=== PATIENT | female | born 1950 | race Caucasian/White ===

== ENCOUNTER 2018-12-10 22:18 | Inpatient (IN) | payer MEDICARE, BC ==
[~2018-12-10] VITALS: Ht 162.6 cm; Wt 113.4 kg
--- NOTE | 2018-12-10 22:20 | NUR ---
TO BED 1 BIB EMS C/O TRIPPED AND FALL, HAD DIFFICULTY GETTING UP BUT PT INSISTED FOR HER TO BE TRANSPORTED TO THE HOSPITAL DUE TO [id number]. PT AAOX3 NO ACUTE DISTRESS NOTED, RESP EVEN AND UNLABORED. PLACE PT ON CARDIAC MONITORING, CONTINUOUS POX. ER MD AT BEDSIDE TO EVAL PT WITH ORDERS RECEIVED. WILL CARRY OUT ORDERS.
[2018-12-10] MEDS ORDERED: IV NS 0.9% 500 ML BAG IV ONE ×2 (22:30→23:00)
[2018-12-10 22:54] LABS: BASOPHILS # (AUTO) 0.1 /CMM (0.0-0.2); BASOPHILS % (AUTO) 0.7 % (0.0-2.0); HEMATOCRIT 45 % (33-45); HEMOGLOBIN 14.9 g/dL (11.5-14.8); LYMPHOCYTES # (AUTO) 0.3 /CMM (0.8-4.8); LYMPHOCYTES % (AUTO) 1.9 % (20.0-44.0); MEAN CORPUSCULAR HGB CONC 33 g/dl (31.0-36.0); MEAN CORPUSCULAR VOLUME 98 fL (82-100); MONOCYTES # (AUTO) 0.5 /CMM (0.1-1.30); MONOCYTES % (AUTO) 3.2 % (2.0-12.0); NEUTROPHILS # (AUTO) 15.2 /CMM (1.8-8.9); NEUTROPHILS % (AUTO) 94.2 % (43.0-81.0); PLATELET COUNT (AUTO) 255 /CMM (150-450); RED BLOOD CELL COUNT(AUTO) 4.54 MIL/uL (4.0-5.2); WHITE BLOOD COUNT (AUTO) 16.2 K/uL (4.3-11.0)
[2018-12-10 23:06] LABS: CALCIUM, SERUM 9.1 mg/dL (8.5-10.1); CARBON DIOXIDE 23 mmol/L (21-32); CHLORIDE 95 mmol/L (98-107); CREATININE 1.1 mg/dL (0.6-1.3); SODIUM SERUM 131 mmol/L (136-145); UREA NITROGEN, BLOOD 16 mg/dL (7-18)
[2018-12-10 23:07] LABS: GLUCOSE 392 mg/dL (74-106)
--- NOTE | 2018-12-10 23:27 | NUR ---
PT BACK FROM RADIOLOGY. PENDING CT HEAD RESULT.
[2018-12-10] MEDS ORDERED: CEFEPIME 1 GM VIAL IV ONE (23:30)
[2018-12-10] MEDS ORDERED: CEFEPIME 1 GM VIAL ONE (23:39)
[2018-12-10 23:46] LABS: ALBUMIN 2.4 g/dL (3.4-5.0); BILIRUBIN,DIRECT 0.2 mg/dL (0.0-0.2); BILIRUBIN,TOTAL 0.9 mg/dL (0.2-1.0); TOTAL PROTEIN, SERUM 7.4 g/dL (6.4-8.2)
--- NOTE | 2018-12-11 00:14 | NUR ---
ER MD AT BEDSIDE TALKING TO PT AND PT FAMILY MEMBER REGARDING LAB RESULTS AND HOSPITAL ADMISSION.
--- NOTE | 2018-12-11 00:57 | NUR ---
I&O CATH DONE BY FEMALE SAMRA CARY. URINE SAMPLE COLLECTED AND SENT TO LAB.
[2018-12-11 01:18] LABS: APPEARANCE,URINE CLOUDY (CLEAR); BILIRUBIN,URINE NEGATIVE (NEGATIVE); BLOOD, URINE 2+ Ery/uL (NEGATIVE); COLOR,URINE YELLOW (YELLOW); KETONES,URINE 2+ (NEGATIVE); LEUKOCYTE ESTERASE ,URINE 1+ (NEGATIVE); NITRITE, URINE POSITIVE (NEGATIVE); PROTEIN,URINE 1+ mg/dl (NEGATIVE); UGLUCOSE 3+ mg/dL (NEGATIVE); UROBILINOGEN,URINE 0.2 EU/dL (0.2)
[2018-12-11 01:22] LABS: BACTERIA,URINE Moderate /HPF (None Seen); SQUAMOUS EPITHELIAL CELL,UR Moderate /HPF (None Seen); WBC,URINE TOO NUMEROUS TO COUN /HPF (0-3)
--- NOTE | 2018-12-11 01:31 | NUR ---
[facility]. WILL CALL FOR REPORT WHEN BED IS AVAILABLE.
[2018-12-11] MEDS ORDERED: DIPH-530 PO (01:50)
[2018-12-11] MEDS ORDERED: OXYC-454 PO (01:50)
[2018-12-11] MEDS ORDERED: RIVA10TA PO ×2 (01:50)
[2018-12-11] MEDS ORDERED: PREG300C PO (01:50)
[2018-12-11] MEDS ORDERED: LORA1TAB PO (01:50)
--- NOTE | 2018-12-11 02:00 | NUR ---
REPORT CALLED TO M/S SAMRA BARRON.
[2018-12-11 02:30] VITALS: BP 117/59
[2018-12-11] MEDS ORDERED: MAG HYDROX/AL HYDROX/SIMETH 30 ML UDC PO PRN (02:30)
[2018-12-11] MEDS ORDERED: MAGNESIUM HYDROXIDE 30 ML UDC PO PRN (02:30)
[2018-12-11] MEDS ORDERED: HYDROCODONE/APAP 10/325MG 1 EA TABLET PO PRN (02:30)
[2018-12-11] MEDS ORDERED: HYDROCODONE/APAP 5/325MG 1 EACH TABLET PO PRN (02:30)
[2018-12-11] MEDS ORDERED: ONDANSETRON HCL/PF 4 MG/2 ML VIAL IVP PRN (02:30)
[2018-12-11] MEDS ORDERED: ACETAMINOPHEN 325 MG TABLET PO PRN (02:30)
[2018-12-11] MEDS ORDERED: LORAZEPAM 1 MG TABLET PO PRN (02:30)
[2018-12-11] MEDS ORDERED: Z GUARD REMEDY 2 OZ OINT TP PRN (02:30)
[2018-12-11] MEDS ORDERED: ENOXAPARIN SODIUM 40 MG/0.4 ML DISP.SYRIN SQ SCH (02:30)
--- NOTE | 2018-12-11 02:30 | NUR ---
RN NOTES RECEIVED PT. FROM ER WITH DX, OF SEPSIS, A.OX2, AT BEDSIDE, OBESE, ADMISSION INSTRUCTION WAS GVIEN, CALL LIGHT WITHIN REACH, SIDERAILSUPX2, CONTINUE O MONITOR
--- NOTE | 2018-12-11 02:45 | NUR ---
RN NOTES PT. REFUSED TO HAVE A BED BATH, EVEN WE EXPLAINED THE IMPORTANCE OF BED BATH
[2018-12-11] MEDS: IV NS 0.9% 1,000 ML IV PRN ×2 (03:27→20:08)
--- NOTE | 2018-12-11 04:00 | NUR ---
RN NOTES EXPLAINED TO THE PATIENT THAT ALL HER MEDICATION WILL GIVEN THIS MORNING.. PER PT. IS TAKING LANTUS BUT THEY DON'T KNOW THE UNITS.. EXPLAINED TO THE THAT WHEN HE GETS HOME TO CHECK THE MEDICATION AND CALL US HOW MANY UNITS DOES MANFRED PT. TAKING
[2018-12-11] MEDS ORDERED: CEFTRIAXONE 1 G VIAL ONE (05:08)
[2018-12-11] MEDS: CEFTRIAXONE 1 G in IV D5W 50 ML IV SCH (05:35)
--- NOTE | 2018-12-11 06:00 | NUR ---
RN NOTES FINALLY PT. AGREED TO HAVE BED BATH
--- NOTE | 2018-12-11 06:00 | NUR ---
RN NOTES PAGED CARMEN CURTIS - DELINQUENCY PREVENTION OFFICER TO FOLLOW UP SOME HOME MEDICATION- WAITING FOR HIM TO CALL BACK
[2018-12-11 06:33] LABS: BASOPHILS % (AUTO) 0.3 % (0.0-2.0); HEMATOCRIT 41 % (33-45); HEMOGLOBIN 13.6 g/dL (11.5-14.8); LYMPHOCYTES # (AUTO) 0.6 /CMM (0.8-4.8); LYMPHOCYTES % (AUTO) 3.7 % (20.0-44.0); MEAN CORPUSCULAR HGB CONC 34 g/dl (31.0-36.0); MEAN CORPUSCULAR VOLUME 98 fL (82-100); MONOCYTES # (AUTO) 0.5 /CMM (0.1-1.30); MONOCYTES % (AUTO) 3.4 % (2.0-12.0); NEUTROPHILS # (AUTO) 14.1 /CMM (1.8-8.9); NEUTROPHILS % (AUTO) 92.6 % (43.0-81.0); PLATELET COUNT (AUTO) 236 /CMM (150-450); RED BLOOD CELL COUNT(AUTO) 4.14 MIL/uL (4.0-5.2); WHITE BLOOD COUNT (AUTO) 15.2 K/uL (4.3-11.0)
--- NOTE | 2018-12-11 07:00 | NUR ---
RN NOTES SPOKE TO PHARMACIST FOSTER REGARDING PT. XARELTO AND INFORMED AIDEN THAT PT. DID NOT TAKE IT YESTERDAY. PHARMACIST WILL GIVE XARELTO IN THE MORNING AND WILL FOLLOW THE REGULAR TIME THAT PT IS TAKING IT THE FOLLOWING DAY
--- NOTE | 2018-12-11 07:10 | NUR ---
RN NOTES GAVE REPORT TO THE DAYSHIFT NURS AND ASKED THEM TO FOLLOW UP SOME OF PT. HOME MEDICATION, MORNING CARE RENDERED, DENIES PAIN, NO SOB,. PT. NEEDS ATTENDED
[2018-12-11 07:14] LABS: CALCIUM, SERUM 8.5 mg/dL (8.5-10.1); MAGNESIUM 1.6 mg/dL (1.8-2.4); PHOSPHORUS 3.7 mg/dL (2.5-4.9); POTASSIUM 4.6 mmol/L (3.5-5.1)
[2018-12-11 07:17] LABS: THYROID STIMULATING HORMONE 1.648 uIU/mL (0.358-3.74)
--- NOTE | 2018-12-11 08:00 | NUR ---
MS SAMRA AM NOTES RECEIVED PT. A.OX3-4.WITH FORGETFULNESS. AT BEDSIDE, OBESE, USES BEDSIDE COMMODE.DENIES PAIN OR DISTRESS.WITH ONGOING IVF OF NS AT 75 ML/HR TO LT ARM INFUSING WELL.FOR PT EVAL.CALL LIGHT WITHIN REACH, SIDERAILS UPX2, CONTINUE TO MONITOR
[2018-12-11 08:45] VITALS: BP 110/57
[2018-12-11] MEDS ORDERED: INSU100V7 SQ (08:52)
[2018-12-11] MEDS: PREGABALIN 100 MG CAPSULE PO SCH ×3 (08:55→16:55)
[2018-12-11] MEDS: RIVAROXABAN 10 MG TABLET PO SCH (08:58)
[2018-12-11] MEDS: BLOOD SUGAR DIAGNOSTIC 1 EACH STRIP IN SCH ×4 (08:59→21:02)
[2018-12-11] MEDS ORDERED: DEXTROSE 50%-WATER 50 ML DISP.SYRIN IV PRN (09:00)
[2018-12-11] MEDS: INSULIN ASPART/LISPRO 100 UNIT/ML CARTRIDGE SQ PRN ×4 (09:40→21:07)
[2018-12-11] MEDS ORDERED: Magnesium 1GM/D5W 100ML PREMIX 100 ML IV SCH (11:41)
--- NOTE | 2018-12-11 12:06 | NUR ---
PT IS EATING HER LUNCH AND WANTS HER IV MAGNESIUM FIRST BAG TO BE INFUSED AFTER SHE EATS HER LUNCH CAUSING DELAY IN INFUSION.
[2018-12-11] MEDS: Magnesium 1GM/D5W 100ML PREMIX 100 ML IV SCH ×2 (12:42→13:57)
[2018-12-11 16:03] VITALS: BP 100/63
--- NOTE | 2018-12-11 18:08 | NUR ---
PT IS EATING DINNER AND IS SO HAPPY THAT HER BLOOD SUGAR IS TRENDING DOWN WITH THE SLIDING SCALE SHE IS RECEIVING.DENIES ANY DISTRESS.ASSISTED TO THE COMMODE SEVERAL TIMES.MADE SMALL BROWN BM DURING THE SHIFT.GOOD PERICARE RENDERED.CALL LIGHT PLACED WITHIN REACH.
--- NOTE | 2018-12-11 19:00 | NUR ---
RN NOTES RECEIVE PT IN THE BED A/O X 3 WITH PERIOD OF FORGETFULNESS AT BEDISDE, IN STABLE CONDITION, NOT IN DISTRESS, SAFETY MEASURES IN PLACE. WILL CONTINUE TO MONITOR.
[2018-12-11 20:00] VITALS: BP 133/104
--- NOTE | 2018-12-11 21:51 | NUR ---
SPOKE AND PAGED TO CARMEN CURTIS, MARIEL RELAYED LAB OF BLOOD CULTURE + COCCI IN CHAINS SEEN ON GRAM STAIN WITH NO NEW ORDERS NOTED AND CARRIED OUT.
[2018-12-12] MEDS: CEFTRIAXONE 1 G in IV D5W 50 ML IV SCH (05:01)
[2018-12-12] MEDS: BLOOD SUGAR DIAGNOSTIC 1 EACH STRIP IN SCH ×4 (05:52→21:48)
[2018-12-12] MEDS: INSULIN ASPART/LISPRO 100 UNIT/ML CARTRIDGE SQ PRN ×4 (05:53→21:59)
--- NOTE | 2018-12-12 06:03 | NUR ---
RN CLOSING NOTE PT IN BED ASLEEP AND EASILY AWAKEN 02 SAT 98% TOLERATING ROOM AIR. AT BEDSIDE. STABLE CONDITION, NOT IN DISTRESS. RESPIRATIONS EVEN AND UNLABORED. NURSING CARE RENDERED, GOOD SKIN CARE PROVIDED. NO COMPLAIN OF PAIN KEPT CLEAN AND DRY AND COMFORT, SAFETY MEASURES IN PLACE, CALL LIGHT WITHIN REACH. WILL ENDORSE TO HOOK LOADER FOR TIEN.
[2018-12-12 07:06] LABS: CALCIUM, SERUM 8.5 mg/dL (8.5-10.1); CREATININE 0.8 mg/dL (0.6-1.3); POTASSIUM 4.2 mmol/L (3.5-5.1)
[2018-12-12 08:00] VITALS: BP 121/69
--- NOTE | 2018-12-12 08:00 | NUR ---
MS SAMRA AM NOTES RECEIVED PT. A.OX3.ATTENTION SEEKER .WITH FORGETFULNESS. AT BEDSIDE, OBESE, USES BEDSIDE COMMODE.DENIES PAIN OR DISTRESS.WITH ONGOING IVF OF NS AT 75 ML/HR TO LT ARM INFUSING WELL.CALL LIGHT WITHIN REACH, SIDERAILS UPX2, WILL CONTINUE TO MONITOR
[2018-12-12] MEDS: PREGABALIN 100 MG CAPSULE PO SCH ×4 (09:09→21:56)
[2018-12-12] MEDS ORDERED: FEE PK DOSING 1 MIN EA MC ONE (09:21)
[2018-12-12] MEDS: VANCOMYCIN 1.25 GM in IV D5W 500 ML IV SCH (11:14)
[2018-12-12 16:00] VITALS: BP 114/64
[2018-12-12] MEDS ORDERED: PREG150C PO (16:13)
[2018-12-12] MEDS ORDERED: DIPH50CA4 PO (16:13)
[2018-12-12] MEDS ORDERED: INSU100V27 SQ (16:14)
[2018-12-12] MEDS: RIVAROXABAN 10 MG TABLET PO SCH (16:56)
--- NOTE | 2018-12-12 19:25 | NUR ---
RN NOTES RECEIVED PT IN BED, ALERT AN ORIENTED X 3, VERBALLY RESPONSIVE, AT BEDSIDE. PT WITH NO C/O PAIN, DENIES NAUSEA/DIZZINESS, NO SOB, BREATHING EVEN AND UNLABORED. PT I NO DISTRESS AT THIS TIME. IV FLUIDS RUNNING ORDERED. ALL PATIENT'S NEEDS ATTENDED TO. PLACED CALL LIGHT WITHIN EASY REACH. WILL CONTINUE TO MONITOR PT.
[2018-12-12 20:00] VITALS: BP 147/81
[2018-12-12] MEDS: IV NS 0.9% 1,000 ML IV PRN (23:10)
[2018-12-13] MEDS: VANCOMYCIN 1.25 GM in IV D5W 500 ML IV SCH ×2 (04:10→21:41)
[2018-12-13] MEDS: INSULIN ASPART/LISPRO 100 UNIT/ML CARTRIDGE SQ PRN ×4 (06:17→21:35)
[2018-12-13] MEDS: BLOOD SUGAR DIAGNOSTIC 1 EACH STRIP IN SCH ×4 (06:46→21:32)
[2018-12-13] MEDS: CEFTRIAXONE 1 G in IV D5W 50 ML IV SCH (06:46)
--- NOTE | 2018-12-13 06:54 | NUR ---
RN CLOSING NOTES PATIENT SLEPT WELL THROUGHOUT THE SHIFT, REMAINED AFEBRILE, NO S/S OF DISTRESS. NO SOB, BREATHING EVEN AND UNLABORED AND IN STABLE CONDITION. IV PERIPHERAL LINE ON LEFT FOREARM G#20, INTACT AND PATENT. IVF INFUSING WELL ORDERED. ALL PATIENT'S NEEDS ATTENDED TO. PLACED CALL LIGHT WITHIN EASY REACH. PT'S SPOUSE REMAINS TO BE AT BEDSIDE. WILL ENDORSE TO AM SHIFT NURSE FOR CONTINUITY OF CARE.
[2018-12-13 07:32] LABS: CALCIUM, SERUM 8.6 mg/dL (8.5-10.1); CREATININE 0.7 mg/dL (0.6-1.3); POTASSIUM 4.1 mmol/L (3.5-5.1)
[2018-12-13 08:00] VITALS: BP 141/77
[2018-12-13 08:25] LABS: BASOPHILS # (AUTO) 0.1 /CMM (0.0-0.2); BASOPHILS % (AUTO) 0.8 % (0.0-2.0); EOSINOPHILS % (AUTO) 1.2 % (0.0-6.0); HEMATOCRIT 40 % (33-45); HEMOGLOBIN 13.4 g/dL (11.5-14.8); LYMPHOCYTES # (AUTO) 1.2 /CMM (0.8-4.8); MEAN CORPUSCULAR HGB CONC 34 g/dl (31.0-36.0); MEAN CORPUSCULAR VOLUME 98 fL (82-100); MONOCYTES # (AUTO) 0.3 /CMM (0.1-1.30); MONOCYTES % (AUTO) 4.6 % (2.0-12.0); NEUTROPHILS # (AUTO) 5.8 /CMM (1.8-8.9); NEUTROPHILS % (AUTO) 77.4 % (43.0-81.0); PLATELET COUNT (AUTO) 247 /CMM (150-450); RED BLOOD CELL COUNT(AUTO) 4.05 MIL/uL (4.0-5.2); WHITE BLOOD COUNT (AUTO) 7.5 K/uL (4.3-11.0)
[2018-12-13] MEDS: PREGABALIN 100 MG CAPSULE PO SCH ×2 (10:22→21:28)
[2018-12-13 16:00] VITALS: BP 138/67
[2018-12-13] MEDS: RIVAROXABAN 10 MG TABLET PO SCH (17:10)
[2018-12-13] MEDS: IV NS 0.9% 1,000 ML IV PRN (19:08)
--- NOTE | 2018-12-13 19:15 | NUR ---
MS RN OPENING NOTES RECEIVED PATIENT SITTING UP IN BED, ALERT, ORIENTED X 4, AT BEDSIDE. BREATHING EVEN AND UNLABORED. NOT IN ANY DISTRESS. NO COMPLAINTS OF PAIN OR DISCOMFORT OF THIS TIME. PERIPHERAL IV OF NS AT 75ML/HR. CALL [place] WITHIN REACH. BED IN LOW, LOCKED POSITION. PATIENT STABLE ENDORSED BY THE MORNING RN. WILL CONTINUE TO MONITOR ACCORDINGLY.
[2018-12-13 20:00] VITALS: BP 136/76
--- NOTE | 2018-12-14 00:50 | NUR ---
RN NOTE BSL LEVEL CHECKED PER MD ORDER, 3HRS AFTER HS COVERAGE TO PREVENT AM HYPOGLYCEMIA. BSL- 270MG/DL
[2018-12-14] MEDS: CEFTRIAXONE 1 G in IV D5W 50 ML IV SCH (05:47)
[2018-12-14] MEDS: BLOOD SUGAR DIAGNOSTIC 1 EACH STRIP IN SCH ×4 (06:33→21:41)
[2018-12-14] MEDS: INSULIN ASPART/LISPRO 100 UNIT/ML CARTRIDGE SQ PRN ×4 (06:37→21:49)
[2018-12-14 07:07] LABS: CALCIUM, SERUM 8.6 mg/dL (8.5-10.1); CREATININE 0.8 mg/dL (0.6-1.3); POTASSIUM 4.3 mmol/L (3.5-5.1)
--- NOTE | 2018-12-14 07:18 | NUR ---
RN CLOSING NOTES PATIENT SLEPT WELL THROUGHOUT THE SHIFT, REMAINED AFEBRILE, NO S/S OF DISTRESS. NO SOB, BREATHING EVEN AND UNLABORED AND IN STABLE CONDITION. PERIPHERAL IV ON LEFT FOREARM G#20, INTACT AND PATENT, INFUSING AT 75ML/HR. ALL PATIENT'S NEEDS ATTENDED TO. PLACED CALL LIGHT WITHIN EASY REACH. PT'S SPOUSE REMAINS TO BE AT BEDSIDE. ENDORSED CONTINUITY OF CARE TO AM RN.
--- NOTE | 2018-12-14 07:33 | NUR ---
RN OPENING NOTES PT WAS RECEIVED IN BED AT LOWEST AND LOCKED POSITION WITH SIDE RAILS UP X2, A/O X4, BREATHING EVEN AND UNLABORED, NO S/S OF PAIN OR DISTRESS NOTED AT THIS TIME, IV IS PATENT AND INTACT, PRESENT AT BEDSIDE, SAFETY PRECAUTIONS IN PLACE, CALL LIGHT WITHIN REACH, WILL MONITOR ACCORDINGLY
[2018-12-14 08:00] VITALS: BP 128/69
[2018-12-14] MEDS: PREGABALIN 100 MG CAPSULE PO SCH ×2 (08:07→21:15)
[2018-12-14] MEDS: VANCOMYCIN 1.25 GM in IV D5W 500 ML IV SCH (15:10)
[2018-12-14 16:00] VITALS: BP 137/69
[2018-12-14] MEDS: RIVAROXABAN 10 MG TABLET PO SCH (16:21)
[2018-12-14] MEDS: LACTOBACILLUS RHAMNOSUS GG 1 EACH CAP.SPRINK PO SCH (16:21)
--- NOTE | 2018-12-14 18:44 | NUR ---
RN CLOSING NOTES PT IN BED AT LOWEST AND LOCKED POSITION WITH SIDE RAILS UP X2, A/O X4, BREATHING EVEN AND UNLABORED, NO S/S OF PAIN OR DISTRESS, IV IS PATENT AND INTACT, SAFETY PRECAUTIONS IN PLACE, CALL LIGHT WITHIN REACH, ALL NEEDS ATTENDED TO, WILL ENDORSE TO MATERIAL MAN RN FOR TIEN.
--- NOTE | 2018-12-14 19:15 | NUR ---
MS RN OPENING NOTES: RECEIVED PT ON ROOM AIR AND IS TOLERATING WELL. AT BEDSIDE. PT WATCHING TELEVISION AT THIS TIME. PT ON ROOM AIR AND TOLERATING WELL. NO SOB OR S/S OF DISTRESS NOTED AT THIS TIME. PT HAS IV ON L FOREARM #20G AND IS PATENT AND INTACT. CURRENTLY H/L. BED KEPT IN LOW, LOCKED POSITION, AND SIDE RAILS X 2UP. WILL CONTINUE TO MONITOR PT.
[2018-12-14 20:00] VITALS: BP 153/82
--- NOTE | 2018-12-14 21:50 | NUR ---
MS RN NOTES: BLOOD SUGAR THIS AM WAS 286. 6 UNITS OF INSULIN WAS ADMINISTERED. PT HAS MULTIPLE FOODS AT BEDSIDE.
[2018-12-15] MEDS: CEFTRIAXONE 1 G in IV D5W 50 ML IV SCH (05:19)
[2018-12-15] MEDS: BLOOD SUGAR DIAGNOSTIC 1 EACH STRIP IN SCH ×2 (06:15→11:55)
[2018-12-15] MEDS: INSULIN ASPART/LISPRO 100 UNIT/ML CARTRIDGE SQ PRN ×2 (06:27→11:54)
--- NOTE | 2018-12-15 06:30 | NUR ---
MS RN NOTES: BLOOD SUGAR THIS AM WAS 270. 6 UNITS OF INSULIN WAS ADMINISTERED. APPLE SAUCE WAS GIVEN TO PT.
[2018-12-15 06:42] LABS: CALCIUM, SERUM 8.6 mg/dL (8.5-10.1); CREATININE 0.7 mg/dL (0.6-1.3); POTASSIUM 3.7 mmol/L (3.5-5.1)
--- NOTE | 2018-12-15 06:44 | NUR ---
MS RN CLOSING NOTES: ALL NEEDS WERE ATTENDED AND ANTICIPATED FOR. PT REFUSING TO HAVE HER BED CHANGED. PT ON 2LPM VIA NC AND IS TOLERATING WELL. AT BEDSIDE. NO SOB NOTED. NO S/S OF DISTRESS. PT AWAITING FOR BREAKFAST TO ARRIVE. BED KEPT IN LOW, LOCKED POSITION, AND SIDE RAILS X 2UP. WILL ENDORSE TO AM NURSE FOR TIEN.
--- NOTE | 2018-12-15 07:30 | NUR ---
MS/RN Patient received Patient received from lieutenant shift supervisor. A/O X4, vital signs stable, denies any pain or discomfort. Heplock to left hand flushing well with normal saline, no signs of infiltration seen. Safety measures in place, will continue to monitor and ensure safety.
[2018-12-15 08:11] VITALS: BP 121/75
[2018-12-15] MEDS: LACTOBACILLUS RHAMNOSUS GG 1 EACH CAP.SPRINK PO SCH (08:21)
[2018-12-15] MEDS: PREGABALIN 100 MG CAPSULE PO SCH (08:21)
[2018-12-15 09:08] VITALS: BP 121/75
--- NOTE | 2018-12-15 09:41 | NUR ---
MS/RN Vancomycin Vancomycin trough 9, dose administered as ordered.
[2018-12-15] MEDS: VANCOMYCIN 1.25 GM in IV D5W 500 ML IV SCH (09:45)
--- NOTE | 2018-12-15 10:15 | NUR ---
MS/RN Heplock New heplock inserted in right forearm, 22g.
--- NOTE | 2018-12-15 11:06 | NUR ---
MS/RN S/B Dr Turcios Seen by Dr Turcios - patient to be discharged to home today to complete antibiotics in pill form.
--- NOTE | 2018-12-15 12:27 | NUR ---
MS/RN Exit care Exit care completed, waiting for Dr Turcios to enter discharge order and home medications.
[2018-12-15] MEDS ORDERED: CIPR500T5 PO (14:34)
--- NOTE | 2018-12-15 15:09 | NUR ---
MS/fishing captain Patient discharged to home in stable condition. Escorted to main lobby by BRIDGE PAINTER and . Refused to have pictures taken of bruise to right arm stating that as her could not drive they had to call a neighbor to take them home and he could not wait any longer for them. Prescription given to patient for cipro 500mg BID X5 days, educated as to possible side effects including upset stomach and diarrhea. Educated patient to ensure that she was aware of the importance of filling prescription as soon as possible and to complete entire coure of oral anti-biotics. Stated understanding.
[2018-12-15] MEDS ORDERED: VANCOMYCIN 1.25 GM in IV D5W 500 ML IV SCH (22:00)
== END 2018-12-15 15:00 | disposition home health service (06) | DRG 871 ==
LOC: ER 22:21 → MED 12-11 02:08
PROVIDERS: ADMIT Internal Medicine
DX: A41.9 Sepsis, unspecified organism (principal); G93.41 Metabolic encephalopathy; N39.0 Urinary tract infection, site not specified; E87.2 Acidosis; E11.51 Type 2 diabetes mellitus with diabetic peripheral angiopathy without gangrene; E83.42 Hypomagnesemia; Y92.009 Unspecified place in unspecified non-institutional (private) residence as the place of occurrence of the external cause; W01.0XXA Fall on same level from slipping, tripping and stumbling without subsequent striking against object, initial encounter; Z79.4 Long term (current) use of insulin; Z88.2 Allergy status to sulfonamides; Z79.01 Long term (current) use of anticoagulants; Z79.899 Other long term (current) drug therapy; E11.649 Type 2 diabetes mellitus with hypoglycemia without coma; B96.1 Klebsiella pneumoniae [K. pneumoniae] as the cause of diseases classified elsewhere
CPT/HCPCS: 36415; 70450-TC; 71045-TC; 80048-TC; 80061-TC; 80076-TC; 80202-TC; 81000-TC; 82962-TC; 83605-TC; 83735-TC; 84100-TC; 84443-TC; 84484-TC; 85025-TC; 85730-TC; 87040-TC; 87081-TC; 87086-TC; 87186-TC; 93307-TC; G0378; J0692; J0696; J1815; J3370; J3475; J7030; J7040; J7050; J7060

== ENCOUNTER 2019-04-22 07:44 | Inpatient (IN) | payer MEDICARE, OTHER ==
[~2019-04-22] VITALS: Ht 162.6 cm; Wt 111.6 kg
[~2019-04-22 07:44] MED LIST: CIPR500T5 PO; INSU100V27 SQ; INSU100V7 SQ; LORA1TAB PO; OXYC-454 PO; PREG150C PO; RIVA10TA PO
--- NOTE | 2019-04-22 07:46 | NUR ---
PT BIBRA FROM HOME TO ED BED 01. PER REPORT, PT WAS UNABLE TO GET UP AFTER SLIDING OFF THE BED. PT IS C/O GENERALIZED WEAKNESS. FEBRILE AND TACHY RAILROAD TRACK REPAIR SUPERVISOR. PT DENIES ANY PAIN RAILROAD TRACK REPAIR SUPERVISOR. PLACED ON MONITOR. AWAITING MD BLANCO.
--- NOTE | 2019-04-22 07:54 | NUR ---
DR CERVANTES AT BEDSIDE FOR EVAL.
[2019-04-22] MEDS ORDERED: IV NS 0.9% 1,000 ML BAG IV ONE (08:00)
--- NOTE | 2019-04-22 08:05 | NUR ---
URINE SPECIMEN COLLECTED VIA STRAIGHT CATH, URINE APPEARANCE CLOUDY.
--- NOTE | 2019-04-22 08:06 | NUR ---
RADIOLOGY AT BEDSIDE FOR EVAL.
--- NOTE | 2019-04-22 08:13 | NUR ---
CALLED FOR TELE BED
[2019-04-22 08:15] LABS: NEUTROPHILS # (AUTO) 11.3 /CMM (1.8-8.9); WHITE BLOOD COUNT (AUTO) 12.2 K/uL (4.3-11.0)
[2019-04-22 08:18] LABS: BASOPHILS % (AUTO) 0.4 % (0.0-2.0); EOSINOPHILS % (AUTO) 0.1 % (0.0-6.0); HEMATOCRIT 46 % (33-45); HEMOGLOBIN 15.7 g/dL (11.5-14.8); LYMPHOCYTES # (AUTO) 0.5 /CMM (0.8-4.8); LYMPHOCYTES % (AUTO) 3.8 % (20.0-44.0); MEAN CORPUSCULAR HGB CONC 34 g/dl (31.0-36.0); MEAN CORPUSCULAR VOLUME 95 fL (82-100); MONOCYTES # (AUTO) 0.4 /CMM (0.1-1.30); MONOCYTES % (AUTO) 3.5 % (2.0-12.0); NEUTROPHILS % (AUTO) 92.2 % (43.0-81.0); PLATELET COUNT (AUTO) 178 /CMM (150-450); RED BLOOD CELL COUNT(AUTO) 4.87 MIL/uL (4.0-5.2)
[2019-04-22 08:22] LABS: APPEARANCE,URINE Clear (CLEAR); BILIRUBIN,URINE Negative (NEGATIVE); BLOOD, URINE Moderate Ery/uL (NEGATIVE); COLOR,URINE Yellow (YELLOW); KETONES,URINE Trace (NEGATIVE); LEUKOCYTE ESTERASE ,URINE Trace (NEGATIVE); NITRITE, URINE Negative (NEGATIVE); PROTEIN,URINE 30 mg/dl (NEGATIVE); UGLUCOSE >=1000 mg/dL (NEGATIVE); UROBILINOGEN,URINE 0.2 EU/dL (0.2)
--- NOTE | 2019-04-22 08:23 | NUR ---
GOT BED 106
[2019-04-22 08:25] LABS: CHLORIDE 99 mmol/L (98-107); POTASSIUM 4.3 mmol/L (3.5-5.1); SODIUM SERUM 135 mmol/L (136-145)
[2019-04-22 08:26] LABS: CALCIUM, SERUM 8.9 mg/dL (8.5-10.1); CARBON DIOXIDE 25 mmol/L (21-32); CREATININE 1.3 mg/dL (0.6-1.3); UREA NITROGEN, BLOOD 29 mg/dL (7-18)
[2019-04-22 08:28] LABS: GLUCOSE 457 mg/dL (74-106)
[2019-04-22 08:32] LABS: BACTERIA,URINE Few /HPF (None Seen); SQUAMOUS EPITHELIAL CELL,UR Few /HPF (None Seen)
[2019-04-22 08:37] LABS: ALANINE AMINOTRANSFERASE 17 U/L (12-78); ALKALINE PHOSPHATASE 110 U/L (46-116); ASPARTATE AMINOTRANSFERASE 11 U/L (15-37); BILIRUBIN,DIRECT 0.3 mg/dL (0.0-0.2); BILIRUBIN,TOTAL 1.6 mg/dL (0.2-1.0)
--- NOTE | 2019-04-22 08:44 | NUR ---
CALLED [facility] ITS FRANCISCO JAVIER
[2019-04-22] MEDS ORDERED: CEFTRIAXONE 1GM BAG (ER ONLY) 50 ML IV ONE (08:50)
[2019-04-22] MEDS ORDERED: INSULIN REGULAR, HUMAN 100 UNIT/ML 10 ML VIAL ONE (08:50)
--- NOTE | 2019-04-22 08:55 | NUR ---
REPORT GIVEN TO NTIESH CABRALES. PT AWAITING TRANSFER TO FLOOR.
[2019-04-22] MEDS ORDERED: CEFTRIAXONE 1 G VIAL IM SCH (09:00)
[2019-04-22] MEDS ORDERED: INSULIN REGULAR, HUMAN 100 UNIT/ML 3 ML VIAL SQ ONE ×2 (09:00→12:00)
[2019-04-22] MEDS ORDERED: MORPHINE SULFATE INJ 2 MG/ML DISP.SYRIN IV PRN (10:00)
[2019-04-22] MEDS ORDERED: *INSULIN REGULAR(HUMULIN R)HUM 100 UNIT/ML VIAL SQ PRN (10:00)
[2019-04-22] MEDS ORDERED: Z GUARD REMEDY 2 OZ OINT TP PRN (10:00)
[2019-04-22] MEDS ORDERED: DEXTROSE 50%-WATER 50 ML DISP.SYRIN IV PRN ×2 (10:00→13:30)
[2019-04-22] MEDS ORDERED: ONDANSETRON HCL/PF 4 MG/2 ML VIAL IVP PRN (10:00)
[2019-04-22] MEDS ORDERED: MAG HYDROX/AL HYDROX/SIMETH 30 ML UDC PO PRN (10:00)
[2019-04-22] MEDS ORDERED: ZOLPIDEM TARTRATE 5 MG TABLET PO PRN (10:00)
[2019-04-22] MEDS ORDERED: MAGNESIUM HYDROXIDE 30 ML UDC PO PRN (10:00)
[2019-04-22] MEDS ORDERED: LORAZEPAM 1 MG TABLET PO PRN (10:00)
[2019-04-22] MEDS ORDERED: INSULIN REGULAR, HUMAN 100 UNIT/ML 3 ML VIAL SQ PRN (10:00)
[2019-04-22] MEDS: RIVAROXABAN 10 MG TABLET PO SCH (10:35)
--- NOTE | 2019-04-22 11:55 | NUR ---
Elevation in blood glucose. Call to provider. Given additional 10 units subcutaneously in the patient medication record as ordered. Artem Walters RN
[2019-04-22 12:00] VITALS: BP 108/58
[2019-04-22] MEDS ORDERED: BLOOD SUGAR DIAGNOSTIC 1 EACH STRIP VI SCH (12:00)
--- NOTE | 2019-04-22 12:00 | NUR ---
Regular insulin 10 units given in addition to 10 units with sliding scale. Total of 20 units regular at lunch. Artem Walters RN
[2019-04-22] MEDS: IV NS 0.9% 1,000 ML IV PRN ×2 (12:17→21:34)
[2019-04-22 16:00] VITALS: BP 104/56
[2019-04-22] MEDS: PREGABALIN 100 MG CAPSULE PO SCH (16:12)
--- NOTE | 2019-04-22 16:54 | NUR ---
Patient asking for oxycontin. Instrument Lens Generator noted medication not available in her medication. Patient verbalized understanding. Artem Walters RN
[2019-04-22] MEDS: BLOOD SUGAR DIAGNOSTIC 1 EACH STRIP IN SCH ×2 (16:59→21:44)
[2019-04-22] MEDS: INSULIN ASPART/LISPRO 100 UNIT/ML CARTRIDGE SQ PRN (17:04)
[2019-04-22] MEDS: INSULIN ASPART/LISPRO 100 UNIT/ML CARTRIDGE SQ SCH (17:05)
--- NOTE | 2019-04-22 18:47 | NUR ---
Patient needs met at this time. She says she used to take vicodin. Movie Machine Operator explained this medication does not exist. She verbalized understanding. Artem Walters RN
--- NOTE | 2019-04-22 19:28 | NUR ---
Endorsed care to SAMRA Dyer. Artem Walters RN
--- NOTE | 2019-04-22 19:50 | NUR ---
RN OPENING NOTES RECEIVED PATIENT ASLEEP RESTING COMFORTABLY IN BED. PATIENT HAS NO SIGNS OF RESPIRATORY DISTRESS. NO SIGNS OF SOB. PATIENT HAS NO FACIAL GRIMACING OR DISCOMFORT AT THIS TIME. IV SITE PATENT AND INTACT. SAFETY PRECAUTIONS IMPLEMENTED. CALL LIGHT WITHIN REACH. SAFETY PRECAUTIONS IMPLEMENTED. CALL LIGHT WITHIN REACH.
[2019-04-22 20:00] VITALS: BP 113/64
[2019-04-22] MEDS: CEFTRIAXONE 1 G in IV D5W 50 ML IV SCH (21:16)
[2019-04-22] MEDS: INSULIN GLARGINE, 100 UNIT/ML CARTRIDGE SQ SCH (21:49)
[2019-04-22] MEDS: *INSULIN ASPART NOVOLOG 100 UNIT/ML CARTRIDGE SQ PRN (22:04)
--- NOTE | 2019-04-22 22:05 | NUR ---
RN NOTES CURRENT BLOOD SUGAR 148. LANTUS AND NOVOLOG GIVEN. SNACKS GIVEN. WILL CONTINUE TO MONITOR PATIENT.
[2019-04-22] MEDS: ACETAMINOPHEN 325 MG TABLET PO PRN (22:56)
[2019-04-23] VITALS: BP 129/67
[2019-04-23 04:00] VITALS: BP 134/76
--- NOTE | 2019-04-23 04:54 | NUR ---
RN NOTES PATIENT RELOCATED TO ROOM 102 AT 0445. PATIENT COMPLAINED OF NOT GETTING ENOUGH REST SINCE GETTING ADMITTED DUE TO HER ROOMMATE MAKING TOO MUCH NOISE IN ROOM 115. WILL CONTINUE TO MONITOR PATIENT.
[2019-04-23] MEDS: INSULIN ASPART/LISPRO 100 UNIT/ML CARTRIDGE SQ PRN ×3 (05:35→16:51)
[2019-04-23] MEDS: ACETAMINOPHEN 325 MG TABLET PO PRN ×2 (05:37→18:06)
--- NOTE | 2019-04-23 05:38 | NUR ---
RN NOTES PATIENT REQUESTED TYLENOL AT THIS TIME FOR HEADACHE PAIN 01/03. WILL CONTINUE TO MONITOR PATIENT.
--- NOTE | 2019-04-23 05:40 | NUR ---
RN NOTES PATIENT'S BLOOD SUGAR 219. ADMINISTERED 6 UNITS OF NOVOLOG. PATIENT ATE SNACKS AFTER INSULIN ADMINISTRATION.
--- NOTE | 2019-04-23 06:18 | NUR ---
RN CLOSING NOTES PATIENT IS ASLEEP, RESTING COMFORTABLY. PATIENT IS EASILY AROUSABLE VERBALLY OR BY TOUCH. WHEN AWAKE, PATIENT IS ALERT AND ORIENTED X 4. NO SIGNS OF RESPIRATORY DISTRESS. RESPIRATIONS EVEN AND UNLABORED. NO FACIAL GRIMACING OR DISCOMFORT NOTED AT THIS TIME. LEFT HAND IV SITE INTACT AND PATENT, FLUSHING WELL. HOB ELEVATED AT ALL TIMES. ALL MEDICATIONS GIVEN AND TOLERATED WELL. ALL NEEDS ANTICIPATED. PATIENT REPOSITIONED Q2HR. SAFETY PRECAUTIONS IMPLEMENTED. CALL LIGHT WITHIN REACH. BED LOCKED AND IN LOWEST POSITION. WILL ENDORSE TO AM NURSE FOR CONTINUITY OF CARE.
[2019-04-23 06:58] LABS: BASOPHILS % (AUTO) 0.5 % (0.0-2.0); EOSINOPHILS % (AUTO) 1.6 % (0.0-6.0); HEMATOCRIT 42 % (33-45); HEMOGLOBIN 14.1 g/dL (11.5-14.8); LYMPHOCYTES # (AUTO) 1.2 /CMM (0.8-4.8); LYMPHOCYTES % (AUTO) 16.2 % (20.0-44.0); MEAN CORPUSCULAR HGB CONC 34 g/dl (31.0-36.0); MEAN CORPUSCULAR VOLUME 94 fL (82-100); MONOCYTES # (AUTO) 0.6 /CMM (0.1-1.30); MONOCYTES % (AUTO) 8.1 % (2.0-12.0); NEUTROPHILS # (AUTO) 5.6 /CMM (1.8-8.9); NEUTROPHILS % (AUTO) 73.6 % (43.0-81.0); PLATELET COUNT (AUTO) 157 /CMM (150-450); RED BLOOD CELL COUNT(AUTO) 4.43 MIL/uL (4.0-5.2); WHITE BLOOD COUNT (AUTO) 7.5 K/uL (4.3-11.0)
--- NOTE | 2019-04-23 07:10 | NUR ---
RN NOTES ENDORSED CARE TO SAMRA DOWLING.
[2019-04-23 07:11] LABS: THYROID STIMULATING HORMONE 1.556 uIU/mL (0.358-3.74)
[2019-04-23 07:15] LABS: ALBUMIN 2.5 g/dL (3.4-5.0); BILIRUBIN,TOTAL 1.2 mg/dL (0.2-1.0); CALCIUM, SERUM 8.4 mg/dL (8.5-10.1); CREATININE 0.8 mg/dL (0.6-1.3); MAGNESIUM 1.7 mg/dL (1.8-2.4); PHOSPHORUS 3.1 mg/dL (2.5-4.9); POTASSIUM 4.1 mmol/L (3.5-5.1); TOTAL PROTEIN, SERUM 6.2 g/dL (6.4-8.2)
[2019-04-23] MEDS: BLOOD SUGAR DIAGNOSTIC 1 EACH STRIP IN SCH ×4 (07:44→21:10)
[2019-04-23 08:00] VITALS: BP 139/65
[2019-04-23] MEDS: RIVAROXABAN 10 MG TABLET PO SCH (08:33)
[2019-04-23] MEDS: PREGABALIN 100 MG CAPSULE PO SCH ×2 (08:33→16:44)
[2019-04-23] MEDS: PANTOPRAZOLE 40 MG TABLET.DR PO SCH (08:34)
[2019-04-23] MEDS: Magnesium 1GM/D5W 100ML PREMIX 100 ML IV SCH ×2 (10:45→11:36)
[2019-04-23] MEDS: HYDROCODONE/APAP 5/325MG 1 EACH TABLET PO PRN (11:11)
[2019-04-23] MEDS: IV NS 0.9% 1,000 ML IV PRN (11:44)
[2019-04-23 16:00] VITALS: BP 152/74
[2019-04-23] MEDS: INSULIN ASPART/LISPRO 100 UNIT/ML CARTRIDGE SQ SCH (16:53)
--- NOTE | 2019-04-23 19:21 | NUR ---
Endorsed to SAMRA Calvo. Artem Walters RN
--- NOTE | 2019-04-23 19:23 | NUR ---
RN INITIAL NOTES: RECEIVED REPORT FROM NITESH CABRALES. PT IN BED, AWAKE. A/O X4, ON RA RESPIRATION EVEN AND UNLABORED. MET WITH PT'S AT BED SIDE. NEW IV ACCESS ON RFA G22 PATENT AND FLUSHING WELL, CONNECTED TO IVF NS AT 75ML/HR. PT DENIES ANY DISCOMFORT OR SOB AT THIS TIME. DISCUSSED WITH PT AND FAMILY REGARDING PLAN OF CARE TONIGHT. NO ABDOMINAL DISTENTION NOTED. BLADDER SCAN Q8HRS ORDERED, LAST IS 1800, NEXT WILL BE 0200AM. PT DENIES ANY PAIN OR DISCOMFORT UPON PALPATION OF THE ABDOMEN, BLADDER AREA. PT VOIDED FREELY USING BED DELEON. SAFETY PRECAUTIONS FOR FALL INITIATED, CALL LIGHT IN REACH, WILL CONTINUE MONITORING PT.
[2019-04-23 20:00] VITALS: BP 129/70
[2019-04-23] MEDS: CEFTRIAXONE 1 G in IV D5W 50 ML IV SCH (20:16)
[2019-04-23] MEDS: *INSULIN ASPART NOVOLOG 100 UNIT/ML CARTRIDGE SQ PRN (21:14)
[2019-04-23] MEDS: INSULIN GLARGINE, 100 UNIT/ML CARTRIDGE SQ SCH (21:15)
--- NOTE | 2019-04-23 21:15 | NUR ---
ACCU CHECK: BLOOD SUGAR CHECK AND OBTAIN RESULT OF 275, 6UNITS OF INSULIN GIVEN PER SLIDING SCALE, PT ON CCHO DIET, TOLERATING PO INTAKE WELL, WILL RECHECK BS AFTER 3HRS TO MONITOR FOR ANY HYPOGLYCEMIA IN AM.
--- NOTE | 2019-04-23 21:30 | NUR ---
Met with patient, she is alert and pleasant. States she lives locally with spouse in a single level home. She uses a cane with ambulation sometimes, she is independent with adl's. [phone]. Pcp is at [facility]. States her does not drive, she will contact her neighbor to provide her a ride when discharge. Addendum: 04/23/19 at 2132 by ALBERTA URIAS RN Amended: Links added.
--- NOTE | 2019-04-23 23:00 | NUR ---
rn notes: assisted by upsetter, pt voided using the bed bird, 300ml of yellow colored urine
--- NOTE | 2019-04-24 00:01 | NUR ---
RN NOTES: RECHECK PT'S BLOOD SUGAR 3HRS AFTER GIVING INSULIN LISPRO PER PROTOCOL, RESULT OBTAINED IS 235.
[2019-04-24] MEDS: IV NS 0.9% 1,000 ML IV PRN ×2 (01:49→23:20)
--- NOTE | 2019-04-24 02:00 | NUR ---
BLADDER SCAN: ORDERED FOR BLADDER SCAN Q8HRS, LAST PERFORMED AT 1800, DUE NOW. PT VOIDED FREELY USING BED DELEON ASSISTED BY PAYROLL AND BENEFITS MANAGER, POST VOID BLADDER SCAN RESULT OBTAINED IS 0ML. PT URINE OUTPUT 450ML.
[2019-04-24] MEDS: ACETAMINOPHEN 325 MG TABLET PO PRN (02:14)
--- NOTE | 2019-04-24 02:15 | NUR ---
PRN TYLENOL: PT C/O HEAD ACHE REQUESTING FOR TYLENOL, PRN TYLENOL 650 MG TAB PO ADMINISTERED TO THE PT AT THIS TIME.
[2019-04-24 04:00] VITALS: BP 132/70
[2019-04-24] MEDS: HYDROCODONE/APAP 5/325MG 1 EACH TABLET PO PRN (04:30)
--- NOTE | 2019-04-24 04:31 | NUR ---
PRN NORCO: PT C/O 05/03 HEAD ACHE REQUESTING FOR NORCO, PRN NORCO 5/325 MG TAB PO ADMINISTERED TO THE PT AT THIS TIME, WILL CONTINUE TO MONITOR AND REASSESS PT
--- NOTE | 2019-04-24 06:11 | NUR ---
rn notes: unable to weigh pt as pt's bed scale not working, rn stars made aware
--- NOTE | 2019-04-24 06:35 | NUR ---
rn closing notes: pt in bed, awake, respiration even and unlabored, iv access remains patent and flushing well, infusing with ns at 75ml/hr. last bladder scan performed at 0200am and obtained residual of 0ml. last bed bird used at 0530, and 100 ml of urine. vs remains stable, needs attended. safety precautions for fall remains engaged, call light in reach, will endorse to day rn for continuity of care.
[2019-04-24 07:13] LABS: BASOPHILS % (AUTO) 0.6 % (0.0-2.0); EOSINOPHILS % (AUTO) 0.8 % (0.0-6.0); HEMATOCRIT 42 % (33-45); HEMOGLOBIN 14.5 g/dL (11.5-14.8); LYMPHOCYTES # (AUTO) 1.1 /CMM (0.8-4.8); LYMPHOCYTES % (AUTO) 16.5 % (20.0-44.0); MEAN CORPUSCULAR HGB CONC 34 g/dl (31.0-36.0); MEAN CORPUSCULAR VOLUME 94 fL (82-100); MONOCYTES # (AUTO) 0.6 /CMM (0.1-1.30); MONOCYTES % (AUTO) 8.3 % (2.0-12.0); NEUTROPHILS % (AUTO) 73.8 % (43.0-81.0); PLATELET COUNT (AUTO) 148 /CMM (150-450); RED BLOOD CELL COUNT(AUTO) 4.52 MIL/uL (4.0-5.2); WHITE BLOOD COUNT (AUTO) 6.8 K/uL (4.3-11.0)
[2019-04-24 07:35] LABS: CALCIUM, SERUM 8.7 mg/dL (8.5-10.1); CREATININE 0.7 mg/dL (0.6-1.3); MAGNESIUM 1.7 mg/dL (1.8-2.4); POTASSIUM 4.3 mmol/L (3.5-5.1)
[2019-04-24 08:00] VITALS: BP 130/78
[2019-04-24] MEDS: BLOOD SUGAR DIAGNOSTIC 1 EACH STRIP IN SCH ×4 (08:11→21:44)
[2019-04-24] MEDS: INSULIN ASPART/LISPRO 100 UNIT/ML CARTRIDGE SQ PRN ×2 (08:20→12:14)
[2019-04-24] MEDS: PREGABALIN 100 MG CAPSULE PO SCH ×2 (08:22→17:51)
[2019-04-24] MEDS: PANTOPRAZOLE 40 MG TABLET.DR PO SCH (08:22)
[2019-04-24] MEDS: RIVAROXABAN 10 MG TABLET PO SCH (08:23)
[2019-04-24] MEDS: Magnesium 1GM/D5W 100ML PREMIX 100 ML IV SCH ×2 (10:54→11:58)
--- NOTE | 2019-04-24 12:35 | NUR ---
bladder scan at 1000 46 post void; urine voided 350
[2019-04-24 16:00] VITALS: BP 149/90
[2019-04-24] MEDS ORDERED: LEVOFLOXACIN (750 MG) 750 MG TABLET PO SCH (17:00)
[2019-04-24] MEDS: INSULIN ASPART/LISPRO 100 UNIT/ML CARTRIDGE SQ SCH (17:54)
--- NOTE | 2019-04-24 18:26 | NUR ---
bladder scanned for 50 post void. voided to bedpan 300
--- NOTE | 2019-04-24 19:22 | NUR ---
MS RN NOTE PATIENT APPEARS STABLE AT THIS TIME.PATIENT HAS NO S.S OF DISTRESS. PATIENT AO X 4. PATIENT PRESENT AT BEDSIDE. PATIENT DENIES ANY S/S OF DISCOMFORT AT THIS TIME. PATIENT BREATHING EVEN AND UNLABORED. PATIENT HAS RFA 22G RUNNING 75 ML//HR NO S.S OF INFILTRATION/ INFECTION. SAFETY PRECAUTIONS IN PLACE. BED IN LOWEST LOCKED POSITION. CALL LIGHT IN IN HAND. RN WILL CONTINUE TO MONITOR FOR FOR CHANGES.
[2019-04-24 20:00] VITALS: BP 146/78
[2019-04-24] MEDS: INSULIN GLARGINE, 100 UNIT/ML CARTRIDGE SQ SCH (21:47)
[2019-04-24] MEDS: *INSULIN ASPART NOVOLOG 100 UNIT/ML CARTRIDGE SQ PRN (21:48)
--- NOTE | 2019-04-25 02:07 | NUR ---
MS CABRALES NOTE BLADDER SCAN COMPLETED AT 0200. 39 ML OF URINE NOTED ON BLADDER SCAN POST VOID. Addendum: 04/25/19 at 0208 by HIWOT ROMERO RN PATIENT URINATED 300
[2019-04-25 04:00] VITALS: BP 130/75
--- NOTE | 2019-04-25 06:42 | NUR ---
MS RN NOTE PATIENT TOLERATED THE NIGHT WELL NO S.S OF DISTRESS. ALL CARE RENDERED PATIENT SLEPT THROUGH THE NIGHT WELL. NO ACUTE CHANGES THROUGHOUT THE SHIFT. ENDORSED POC TO AM FOR TIEN.
[2019-04-25 07:03] LABS: BASOPHILS % (AUTO) 0.7 % (0.0-2.0); EOSINOPHILS % (AUTO) 2.5 % (0.0-6.0); HEMATOCRIT 41 % (33-45); HEMOGLOBIN 14.1 g/dL (11.5-14.8); LYMPHOCYTES # (AUTO) 1.5 /CMM (0.8-4.8); LYMPHOCYTES % (AUTO) 27.2 % (20.0-44.0); MEAN CORPUSCULAR HGB CONC 34 g/dl (31.0-36.0); MEAN CORPUSCULAR VOLUME 93 fL (82-100); MONOCYTES # (AUTO) 0.7 /CMM (0.1-1.30); MONOCYTES % (AUTO) 12.5 % (2.0-12.0); NEUTROPHILS % (AUTO) 57.1 % (43.0-81.0); PLATELET COUNT (AUTO) 180 /CMM (150-450); RED BLOOD CELL COUNT(AUTO) 4.42 MIL/uL (4.0-5.2); WHITE BLOOD COUNT (AUTO) 5.3 K/uL (4.3-11.0)
--- NOTE | 2019-04-25 07:15 | NUR ---
MS RN OPENING RECEIVED PT. A/OX4, NO ACUTE DISTRESS OR SOB NOTED. ON ROOM AIR TOLERATING WELL. VITAL SIGNS STABLE. IV SITE C/D/I, R FA 22G RUNNING NS @75mL/HR. NO SIGNS OF INFILTRATION. AT BEDSIDE. BED LOCKED, LOW, SIDE RAILS UPX2, CALL LIGHT WITHIN REACH. PATIENT ABLE TO MAKE NEEDS KNOWN, WILL CONTINUE TO MONITOR
[2019-04-25 07:16] LABS: CALCIUM, SERUM 8.4 mg/dL (8.5-10.1); CREATININE 0.7 mg/dL (0.6-1.3); MAGNESIUM 1.7 mg/dL (1.8-2.4)
[2019-04-25] MEDS: PANTOPRAZOLE 40 MG TABLET.DR PO SCH (07:54)
[2019-04-25] MEDS: BLOOD SUGAR DIAGNOSTIC 1 EACH STRIP IN SCH (07:55)
[2019-04-25] MEDS: HYDROCODONE/APAP 5/325MG 1 EACH TABLET PO PRN (07:55)
[2019-04-25 07:58] VITALS: BP 138/72
[2019-04-25] MEDS: INSULIN ASPART/LISPRO 100 UNIT/ML CARTRIDGE SQ PRN (07:58)
[2019-04-25 08:00] VITALS: BP 138/72
[2019-04-25] MEDS: RIVAROXABAN 10 MG TABLET PO SCH (08:03)
[2019-04-25] MEDS: PREGABALIN 100 MG CAPSULE PO SCH (08:03)
[2019-04-25] MEDS ORDERED: MAGNESIUM OXIDE 400 MG TABLET PO ONE (10:30)
[2019-04-25] MEDS ORDERED: LEVO750T21 PO (11:34)
--- NOTE | 2019-04-25 12:10 | NUR ---
RN D/C NOTE RECEIVED D/C ORDERS. PATIENT GOING HOME WITH VIA CAB. PATIENT STABLE. DENIES SOB AND CHEST PAIN. EDUCATION R/T S/S INFECTION, EMERGENCY SYMPTOMS AND MEDICATION SIDE EFFECTS PROVIDED. BELONGINGS CHECKLIST SIGNED. NO WOUNDS. IV REMOVED, CATHETER INTACT, DRESSING PLACED.
== END 2019-04-25 13:25 | disposition home or self-care (01) | DRG 872 ==
LOC: ER 07:47 → TELE1 08:35 → MEDSG1 04-23 12:24
PROVIDERS: ADMIT Nurse Practitioner Acute Care; ATTEND Nurse Practitioner Acute Care
DX: A41.9 Sepsis, unspecified organism (principal); E87.1 Hypo-osmolality and hyponatremia; N39.0 Urinary tract infection, site not specified; E44.0 Moderate protein-calorie malnutrition; Z68.41 Body mass index [BMI] 40.0-44.9, adult; E86.0 Dehydration; E11.65 Type 2 diabetes mellitus with hyperglycemia; Z79.4 Long term (current) use of insulin; Z87.440 Personal history of urinary (tract) infections; Z86.711 Personal history of pulmonary embolism; Z88.2 Allergy status to sulfonamides; Z79.01 Long term (current) use of anticoagulants; Z79.899 Other long term (current) drug therapy; F41.9 Anxiety disorder, unspecified; E83.42 Hypomagnesemia; Z91.81 History of falling; M19.90 Unspecified osteoarthritis, unspecified site; E66.01 Morbid (severe) obesity due to excess calories; B96.20 Unspecified Escherichia coli [E. coli] as the cause of diseases classified elsewhere
CPT/HCPCS: 36415; 71045-TC; 73562; 80048-TC; 80053-TC; 80061-TC; 80076-TC; 81000-TC; 82962-TC; 83605-TC; 83735-TC; 84100-TC; 84443-TC; 84484-TC; 85025-TC; 85730-TC; 87040-TC; 87081-TC; 87086-TC; 87186-TC; 97116-TC; 97530-TC; A6253; G0378; J0696; J1815; J3475; J7030; J7060

== ENCOUNTER 2019-05-04 11:26 | Inpatient (IN) | payer MEDICARE, OTHER ==
[~2019-05-04] VITALS: Ht 162.6 cm; Wt 110.7 kg
[~2019-05-04 11:26] MED LIST changes: -CIPR500T5 PO; +LEVO750T21 PO
[2019-05-04] MEDS ORDERED: LEVO750T21 PO (11:42)
[2019-05-04] MEDS ORDERED: IV NS 0.9% 1,000 ML BAG IV ONE ×2 (12:00→13:00)
[2019-05-04 12:10] LABS: BASOPHILS # (AUTO) 0.1 /CMM (0.0-0.2); BASOPHILS % (AUTO) 0.9 % (0.0-2.0); EOSINOPHILS % (AUTO) 1.6 % (0.0-6.0); HEMATOCRIT 46 % (33-45); HEMOGLOBIN 15.5 g/dL (11.5-14.8); LYMPHOCYTES # (AUTO) 1.2 /CMM (0.8-4.8); LYMPHOCYTES % (AUTO) 12.2 % (20.0-44.0); MEAN CORPUSCULAR HGB CONC 34 g/dl (31.0-36.0); MEAN CORPUSCULAR VOLUME 95 fL (82-100); MONOCYTES # (AUTO) 0.4 /CMM (0.1-1.30); NEUTROPHILS # (AUTO) 8.3 /CMM (1.8-8.9); NEUTROPHILS % (AUTO) 81.3 % (43.0-81.0); PLATELET COUNT (AUTO) 312 /CMM (150-450); RED BLOOD CELL COUNT(AUTO) 4.81 MIL/uL (4.0-5.2); WHITE BLOOD COUNT (AUTO) 10.2 K/uL (4.3-11.0)
[2019-05-04 12:17] LABS: CALCIUM, SERUM 9.3 mg/dL (8.5-10.1); CARBON DIOXIDE 31 mmol/L (21-32); CHLORIDE 101 mmol/L (98-107); CREATININE 0.9 mg/dL (0.6-1.3); POTASSIUM 4.4 mmol/L (3.5-5.1); SODIUM SERUM 137 mmol/L (136-145); UREA NITROGEN, BLOOD 20 mg/dL (7-18)
[2019-05-04 12:22] LABS: BILIRUBIN,DIRECT 0.2 mg/dL (0.0-0.2)
[2019-05-04 12:23] LABS: ALANINE AMINOTRANSFERASE 15 U/L (12-78); ALBUMIN 2.9 g/dL (3.4-5.0); ALKALINE PHOSPHATASE 104 U/L (46-116); ASPARTATE AMINOTRANSFERASE 11 U/L (15-37); TOTAL PROTEIN, SERUM 6.7 g/dL (6.4-8.2)
[2019-05-04 12:26] LABS: GLUCOSE 398 mg/dL (74-106)
[2019-05-04 12:49] LABS: APPEARANCE,URINE Slightly Cloudy (CLEAR); BILIRUBIN,URINE Negative (NEGATIVE); BLOOD, URINE Moderate Ery/uL (NEGATIVE); COLOR,URINE Yellow (YELLOW); KETONES,URINE Negative (NEGATIVE); LEUKOCYTE ESTERASE ,URINE Trace (NEGATIVE); NITRITE, URINE Negative (NEGATIVE); PH,URINE 5.5 (5.0-8.0); PROTEIN,URINE 30 mg/dl (NEGATIVE); UGLUCOSE 500 MG/DL mg/dL (NEGATIVE); UROBILINOGEN,URINE 0.2 EU/dL (0.2)
[2019-05-04 13:00] LABS: BACTERIA,URINE Few /HPF (None Seen); SQUAMOUS EPITHELIAL CELL,UR Moderate /HPF (None Seen); WBC,URINE 21-50 /HPF (0-3); YEAST,URINE Few /HPF (None Seen)
[2019-05-04] MEDS ORDERED: INSULIN REGULAR, HUMAN 100 UNIT/ML 10 ML VIAL ONE (13:15)
[2019-05-04] MEDS ORDERED: INSULIN REGULAR, HUMAN 100 UNIT/ML 10 ML VIAL IV ONE (13:30)
[2019-05-04 17:00] VITALS: BP 112/66
[2019-05-04] MEDS ORDERED: Z GUARD REMEDY 2 OZ OINT TP PRN (19:30)
[2019-05-04] MEDS ORDERED: LORAZEPAM 1 MG TABLET PO PRN (19:30)
[2019-05-04] MEDS ORDERED: ZOLPIDEM TARTRATE 5 MG TABLET PO PRN (19:30)
[2019-05-04] MEDS ORDERED: ONDANSETRON HCL/PF 4 MG/2 ML VIAL IVP PRN (19:30)
[2019-05-04] MEDS ORDERED: ACETAMINOPHEN 325 MG TABLET PO PRN (19:30)
[2019-05-04] MEDS ORDERED: DEXTROSE 50%-WATER 50 ML DISP.SYRIN IV PRN (19:30)
[2019-05-04] MEDS: oxyCODONE IR immediate release 5 MG PO PRN (19:58)
[2019-05-04 20:00] VITALS: BP 146/83
[2019-05-04] MEDS: IV NS 0.9% 1,000 ML IV PRN (20:03)
[2019-05-04] MEDS: INSULIN REGULAR, HUMAN 100 UNIT/ML 3 ML VIAL SQ PRN (22:55)
[2019-05-04] MEDS: INSULIN GLARGINE, 100 UNIT/ML CARTRIDGE SQ SCH (22:57)
[2019-05-04] MEDS: BLOOD SUGAR DIAGNOSTIC 1 EACH STRIP IN SCH (23:00)
[2019-05-05] MEDS: oxyCODONE IR immediate release 5 MG PO PRN ×3 (00:04→12:41)
[2019-05-05] MEDS: BLOOD SUGAR DIAGNOSTIC 1 EACH STRIP IN SCH ×5 (01:34→21:27)
[2019-05-05] MEDS: INSULIN REGULAR, HUMAN 100 UNIT/ML 3 ML VIAL SQ PRN ×3 (01:38→17:01)
[2019-05-05 06:19] LABS: BASOPHILS % (AUTO) 0.5 % (0.0-2.0); EOSINOPHILS % (AUTO) 1.8 % (0.0-6.0); HEMATOCRIT 43 % (33-45); HEMOGLOBIN 14.7 g/dL (11.5-14.8); LYMPHOCYTES # (AUTO) 1.5 /CMM (0.8-4.8); MEAN CORPUSCULAR HGB CONC 35 g/dl (31.0-36.0); MEAN CORPUSCULAR VOLUME 93 fL (82-100); MONOCYTES # (AUTO) 0.4 /CMM (0.1-1.30); MONOCYTES % (AUTO) 4.5 % (2.0-12.0); NEUTROPHILS # (AUTO) 7.1 /CMM (1.8-8.9); NEUTROPHILS % (AUTO) 77.2 % (43.0-81.0); PLATELET COUNT (AUTO) 289 /CMM (150-450); RED BLOOD CELL COUNT(AUTO) 4.61 MIL/uL (4.0-5.2); WHITE BLOOD COUNT (AUTO) 9.2 K/uL (4.3-11.0)
[2019-05-05 06:29] LABS: THYROID STIMULATING HORMONE 3.083 uIU/mL (0.358-3.74)
[2019-05-05 06:34] LABS: ALBUMIN 2.7 g/dL (3.4-5.0); BILIRUBIN,TOTAL 0.9 mg/dL (0.2-1.0); CALCIUM, SERUM 8.8 mg/dL (8.5-10.1); CREATININE 0.7 mg/dL (0.6-1.3); MAGNESIUM 1.6 mg/dL (1.8-2.4); PHOSPHORUS 3.1 mg/dL (2.5-4.9); POTASSIUM 3.4 mmol/L (3.5-5.1); TOTAL PROTEIN, SERUM 6.3 g/dL (6.4-8.2)
[2019-05-05] MEDS: PANTOPRAZOLE 40 MG TABLET.DR PO SCH (07:26)
[2019-05-05] MEDS: MORPHINE SULFATE INJ 2 MG/ML DISP.SYRIN IV PRN ×2 (07:27→15:33)
[2019-05-05] MEDS: IV NS 0.9% 1,000 ML IV PRN (07:27)
[2019-05-05 08:00] VITALS: BP 126/97
[2019-05-05] MEDS: PREGABALIN 100 MG CAPSULE PO SCH ×2 (08:27→16:42)
[2019-05-05] MEDS ORDERED: DEXTROSE 50%-WATER 50 ML DISP.SYRIN IV PRN (08:30)
[2019-05-05] MEDS: ENOXAPARIN SODIUM 100 MG/ML DISP.SYRIN SQ SCH ×2 (10:07→21:25)
[2019-05-05] MEDS ORDERED: POTASSIUM CHLORIDE 20 MEQ TAB.PRT.SR PO SCH (10:30)
[2019-05-05] MEDS: Magnesium 1GM/D5W 100ML PREMIX 100 ML IV SCH ×2 (10:35→11:30)
[2019-05-05] MEDS ORDERED: BLOOD SUGAR DIAGNOSTIC 1 EACH STRIP IN SCH (12:00)
[2019-05-05 16:00] VITALS: BP 135/72
[2019-05-05] MEDS: CLOTRIMAZOLE 1% 15 GM TUBE TP SCH (16:58)
[2019-05-05 20:00] VITALS: BP 119/70
[2019-05-05] MEDS: INSULIN GLARGINE, 100 UNIT/ML CARTRIDGE SQ SCH (21:26)
[2019-05-05] MEDS: *INSULIN REGULAR(HUMULIN R)HUM 100 UNIT/ML VIAL SQ PRN (21:27)
[2019-05-05] MEDS ORDERED: MAGNESIUM HYDROXIDE 30 ML UDC PO PRN (22:00)
[2019-05-06] MEDS: IV NS 0.9% 1,000 ML IV PRN (01:25)
[2019-05-06] MEDS: MORPHINE SULFATE INJ 2 MG/ML DISP.SYRIN IV PRN ×2 (01:53→11:00)
[2019-05-06] MEDS: oxyCODONE IR immediate release 5 MG PO PRN ×2 (03:47→14:25)
[2019-05-06 06:43] LABS: BASOPHILS # (AUTO) 0.1 /CMM (0.0-0.2); BASOPHILS % (AUTO) 0.9 % (0.0-2.0); HEMATOCRIT 42 % (33-45); HEMOGLOBIN 14.4 g/dL (11.5-14.8); LYMPHOCYTES # (AUTO) 1.2 /CMM (0.8-4.8); LYMPHOCYTES % (AUTO) 17.2 % (20.0-44.0); MEAN CORPUSCULAR HGB CONC 34 g/dl (31.0-36.0); MEAN CORPUSCULAR VOLUME 94 fL (82-100); MONOCYTES # (AUTO) 0.3 /CMM (0.1-1.30); MONOCYTES % (AUTO) 5.1 % (2.0-12.0); NEUTROPHILS # (AUTO) 5.1 /CMM (1.8-8.9); NEUTROPHILS % (AUTO) 73.8 % (43.0-81.0); PLATELET COUNT (AUTO) 263 /CMM (150-450); RED BLOOD CELL COUNT(AUTO) 4.49 MIL/uL (4.0-5.2); WHITE BLOOD COUNT (AUTO) 6.8 K/uL (4.3-11.0)
[2019-05-06] MEDS: INSULIN REGULAR, HUMAN 100 UNIT/ML 3 ML VIAL SQ PRN ×3 (06:45→17:08)
[2019-05-06] MEDS: BLOOD SUGAR DIAGNOSTIC 1 EACH STRIP IN SCH ×4 (06:48→22:21)
[2019-05-06 07:10] LABS: CALCIUM, SERUM 8.3 mg/dL (8.5-10.1); CREATININE 0.6 mg/dL (0.6-1.3); MAGNESIUM 1.9 mg/dL (1.8-2.4); PHOSPHORUS 3.4 mg/dL (2.5-4.9); POTASSIUM 4.2 mmol/L (3.5-5.1)
[2019-05-06] MEDS: PANTOPRAZOLE 40 MG TABLET.DR PO SCH (07:31)
[2019-05-06 08:00] VITALS: BP 151/66
[2019-05-06] MEDS: PREGABALIN 100 MG CAPSULE PO SCH ×2 (08:22→16:56)
[2019-05-06] MEDS: ENOXAPARIN SODIUM 100 MG/ML DISP.SYRIN SQ SCH ×2 (08:23→21:44)
[2019-05-06] MEDS: CLOTRIMAZOLE 1% 15 GM TUBE TP SCH ×2 (08:24→16:57)
[2019-05-06] MEDS: CEFTRIAXONE 1 G in IV D5W 50 ML IV SCH (15:15)
[2019-05-06 16:00] VITALS: BP 129/72
[2019-05-06 20:00] VITALS: BP 103/43
[2019-05-06] MEDS ORDERED: INSULIN GLARGINE, 100 UNIT/ML CARTRIDGE SQ SCH (22:00)
[2019-05-06] MEDS: *INSULIN REGULAR(HUMULIN R)HUM 100 UNIT/ML VIAL SQ PRN (22:21)
[2019-05-07] MEDS: oxyCODONE IR immediate release 5 MG PO PRN ×3 (03:54→12:23)
[2019-05-07] MEDS: INSULIN REGULAR, HUMAN 100 UNIT/ML 3 ML VIAL SQ PRN ×3 (07:00→16:56)
[2019-05-07 07:01] LABS: BASOPHILS % (AUTO) 0.7 % (0.0-2.0); EOSINOPHILS % (AUTO) 2.6 % (0.0-6.0); HEMATOCRIT 47 % (33-45); HEMOGLOBIN 15.4 g/dL (11.5-14.8); LYMPHOCYTES # (AUTO) 1.2 /CMM (0.8-4.8); LYMPHOCYTES % (AUTO) 21.6 % (20.0-44.0); MEAN CORPUSCULAR HGB CONC 33 g/dl (31.0-36.0); MEAN CORPUSCULAR VOLUME 98 fL (82-100); MONOCYTES # (AUTO) 0.3 /CMM (0.1-1.30); MONOCYTES % (AUTO) 5.9 % (2.0-12.0); NEUTROPHILS # (AUTO) 3.9 /CMM (1.8-8.9); NEUTROPHILS % (AUTO) 69.2 % (43.0-81.0); PLATELET COUNT (AUTO) 204 /CMM (150-450); RED BLOOD CELL COUNT(AUTO) 4.76 MIL/uL (4.0-5.2); WHITE BLOOD COUNT (AUTO) 5.6 K/uL (4.3-11.0)
[2019-05-07 07:06] LABS: CALCIUM, SERUM 9.4 mg/dL (8.5-10.1); CREATININE 0.6 mg/dL (0.6-1.3); MAGNESIUM 1.7 mg/dL (1.8-2.4); PHOSPHORUS 3.6 mg/dL (2.5-4.9); POTASSIUM 4.9 mmol/L (3.5-5.1)
[2019-05-07] MEDS: BLOOD SUGAR DIAGNOSTIC 1 EACH STRIP IN SCH ×3 (07:48→16:51)
[2019-05-07] MEDS: PANTOPRAZOLE 40 MG TABLET.DR PO SCH (07:57)
[2019-05-07 08:00] VITALS: BP 153/73
[2019-05-07] MEDS: PREGABALIN 100 MG CAPSULE PO SCH ×2 (08:56→16:47)
[2019-05-07] MEDS: CLOTRIMAZOLE 1% 15 GM TUBE TP SCH ×2 (09:01→16:50)
[2019-05-07] MEDS: RIVAROXABAN 15 MG TABLET PO SCH ×2 (09:08→16:46)
[2019-05-07] MEDS: Magnesium 1GM/D5W 100ML PREMIX 100 ML IV SCH ×2 (11:00→12:25)
[2019-05-07] MEDS ORDERED: RIVA10TA PO (12:55)
[2019-05-07] MEDS: CEFTRIAXONE 1 G in IV D5W 50 ML IV SCH (14:44)
[2019-05-07 16:00] VITALS: BP 136/79
[2019-05-28] MEDS ORDERED: RIVAROXABAN 10 MG TABLET PO SCH (17:00)
== END 2019-05-07 17:52 | DRG 563 ==
LOC: ER 11:26 → MED 16:00
PROVIDERS: ADMIT Nurse Practitioner Acute Care; ATTEND Nurse Practitioner Acute Care
DX: S82.832A Other fracture of upper and lower end of left fibula, initial encounter for closed fracture (principal); N39.0 Urinary tract infection, site not specified; Z68.41 Body mass index [BMI] 40.0-44.9, adult; E44.1 Mild protein-calorie malnutrition; I82.412 Acute embolism and thrombosis of left femoral vein; W01.0XXA Fall on same level from slipping, tripping and stumbling without subsequent striking against object, initial encounter; Y92.002 Bathroom of unspecified non-institutional (private) residence as the place of occurrence of the external cause; E11.65 Type 2 diabetes mellitus with hyperglycemia; E86.0 Dehydration; E66.01 Morbid (severe) obesity due to excess calories; E11.51 Type 2 diabetes mellitus with diabetic peripheral angiopathy without gangrene; E11.40 Type 2 diabetes mellitus with diabetic neuropathy, unspecified; I10 Essential (primary) hypertension; I27.20 Pulmonary hypertension, unspecified; Z79.01 Long term (current) use of anticoagulants; Z91.81 History of falling; Z86.711 Personal history of pulmonary embolism; Z79.4 Long term (current) use of insulin; Z88.2 Allergy status to sulfonamides; Z79.899 Other long term (current) drug therapy
CPT/HCPCS: 36415; 73564-TC; 73610-TC; 80048-TC; 80053-TC; 80061-TC; 80076-TC; 81000-TC; 82962-TC; 83540-TC; 83735-TC; 84100-TC; 84443-TC; 84484-TC; 85025-TC; 87081-TC; 87086-TC; 93307-TC; 93926-TC; 93970-TC; 97110-TC; 97112-TC; 97530-TC; G0378; J0696; J1650; J1815; J2270; J3475; J7030; J7060

== ENCOUNTER 2020-07-14 19:49 | Inpatient (IN) | payer MEDICARE, OTHER ==
[~2020-07-14] VITALS: Ht 165.1 cm; Wt 100.2 kg
[~2020-07-14 19:49] MED LIST changes: -LEVO750T21 PO; -OXYC-454 PO; +OXYC1TAB12 PO
--- NOTE | 2020-07-14 20:00 | NUR ---
PT [id number] ALTERED LOC AND UNKEPT. PER EMS REPORT, UNABLE TO TAKE CARE OF THE PT. NOTED HIP PRESSURE SORE. +REDNESS ON UPPER EXTREMITIES. PT AAOX1, RESPIRATIONS EVEN AND UNLABORED ON RA W/ NAD NOTED.PT CONNECTED TO THE JOINT SUPERVISOR AND POX.
[2020-07-14] MEDS ORDERED: HALOPERIDOL LACTATE INJ 5 MG/ML VIAL ONE (20:12)
--- NOTE | 2020-07-14 20:15 | NUR ---
BED BATH GIVEN
[2020-07-14] MEDS ORDERED: HALOPERIDOL LACTATE INJ 5 MG/ML VIAL IV ONE (20:30)
[2020-07-14 20:37] LABS: APPEARANCE,URINE Clear (CLEAR); BILIRUBIN,URINE MODERATE (NEGATIVE); BLOOD, URINE Moderate Ery/uL (NEGATIVE); COLOR,URINE Yellow (YELLOW); KETONES,URINE 40 (NEGATIVE); LEUKOCYTE ESTERASE ,URINE Trace (NEGATIVE); NITRITE, URINE Negative (NEGATIVE); PROTEIN,URINE Trace mg/dl (NEGATIVE); UGLUCOSE 500 MG/DL mg/dL (NEGATIVE)
[2020-07-14 20:39] LABS: BACTERIA,URINE 1+ /HPF (None Seen); SQUAMOUS EPITHELIAL CELL,UR Few /HPF (None Seen)
[2020-07-14] MEDS ORDERED: MIDAZOLAM HCL 2 MG/2ML VIAL ONE (20:46)
--- NOTE | 2020-07-14 20:53 | NUR ---
OINTMENT MILL TENDER AT BEDSIDE FOR BLOOD DRAW
[2020-07-14] MEDS ORDERED: CEFTRIAXONE 1GM BAG (ER ONLY) 50 ML IV ONE (20:58)
[2020-07-14] MEDS ORDERED: CEFTRIAXONE 1GM BAG (ER ONLY) 1 GM/50 ML PIGGYBACK IV ONE (21:00)
[2020-07-14] MEDS ORDERED: MIDAZOLAM HCL 2 MG/2ML VIAL IV ONE (21:00)
--- NOTE | 2020-07-14 21:00 | NUR ---
COVID SWAB COLLECTED AND SENT TO LAB
[2020-07-14 21:04] LABS: BASOPHILS % (AUTO) 0.4 % (0.0-2.0); HEMATOCRIT 44 % (33-45); LYMPHOCYTES # (AUTO) 0.3 /CMM (0.8-4.8); LYMPHOCYTES % (AUTO) 4.1 % (20.0-44.0); MEAN CORPUSCULAR HGB CONC 32 g/dl (31.0-36.0); MEAN CORPUSCULAR VOLUME 97 fL (82-100); MONOCYTES # (AUTO) 0.2 /CMM (0.1-1.30); MONOCYTES % (AUTO) 2.7 % (2.0-12.0); NEUTROPHILS # (AUTO) 7.7 /CMM (1.8-8.9); NEUTROPHILS % (AUTO) 92.8 % (43.0-81.0); PLATELET COUNT (AUTO) 115 /CMM (150-450); RED BLOOD CELL COUNT(AUTO) 4.56 MIL/uL (4.0-5.2); WHITE BLOOD COUNT (AUTO) 8.3 K/uL (4.3-11.0)
--- NOTE | 2020-07-14 21:41 | NUR ---
LAB CALLED REGARDING NEGATIVE COVID RESULT.
[2020-07-14] MEDS ORDERED: MAG HYDROX/AL HYDROX/SIMETH 30 ML UDC PO PRN (22:00)
[2020-07-14] MEDS ORDERED: IV NS 0.9% 500 ML BAG IV ONE (22:00)
[2020-07-14] MEDS ORDERED: HYDROCODONE/APAP 5/325MG TABLET PO PRN (22:00)
[2020-07-14] MEDS ORDERED: LORAZEPAM 1 MG TABLET PO PRN (22:00)
[2020-07-14] MEDS ORDERED: ZOLPIDEM TARTRATE 5 MG TABLET PO PRN (22:00)
[2020-07-14] MEDS ORDERED: MAGNESIUM HYDROXIDE 30 ML UDC PO PRN (22:00)
[2020-07-14] MEDS ORDERED: ACETAMINOPHEN 325 MG TABLET PO PRN (22:00)
[2020-07-14] MEDS ORDERED: ONDANSETRON HCL/PF 4 MG/2 ML VIAL IVP PRN (22:00)
[2020-07-14] MEDS ORDERED: Z GUARD REMEDY 2 OZ OINT TP PRN (22:00)
[2020-07-14 22:19] LABS: ALANINE AMINOTRANSFERASE 9 U/L (12-78); ALBUMIN 1.9 g/dL (3.4-5.0); ALKALINE PHOSPHATASE 101 U/L (46-116); ASPARTATE AMINOTRANSFERASE 10 U/L (15-37); BILIRUBIN,DIRECT 0.6 mg/dL (0.0-0.2); BILIRUBIN,TOTAL 1.2 mg/dL (0.2-1.0); CALCIUM, SERUM 9.7 mg/dL (8.5-10.1); CARBON DIOXIDE 18 mmol/L (21-32); CHLORIDE 101 mmol/L (98-107); CREATININE 1.4 mg/dL (0.6-1.3); POTASSIUM 4.1 mmol/L (3.5-5.1); SODIUM SERUM 138 mmol/L (136-145); TOTAL PROTEIN, SERUM 6.9 g/dL (6.4-8.2); UREA NITROGEN, BLOOD 49 mg/dL (7-18)
[2020-07-14 22:22] LABS: GLUCOSE 443 mg/dL (74-106)
--- NOTE | 2020-07-14 22:28 | NUR ---
REPORT GIVEN TO SAMRA HERNANDEZ FOR TIEN
--- NOTE | 2020-07-14 22:52 | NUR ---
PT TRANSFERRED TO ROOM IN STABLE CONDITION
[2020-07-14] MEDS ORDERED: PREGABALIN 100 MG CAPSULE PO SCH (23:00)
[2020-07-15] VITALS: BP 94/62
[2020-07-15 00:26] VITALS: BP 94/62
[2020-07-15] MEDS ORDERED: INSULIN REGULAR, HUMAN 100 UNIT/ML 3 ML VIAL SQ PRN (02:00)
[2020-07-15] MEDS ORDERED: DEXTROSE 50%-WATER 50 ML DISP.SYRIN IV PRN ×2 (02:00→13:30)
[2020-07-15] MEDS ORDERED: IV NS 0.9% 1,000 ML IV ONE (02:30)
--- NOTE | 2020-07-15 04:33 | NUR ---
RN notes Admitted a 69 year old female from ER via stretcher with apparent distress, breathing even and unlabored. On room air well tolerated. Patient is lethargic at this time. Skin assessment done. Noted with necrotic wound at the right lateral hips, wound care consult ordered. Lab called for critical care value lactic acid. Though trending down, value is still very high 4.2. MD made aware with new orders for IV hydration fluid and lactic acid. Noted and carried out.
--- NOTE | 2020-07-15 04:38 | NUR ---
RN notes Admitted a 69 year old female from ER via stretcher with no apparent distress, breathing even and unlabored. On room air well tolerated. Patient is lethargic at this time. Skin assessment done. Noted with necrotic wound at the right lateral hips, wound care consult ordered. Lab called for critical lab result for lactic acid. Though trending down, value is still very high 4.2. MD made aware with new orders for IV hydration fluid and lactic acid. Noted and carried out. Everytime patient is awake, patient cries and moans loudly. Ativan given, not effective. Called MD and asked if patient can be given pain medication through IV, MD does not want any sedating meds, ordered NPO.
[2020-07-15] MEDS: BLOOD SUGAR DIAGNOSTIC 1 EACH STRIP IN SCH ×3 (06:11→17:59)
[2020-07-15 06:21] LABS: BASOPHILS % (AUTO) 0.1 % (0.0-2.0); HEMATOCRIT 41 % (33-45); HEMOGLOBIN 13.1 g/dL (11.5-14.8); LYMPHOCYTES # (AUTO) 0.5 /CMM (0.8-4.8); LYMPHOCYTES % (AUTO) 6.3 % (20.0-44.0); MEAN CORPUSCULAR HGB CONC 32 g/dl (31.0-36.0); MEAN CORPUSCULAR VOLUME 94 fL (82-100); MONOCYTES # (AUTO) 0.3 /CMM (0.1-1.30); MONOCYTES % (AUTO) 3.6 % (2.0-12.0); NEUTROPHILS # (AUTO) 7.2 /CMM (1.8-8.9); PLATELET COUNT (AUTO) 101 /CMM (150-450); RED BLOOD CELL COUNT(AUTO) 4.32 MIL/uL (4.0-5.2)
[2020-07-15 06:49] LABS: CREATININE 0.9 mg/dL (0.6-1.3); PHOSPHORUS 2.8 mg/dL (2.5-4.9); POTASSIUM 4.1 mmol/L (3.5-5.1)
--- NOTE | 2020-07-15 07:25 | NUR ---
MS RN NOTES PATIENT RECEIVED IN BED SLEEPING, PATIENT LETHARGIC AT THIS TIME, ABLE TO OPEN EYES AND REACTIVE TO LIGHT TOUCH. PATIENT ON ROOM AIR, WITH NO SIGNS OF RESPIRATORY DISTRESS AT THIS TIME WITH EVEN NON-LABORED BREATHING. IV ACCESS INTACT AND PATENT INFUSING NORMAL SALINE AT 100ml/hr. PATIENT BILATERAL SOFT WRIST RESTRAINTS IN PLACE, WITH ADEQUATE SKIN CIRCULATION, SKIN WITHIN NORMAL LIMITS, AND WITH 2 FINGER BREATH SPACE. DUFF CATHETER IN PLACE WITH URINE OUTPUT FLOWING BY GRAVITY. SAFETY PRECAUTIONS IMPLEMENTED WITH BED LOCKED, BED IN THE LOWEST POSITION, BILATERAL SIDE RAILS UP, BED ALARM ON, AND CALL LIGHT WITHIN EASY REACH OF THE PATIENT. WILL CONTINUE TO MONITOR PATIENT.
[2020-07-15 08:00] VITALS: BP 102/63
[2020-07-15] MEDS ORDERED: RIVAROXABAN 10 MG TABLET PO SCH (09:00)
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
[2020-07-15] MEDS: INSULIN REGULAR, HUMAN 100 UNIT/ML 3 ML VIAL SQ PRN ×2 (13:40→19:10)
--- NOTE | 2020-07-15 13:40 | NUR ---
SUPERVISOR CORDUROY CUTTING NOTES PATIENT'S BLOOD SUGAR 312, PER SLIDING SCALE, 8 UNITS OF INSULIN ADMINISTERED. NPO STATUS REMAINS, BELTRAN POWER, HOSPITALIST AWARE AND STATES TO ADMINISTERED AND FOLLOW SLIDING SCALE ORDERED. WILL CONTINUE TO MONITOR PATIENT.
[2020-07-15] MEDS ORDERED: ZOSYN IVPB 3.375 G in IV D5W 50ml IV ONE (14:00)
[2020-07-15] MEDS: IV NS 0.9% 1,000 ML IV PRN (14:06)
[2020-07-15 16:00] VITALS: BP_SYST 109; BP_SYST 97; BP_DIAS 55; BP_DIAS 66
[2020-07-15] MEDS ORDERED: INSULIN LISPRO/ASPART 100 UNIT/ML CARTRIDGE SQ SCH (17:00)
[2020-07-15] MEDS ORDERED: PIPERACILLIN /TAZOBACTAM 3.375 G in IV D5W 100 ML IV SCH (18:00)
[2020-07-15] MEDS: NYSTATIN CREAM 15 GM TUBE TP SCH (18:00)
[2020-07-15] MEDS: MEROPENEM 1 G in IV NS 0.9% 100 ML IV SCH (18:20)
--- NOTE | 2020-07-15 19:00 | NUR ---
APPLIED ANTHROPOLOGIST NOTES PATIENT IN BED RESTING COMFORTABLY. ALERT AND ORIENTED X 1. RESPONSIVE WITH LIGHT TOUCH AND NAME. ON ROOM AIR WITH NO SIGNS OF RESPIRATORY DISTRESS AT THIS TIME. INSERT NEW IV LINE ON LEFT WRIST, 22 GAUGE. APPLIED PRESSURE TO OLD SITE AND CATHETER TIP INTACT. MET ALL OF PATIENT'S NEEDS. DUFF CATHETER IN PLACE WITH URINE OUTPUT. PATIENT'S BLOOD SUGAR 268, 6 UNITS OF INSULIN ADMINISTERED PER SLIDING SCALE. BILATERAL RESTRAINTS IN PLACE, LEFT SOFT WRIST, AND RIGHT SOFT-MITTEN IN PLACE, WITH ADEQUATE SKIN CIRCULATION AND 2 FINGER BREATHS. PATIENT PRESENTS WITH NO PAIN OR DISCOMFORT. SAFETY PRECAUTIONS IN PLACE WITH BED LOCKED, BED IN THE LOWEST POSITION, BILATERAL SIDE RAILS UP, AND CALL LIGHT WITHIN EASY REACH. WILL ENDORSE PLAN OF CARE TO UPCOMING NURSE.
--- NOTE | 2020-07-15 19:05 | NUR ---
ESTATE PLANNING DIRECTOR OPENING NOTES RECEIVED PATIENT IN BED LETHARGIC, NOTED MUMBLES WORK SPEECH UNCLEAR, AROUSAL TO VERBAL AND TACTILE STIMULI, NOTED WITH SOFT BILATERAL WRIST RESTRAINTS, PULSES PALPABLE, SKIN WNL, CIRCULATION CHECKS DONE WITH. ON TRANSPORT ANALYST SR 96. DUFF CATHETER INTACT AND DRAINING, NOTED URINE [place] COLOR, REMAINS NPO ORDERED, IV SITE TO LEFT WRIST #20G INTACT AND PATENT, IVF AND ABX RUNNING ORDERED. RIGHT HIP WOUND DRESSING INTACT, HEELS OFFLOADED WITH PILLOWS PATIENT REPOSITIONED, WILL CONTINUE TO MONITOR AND ATTEND TO NEEDS.ORIENTED TO STAFF, ROOM AND CALL LIGHT KEPT WITHIN REACH.
[2020-07-15] MEDS: VANCOMYCIN 1.25 GM in IV D5W 250 ML IV SCH (19:20)
[2020-07-15 20:00] VITALS: BP 151/81
[2020-07-15] MEDS ORDERED: CEFTRIAXONE 1 G in IV D5W 50 ML IV SCH (21:00)
[2020-07-15] MEDS ORDERED: INSULIN GLARGINE, 100 UNIT/ML CARTRIDGE SQ SCH (22:00)
[2020-07-15] MEDS ORDERED: oxyCODONE/APAP (5/325 MG) 1 UDTAB TABLET PO SCH (22:00)
[2020-07-16] VITALS (7 sets, daily range): BP systolic 100–125; BP diastolic 61–84
[2020-07-16] MEDS: BLOOD SUGAR DIAGNOSTIC 1 EACH STRIP IN SCH ×4 (00:51→17:20)
[2020-07-16] MEDS: INSULIN REGULAR, HUMAN 100 UNIT/ML 3 ML VIAL SQ PRN ×4 (00:52→17:25)
[2020-07-16] MEDS: MEROPENEM 1 G in IV NS 0.9% 100 ML IV SCH ×2 (05:07→17:12)
--- NOTE | 2020-07-16 06:22 | NUR ---
CREDENTIALING SPECIALIST CLOSING NOTES PATIENT NOTED MORE AWAKE AT THIS TIME WITH EPISODES OF LETHARGIC , NOTED MUMBLES WITH SPEECH, UNCLEAR, AROUSAL TO VERBAL AND TACTILE STIMULI, SOFT BILATERAL WRIST RESTRAINTS IN PLACE PT PULLS OUT MEDICAL TUBING, PULSES PALPABLE, SKIN WNL, CIRCULATION CHECKS DONE WITH. ON CONSTRUCTION EQUIPMENT OVERHAULER SR 95 DUFF CATHETER INTACT AND DRAINING, NOTED URINE SHUBHAM/ CLOUDY COLOR,250 CC OUTPUT REMAINS NPO ORDERED, IV SITE TO LEFT WRIST #20G INTACT AND PATENT, IVF AND ABX GIVEN ORDERED. RIGHT HIP WOUND DRESSING CHANGED AND INTACT AND OFFLOADED, HEELS OFFLOADED WITH PILLOWS PATIENT REPOSITIONED, WILL CONTINUE TO MONITOR AND ATTEND TO NEEDS. CALL LIGHT KEPT WITHIN REACH. WILL ENDORSE TO NEXT SHIFT. ON 2 L VIA NC FOR COMFORT.
[2020-07-16 06:29] LABS: BASOPHILS % (AUTO) 0.2 % (0.0-2.0); HEMATOCRIT 42 % (33-45); HEMOGLOBIN 13.4 g/dL (11.5-14.8); LYMPHOCYTES # (AUTO) 0.8 /CMM (0.8-4.8); LYMPHOCYTES % (AUTO) 10.4 % (20.0-44.0); MEAN CORPUSCULAR HGB CONC 32 g/dl (31.0-36.0); MEAN CORPUSCULAR VOLUME 94 fL (82-100); MONOCYTES # (AUTO) 0.3 /CMM (0.1-1.30); NEUTROPHILS # (AUTO) 6.8 /CMM (1.8-8.9); NEUTROPHILS % (AUTO) 85.4 % (43.0-81.0); PLATELET COUNT (AUTO) 77 /CMM (150-450)
[2020-07-16 07:03] LABS: CREATININE 1.1 mg/dL (0.6-1.3); PHOSPHORUS 2.7 mg/dL (2.5-4.9); POTASSIUM 3.7 mmol/L (3.5-5.1)
--- NOTE | 2020-07-16 08:01 | NUR ---
MS/RN OPENING NOTES RECEIVED PATENT ON BED ALERT ORIENTED X1. PATENT NO SIGN AND SYMPTOM OF PAIN NOTED AT THIS TIME. NO APPARENT RESPIRATORY DISTRESS NOTED. BED IN LOWEST POSITION AND LOCKED. WILL CONTINUE TO MONITOR.
[2020-07-16] MEDS: NYSTATIN CREAM 15 GM TUBE TP SCH ×2 (08:08→17:12)
[2020-07-16 09:04] LABS: BAND % (MANUAL) 15 % (0.0-5.0); LYMPHOCYTES % (MANUAL) 14 % (16-48); MONOCYTES % (MANUAL) 6 % (0-11.0); NEUTROPHILS % (MANUAL) 65 (42-76)
[2020-07-16] MEDS: VANCOMYCIN 1.25 GM in IV D5W 250 ML IV SCH (11:18)
--- NOTE | 2020-07-16 11:31 | NUR ---
PRELIMINARY RESULTS OF DUPLEX LOWER EXT VENOUS SHOWED POSITIVE FOR DVT ON BILATERAL CFV, SFV, LEFT POPV. INFORMED RN OF INITIAL FINDINGS.
[2020-07-16] MEDS: IV NS 0.9% 1,000 ML IV PRN (17:45)
[2020-07-16 18:50] LABS: APPEARANCE,URINE CLOUDY (CLEAR); BILIRUBIN,URINE SMALL (NEGATIVE); BLOOD, URINE LARGE Ery/uL (NEGATIVE); COLOR,URINE YELLOW (YELLOW); KETONES,URINE TRACE (NEGATIVE); LEUKOCYTE ESTERASE ,URINE SMALL (NEGATIVE); NITRITE, URINE NEGATIVE (NEGATIVE); PROTEIN,URINE TRACE mg/dl (NEGATIVE); UGLUCOSE NEGATIVE (NEGATIVE)
--- NOTE | 2020-07-16 19:02 | NUR ---
MS/RN CLOSING NOTES PATIENT IS ON BED. ALERT AND ORIENTED X1. NO SIGN AND SYMPTOM OF PAIN NOTED. PATIENT IN NO APPARENT RESPIRATORY DISTRESS NOTED. IV ACCESS AT RIGHT FORE ARM #22 G AND LEFT WRIST # 22G WITH IV FLUID OF NS 1L AT 50ML/HR ON AND INFUSING WELL. SEEN AND EXAMINED BY MD WITH ORDERS MADE AND CARRIED OUT ALL DUE MEDICATION WAS GIVEN. SAFETY PRECAUTION IN PLACED. BED IN LOWEST POSITION AND LOCKED SIDE RAILS UP X2. CALL LIGHT WITHIN REACH. WILL ENDORSED TO INSTALLMENT DEALER FOR TIEN.
[2020-07-16 19:18] LABS: BACTERIA,URINE 1+ /HPF (None Seen); CREATININE, URINE 153.3 MG/DL (30.0-125.0); RBC,URINE 21-50 /HPF (0-2); SQUAMOUS EPITHELIAL CELL,UR 0-2 /HPF (None Seen); URINE TOTAL PROTEIN 70.1 mg/dL (0-11.9); YEAST,URINE Few /HPF (None Seen)
[2020-07-16 19:19] LABS: URINE AMORPHOUS URATE Moderate /HPF (None Seen)
[2020-07-16 19:57] LABS: EOSINOPHIL,URINE None Seen
[2020-07-16 20:16] LABS: D-DIMER 19.59 mg/L(FEU (0.17-0.50)
[2020-07-16] MEDS ORDERED: HEPARIN SODIUM, PORCINE 5000 UNITS/1 ML VIAL SQ SCH (21:00)
[2020-07-17] VITALS (7 sets, daily range): BP systolic 91–128; BP diastolic 59–83
[2020-07-17] MEDS: INSULIN REGULAR, HUMAN 100 UNIT/ML 3 ML VIAL SQ PRN ×4 (00:02→16:55)
[2020-07-17] MEDS: BLOOD SUGAR DIAGNOSTIC 1 EACH STRIP IN SCH ×3 (00:03→11:54)
[2020-07-17 04:17] LABS: BASOPHILS % (AUTO) 0.3 % (0.0-2.0); HEMATOCRIT 42 % (33-45); HEMOGLOBIN 13.5 g/dL (11.5-14.8); LYMPHOCYTES # (AUTO) 0.8 /CMM (0.8-4.8); LYMPHOCYTES % (AUTO) 10.8 % (20.0-44.0); MEAN CORPUSCULAR HGB CONC 32 g/dl (31.0-36.0); MEAN CORPUSCULAR VOLUME 95 fL (82-100); MONOCYTES # (AUTO) 0.3 /CMM (0.1-1.30); MONOCYTES % (AUTO) 4.7 % (2.0-12.0); NEUTROPHILS # (AUTO) 5.9 /CMM (1.8-8.9); NEUTROPHILS % (AUTO) 84.2 % (43.0-81.0); PLATELET COUNT (AUTO) 64 /CMM (150-450); RED BLOOD CELL COUNT(AUTO) 4.45 MIL/uL (4.0-5.2); WHITE BLOOD COUNT (AUTO) 7.1 K/uL (4.3-11.0)
[2020-07-17 04:33] LABS: MAGNESIUM 2.2 mg/dL (1.8-2.4); PHOSPHORUS 3.1 mg/dL (2.5-4.9)
--- NOTE | 2020-07-17 04:55 | NUR ---
IV ON THE RIGH ARM INFILTRATED, REMOVED, TIP IS INTACT. IV REINSERTED BY THE ICU CHARGE NURSE RONALD ON THE LEFT UPPER ARM G22.
[2020-07-17 05:02] LABS: D-DIMER 17.46 mg/L(FEU (0.17-0.50)
[2020-07-17] MEDS: MEROPENEM 1 G in IV NS 0.9% 100 ML IV SCH ×2 (05:03→17:07)
[2020-07-17] MEDS: VANCOMYCIN 1.25 GM in IV D5W 250 ML IV SCH ×2 (05:51→23:01)
--- NOTE | 2020-07-17 06:38 | NUR ---
SAND SLINGER OPERATOR CLOSING NOTES: PATIENT IN BED, AWAKE, LETHARGIC, NO SOB NOTED. NOT IN PAIN. HOB ELEVATED AT ALL TIMES. CALL LIGHT WITHIN REACH. BED ALARM ON. BED IN LOWEST AND LOCKED POSITION. BLOOD SUGAR THIS MORNING WAS 260, 6 UNITS INSULIN GIVEN. WITH BILATERAL SOFT WRISTS RESTRAINTS ON, SKIN AND CIRCULATIONS WNL. RECEIVED A CALL FROM WOUND NURSE ROBBIE AND INFORMED HER OF APS IS ON THE CASE, DEJA WILL BE THE ASSIGNED APS. KENNY CALLED LAST NIGHT AND TRIED TO TALK TO THE PATIENT. AND HE STATED THAT HE WANTS MD TO UPDATE HIM WITH MRI OF THE BRAIN RESULT, WILL ENDORSE TO THE NEXT SHIFT RN. PER ROBBIE ANALYTICAL ENGINEER WILL BE CONSULTED.
--- NOTE | 2020-07-17 07:30 | NUR ---
RN OPENING NOTES RECEIVED PATIENT IN BED. ASLEEP. RESPONSIVE TO VERBAL, TACTILE AND PAINFUL STIMULI. NO CARDIAC OR RESPIRATORY DISTRESS NOTED. NO SOB NOTED. SATURATING WELL ON 3L OF O2 VIA NASAL CANULA. BREATHING IS EVEN AND UNLABORED. IV ACCESS NOTED AT L UPPER ARM G22. INTACT AND PATENT AND FLUSHING WELL. NO S/S OF INFECTION OR INFILTRATION NOTED. BILATERAL SOFT WRIST RESTRAINTS NOTED. NO SWELLING, PAIN OR SKIN BREAKDOWN UNDERNEATH RESTRAINTS. SAFETY PRECAUTIONS IN PLACE. BED LOCKED AND IN LOW POSITION. SIDE RAILS UP X2. BED ALARM ON. CALL LIGHT WITHIN REACH. WILL CONT TO MONITOR.
[2020-07-17] MEDS: NYSTATIN CREAM 15 GM TUBE TP SCH (08:38)
[2020-07-17] MEDS ORDERED: HYDROGEL DRESSING 90 GM TUBE TP PRN (10:30)
--- NOTE | 2020-07-17 10:34 | NUR ---
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 RECOMMEND SURGICAL AND DPM CONSULTS. DR ORTIZ SOSA AND DR OCONNOR NOTIFIED OF CONSULT REQUESTS. RECOMMENDATIONS MADE FOR SKIN PROTECTION AND WOUND CARE. DEFER TO DPM FOR LOWER EXTREMITY WOUND TREATMENT PLAN. PT IS ON APRIL ISOFLEX LOW AIRLOSS BED. DIETARY CONSULT IN PLACE. MD IN AGREEMENT WITH PLAN OF CARE. Addendum: 07/17/20 at 1037 by SHANICE MELCHOR WNDNU Amended: Links added.
--- NOTE | 2020-07-17 11:30 | NUR ---
[facility] PT WAS SEEN BY [facility] PT ABLE TO TOLERATE PUREED DIET WITH REGULAR LIQUIDS. DIET ORDERED.
--- NOTE | 2020-07-17 12:00 | NUR ---
WOUND CARE WOUND TX DONE. PT TOLERATED WELL.
[2020-07-17] MEDS: DAKINS QUARTER STRENGTH (0.125%) 480 ML BOTTLE TOP SCH (12:31)
[2020-07-17] MEDS: HYDROGEL DRESSING 90 GM TUBE TP SCH (12:32)
[2020-07-17] MEDS ORDERED: RIVAROXABAN 15 MG TABLET PO SCH (15:00)
[2020-07-17] MEDS ORDERED: DEXTROSE 50%-WATER 50 ML DISP.SYRIN IV PRN (15:00)
[2020-07-17] MEDS: predniSONE 20 MG TABLET PO SCH (15:29)
[2020-07-17] MEDS: ENOXAPARIN SODIUM 100 MG/ML DISP.SYRIN SQ SCH ×2 (15:30→23:00)
[2020-07-17] MEDS: CLOTRIMAZOLE 1% 15 GM TUBE TP SCH (16:23)
[2020-07-17] MEDS: BLOOD SUGAR DIAGNOSTIC 1 EACH STRIP VI SCH ×2 (16:34→22:57)
[2020-07-17] MEDS: IV NS 0.9% 1,000 ML IV PRN (17:49)
--- NOTE | 2020-07-17 18:15 | NUR ---
SURGERY CONSULT PT WAS SEEN BY DR. JAC SOSA. PER MD PT WILL NEED EXCISIONAL DEBRIDEMENT OF RHIP AND R BUTTOCK WOUND
--- NOTE | 2020-07-17 18:17 | NUR ---
RN CLOSING NOTES PATIENT IN BED. ASLEEP. RESPONSIVE TO VERBAL, TACTILE AND PAINFUL STIMULI. NO CARDIAC OR RESPIRATORY DISTRESS NOTED. NO SOB NOTED. SATURATING WELL ON 3L OF O2 VIA NASAL CANULA. BREATHING IS EVEN AND UNLABORED. IV ACCESS NOTED AT L UPPER ARM G22. INTACT AND PATENT AND FLUSHING WELL. NO S/S OF INFECTION OR INFILTRATION NOTED. BILATERAL SOFT WRIST RESTRAINTS NOTED. NO SWELLING, PAIN OR SKIN BREAKDOWN UNDERNEATH RESTRAINTS. WOUND CARE DONE TODAY. ST EVAL DONE. PT ABLE TO TOLERATE PUREED DIET WITH REGULAR FLUIDS. ALL NEEDS MET AND ATTENDED. REPOSITIONED Q2 HRS. FLUIDS ENCOURAGED. PT WAS SEEN BY BELTRAN POWER DNP TODAY. SHE ORDERED PREDNISONE FOR VASCULITIS AND ANTICOAGULANTS FOR THE DVT. ALL DUE MEDS ADMINISTERED. SAFETY PRECAUTIONS IN PLACE. BED LOCKED AND IN LOW POSITION. SIDE RAILS UP X2. BED ALARM ON. CALL LIGHT WITHIN REACH. WILL CONT TO MONITOR.
--- NOTE | 2020-07-17 18:30 | NUR ---
PROCEDURE CONSENT CONSENT OBTAINED FROM KENNY RIVER (PTS ) VIA PHONE. WITNESSED AND VERIFIED BY PRIMARY RN RITSEH AND LAMBERT BUTTS.
--- NOTE | 2020-07-17 19:30 | NUR ---
ms rn opening note received patient in bed. a/ox1. per day RN patient only responds yes or no to simple questions. on oxygen 3l/min via nasal cannula. respirations are even and unlabored. no s/s sob noted. no s/s pain at this time. in no apparent distress. iv access in amarilys #22 running ns@50ml/hr. marks catheter is present, draining to gravity, urine is ramos. bilateral soft wrist restraint present, 2 finger breaths room between skin and restraint, no redness noted. bed is low an dlocked, hob elevated in semi fowlers, side rails up x3. call light within reach. will continue to monitor.
[2020-07-17] MEDS: *INSULIN REGULAR(HUMULIN R)HUM 100 UNIT/ML VIAL SQ PRN (23:06)
--- NOTE | 2020-07-17 23:22 | NUR ---
ms rn note called instrumentation and controls technician MD Dr. Paul to ask if he would like me to hold Lovenox 100mg d/t patient had a excisional debridement of sacrum and right hip tomorrow. MD telephone orders hold Lovenox 100mg tonight only. order read back, noted and carried out.
[2020-07-18] MEDS: MEROPENEM 1 G in IV NS 0.9% 100 ML IV SCH ×2 (05:49→17:26)
[2020-07-18] MEDS: BLOOD SUGAR DIAGNOSTIC 1 EACH STRIP VI SCH ×4 (06:11→21:13)
[2020-07-18] MEDS: INSULIN REGULAR, HUMAN 100 UNIT/ML 3 ML VIAL SQ PRN ×3 (06:16→17:28)
[2020-07-18 06:49] LABS: BASOPHILS % (AUTO) 0.2 % (0.0-2.0); HEMATOCRIT 42 % (33-45); HEMOGLOBIN 13.3 g/dL (11.5-14.8); LYMPHOCYTES # (AUTO) 0.6 /CMM (0.8-4.8); LYMPHOCYTES % (AUTO) 8.8 % (20.0-44.0); MEAN CORPUSCULAR HGB CONC 32 g/dl (31.0-36.0); MEAN CORPUSCULAR VOLUME 94 fL (82-100); MONOCYTES # (AUTO) 0.2 /CMM (0.1-1.30); MONOCYTES % (AUTO) 3.3 % (2.0-12.0); NEUTROPHILS # (AUTO) 6.1 /CMM (1.8-8.9); NEUTROPHILS % (AUTO) 87.7 % (43.0-81.0); PLATELET COUNT (AUTO) 76 /CMM (150-450); RED BLOOD CELL COUNT(AUTO) 4.42 MIL/uL (4.0-5.2); WHITE BLOOD COUNT (AUTO) 6.9 K/uL (4.3-11.0)
[2020-07-18 07:27] LABS: CALCIUM, SERUM 8.6 mg/dL (8.5-10.1); MAGNESIUM 2.1 mg/dL (1.8-2.4); PHOSPHORUS 2.9 mg/dL (2.5-4.9); POTASSIUM 4.1 mmol/L (3.5-5.1)
--- NOTE | 2020-07-18 07:30 | NUR ---
ms rn closing note patient in bed. a/ox1. was not verbal with me. remains on oxygen 3l/min via nasal cannula. no resp distress noted. no s/s pain. no distress. iv access maintained in amarilys #22 running ns@50ml/hr. marks catheter is maintained, draining to gravity, urine is ramos output 350ml. bilateral soft wrist restraint are maintained, 2 finger breaths room between skin and restraint, no redness noted, released and patient turned per protocol. bed remains low and locked, hob elevated in semi fowlers, side rails up x3. call light within reach. will endorse to next shift.
--- NOTE | 2020-07-18 07:30 | NUR ---
RN Opening Received patient AO x 1, able to responds all stimuli. Does no appears pain or distress, skin is warm to touch, keep clean/dry, intact IV site running IVF/NS at 50 ml/hr. Respiratory even and unlabored with oxygen at 3LPM. Keep bed in locked with elevated HOB for ensure airway and aspiration precaution. Call light within reach, will continue to monitor.
[2020-07-18 08:00] VITALS: BP 115/77
[2020-07-18] MEDS: predniSONE 20 MG TABLET PO SCH (08:24)
[2020-07-18] MEDS: ENOXAPARIN SODIUM 100 MG/ML DISP.SYRIN SQ SCH ×2 (08:25→20:52)
[2020-07-18] MEDS: HYDROGEL DRESSING 90 GM TUBE TP SCH (08:26)
[2020-07-18] MEDS: CLOTRIMAZOLE 1% 15 GM TUBE TP SCH ×2 (08:26→17:26)
[2020-07-18] MEDS: DAKINS QUARTER STRENGTH (0.125%) 480 ML BOTTLE TOP SCH (08:26)
[2020-07-18 08:48] LABS: D-DIMER 6.5 mg/L(FEU (0.17-0.50)
[2020-07-18 16:00] VITALS: BP 119/79
[2020-07-18] MEDS ORDERED: MORPHINE SULFATE INJ 2 MG/ML DISP.SYRIN IV ONE (18:30)
--- NOTE | 2020-07-18 18:50 | NUR ---
RN Closing Note Patient is in bed, resting comfortably, no appears pain or distress, skin is warm to touch, keep clean/dry, given marks care, intact IV site. Respiratory even and unlabored with oxygen at 3LPM, no distress observed. Keep bed in lock with elevated HOB for ensure airway and aspiration precaution. Pt done for debridement by Dr. Browne. Call light within reach, will endorse overnight babysitter
--- NOTE | 2020-07-18 19:47 | NUR ---
MS/RN OPENING NOTE Received patient asleep in bed. A/O x1. Breathing even, clear, unlabored. No signs of acute distress or SOB, on nasal cannula 3L/min. Patient denies pain, nausea, vomiting. Bowel sounds normoactive in all quadrants. Bowles catheter in place, draining clear, ramos urine, no sediment. IV site left upper arm 22g running NS @ 50 ml/hr. Soft wrist restraints in place, no signs of redness or skin breakdown. Bed in low position, wheels locked, side rails up x2, call light within reach.
[2020-07-18 20:00] VITALS: BP 109/56
[2020-07-18] MEDS ORDERED: FLUCONAZOLE IN NS 100 MG in PREMIX 1 EA IV SCH ×2 (20:00)
[2020-07-18] MEDS: IV NS 0.9% 1,000 ML IV PRN (20:40)
[2020-07-18] MEDS: *INSULIN REGULAR(HUMULIN R)HUM 100 UNIT/ML VIAL SQ PRN (21:10)
[2020-07-18 22:51] VITALS: BP 109/56
[2020-07-18] MEDS: VANCOMYCIN 1.25 GM in IV D5W 250 ML IV SCH (23:06)
[2020-07-19] MEDS: MEROPENEM 1 G in IV NS 0.9% 100 ML IV SCH ×2 (05:35→17:37)
--- NOTE | 2020-07-19 06:09 | NUR ---
MS/RN CLOSING NOTE Received patient asleep in bed. A/O x1. Breathing even, clear, unlabored. No signs of acute distress or SOB, on nasal cannula 3L/min. Bowel sounds normoactive in all quadrants. 1 bowel movement this shift, moderate, soft, brown. Bowles catheter in place, draining clear, ramos urine, no sediment, 1200ml. IV site left upper arm 22g running NS @ 50 ml/hr. Wound dressing to right hip changed. Serosanguineous drainage noted on dressing. Soft wrist restraints in place, no signs of redness or skin breakdown. Bed in low position, wheels locked, side rails up x2, call light within reach.
--- NOTE | 2020-07-19 07:03 | NUR ---
GRAINING OPERATOR OPENING NOTES RECEIVED PT AWAKE IN BED, AOX1.LETHARGIC, NO SOB NOTED, NO S/S OF ANY ACUTE DISTRESS NOTED. NO C/O PAIN AT THIS TIME. RESPIRATIONS ARE EVEN AND UNLABORED WITH EQUAL RISE AND FALL IN CHEST. IV ACCESS NOTED IN ALEX G# 22, PATENT, INTACT AND FLUSHING WELL. FC IN PLACE DRAINING TO GRAVITY SHUBHAM YELLOW URINE OUTPUT. FALL AND SAFETY PRECAUTION IN PLACE AND MAINTAINED AT ALL TIMES. BED IN LOWEST LOCKED POSITION, HOB ELEVATED, RAILS UP X 2, CALL LIGHT WITHIN REACH. WILL CONTINUE TO MONITOR
--- NOTE | 2020-07-19 07:10 | NUR ---
PT NOTED WITH LEFT ARM REDNESS/DISCOLORATION. PICTURE TAKEN AND FILED IN CHART, WILL CONTINUE TO MONITOR
[2020-07-19] MEDS: BLOOD SUGAR DIAGNOSTIC 1 EACH STRIP VI SCH ×4 (07:40→21:19)
[2020-07-19] MEDS: INSULIN REGULAR, HUMAN 100 UNIT/ML 3 ML VIAL SQ PRN ×3 (07:46→16:54)
[2020-07-19 08:00] VITALS: BP 101/61
[2020-07-19 08:01] LABS: BASOPHILS % (AUTO) 0.1 % (0.0-2.0); EOSINOPHILS % (AUTO) 0.1 % (0.0-6.0); HEMATOCRIT 42 % (33-45); HEMOGLOBIN 13.6 g/dL (11.5-14.8); LYMPHOCYTES # (AUTO) 0.8 /CMM (0.8-4.8); LYMPHOCYTES % (AUTO) 7.7 % (20.0-44.0); MEAN CORPUSCULAR HGB CONC 32 g/dl (31.0-36.0); MEAN CORPUSCULAR VOLUME 95 fL (82-100); MONOCYTES # (AUTO) 0.4 /CMM (0.1-1.30); MONOCYTES % (AUTO) 3.9 % (2.0-12.0); NEUTROPHILS # (AUTO) 9.5 /CMM (1.8-8.9); NEUTROPHILS % (AUTO) 88.2 % (43.0-81.0); PLATELET COUNT (AUTO) 91 /CMM (150-450); RED BLOOD CELL COUNT(AUTO) 4.45 MIL/uL (4.0-5.2); WHITE BLOOD COUNT (AUTO) 10.7 K/uL (4.3-11.0)
[2020-07-19 08:04] LABS: CALCIUM, SERUM 8.4 mg/dL (8.5-10.1); CREATININE 0.9 mg/dL (0.6-1.3); MAGNESIUM 2.1 mg/dL (1.8-2.4); PHOSPHORUS 2.8 mg/dL (2.5-4.9); POTASSIUM 4.1 mmol/L (3.5-5.1)
[2020-07-19] MEDS: ENOXAPARIN SODIUM 100 MG/ML DISP.SYRIN SQ SCH ×2 (08:50→21:18)
[2020-07-19] MEDS: predniSONE 20 MG TABLET PO SCH (08:51)
[2020-07-19] MEDS: HYDROGEL DRESSING 90 GM TUBE TP SCH (09:00)
[2020-07-19] MEDS: CLOTRIMAZOLE 1% 15 GM TUBE TP SCH ×2 (09:00→16:54)
[2020-07-19] MEDS: DAKINS QUARTER STRENGTH (0.125%) 480 ML BOTTLE TOP SCH (09:01)
[2020-07-19 09:14] LABS: LYMPHOCYTES % (MANUAL) 11 % (16-48); MONOCYTES % (MANUAL) 4 % (0-11.0); NEUTROPHILS % (MANUAL) 85 (42-76)
[2020-07-19 16:00] VITALS: BP 100/68
[2020-07-19] MEDS: MICAFUNGIN SODIUM 100 MG in IV NS 0.9% 100 ML IV SCH (18:57)
--- NOTE | 2020-07-19 19:00 | NUR ---
MS RN CLOSING NOTES PT AWAKE IN BED AT THIS TIME. PT REMAINED STABLE THROUGHOUT SHIFT. PT KEPT CLEAN AND DRY. ALL CARE, NEEDS, MEDICATION AND TREATMENT ADMINISTERED ANTICIPATED PER ORDER. PT REPOSITIONED Q2HR, PRN AND PER PROTOCOL. FC CARE PROVIDED. SAFETY PRECAUTION IN PLACE AND MAINTAINED AT ALL TIMES. BED IN LOWEST LOCKED POSITION, HOB ELEVATED, RAILS UP, CALL LIGHT WITHIN REACH. WILL ENDORSE TO EMPLOYMENT EVALUATOR/CASE MANAGER NURSE FOR TIEN
--- NOTE | 2020-07-19 19:47 | NUR ---
MS/RN OPENING NOTE Patient awake in bed. A/O x1, able to verbalize simple phrases. HOB elevated. Breathing even, clear, unlabored. No signs of acute distress or SOB, on nasal cannula 3L/min. Skin warm, pink, dry. Right lower extremity is erythematous, with non-pitting edema. Non-pitting edema noted on left arm. Bowel sounds normoactive in all quadrants. Bowles catheter in place, draining clear, ramos urine, no sediment. IV site left upper arm 22g running NS @ 50 ml/hr. Bruising noted around IV site. Wound dressing to right hip, clean, dry intact, minimal serosanguineous drainage noted. Soft wrist restraints in place, no signs of redness or skin breakdown. CRP <3seconds. Radial pulses 2+ bilateral, symmetrical. Bed in low position, wheels locked, side rails up x2, call light within reach.
[2020-07-19 20:00] VITALS: BP 124/76
[2020-07-19] MEDS: *INSULIN REGULAR(HUMULIN R)HUM 100 UNIT/ML VIAL SQ PRN (21:27)
[2020-07-19] MEDS: IV 1/2NS 1000 ML 1,000 ML IV PRN (21:36)
[2020-07-19 22:03] VITALS: BP 124/76
[2020-07-19] MEDS: VANCOMYCIN 1.25 GM in IV D5W 250 ML IV SCH (23:07)
[2020-07-20] MEDS: MEROPENEM 1 G in IV NS 0.9% 100 ML IV SCH ×2 (05:51→17:55)
[2020-07-20] MEDS: BLOOD SUGAR DIAGNOSTIC 1 EACH STRIP VI SCH ×4 (06:42→21:27)
[2020-07-20] MEDS: INSULIN REGULAR, HUMAN 100 UNIT/ML 3 ML VIAL SQ PRN ×3 (06:44→18:00)
--- NOTE | 2020-07-20 07:00 | NUR ---
MS/RN CLOSING NOTE Patient awake in bed. A/O x1, able to verbalize simple phrases. HOB elevated. Breathing even, clear, unlabored. No signs of acute distress or SOB, on nasal cannula 3L/min. Skin warm, pink, dry. Right lower extremity is erythematous, with non-pitting edema. Non-pitting edema noted on left arm. Right arm is visibly swollen compared to left arm. Bowel sounds normoactive in all quadrants. Bowles catheter in place, draining clear, ramos urine 300 ml, no sediment. IV site left upper arm 22g leaking, DC IV. Bruising noted around former IV site. Wound dressing to right changed, large serosanguineous drainage noted. Soft wrist restraints on, no signs of skin breakdown. CRP <3seconds. Pulses 2+ bilateral, symmetrical. Bed in low position, wheels locked, side rails up x2, call light within reach. Will endorse to oncoming nurse.
--- NOTE | 2020-07-20 07:25 | NUR ---
MS RN NOTES PATIENT IN BED ALERT ORIENTED X 1, NO ACUTE DISTRESS NOTED. BREATHING UNLABORED. NO SOB NOTED. IV ACCESS PATENT AND INTACT, NO REDNESS OR SWELLING NOTED. DUFF CATHETER INTACT DRAINING WELL. SAFETY MEASURES IN PLACE. CALL LIGHT WITHIN REACH. WILL CONTINUE TO MONITOR ACCORDINGLY.
[2020-07-20 07:32] LABS: BASOPHILS % (AUTO) 0.3 % (0.0-2.0); EOSINOPHILS % (AUTO) 0.1 % (0.0-6.0); HEMATOCRIT 48 % (33-45); HEMOGLOBIN 14.4 g/dL (11.5-14.8); LYMPHOCYTES % (AUTO) 10.8 % (20.0-44.0); MEAN CORPUSCULAR HGB CONC 30 g/dl (31.0-36.0); MEAN CORPUSCULAR VOLUME 99 fL (82-100); MONOCYTES # (AUTO) 0.5 /CMM (0.1-1.30); MONOCYTES % (AUTO) 5.3 % (2.0-12.0); NEUTROPHILS # (AUTO) 7.8 /CMM (1.8-8.9); NEUTROPHILS % (AUTO) 83.5 % (43.0-81.0); PLATELET COUNT (AUTO) 94 /CMM (150-450); RED BLOOD CELL COUNT(AUTO) 4.83 MIL/uL (4.0-5.2); WHITE BLOOD COUNT (AUTO) 9.4 K/uL (4.3-11.0)
[2020-07-20 07:42] LABS: CALCIUM, SERUM 8.5 mg/dL (8.5-10.1); CREATININE 0.9 mg/dL (0.6-1.3); MAGNESIUM 2.5 mg/dL (1.8-2.4); PHOSPHORUS 2.8 mg/dL (2.5-4.9); POTASSIUM 4.4 mmol/L (3.5-5.1)
--- NOTE | 2020-07-20 07:45 | NUR ---
MS RN NOTES NEW IV ACCESS STARTED ON LEFT HAND GAUGE 22 X 1 ATTEMPT WITH GOOD BLOOD RETURN, PATENT TOLERATED WELL. SECURED WITH TRANSPARENT DRESSING SIGNED AND DATED.
[2020-07-20 08:12] VITALS: BP 101/69
[2020-07-20] MEDS: HYDROGEL DRESSING 90 GM TUBE TP SCH (08:48)
[2020-07-20] MEDS: DAKINS QUARTER STRENGTH (0.125%) 480 ML BOTTLE TOP SCH (08:48)
[2020-07-20] MEDS: predniSONE 20 MG TABLET PO SCH (08:49)
[2020-07-20] MEDS: CLOTRIMAZOLE 1% 15 GM TUBE TP SCH ×2 (08:49→17:55)
[2020-07-20] MEDS: ENOXAPARIN SODIUM 100 MG/ML DISP.SYRIN SQ SCH (08:51)
[2020-07-20 09:57] LABS: LYMPHOCYTES % (MANUAL) 15 % (16-48); MONOCYTES % (MANUAL) 4 % (0-11.0); NEUTROPHILS % (MANUAL) 81 (42-76)
--- NOTE | 2020-07-20 11:38 | NUR ---
MS RN NOTES RECEIVED NEW ORDER FROM [facility] TO DISCONTINUE Lovenox 100 MG SQ Q12HR CHANGE TO Eliquis 5 MG PO Q12H GISELLE STARTING TONIGHT AT 2100, ORDERS CLARIFIED AND READ BACK WITH DR HICKS, NOTED AND CARRIED OUT. NOTIFIED DR ORTIZ ANDREWS SAID "OK".
[2020-07-20 16:00] VITALS: BP 121/74
[2020-07-20] MEDS: MICAFUNGIN SODIUM 100 MG in IV NS 0.9% 100 ML IV SCH (18:59)
--- NOTE | 2020-07-20 19:42 | NUR ---
MS RN NOTES PATIENT IN BED ALERT ORIENTED X 1, NO ACUTE DISTRESS NOTED. BREATHING UNLABORED. NO SOB NOTED. IV ACCESS PATENT AND INTACT, NO REDNESS OR SWELLING NOTED. DUFF CATHETER INTACT DRAINING WELL.NEEDS ATTENDED AND ANTICIPATED . KEPT CLEAN DRY AND COMFORTABLE. TURNED AND REPOSITION EVERY 2 HOURS AND NEEDED. BILATERAL HAND RESTRAIN IN PLACE CHECKED WITH GOOD CIRCULATION. SAFETY MEASURES IN PLACE. CALL LIGHT WITHIN REACH. WILL ENDORSE TO NIGHT NURSE FOR CONTINUITY OF CARE.
[2020-07-20 20:00] VITALS: BP 111/69
--- NOTE | 2020-07-20 20:00 | NUR ---
MS RN NOTES NOTED EDEMA ON RIGHT FOOT AND RIGHT ARM,APPEARS CALM,RESTRAINTS LOOSEN UP.
[2020-07-20 20:06] LABS: *ANA ANTI-CENTROMERE B AB <0.2 AI (0.0-0.9); *ANA ANTI-DNA(DS) AB, QN <1 IU/mL (0-9); *ANA ANTI-JO-1 <0.2 AI (0.0-0.9); *ANA ANTICHROMATIN ANTIBODY <0.2 AI (0.0-0.9); *ANA RNP ANTIBODIES <0.2 AI (0.0-0.9); *ANA SJOGREN'S ANTI-SS-A <0.2 AI (0.0-0.9); *ANA SJOGREN'S ANTI-SS-B <0.2 AI (0.0-0.9); *ANAANTI-SCLERODERMA-70 AB <0.2 AI (0.0-0.9); *ANASMITH AB <0.2 AI (0.0-0.9)
[2020-07-20 20:13] VITALS: BP 111/69
[2020-07-20] MEDS: APIXABAN 5 MG TABLET PO SCH (20:56)
--- NOTE | 2020-07-20 21:00 | NUR ---
MS RN NOTES STARTED ON ELIQUIS 5MG PO,GIVEN WITH APPLE SAUCE,TAKEN WELL.NEGATIVE FOR ASPIRATION
[2020-07-20] MEDS: *INSULIN REGULAR(HUMULIN R)HUM 100 UNIT/ML VIAL SQ PRN (21:48)
--- NOTE | 2020-07-20 22:00 | NUR ---
MS RN NOTES ACCU-CHECK BLOOD SUGAR CHECK 290 COVERED WITH HUMULIN R 6 UNITS PER SLIDING SCALE.
--- NOTE | 2020-07-20 22:30 | NUR ---
MS RN NOTES VANCOMYCIN TROUGH 22,DOSE HELD PER LEVEL PROTOCOL
[2020-07-20] MEDS: VANCOMYCIN 1.25 GM in IV D5W 250 ML IV SCH (23:00)
[2020-07-21] MEDS: IV 1/2NS 1000 ML 1,000 ML IV PRN (02:11)
[2020-07-21] MEDS: MEROPENEM 1 G in IV NS 0.9% 100 ML IV SCH ×2 (05:24→17:17)
[2020-07-21] MEDS: BLOOD SUGAR DIAGNOSTIC 1 EACH STRIP VI SCH ×4 (05:25→22:57)
--- NOTE | 2020-07-21 05:30 | NUR ---
MS RN NOTES ACCU-CHECK BLOOD SUGAR CHECK 275,COVERED WITH HUMULIN R 6 UNITS PER SLIDING SCALE.WITH IVF INFUSING.
[2020-07-21] MEDS: INSULIN REGULAR, HUMAN 100 UNIT/ML 3 ML VIAL SQ PRN ×3 (05:33→18:22)
--- NOTE | 2020-07-21 06:25 | NUR ---
MS RN NOTES MORNING CARE RENDERED TOLERATED WELL.DRESSING CHANGE DONE ON RIGHT HIP AREA, WITH DAKINS SOLUTION,REPOSITION PER PROTOCOL.ALL DUE MEDS ADMINISTERED.DVT PUMP IN USED ON LEFT LEG.CALL LIGHT IN REACH,NEEDS ATTENDED.IN NO ACUTE DISTRESS.
[2020-07-21 08:00] VITALS: BP 129/83
[2020-07-21 08:11] LABS: CALCIUM, SERUM 8.1 mg/dL (8.5-10.1); CREATININE 0.9 mg/dL (0.6-1.3); MAGNESIUM 2.2 mg/dL (1.8-2.4); PHOSPHORUS 2.9 mg/dL (2.5-4.9); POTASSIUM 4.2 mmol/L (3.5-5.1)
[2020-07-21 08:13] LABS: BASOPHILS % (AUTO) 0.3 % (0.0-2.0); EOSINOPHILS % (AUTO) 0.1 % (0.0-6.0); HEMATOCRIT 41 % (33-45); HEMOGLOBIN 13.2 g/dL (11.5-14.8); LYMPHOCYTES # (AUTO) 0.7 /CMM (0.8-4.8); LYMPHOCYTES % (AUTO) 6.5 % (20.0-44.0); MEAN CORPUSCULAR HGB CONC 32 g/dl (31.0-36.0); MEAN CORPUSCULAR VOLUME 94 fL (82-100); MONOCYTES # (AUTO) 0.3 /CMM (0.1-1.30); MONOCYTES % (AUTO) 2.3 % (2.0-12.0); NEUTROPHILS # (AUTO) 9.8 /CMM (1.8-8.9); NEUTROPHILS % (AUTO) 90.8 % (43.0-81.0); PLATELET COUNT (AUTO) 132 /CMM (150-450); RED BLOOD CELL COUNT(AUTO) 4.41 MIL/uL (4.0-5.2); WHITE BLOOD COUNT (AUTO) 10.8 K/uL (4.3-11.0)
[2020-07-21] MEDS: predniSONE 20 MG TABLET PO SCH (08:45)
[2020-07-21] MEDS: DAKINS QUARTER STRENGTH (0.125%) 480 ML BOTTLE TOP SCH (08:46)
[2020-07-21] MEDS: APIXABAN 5 MG TABLET PO SCH ×2 (08:46→20:47)
[2020-07-21] MEDS: HYDROGEL DRESSING 90 GM TUBE TP SCH (08:47)
[2020-07-21] MEDS: CLOTRIMAZOLE 1% 15 GM TUBE TP SCH ×2 (08:48→17:18)
[2020-07-21 09:11] LABS: LYMPHOCYTES % (MANUAL) 6 % (16-48); NEUTROPHILS % (MANUAL) 94 (42-76)
[2020-07-21] MEDS: VANCOMYCIN 0.75 GM in IV D5W 250 ML IV SCH (14:46)
[2020-07-21 16:00] VITALS: BP 104/61
[2020-07-21] MEDS: PROSOURCE / PROSTAT (PYXIS) 30 ML UDC PO SCH (17:16)
--- NOTE | 2020-07-21 18:00 | NUR ---
RN NOTES UNABLE TO START PICC LINE BY PICC LINE NURSE AT THIS TIME, ANOTHER PICC LINE NURSE WILL COME TONIGHT OR TOMORROW, BIT GRINDER CYNTHIA MOSES, MARIEL SALAS MADE AWARE. Addendum: 07/21/20 at 2022 by MEREDITH CADENA RN DISREGARD ABOVE NOTE, WRONG ENTRY
[2020-07-21] MEDS: MICAFUNGIN SODIUM 100 MG in IV NS 0.9% 100 ML IV SCH (18:19)
[2020-07-21] MEDS ORDERED: CEFTRIAXONE 1 G in IV D5W 50 ML IV SCH ×2 (18:30→20:00)
--- NOTE | 2020-07-21 19:10 | NUR ---
MS RN OPENING NOTES: RECEIVED PATIENT IN BED, AWAKE, A/O X 1-2. PATIENT CAN TALK. HOB ELEVATED AT 30 DEGREES. BED ALARM ON. BED IN LOWEST AND LOCKED POSITION. CALL LIGHT WITHIN REACH. WITH DUFF CATHETER INTACT, DRAINING TO A CLEAR YELLOW URINE OUTPUT. WITH BILATERAL SOFT WRIST RESTRAINTS ON, SKIN AND CIRCULATION WNL. BILATERAL HEELS OFFLOADED. WITH RIGHT ARM/ HAND NON PITTING EDEMA. NO SOB NOTED. NO COMPLAIN OF PAIN.
[2020-07-21 20:00] VITALS: BP 111/71
[2020-07-21 20:56] VITALS: BP 111/71
--- NOTE | 2020-07-21 21:02 | NUR ---
REPORTS GIVEN TO SAMRA GILLIAM FOR TIEN.
[2020-07-21 22:10] VITALS: BP 111/70
--- NOTE | 2020-07-21 22:10 | NUR ---
TRANSFERRED OF CARE Patient transferred from [facility] by bed. Patient is A/O to self only with confusion. Right hip wound with dry gauze in place. Bowles cath to drainage bag. Left thumb finger peripheral IV line, IVF infusing. BUE, BLE edema. Fall; skin precaution maintained.
[2020-07-21] MEDS: *INSULIN REGULAR(HUMULIN R)HUM 100 UNIT/ML VIAL SQ PRN (23:01)
--- NOTE | 2020-07-21 23:25 | NUR ---
ACUTE MEDICAL RESTRAINTS Patient attempted to pull out IV peripheral line, confused, impaired cognition. Soft wrist restraints renewed, applied to bilateral wrist, will release and reapply to check skin and circulation every 2 hours.
--- NOTE | 2020-07-22 06:20 | NUR ---
MS RN: END OF SHIFT REPORT Patient in bed, awake. A/O x1 to self only, with confusion. O2 sat 98% on room air. Right hip wound dressing done, offload wound. IVF maintained, IV antibiotic as scheduled, afebrile overnight. Fall; Skin precaution maintained. Will endorse to oncoming RN.
[2020-07-22] MEDS: IV 1/2NS 1000 ML 1,000 ML IV PRN (06:32)
[2020-07-22] MEDS: BLOOD SUGAR DIAGNOSTIC 1 EACH STRIP VI SCH ×2 (06:55→13:16)
[2020-07-22] MEDS: INSULIN REGULAR, HUMAN 100 UNIT/ML 3 ML VIAL SQ PRN ×2 (07:01→13:18)
[2020-07-22 07:35] LABS: CALCIUM, SERUM 8.3 mg/dL (8.5-10.1); CREATININE 0.9 mg/dL (0.6-1.3); POTASSIUM 4.5 mmol/L (3.5-5.1)
[2020-07-22 08:00] VITALS: BP 108/73
--- NOTE | 2020-07-22 08:00 | NUR ---
MS RN OPENING NOTES: RECEIVED PATIENT IN BED, AWAKE, A/O X 1-2. PATIENT CAN TALK.ALWAYS SCREAMING FOR HELP FREQUENTLY EVEN IF SHE DOESN'T KNOW WHAT SHE NEEDS.HOB ELEVATED AT 30 DEGREES. BED ALARM ON. BED IN LOWEST AND LOCKED POSITION. CALL LIGHT WITHIN REACH. WITH DUFF CATHETER INTACT, DRAINING TO A CLEAR YELLOW URINE OUTPUT. WITH BILATERAL SOFT WRIST RESTRAINTS ON, SKIN AND CIRCULATION WNL. BILATERAL HEELS OFFLOADED. WITH RIGHT ARM/ HAND NON PITTING EDEMA. ELEVATED WITH PILLOWS.NO SOB NOTED. NO COMPLAINTS OF PAIN OR DISTRESS.WILL MONITOR.
[2020-07-22] MEDS: predniSONE 20 MG TABLET PO SCH (09:27)
[2020-07-22] MEDS: APIXABAN 5 MG TABLET PO SCH (09:27)
[2020-07-22] MEDS: PROSOURCE / PROSTAT (PYXIS) 30 ML UDC PO SCH (09:28)
[2020-07-22] MEDS: DAKINS QUARTER STRENGTH (0.125%) 480 ML BOTTLE TOP SCH (09:29)
[2020-07-22] MEDS: HYDROGEL DRESSING 90 GM TUBE TP SCH (09:29)
[2020-07-22] MEDS: CLOTRIMAZOLE 1% 15 GM TUBE TP SCH (09:30)
--- NOTE | 2020-07-22 13:43 | NUR ---
PT IS FOR DISCHARGE TO [facility] AND DC'D VANCO IV AND WILL CONTINUE WITH ROCEPHIN IV.NOTIFIED PHARMACIST,FOSTER.
[2020-07-22] MEDS: VANCOMYCIN 0.75 GM in IV D5W 250 ML IV SCH (14:00)
--- NOTE | 2020-07-22 16:30 | NUR ---
DISCHARGED PT TO [facility] VIA AMBULANCE WITH STABLE V/S AND CALLED IN REPORT TO SAMRA ROMERO OF [facility]. IV H/L REMAINS INTACT TO LT THUMB WITH NO S/S OF INFILTRATION OR REDNESS OR SWELLING ON THE SITE FOR CONTINUATION OF IV ATB THERAPY.DUFF CATHETER REMAINS INTACT AND DRAINING YELLOW URINE OUTPUT MODERATE IN AMOUNT. LATEST BLOOD SUGAR 289.WITH NO S.S OF HYPO/HYPERGLYCEMIA.
== END 2020-07-22 16:30 | DRG 853 ==
LOC: ER 19:49 → MED 22:15 → TELE 22:20 → MED 07-15 02:13 → TELE 07-15 10:32 → MED 07-17 08:41 → MEDSG2 07-21 22:18
PROVIDERS: ADMIT Family Medicine
PROC: 0KBQ0ZZ Excision of Right Upper Leg Muscle, Open Approach (ICD-10-PCS; principal; 2020-07-18)
PROC: 0KBN0ZZ Excision of Right Hip Muscle, Open Approach (ICD-10-PCS; 2020-07-18)
DX: A41.9 Sepsis, unspecified organism (principal); N17.0 Acute kidney failure with tubular necrosis; E43 Unspecified severe protein-calorie malnutrition; R53.2 Functional quadriplegia; G93.41 Metabolic encephalopathy; I21.A1 Myocardial infarction type 2; I62.03 Nontraumatic chronic subdural hemorrhage; E87.2 Acidosis; L03.115 Cellulitis of right lower limb; B37.49 Other urogenital candidiasis; I42.9 Cardiomyopathy, unspecified; L97.819 Non-pressure chronic ulcer of other part of right lower leg with unspecified severity; G96.0 Cerebrospinal fluid leak; E87.0 Hyperosmolality and hypernatremia; R13.10 Dysphagia, unspecified; E11.621 Type 2 diabetes mellitus with foot ulcer; E11.42 Type 2 diabetes mellitus with diabetic polyneuropathy; E11.51 Type 2 diabetes mellitus with diabetic peripheral angiopathy without gangrene; N26.1 Atrophy of kidney (terminal); E80.6 Other disorders of bilirubin metabolism; Z93.1 Gastrostomy status; Z86.711 Personal history of pulmonary embolism; Z79.4 Long term (current) use of insulin; Z79.01 Long term (current) use of anticoagulants; R62.7 Adult failure to thrive; R65.20 Severe sepsis without septic shock; D69.59 Other secondary thrombocytopenia; E88.09 Other disorders of plasma-protein metabolism, not elsewhere classified; E11.65 Type 2 diabetes mellitus with hyperglycemia; L89.890 Pressure ulcer of other site, unstageable; Z88.2 Allergy status to sulfonamides; E66.9 Obesity, unspecified; Z68.36 Body mass index [BMI] 36.0-36.9, adult; B36.8 Other specified superficial mycoses; Z86.718 Personal history of other venous thrombosis and embolism; L89.312 Pressure ulcer of right buttock, stage 2; L89.210 Pressure ulcer of right hip, unstageable; I77.6 Arteritis, unspecified; I87.2 Venous insufficiency (chronic) (peripheral); R40.2142 Coma scale, eyes open, spontaneous, at arrival to emergency department; R40.2362 Coma scale, best motor response, obeys commands, at arrival to emergency department; R40.2242 Coma scale, best verbal response, confused conversation, at arrival to emergency department
CPT/HCPCS: 36415; 70450-TC; 70551-TC; 71045-TC; 76700-TC; 80048-TC; 80061-TC; 80076-TC; 80202-TC; 81000-TC; 82140-TC; 82570-TC; 82962-TC; 83605-TC; 83735-TC; 84100-TC; 84155-TC; 84300-TC; 84484-TC; 85025-TC; 85396; 85652-TC; 85730-TC; 86140-TC; 86225; 86235; 87070-TC; 87081-TC; 87086-TC; 87186-TC; 88304-TC; 88312-TC; 92526; 92611-TC; 93307-TC; 93926-TC; 93970-TC; 94799-TC; A4216; A6248; A6253; A6403; C9803-CS; G0378; J0696; J1450; J1630; J1644; J1650; J1815; J2185; J2248; J2250; J2270; J2543; J3370; J3490; J7030; J7060

== ENCOUNTER 2020-07-27 11:44 | Inpatient (IN) | payer MEDICARE, OTHER ==
[~2020-07-27] VITALS: Ht 170.2 cm; Wt 99.8 kg
--- NOTE | 2020-07-27 11:51 | NUR ---
EKG AT BEDSIDE
--- NOTE | 2020-07-27 11:52 | NUR ---
PT BIBEMS C/O NEW ONSET OF RUE AND LLLE EDEMA AND PAIN TODAY. PT GIVEN NORCO UNKNOWN DOSE AT THE FACILITY AT 0900. PT AAOX1, VSS, RESPIRATIONS EVEN AND UNLABORED ON RA W/ NAD NOTED. PT CONNECTED TO THE CASH MANAGEMENT SPECIALIST AND POX
--- NOTE | 2020-07-27 12:12 | NUR ---
LAY OUT AND DETAIL DRAFTER AT BEDSIDE FOR BLOOD DRAW
--- NOTE | 2020-07-27 12:13 | NUR ---
XRAY AT BEDSIDE
[2020-07-27 12:16] LABS: BASOPHILS % (AUTO) 0.2 % (0.0-2.0); EOSINOPHILS % (AUTO) 0.3 % (0.0-6.0); HEMATOCRIT 43 % (33-45); HEMOGLOBIN 13.5 g/dL (11.5-14.8); LYMPHOCYTES # (AUTO) 0.4 /CMM (0.8-4.8); LYMPHOCYTES % (AUTO) 3.7 % (20.0-44.0); MEAN CORPUSCULAR HGB CONC 32 g/dl (31.0-36.0); MEAN CORPUSCULAR VOLUME 94 fL (82-100); MONOCYTES # (AUTO) 0.5 /CMM (0.1-1.30); MONOCYTES % (AUTO) 4.3 % (2.0-12.0); NEUTROPHILS # (AUTO) 11.1 /CMM (1.8-8.9); NEUTROPHILS % (AUTO) 91.5 % (43.0-81.0); PLATELET COUNT (AUTO) 315 /CMM (150-450); RED BLOOD CELL COUNT(AUTO) 4.51 MIL/uL (4.0-5.2); WHITE BLOOD COUNT (AUTO) 12.2 K/uL (4.3-11.0)
[2020-07-27] MEDS ORDERED: HALOPERIDOL LACTATE INJ 5 MG/ML VIAL ONE (12:19)
[2020-07-27] MEDS ORDERED: NA P133E RC (12:22)
[2020-07-27] MEDS ORDERED: DOXY100T2 PO (12:22)
[2020-07-27] MEDS ORDERED: MAGN400O6 PO (12:22)
[2020-07-27] MEDS ORDERED: ASCO-352 PO (12:22)
[2020-07-27] MEDS ORDERED: APIX5TAB PO (12:22)
[2020-07-27] MEDS ORDERED: HYDR-4384 PO ×2 (12:22)
[2020-07-27] MEDS ORDERED: FLUC200T PO (12:22)
[2020-07-27] MEDS ORDERED: BISA10SU11 RC (12:22)
[2020-07-27] MEDS ORDERED: ACET-868 PO (12:22)
[2020-07-27] MEDS ORDERED: CRAN425C6 PO (12:22)
[2020-07-27] MEDS ORDERED: AMIN30LI27 PO (12:22)
[2020-07-27] MEDS ORDERED: DOCU-141 PO (12:22)
[2020-07-27] MEDS ORDERED: METH4TAB17 PO (12:22)
[2020-07-27] MEDS ORDERED: ZINC1CAP3 PO (12:22)
[2020-07-27] MEDS ORDERED: MULT-447 PO (12:22)
--- NOTE | 2020-07-27 12:22 | NUR ---
PT MEDICATED ORDERED
[2020-07-27 12:27] LABS: CALCIUM, SERUM 8.8 mg/dL (8.5-10.1)
[2020-07-27] MEDS ORDERED: HALOPERIDOL LACTATE INJ 5 MG/ML VIAL IM ONE (12:30)
[2020-07-27 12:32] LABS: ALBUMIN 2.1 g/dL (3.4-5.0); BILIRUBIN,DIRECT 0.2 mg/dL (0.0-0.2); BILIRUBIN,TOTAL 0.9 mg/dL (0.2-1.0); TOTAL PROTEIN, SERUM 6.2 g/dL (6.4-8.2)
--- NOTE | 2020-07-27 13:11 | NUR ---
LAB CALLED FOR COVID SWAB
--- NOTE | 2020-07-27 13:38 | NUR ---
COVID SWAB COLLECTED AND SENT TO LAB
--- NOTE | 2020-07-27 14:08 | NUR ---
MOVE SHEET TURNED IN AND CALLED FOR BED.
--- NOTE | 2020-07-27 14:22 | NUR ---
DR ALCANTAR AT BEDSIDE FOR EVAL
[2020-07-27] MEDS ORDERED: MAG HYDROX/AL HYDROX/SIMETH 30 ML UDC PO PRN (15:00)
[2020-07-27] MEDS ORDERED: Z GUARD REMEDY 2 OZ OINT TP PRN (15:00)
[2020-07-27] MEDS ORDERED: ONDANSETRON HCL/PF 4 MG/2 ML VIAL IVP PRN (15:00)
[2020-07-27] MEDS ORDERED: MAGNESIUM HYDROXIDE 30 ML UDC PO PRN (15:00)
[2020-07-27] MEDS ORDERED: methylPREDNISolone (4MG) 4 MG TABLET PO SCH (15:00)
[2020-07-27] MEDS ORDERED: BISACODYL SUPP (10 MG) 10 MG/SUPP.RECT SUPP.RECT RC PRN (15:00)
[2020-07-27] MEDS ORDERED: NA PHOS,M-B/NA PHOS,DI-BA 1 EA ENEMA RC PRN (15:00)
[2020-07-27] MEDS ORDERED: HYDROCODONE/APAP 5/325MG TABLET PO PRN (15:00)
[2020-07-27] MEDS ORDERED: ZOLPIDEM TARTRATE 5 MG TABLET PO PRN (15:00)
[2020-07-27] MEDS ORDERED: ACETAMINOPHEN 325 MG TABLET PO PRN (15:00)
--- NOTE | 2020-07-27 15:36 | NUR ---
BED 262 TELE OVERFLOW
--- NOTE | 2020-07-27 15:40 | NUR ---
NURSE IS NOT AVAILABLE
--- NOTE | 2020-07-27 15:48 | NUR ---
ATTEMPTED TO GIVE REPORT, NURSE IS NOT AVAILABLE
--- NOTE | 2020-07-27 16:26 | NUR ---
REPORT GIVEN TO SAMRA CONCEPCION FOR TIEN
--- NOTE | 2020-07-27 16:58 | NUR ---
PT TRANSFERRED TO ROOM VIA ACLS PROTOCOL
[2020-07-27 17:00] VITALS: BP 120/82
[2020-07-27] MEDS ORDERED: methylPREDNISolone (4MG) 4 MG TABLET (DAY #1) PO ONE (17:00)
--- NOTE | 2020-07-27 17:15 | NUR ---
RAILROAD SUPERVISOR OF ENGINES NOTE: Patient was brought in by ED staff via gurney. Patient on room air and tolerating well. Saturation noted at 94%. No SOB and not in respiratory distress. On isolation precaution to r/o covid. Generalized pain reported by patient but primarily on her right upper and lower ext. Edema noted on said sites as well as LLE. Bluish discolorization seen as well. Left radial pulse felt via palpation, Right radial pulse heard via doppler. Unable to check pulse via palpation nor doppler on both extremities. Bowles catheter in place and draining ramos urine. IV site clean, dry, patent and intact. Admission assessments made, no belongings were brought in. Dr. Turcios aware of patient's admission and orders received. Informed about patient's edema and bluish discoloration and awaiting response. Will continue to monitor.
[2020-07-27] MEDS: ZINC SULFATE 220 MG CAPSULE PO SCH (17:17)
[2020-07-27] MEDS: DOCUSATE SODIUM 100 MG CAPSULE PO SCH (17:18)
[2020-07-27] MEDS: ASCORBIC ACID 500 MG TABLET PO SCH (17:18)
[2020-07-27] MEDS ORDERED: methylPREDNISolone (4MG) 4 MG TABLET (DAY #1, BEFORE DINNER) PO ONE (17:30)
[2020-07-27] MEDS ORDERED: DOXYCYCLINE HYCLATE (100 MG) 100 MG TABLET PO SCH (18:00)
--- NOTE | 2020-07-27 18:03 | NUR ---
RN NOTE: oRDERS OBTAINED FROM DR. ALCANTAR FOR PATIENT;S BILATERAL UPPER AND LOWER ARTERIAL DUPLEX STUDIES. NOTED AND CARRIED OUT.
--- NOTE | 2020-07-27 19:05 | NUR ---
RN NOTE RECEIVED PATIENT IN BED RESTING WITH HOB ELEVATED. AWAKE, ALERT, ORIENTED X2. ABLE TO MAKE NEEDS KNOWN, VERBALLY RESPONSIVE. PATIENT REPEATEDLY VERBALIZED " HELP ME, I HAVE GOT TO GET OUT." BREATHING IS EVEN AND NON-LABORED IN ROOM AIR, NO SOB NOTED AT THIS TIME. ON ISOLATION FOR R/O COVID. IV SITE ON LEFT WRIST AND LEFT HAND ARE CLEAN, DRY, AND PATENT. NO IV FLUIDS RUNNING AT THIS TIME. ON DUFF CATH, URINE IS SHUBHAM IN COLOR WITH MINIMAL SEDIMENTS NOTED. NOTED WITH WOUND DRESSING ON LEFT HIP. NOTED LEFT FOOT, RIGHT HAND, AND RIGHT LEG WITH BLUISH/PURPLE DISCOLORATION. SKIN IS WARM TO TOUCH. IN NO APPARENT DISTRESS NOTED AT THIS TIME. CALL LIGHT IS WITHIN REACH. WILL CONTINUE TO MONITOR.
--- NOTE | 2020-07-27 19:20 | NUR ---
RN CLOSING NOTE: Patient remains in bed. Awake, alert and oriented x3. Able to make needs known. On room air and tolerating well. Saturation noted at 93%. No SOB and not in respiratory distress. Isolation precaution to r/o covid in place. Generalized pain still reported by and treated with pain medication. Bowles catheter in place and draining ramos urine. IV site clean, dry, patent and intact. Call light in reach. Bed locked, low and at semi-russ's position. Side rails up x3. Due medications given. Needs attended. Safety ensured and observed. Treatment done. Endorsed to oncoming shift for TIEN.
[2020-07-27] MEDS: CEFEPIME 2 GM in IV D5W 100 ML IV SCH (19:56)
[2020-07-27 20:00] VITALS: BP 125/76
[2020-07-27] MEDS ORDERED: DEXTROSE 50%-WATER 50 ML DISP.SYRIN IV PRN (20:00)
[2020-07-27] MEDS: APIXABAN 5 MG TABLET PO SCH (20:19)
[2020-07-27] MEDS: VANCOMYCIN 1.25 GM in IV D5W 250 ML IV SCH (21:02)
[2020-07-27] MEDS ORDERED: methylPREDNISolone (4MG) 4 MG TABLET (DAY #1, HS) PO ONE (22:00)
[2020-07-27] MEDS: BLOOD SUGAR DIAGNOSTIC 1 EACH STRIP IN SCH (22:00)
[2020-07-27] MEDS: INSULIN REGULAR, HUMAN 100 UNIT/ML 3 ML VIAL SQ PRN (22:01)
[2020-07-28 02:15] VITALS: BP 108/73
[2020-07-28 04:00] VITALS: BP 118/84
[2020-07-28 04:19] LABS: BASOPHILS % (AUTO) 0.1 % (0.0-2.0); EOSINOPHILS % (AUTO) 0.1 % (0.0-6.0); HEMATOCRIT 41 % (33-45); HEMOGLOBIN 12.9 g/dL (11.5-14.8); LYMPHOCYTES # (AUTO) 0.4 /CMM (0.8-4.8); LYMPHOCYTES % (AUTO) 3.8 % (20.0-44.0); MEAN CORPUSCULAR HGB CONC 31 g/dl (31.0-36.0); MEAN CORPUSCULAR VOLUME 95 fL (82-100); MONOCYTES # (AUTO) 0.2 /CMM (0.1-1.30); MONOCYTES % (AUTO) 1.9 % (2.0-12.0); NEUTROPHILS # (AUTO) 9.1 /CMM (1.8-8.9); NEUTROPHILS % (AUTO) 94.1 % (43.0-81.0); PLATELET COUNT (AUTO) 302 /CMM (150-450); RED BLOOD CELL COUNT(AUTO) 4.35 MIL/uL (4.0-5.2); WHITE BLOOD COUNT (AUTO) 9.6 K/uL (4.3-11.0)
[2020-07-28 04:35] LABS: CALCIUM, SERUM 8.2 mg/dL (8.5-10.1); CARBON DIOXIDE 27 mmol/L (21-32); CHLORIDE 109 mmol/L (98-107); GLUCOSE 328 mg/dL (74-106); PHOSPHORUS 2.9 mg/dL (2.5-4.9); POTASSIUM 5.1 mmol/L (3.5-5.1); SODIUM SERUM 144 mmol/L (136-145); UREA NITROGEN, BLOOD 32 mg/dL (7-18)
[2020-07-28] MEDS: LORAZEPAM 1 MG TABLET PO PRN ×3 (04:44→17:35)
--- NOTE | 2020-07-28 06:49 | NUR ---
RN NOTE PATIENT REMAINED STABLE THROUGHOUT THE NIGHT. NO SIGNIFICANT CHANGES NOTED. ALL DUE MEDS GIVEN AND TOLERATED WELL. WOUND CARE RENDERED. REPOSITIONED Q2H. ATIVAN PRN GIVEN ORDERED. PATIENT IS KEPT CLEAN, DRY, AND COMFORTABLE. WILL ENDORSE TO AM SHIFT RN.
[2020-07-28] MEDS ORDERED: methylPREDNISolone (4MG) 4 MG TABLET (DAY#2 ACB) PO ONE (07:30)
--- NOTE | 2020-07-28 07:52 | NUR ---
WOUND CARE CONSULT: REVIEWED CHART, NURSING DOCUMENTATION AND PHOTOS WHICH INDICATE DUSKY COLOR TO LOWER EXTREMITIES, RT HIP LARGE WOUND, PARTIAL THICKNESS WOUNDS TO RT BUTTOCK AND BREASTFOLD RASH, PRESENT ON ADMISSION. RECOMMEND SURGICAL CONSULT. DR ORTIZ SOSA NOTIFIED OF CONSULT REQUEST. RECOMMENDATIONS MADE FOR WOUND CARE AND SKIN PROTECTION. DISCUSSED WITH NURSING STAFF. IN AGREEMENT WITH PLAN OF CARE. LOW AIRLOSS MATTRESS IS ON ORDER. Addendum: 07/28/20 at 0854 by SHANICE MELCHOR WNDNU CORRECTION: PT IS ON APRIL ISOFLEX LOW AIRLOSS BED.
[2020-07-28] MEDS ORDERED: HYDROGEL DRESSING 90 GM TUBE TP PRN (08:00)
[2020-07-28] MEDS: BLOOD SUGAR DIAGNOSTIC 1 EACH STRIP IN SCH ×4 (08:07→21:38)
[2020-07-28] MEDS: PANTOPRAZOLE 40 MG TABLET.DR PO SCH (08:15)
[2020-07-28] MEDS: APIXABAN 5 MG TABLET PO SCH ×2 (08:15→21:30)
[2020-07-28] MEDS: HYDROCODONE/APAP 5/325MG TABLET PO SCH (08:16)
[2020-07-28] MEDS: CEFEPIME 2 GM in IV D5W 100 ML IV SCH ×2 (08:17→21:17)
[2020-07-28] MEDS: INSULIN REGULAR, HUMAN 100 UNIT/ML 3 ML VIAL SQ PRN ×3 (08:35→21:39)
[2020-07-28] MEDS ORDERED: FLUCONAZOLE (100 MG) 100 MG TABLET PO SCH (09:00)
[2020-07-28] MEDS ORDERED: PANTOPRAZOLE 40 MG TABLET.DR PO SCH (09:00)
[2020-07-28] MEDS: DAKINS QUARTER STRENGTH (0.125%) 480 ML BOTTLE TOP SCH (09:36)
[2020-07-28] MEDS: HYDROGEL DRESSING 90 GM TUBE TP SCH (09:37)
[2020-07-28] MEDS: CLOTRIMAZOLE 1% 15 GM TUBE TP SCH ×2 (09:37→17:00)
--- NOTE | 2020-07-28 11:39 | NUR ---
RN NOTES: PT WAS VERY AGITATED, FEELING ANXIOUS, TEARFUL, ATIVAN WAS ADMINISTERED. WILL CONTINUE TO MONITOR.
[2020-07-28 12:00] VITALS: BP 109/69
[2020-07-28] MEDS ORDERED: methylPREDNISolone (4MG) 4 MG TABLET (DAY#2,PC LUNCH) PO ONE (12:30)
--- NOTE | 2020-07-28 12:54 | NUR ---
Negative COVID PCR results
--- NOTE | 2020-07-28 14:29 | NUR ---
RN NOTES. PT IN STABLE CONDITION TRANSFERRED FROM ICU TO MED SURG. WILL ENDORSE TO THE OTHER NURSE FOR CONTINUATION OF CARE.
--- NOTE | 2020-07-28 15:10 | NUR ---
Patient transferred from ICU to room 321 - 1, received report by Rosa Maria/RN.
[2020-07-28 16:44] VITALS: BP 118/78
[2020-07-28] MEDS ORDERED: methylPREDNISolone (4MG) 4 MG TABLET (DAY#2, PC DINNER) PO ONE (17:30)
[2020-07-28] MEDS: ZINC SULFATE 220 MG CAPSULE PO SCH (17:35)
[2020-07-28] MEDS: DOCUSATE SODIUM 100 MG CAPSULE PO SCH (17:35)
[2020-07-28] MEDS: ASCORBIC ACID 500 MG TABLET PO SCH (17:35)
[2020-07-28] MEDS ORDERED: DEXTROSE 50%-WATER 50 ML DISP.SYRIN IV PRN (18:30)
--- NOTE | 2020-07-28 19:31 | NUR ---
RN Closing note Patient is in bed, confused ans screaming, pulled out oxygen, bilateral IV line, and received order soft wrist restraints for safety. Respiratory even and unlabored with oxygen 2LPM, skin is warm to touch, kept clean/dry. Collected urine sample. Kept bed in locked with elevated HOB ensure airway and aspiration precaution. Call light within reach, will endorse principal developer.
--- NOTE | 2020-07-28 19:32 | NUR ---
MS/RN OPENING NOTES: RECEIVED PATIENT IN BED, CONFUSED AND SCREAMING. A/OX1. SOFT WRIST BILATERAL RESTRAINTS NOTED. RESPIRATORY EVEN AND UNLABORED. PER DAY SHIFT RN, PT CONSTANTLY TRIES TO PULLS OUT THE OXYGEN, AND FC. RECEIVED PATIENT WITH NO IV LINE. PER DAY SHIFT, THERE IS AN ORDER FOR A MIDLINE INSERTION. SAFETY MEASURES IN PLACE. BED IN LOW, LOCKED POSITION WITH SR UP X2. CALL LIGHT WITHIN REACH. WILL CONTINUE TO MONITOR.
[2020-07-28 20:00] VITALS: BP 123/87
--- NOTE | 2020-07-28 20:18 | NUR ---
MS/RN NOTES: PT. HAS A MIDLINE ORDER. NURSING SPECIAL FORCES WEAPONS SERGEANT AWARE, PT HAS NO IV LINES AT THE MOMENT. UNABLE TO FIND A VEIN AT THIS TIME. MAXIPEME 2GM NOT ADMINISTERED FOR NOW. WILL F/U WITH THE MIDLINE INSERTION.
--- NOTE | 2020-07-28 20:31 | NUR ---
MS/RN NOTES: NURSING AUTOMATIC SERGING MACHINE OPERATOR SAID THE TEAM WON'T BE ABLE TO DO THE MIDLINE UNTIL TOMORROW MORNING.
[2020-07-28] MEDS ORDERED: methylPREDNISolone (4MG) 4 MG TABLET (DAY#2, HS) PO ONE (21:00)
--- NOTE | 2020-07-28 21:42 | NUR ---
MS/RN NOTES: ACCUCHECK FOR HS 285. ADMINISTERED 6 UNITS REG. INSULIN PER SLIDING SCALE. GAVE PATIENT SOME CHOCOLATE PUDDING. WILL CONTINUE TO MONITOR.
[2020-07-28] MEDS: VANCOMYCIN 1.25 GM in IV D5W 250 ML IV SCH (21:54)
[2020-07-28] MEDS ORDERED: ACETYLCYSTEINE 10% 3,000 MG/30 ML VIAL PO ONE (22:30)
--- NOTE | 2020-07-28 23:00 | NUR ---
MS/RN NOTES: CLARIFIED THE ORDER WITH THE RT AND AND RT STATES TO CLARIFY WITH THE DR. BECAUSE IT'S A HIGH DOSE AND ORDER IS UNCLEAR.
--- NOTE | 2020-07-28 23:05 | NUR ---
MS/RN NOTES: PRODUCTION INSPECTOR NURSE RECEIVED FAXED MED ORDER. PER PRODUCTION INSPECTOR "WHY DO WE HAVE TO GIVE IT TONIGHT ID THE CT IS TOMORROW?" INSTRUCTIONS ARE UNCLEAR. DR. HICKS MESSAGED. STILL WAITING FOR RESPONSE.
--- NOTE | 2020-07-28 23:30 | NUR ---
MS/RN NOTES: PHARMACY CONTACTED. CLARIFIED THE MUCOMYST ORDER, PER [facility], "PLEASE CLARIFY WITH THE DOCTOR FIRST". DR. HICKS UNABLE TO REACH.
--- NOTE | 2020-07-29 00:20 | NUR ---
MS/RN NOTES: LEFT DR. HICKS A VOICE MESSAGE TO CALL BACK REGARDING A CLARIFICATION ON HER MUCOMYST ORDER. STILL WAITING FOR RESPONSE. CHARGE NURSE AWARE.
--- NOTE | 2020-07-29 00:35 | NUR ---
MS/RN NOTES: DR. HICKS RESPONDED AND ORDERED TO CHANGE THE TIME SCHEDULE FOR TOMORROW.
[2020-07-29] MEDS: LORAZEPAM 1 MG TABLET PO PRN ×3 (02:25→18:01)
--- NOTE | 2020-07-29 02:25 | NUR ---
MS/RN NOTES: PT VERY AGITATED. SCREAMING AND YELLING NON STOP. VS TAKEN. BP 140/86 HR:89. ADMINISTERED ATIVAN 0.5MG ORDERED FOR AGITATION. TOLERATED WELL. WILL CONTINUE TO MONITOR.
[2020-07-29 06:30] LABS: BASOPHILS % (AUTO) 0.3 % (0.0-2.0); EOSINOPHILS % (AUTO) 0.3 % (0.0-6.0); HEMATOCRIT 38 % (33-45); HEMOGLOBIN 12.1 g/dL (11.5-14.8); LYMPHOCYTES # (AUTO) 0.5 /CMM (0.8-4.8); LYMPHOCYTES % (AUTO) 4.7 % (20.0-44.0); MEAN CORPUSCULAR HGB CONC 32 g/dl (31.0-36.0); MEAN CORPUSCULAR VOLUME 94 fL (82-100); MONOCYTES # (AUTO) 0.4 /CMM (0.1-1.30); MONOCYTES % (AUTO) 4.6 % (2.0-12.0); NEUTROPHILS # (AUTO) 8.7 /CMM (1.8-8.9); NEUTROPHILS % (AUTO) 90.1 % (43.0-81.0); PLATELET COUNT (AUTO) 289 /CMM (150-450); RED BLOOD CELL COUNT(AUTO) 4.07 MIL/uL (4.0-5.2); WHITE BLOOD COUNT (AUTO) 9.7 K/uL (4.3-11.0)
[2020-07-29] MEDS: BLOOD SUGAR DIAGNOSTIC 1 EACH STRIP IN SCH ×4 (06:35→22:08)
[2020-07-29] MEDS: INSULIN REGULAR, HUMAN 100 UNIT/ML 3 ML VIAL SQ PRN ×4 (06:36→22:14)
[2020-07-29 06:45] LABS: CALCIUM, SERUM 8.3 mg/dL (8.5-10.1); CREATININE 0.8 mg/dL (0.6-1.3); MAGNESIUM 1.9 mg/dL (1.8-2.4); PHOSPHORUS 2.4 mg/dL (2.5-4.9); POTASSIUM 4.7 mmol/L (3.5-5.1)
--- NOTE | 2020-07-29 07:10 | NUR ---
MS RN OPENING NOTE RECEIVED PT AWAKE IN BED AT THIS TIME. AOX1 WITH PERIODS OF CONFUSION, NO SOB NOTED, NO S/S OF ANY ACUTE DISTRESS NOTED. NO SIGN OF PAIN NOTED AT THIS TIME. RESPIRATIONS ARE EVEN AND UNLABORED WITH EQUAL RISE AND FALL IN CHEST. IV ACCESS IN LEFT WRIST G#20, PATENT, INTACT AND FLUSHING WELL. DUFF CATHETER IN PLACE DRAINING TO GRAVITY CLEAR YELLOW URINE OUTPUT. FALL AND SAFETY PRECAUTION IN PLACE AND MAINTAINED AT ALL TIMES. BED IN LOWEST LOCKED POSITION, HOB ELEVATED, RAILS UP X 2, CALL LIGHT WITHIN REACH. WILL CONTINUE TO MONITOR
--- NOTE | 2020-07-29 07:17 | NUR ---
MS/RN CLOSING NOTES: PATIENT REMAINS IN BED, STABLE. A/OX1. SOFT WRIST BILATERAL RESTRAINTS NOTED. CHECKED HOURLY FOR SKIN BREAKDOWNS. RESPIRATORY EVEN AND UNLABORED. ON 2L OXYGEN VIA NC. IV ON THE LEFT WRIST #20G INTACT AND PATENT. THERE IS AN ORDER FOR A MIDLINE INSERTION TODAY. SAFETY MEASURES KEPT IN PLACE. BED IN LOW, LOCKED POSITION WITH SR UP X2. CALL LIGHT WITHIN REACH. WILL ENDORSE TO DAY SHIFT FOR TIEN.
[2020-07-29] MEDS ORDERED: methylPREDNISolone (4MG) 4 MG TABLET (DAY#3,ACB) PO ONE (07:30)
[2020-07-29 08:00] VITALS: BP 118/80
[2020-07-29] MEDS: HYDROCODONE/APAP 5/325MG TABLET PO SCH (08:28)
[2020-07-29] MEDS: PANTOPRAZOLE 40 MG TABLET.DR PO SCH (08:28)
[2020-07-29] MEDS ORDERED: ACETYLCYSTEINE 10% 3,000 MG/30 ML VIAL PO ONE (09:00)
[2020-07-29] MEDS: CEFEPIME 2 GM in IV D5W 100 ML IV SCH (09:10)
[2020-07-29] MEDS: DAKINS QUARTER STRENGTH (0.125%) 480 ML BOTTLE TOP SCH (09:13)
[2020-07-29] MEDS: CLOTRIMAZOLE 1% 15 GM TUBE TP SCH ×2 (09:13→17:56)
[2020-07-29] MEDS: HYDROGEL DRESSING 90 GM TUBE TP SCH (09:14)
[2020-07-29] MEDS: APIXABAN 5 MG TABLET PO SCH ×2 (09:51→21:22)
--- NOTE | 2020-07-29 10:03 | NUR ---
PT ANXIOUS AND RESTLESS, VS WNL. ATIVAN 0.5MG PO PRN Q6HR FOR ANXIETY ADMINISTERED AT THIS TIME. WILL CONTINUE TO MONITOR
[2020-07-29] MEDS ORDERED: METOPROLOL TARTRATE INJ 5 MG/5 ML AMPUL IVP PRN (10:30)
[2020-07-29] MEDS ORDERED: NITROGLYCERIN 0.4 MG/TAB BOTTLE SL PRN (10:30)
[2020-07-29] MEDS ORDERED: NEUTRA PHOS 1 POWD.PACKET PO ONE (12:00)
[2020-07-29] MEDS ORDERED: methylPREDNISolone (4MG) 4 MG TABLET (DAY#3,PC LUNCH) PO ONE (12:30)
--- NOTE | 2020-07-29 13:15 | NUR ---
PT SCHEDULED FOR CT PULMONARY ANGIOGRAM. TELEPHONE CONSENT RECEIVED FROM PT'S PERICO COX AT THIS TIME. CONSENT WITNESS WITH ANOTHER NURSE SAMRA HOLDEN. WILL CONTINUE WITH PLAN OF CARE.
[2020-07-29] MEDS ORDERED: IV NS 0.9% 250 ML IV ONE ×2 (13:34→17:14)
[2020-07-29] MEDS ORDERED: IOHEXOL-350 100 ML VIAL IV ONE ×2 (13:34→17:14)
[2020-07-29] MEDS: ACETYLCYSTEINE 10% 3,000 MG/30 ML VIAL PO SCH ×2 (14:02→21:22)
[2020-07-29 16:00] VITALS: BP 123/65
--- NOTE | 2020-07-29 17:00 | NUR ---
ALEX MIDLINE G# 18 INSERTED AT THIS TIME. WILL CONTINUE TO MONITOR
--- NOTE | 2020-07-29 17:13 | NUR ---
PT TRANSPORTED FROM BY BED FROM UNIT AT THIS TIME FOR CT PULMONARY ANGIOGRAM. WILL CONTINUE TO MONITOR
[2020-07-29] MEDS ORDERED: methylPREDNISolone (4MG) 4 MG TABLET (DAY#3,PC DINNER) PO ONE (17:30)
--- NOTE | 2020-07-29 17:50 | NUR ---
PT TRANSPORTED BY BED TO UNIT AT THIS TIME FROM CT PULMONARY ANGIOGRAM. WILL CONTINUE TO MONITOR
[2020-07-29] MEDS: ASCORBIC ACID 500 MG TABLET PO SCH (17:56)
[2020-07-29] MEDS: DOCUSATE SODIUM 100 MG CAPSULE PO SCH (17:56)
[2020-07-29] MEDS: ZINC SULFATE 220 MG CAPSULE PO SCH (17:56)
[2020-07-29] MEDS: FLUCONAZOLE (100 MG) 100 MG TABLET PO SCH (18:01)
--- NOTE | 2020-07-29 18:08 | NUR ---
PT ANXIOUS AND RESTLESS, VS WNL. ATIVAN 0.5MG PO PRN Q6HR FOR ANXIETY ADMINISTERED AT THIS TIME. WILL CONTINUE TO MONITOR
--- NOTE | 2020-07-29 19:43 | NUR ---
MS RN CLOSING NOTES PT AWAKE IN BED AT THIS TIME. PT REMAINED STABLE THROUGHOUT SHIFT. PT KEPT CLEAN AND DRY. ALL CARE, NEEDS, MEDICATION AND WOUND TREATMENT ADMINISTERED ANTICIPATED PER ORDER. FC CARE PROVIDED. PT REPOSITIONED Q2HR, PRN AND PER PROTOCOL. ASPIRATION AND SAFETY PRECAUTION IN PLACE AND MAINTAINED AT ALL TIMES. BED IN LOWEST LOCKED POSITION, HOB ELEVATED, RAILS UP X 2, CALL LIGHT WITHIN REACH. WILL ENDORSE TO DURABLE MEDICAL EQUIPMENT TECHNICIAN NURSE FOR TIEN
--- NOTE | 2020-07-29 19:45 | NUR ---
ms auction clerk initial notes received report from am nurse and seen pt in bed resting with eyes closed but arouse to touch and to her name. breathing even and non-labored not in any acute distress noted. marks to gravity . right hand restraint as ordered per pt safety. skin warm and dry to touch. kept her warm and comfortable at all times. will continue monitoring for pt safety and needs. bed in low and lock in position with side rails x2 up.
[2020-07-29 20:29] VITALS: BP 135/71
[2020-07-29] MEDS ORDERED: methylPREDNISolone (4MG) 4 MG TABLET (DAY#3, HS) PO ONE (22:00)
--- NOTE | 2020-07-29 22:15 | NUR ---
ms shawn notes routine meds given as ordered and blood sugar checked done 324. 8 units of insulin pritesh SQ as ordered. snacks served , no signs of hyper glycemia noted. kept her warm and comfortable at all times. will continue monitoring.
[2020-07-30] MEDS: LORAZEPAM 1 MG TABLET PO PRN ×2 (04:58→13:38)
--- NOTE | 2020-07-30 04:58 | NUR ---
ms shawn notes pt so anxious screaming , ativan 0.5 mg po given as ordered. bed bath also done as well as her wound care. reposition pt for comfort. no signs of any distress noted. will continue monitoring.
[2020-07-30 07:01] LABS: BASOPHILS % (AUTO) 0.2 % (0.0-2.0); EOSINOPHILS % (AUTO) 2.8 % (0.0-6.0); HEMATOCRIT 36 % (33-45); HEMOGLOBIN 11.7 g/dL (11.5-14.8); LYMPHOCYTES # (AUTO) 0.5 /CMM (0.8-4.8); LYMPHOCYTES % (AUTO) 6.3 % (20.0-44.0); MEAN CORPUSCULAR HGB CONC 32 g/dl (31.0-36.0); MEAN CORPUSCULAR VOLUME 93 fL (82-100); MONOCYTES # (AUTO) 0.4 /CMM (0.1-1.30); MONOCYTES % (AUTO) 5.9 % (2.0-12.0); NEUTROPHILS # (AUTO) 6.2 /CMM (1.8-8.9); NEUTROPHILS % (AUTO) 84.8 % (43.0-81.0); PLATELET COUNT (AUTO) 277 /CMM (150-450); RED BLOOD CELL COUNT(AUTO) 3.91 MIL/uL (4.0-5.2); WHITE BLOOD COUNT (AUTO) 7.4 K/uL (4.3-11.0)
[2020-07-30] MEDS: INSULIN REGULAR, HUMAN 100 UNIT/ML 3 ML VIAL SQ PRN ×2 (07:14→11:53)
[2020-07-30] MEDS: BLOOD SUGAR DIAGNOSTIC 1 EACH STRIP IN SCH ×2 (07:19→11:53)
[2020-07-30] MEDS: PANTOPRAZOLE 40 MG TABLET.DR PO SCH (07:19)
[2020-07-30 07:20] LABS: CALCIUM, SERUM 8.1 mg/dL (8.5-10.1); CREATININE 0.6 mg/dL (0.6-1.3); PHOSPHORUS 2.4 mg/dL (2.5-4.9); POTASSIUM 4.3 mmol/L (3.5-5.1)
--- NOTE | 2020-07-30 07:26 | NUR ---
MS RN OPENING NOTES BEDSIDE ENDORSEMENT DONE. PATIENT IS IN BED RESTING, AWAKE AND VERBALLY RESPONSIVE. A/O x 1-2. BREATHING EVEN AND UNLABORED, ON O2 VIA NC AT 2LPM, NO ACUTE RESPIRATORY DISTRESS AT THE MOMENT. DUFF CATH INTACT AND DRAINING YELLOW-COLORED URINE W/O SEDIMENTS. WITH SOFT WRIST RESTRAINT ON R WRIST FOR SAFETY, SKIN CHECK DONE. PERIPHERAL IV LINE ON L WRIST G#20 AND MIDLINE ON ALEX G#18 INTACT. CALL LIGHT PLACED W/IN REACH. SAFETY PRECAUTIONS MAINTAINED: BED LOCKED AND ON LOWEST POSITION, SR UP X2. WILL CONTINUE TO MONITOR.
[2020-07-30] MEDS ORDERED: methylPREDNISolone (4MG) 4 MG TABLET (DAY #4, ACB) PO ONE (07:30)
--- NOTE | 2020-07-30 07:30 | NUR ---
double ending machine operator closing notes pt awake and anxious at this time. started screaming. but compliant with her medication. no aspiration noted. blood sugar checked done 230, 4 units of insulin given pritesh SQ as ordered. no signs of hyper glcyemia noted. all needs attended. endorse to am nurse.
[2020-07-30 08:00] VITALS: BP 125/66
[2020-07-30] MEDS: FLUCONAZOLE (100 MG) 100 MG TABLET PO SCH (08:38)
[2020-07-30] MEDS: APIXABAN 5 MG TABLET PO SCH (08:38)
[2020-07-30] MEDS: HYDROCODONE/APAP 5/325MG TABLET PO SCH (08:40)
[2020-07-30] MEDS: DAKINS QUARTER STRENGTH (0.125%) 480 ML BOTTLE TOP SCH (08:49)
[2020-07-30] MEDS: ACETYLCYSTEINE 10% 3,000 MG/30 ML VIAL PO SCH (08:49)
[2020-07-30] MEDS: HYDROGEL DRESSING 90 GM TUBE TP SCH (08:50)
[2020-07-30] MEDS: CLOTRIMAZOLE 1% 15 GM TUBE TP SCH (08:51)
[2020-07-30] MEDS ORDERED: NEUTRA PHOS 1 POWD.PACKET NG ONE (11:00)
[2020-07-30] MEDS ORDERED: methylPREDNISolone (4MG) 4 MG TABLET (DAY #4, PC LUNCH) PO ONE (12:30)
[2020-07-30 16:00] VITALS: BP 130/70
--- NOTE | 2020-07-30 16:53 | NUR ---
MS NUTRITION AIDES TEACHER NOTES PATIENT [facility]CHARG[facility] TO [facility] IN ST[facility] CONDITION. REPORT/DISCHARGE INSTRUCTIONS GIVEN TO JULIANNE RN OVERHEAD CRANE TRUCK LOADER AT [facility]. PATIENT IS AWAKE AND VERBALLY RESPONSIVE, A/O X1-2 W/ PERIOD OF CONFUSION. PER RN OVERHEAD CRANE TRUCK LOADER, OK TO KEEP DUFF CATH IN PLACE, NOTED INTACT AND PATENT. PATIENT HAS NO BELONGING. PERIPHERAL LINE ON LEFT HAND AND MIDLINE ON ALEX REMOVED, DRESSING INTACT. WOUND TREATMENT PROVIDED ON RIGHT HIP AND RIGHT BUTTOCK. BEDSIDE ENDORSEMENT DONE TO LAW PROFESSOR, ACCOMPANIED PATIENT VIA [facility] @ [id number]. AND CHARGE NURSE AWARE OF DISCHARGE
[2020-07-30] MEDS ORDERED: methylPREDNISolone (4MG) 4 MG TABLET (DAY#4 HS) PO ONE (22:00)
[2020-07-31] MEDS ORDERED: methylPREDNISolone (4MG) 4 MG TABLET (DAY#5, ACB) PO ONE (07:30)
[2020-07-31] MEDS ORDERED: methylPREDNISolone (4MG) 4 MG TABLET (DAY#5,HS) PO ONE (22:00)
[2020-08-01] MEDS ORDERED: methylPREDNISolone (4MG) 4 MG TABLET (DAY#6,ACB) PO ONE (07:30)
== END 2020-07-30 16:45 | DRG 280 ==
LOC: ER 11:56 → ICU 16:16 → MED 07-28 14:57
PROC: 05HY33Z Insertion of Infusion Device into Upper Vein, Percutaneous Approach (ICD-10-PCS; principal; 2020-07-29)
DX: E11.51 Type 2 diabetes mellitus with diabetic peripheral angiopathy without gangrene (principal); R53.2 Functional quadriplegia; I21.A1 Myocardial infarction type 2; I62.03 Nontraumatic chronic subdural hemorrhage; L03.115 Cellulitis of right lower limb; N39.0 Urinary tract infection, site not specified; G96.0 Cerebrospinal fluid leak; N17.9 Acute kidney failure, unspecified; G93.49 Other encephalopathy; I42.9 Cardiomyopathy, unspecified; I70.90 Unspecified atherosclerosis; R13.10 Dysphagia, unspecified; Z93.1 Gastrostomy status; Z86.718 Personal history of other venous thrombosis and embolism; Z86.711 Personal history of pulmonary embolism; Z79.01 Long term (current) use of anticoagulants; Z88.2 Allergy status to sulfonamides; Z79.4 Long term (current) use of insulin; Z79.899 Other long term (current) drug therapy; D69.6 Thrombocytopenia, unspecified; F41.9 Anxiety disorder, unspecified; I25.2 Old myocardial infarction; K76.0 Fatty (change of) liver, not elsewhere classified; I50.9 Heart failure, unspecified; Z68.35 Body mass index [BMI] 35.0-35.9, adult; E66.9 Obesity, unspecified; S71.001A Unspecified open wound, right hip, initial encounter; X58.XXXA Exposure to other specified factors, initial encounter; Y92.9 Unspecified place or not applicable
CPT/HCPCS: 36415; 71045-TC; 80048-TC; 80076-TC; 80202-TC; 82962-TC; 83735-TC; 84100-TC; 84484-TC; 85025-TC; 85730-TC; 87081-TC; 87086-TC; 92611-TC; 93307-TC; A4217; A6248; A6253; A6403; G0378; J0692; J1630; J1815; J3370; J7050; J7060; J7509; Q9967; U0003-CS

== ENCOUNTER 2020-09-20 13:11 | Inpatient (IN) | payer MEDICARE, OTHER ==
[~2020-09-20] VITALS: Ht 165.1 cm; Wt 85.0 kg
[~2020-09-20 13:11] MED LIST changes: +ACET-868 PO; +AMIN30LI27 PO; +APIX5TAB PO; +ASCO-352 PO; +BISA10SU11 RC; +CRAN425C6 PO; +DOCU-141 PO; +DOXY100T2 PO; +FLUC200T PO; +HYDR-4384 PO; -INSU100V7 SQ; +MAGN400O6 PO; +METH4TAB17 PO; +MULT-447 PO; +NA P133E RC; -OXYC1TAB12 PO; -PREG150C PO; -RIVA10TA PO; +ZINC1CAP3 PO
[2020-09-20] MEDS ORDERED: IV NS 0.9% 1,000 ML BAG IV ONE (13:30)
--- NOTE | 2020-09-20 13:48 | NUR ---
PT CONSTANTLY YELLING AND SCREAMING. MADE AWARE. PT RECEIVED ATIVAN 1MG AT THE FACILITY WHENEVER SHE HAS THIS BEHAVIOR. VERBAL ORDER RECEIVED FROM FOR ATIVAN 1MG IVP X 1, NOTED AND CARRIED OUT
[2020-09-20] MEDS ORDERED: LORAZEPAM INJ 2 MG/ML VIAL ONE (13:50)
[2020-09-20 13:52] LABS: BASOPHILS # (AUTO) 0.1 /CMM (0.0-0.2); BASOPHILS % (AUTO) 1.3 % (0.0-2.0); HEMATOCRIT 39 % (33-45); HEMOGLOBIN 12.7 g/dL (11.5-14.8); LYMPHOCYTES # (AUTO) 0.9 /CMM (0.8-4.8); LYMPHOCYTES % (AUTO) 16.9 % (20.0-44.0); MEAN CORPUSCULAR HGB CONC 32 g/dl (31.0-36.0); MEAN CORPUSCULAR VOLUME 100 fL (82-100); MONOCYTES # (AUTO) 0.4 /CMM (0.1-1.30); NEUTROPHILS % (AUTO) 71.8 % (43.0-81.0); PLATELET COUNT (AUTO) 384 /CMM (150-450); RED BLOOD CELL COUNT(AUTO) 3.92 MIL/uL (4.0-5.2); WHITE BLOOD COUNT (AUTO) 5.6 K/uL (4.3-11.0)
--- NOTE | 2020-09-20 13:57 | NUR ---
ELSA FROM [facility] TO ER BED 6. AWAKE, ALERT AND CONFUSED. KEEPS YEELING AND SCREAMING FOR HER MOTHER, AND HELP. NOT IN RESP DISTRESS. BREATHING EVEN AND UNLABORED. SENT BY PMD FOR EVALUATION OF R HIP WOUND FOR POSSIBLE INFECTION. UPON ASSESSMENT, WOUND IS 11X8X1 RED TISSUE, PINK SURROUNDING, UNAPPROXIMATED, MIN SANGUENOUS DRAINAGE, NO FOUL ODOR. MD WAS AT THE BEDSIDE FOR EVAL. ORDERS RECEIVED NOTED AND CARRIED OUT. IV LINE ESTABLISHED ON LFA 20G, BLOOD DRAWN AND GIVEN TO KNOCKDOWN MAN AT BEDSIDE. WOULD CULTURE OBTAINED AND SENT TO LAB
[2020-09-20 14:00] LABS: CALCIUM, SERUM 8.8 mg/dL (8.5-10.1); CREATININE 0.6 mg/dL (0.6-1.3); POTASSIUM 4.7 mmol/L (3.5-5.1)
[2020-09-20 14:06] LABS: ALBUMIN 1.5 g/dL (3.4-5.0); TOTAL PROTEIN, SERUM 5.8 g/dL (6.4-8.2)
[2020-09-20] MEDS ORDERED: LORA-259 PO (14:14)
[2020-09-20] MEDS ORDERED: ZOLP5TAB2 PO (14:14)
[2020-09-20] MEDS ORDERED: DIVA250T4 PO (14:14)
[2020-09-20] MEDS ORDERED: PANT40TA2 PO (14:14)
[2020-09-20] MEDS ORDERED: INSU100V7 SQ (14:14)
[2020-09-20] MEDS ORDERED: MAG30ORA PO (14:14)
[2020-09-20] MEDS ORDERED: LORAZEPAM INJ 2 MG/ML VIAL IV ONE (14:30)
--- NOTE | 2020-09-20 14:32 | NUR ---
PT TO CT ON [facility]
[2020-09-20] MEDS ORDERED: IV NS 0.9% 250 ML IV ONE (14:35)
[2020-09-20] MEDS ORDERED: IOHEXOL-300 100 ML VIAL IV ONE (14:35)
[2020-09-20 15:04] LABS: BILIRUBIN,DIRECT 0.1 mg/dL (0.0-0.2); BILIRUBIN,TOTAL 0.4 mg/dL (0.2-1.0)
--- NOTE | 2020-09-20 15:20 | NUR ---
covid swab done and sent to lab
[2020-09-20] MEDS ORDERED: ASPIRIN 325 MG TABLET PO ONE (17:00)
[2020-09-20] MEDS ORDERED: VANCOMYCIN 1 GM in IV D5W 250 ML IV ONE (17:00)
[2020-09-20] MEDS ORDERED: PIPERACILLIN /TAZOBACTAM 3.375 G in IV D5W 50 ML IV ONE (17:00)
[2020-09-20] MEDS ORDERED: ASPIRIN 325 MG TABLET ONE (17:17)
[2020-09-20] MEDS ORDERED: NA PHOS,M-B/NA PHOS,DI-BA 1 EA ENEMA RC PRN (18:00)
[2020-09-20] MEDS ORDERED: MAGNESIUM HYDROXIDE 30 ML UDC PO PRN ×2 (18:00)
[2020-09-20] MEDS ORDERED: ACETAMINOPHEN 325 MG TABLET PO PRN ×2 (18:00)
[2020-09-20] MEDS ORDERED: IV NS 0.9% 1,000 ML IV PRN (18:00)
[2020-09-20] MEDS ORDERED: ONDANSETRON HCL/PF 4 MG/2 ML VIAL IVP PRN (18:00)
[2020-09-20] MEDS ORDERED: *INSULIN REGULAR(HUMULIN R)HUM 100 UNIT/ML VIAL SQ PRN (18:00)
[2020-09-20] MEDS ORDERED: MAG HYDROX/AL HYDROX/SIMETH 30 ML UDC PO PRN ×2 (18:00)
[2020-09-20] MEDS ORDERED: DEXTROSE 50%-WATER 50 ML DISP.SYRIN IV PRN (18:00)
[2020-09-20] MEDS ORDERED: Z GUARD REMEDY 2 OZ OINT TP PRN (18:00)
[2020-09-20] MEDS ORDERED: BISACODYL SUPP (10 MG) 10 MG/SUPP.RECT SUPP.RECT RC PRN (18:00)
[2020-09-20] MEDS ORDERED: LORAZEPAM 1 MG TABLET PO PRN (18:00)
--- NOTE | 2020-09-20 18:07 | NUR ---
REPORT GIVEN TO SAMRA MENON FOR TIEN
--- NOTE | 2020-09-20 18:24 | NUR ---
pt transported to unit on gurney with emt and rn at bedside w/ acls protocol. nad noted during transport.
--- NOTE | 2020-09-20 19:24 | NUR ---
TELE/RN NOTES GIVE REPORT TO JESUS FOR ADMISSION ASSESSMENT AND TIEN. PATIENT IN NO APPARENT RESPIRATORY DISTRESS NOTED. DENIES PAIN AT THIS TIME.
[2020-09-20 19:30] VITALS: BP 99/55
[2020-09-20 19:46] VITALS: BP 99/55
--- NOTE | 2020-09-20 20:00 | NUR ---
tele asphalt heater operator initial notes received report from am nurse Kassie and admit the patient as tele patient. Dx of right hip wound . pt is alert awake and , confused keeps on yeeling and screaming calling her mom. Breathing even and unlabored , Not in any acute distress noted. no Sob noted, skin warm and dry to touch. non healing wound noted on her right posterior hip red tissue and pink surrounding. moderate sanguenous drainage , no foul odor. both foot dryness and non pitting edema noted at this time. Iv heplock on her left forearm patent and intact. no redness noted. Re -oriented where she at and how to used the call lights system . reposition pt for comfort. kept her warm and comfortable at all times. side rails x 2 up and bed in low and lock in position. Tele SR with BBB with PAC's . will continue monitoring.
[2020-09-20] MEDS: DOCUSATE SODIUM 100 MG CAPSULE PO SCH (21:34)
[2020-09-20] MEDS: ASCORBIC ACID 500 MG TABLET PO SCH (21:34)
[2020-09-20] MEDS: MULTIVIT W/MINERALS 1 TAB TABLET PO SCH (21:34)
[2020-09-20] MEDS: ZINC SULFATE 220 MG CAPSULE PO SCH (21:34)
[2020-09-20] MEDS: LORAZEPAM 1 MG TABLET PO SCH (21:35)
[2020-09-20] MEDS: APIXABAN 5 MG TABLET PO SCH (21:35)
--- NOTE | 2020-09-20 22:10 | NUR ---
tele patient account analyst notes routine meds given no aspiration noted. blood sugar checked done 65, 0ranges juice given as well. no signs of hypo glycemia noted. will continue monitoring.
[2020-09-20] MEDS: BLOOD SUGAR DIAGNOSTIC 1 EACH STRIP VI SCH (22:47)
[2020-09-20 23:55] VITALS: BP 101/60
[2020-09-21] MEDS: HYDROCODONE/APAP 5/325MG TABLET PO PRN ×2 (00:35→13:12)
--- NOTE | 2020-09-21 00:35 | NUR ---
tele tubing machine operator notes pt screaming and complaining of pain , norco tablet given po as ordered. reposition pt for comfort. will continue monitoring.
[2020-09-21] MEDS: PIPERACILLIN /TAZOBACTAM 3.375 G in IV D5W 50 ML IV SCH ×5 (00:59→23:09)
--- NOTE | 2020-09-21 01:35 | NUR ---
tele farm equipment mechanic apprentice notes checked pt sleeping at this time without any signs of any distress or discomfort at this time. IVF still infusing. will continue monitoring.
[2020-09-21 04:44] VITALS: BP 113/86
[2020-09-21] MEDS: VANCOMYCIN 1.25 GM in IV D5W 250 ML IV SCH (06:22)
[2020-09-21] MEDS: BLOOD SUGAR DIAGNOSTIC 1 EACH STRIP VI SCH ×4 (06:23→21:47)
[2020-09-21] MEDS: INSULIN REGULAR, HUMAN 100 UNIT/ML 3 ML VIAL SQ PRN (06:24)
--- NOTE | 2020-09-21 06:44 | NUR ---
tele braid cutter closing notes pt awake alert started yelling and screaming not in any acute distress noted. blood sugar checked done 75 no insulin due at this time. no signs of hypo glycemia noted. all due meds given . kept her warm and comfortable at all times. tele SR with BBB with pac's per monitor. vital signs within normal limit. kept her warm and comfortable at all times. will endorse to am nurse for continuity of care.
[2020-09-21 07:23] LABS: BASOPHILS # (AUTO) 0.1 /CMM (0.0-0.2); BASOPHILS % (AUTO) 1.1 % (0.0-2.0); EOSINOPHILS % (AUTO) 12.6 % (0.0-6.0); HEMATOCRIT 36 % (33-45); HEMOGLOBIN 11.7 g/dL (11.5-14.8); LYMPHOCYTES # (AUTO) 0.6 /CMM (0.8-4.8); LYMPHOCYTES % (AUTO) 10.5 % (20.0-44.0); MEAN CORPUSCULAR HGB CONC 33 g/dl (31.0-36.0); MEAN CORPUSCULAR VOLUME 101 fL (82-100); MONOCYTES # (AUTO) 0.4 /CMM (0.1-1.30); MONOCYTES % (AUTO) 6.7 % (2.0-12.0); NEUTROPHILS # (AUTO) 3.9 /CMM (1.8-8.9); NEUTROPHILS % (AUTO) 69.1 % (43.0-81.0); PLATELET COUNT (AUTO) 336 /CMM (150-450); RED BLOOD CELL COUNT(AUTO) 3.55 MIL/uL (4.0-5.2); WHITE BLOOD COUNT (AUTO) 5.6 K/uL (4.3-11.0)
--- NOTE | 2020-09-21 07:30 | NUR ---
RN Opening Note Received patient AO x 1-2, confuse, screaming and yelling, able to responds all stimuli. Does no appears pain or distress, skin is warm to touch, keep clean/dry, intact IV site on left FA 20 g. Respiratory even and unlabored with oxygen at 2LPM via n/c, no sob or respiratory distress observed. Kept locked bed with elevated HOB for ensure air way and aspiration precaution and lowest bed for safety, bed alerm at all times. Call light within reach, will continue to monitor.
[2020-09-21 07:34] LABS: CALCIUM, SERUM 8.2 mg/dL (8.5-10.1); CREATININE 0.6 mg/dL (0.6-1.3); PHOSPHORUS 3.9 mg/dL (2.5-4.9); POTASSIUM 4.1 mmol/L (3.5-5.1)
[2020-09-21 08:00] VITALS: BP 114/64
[2020-09-21] MEDS: APIXABAN 5 MG TABLET PO SCH (08:36)
[2020-09-21] MEDS: PANTOPRAZOLE 40 MG TABLET.DR PO SCH (08:37)
[2020-09-21] MEDS: PROSOURCE / PROSTAT (PYXIS) 30 ML UDC PO SCH (09:01)
[2020-09-21] MEDS ORDERED: SILVER NITRATE APPLICATOR 1 EA BOX TP ONE (10:30)
[2020-09-21] MEDS ORDERED: LIDOCAINE 1%-EPI 1:100,000 50 ML VIAL IJ ONE (10:30)
[2020-09-21] MEDS: LORAZEPAM 1 MG TABLET PO PRN (13:12)
--- NOTE | 2020-09-21 13:20 | NUR ---
Patient noticed screaming, yelling continuously, given Ativan 1mg as prn.
--- NOTE | 2020-09-21 15:40 | NUR ---
Obtained sign of consent from /Silvestre Chi.
[2020-09-21 15:48] VITALS: BP 126/78
[2020-09-21] MEDS: ZINC SULFATE 220 MG CAPSULE PO SCH (18:14)
[2020-09-21] MEDS: ASCORBIC ACID 500 MG TABLET PO SCH (18:14)
[2020-09-21] MEDS: DOCUSATE SODIUM 100 MG CAPSULE PO SCH (18:14)
[2020-09-21] MEDS: MULTIVIT W/MINERALS 1 TAB TABLET PO SCH (18:16)
--- NOTE | 2020-09-21 18:46 | NUR ---
RN Closing Note Patient in bed sleeping comfortably, does no appears pain or distress, skin is warm to touch, skin care provided include dressing changed on right hip wound, also intact new IV site on right wrist, noticed patient attempted pulling put IV line and covered by sleeve. Respiratory even and unlabored with oxygen, no sob or respiratory distress observed. Kept locked bed with elevated HOB for ensure airway and aspiration precaution and lowest position for safety. Call light within reach will endorse retail shift manager.
--- NOTE | 2020-09-21 19:10 | NUR ---
ASSOCIATE ACCOUNT MANAGER OPENING NOTES: RECEIVED PATIENT IN BED, AWAKE, CONFUSED. OCCASIONALLY CRIES AND SCREAMS. NO S/S OF DISTRESS NOTED. NO COMPLAIN OF PAIN. HOB ELEVATED. CALL LIGHT WITHIN REACH. BED ALARM ON. BED IN LOWEST AND LOCKED POSITION. WITH DUFF CATHETER INTACT, WITH SOME PARTICLES ON THE TUBING, SLIGHTLY CLOUDY, YELLOWISH COLOR.
[2020-09-21 20:00] VITALS: BP 98/57
[2020-09-21 20:23] VITALS: BP 98/57
--- NOTE | 2020-09-21 20:42 | NUR ---
NPO POST POLINA, BERNARD MOSES. TELEPHONE CONSENT FOR SERIAL DEBRIDEMENT OF THE RIGHT HIP OBTAINED AND ATTACHED TO THE CHART.
[2020-09-21] MEDS: LORAZEPAM 1 MG TABLET PO SCH (21:29)
[2020-09-21] MEDS: DIVALPROEX SODIUM 250 MG TABLET.DR PO SCH (21:29)
[2020-09-21] MEDS: DAKINS QUARTER STRENGTH (0.125%) 480 ML BOTTLE TOP SCH (21:30)
--- NOTE | 2020-09-21 23:02 | NUR ---
REASSESSED PATIENT'S DVT RISKS= 3, INFORMED SCIENCE INTERN FELECIA.
[2020-09-22] VITALS (8 sets, daily range): BP systolic 94–111; BP diastolic 50–63
[2020-09-22] MEDS: VANCOMYCIN 1.25 GM in IV D5W 250 ML IV SCH (00:18)
--- NOTE | 2020-09-22 02:07 | NUR ---
MARJAN'S SOLUTION IS NOT AVAILABLE ON FLOOR AT THIS TIME, INFORMED THE NURSING STRAPPING MACHINE OPERATOR, AND SHE SAID DRESSING CAN BE STARTED TOMORROW WHEN MED IS AVAILABLE. WILL ENDORSE TO THE NEXT SHIFT RN.
[2020-09-22] MEDS: PIPERACILLIN /TAZOBACTAM 3.375 G in IV D5W 50 ML IV SCH ×3 (05:07→17:00)
--- NOTE | 2020-09-22 05:55 | NUR ---
MANAGER OUTREACH CLOSING NOTES: PATIENT IN BED, A/O X1. CONFUSED. NO S/S OF DISTRESS NOTED. NOT IN PAIN. HOB ELEVATED AT ALL TIMES. CALL LIGHT WITHIN REACH. BED ALARM ON. BED IN LOWEST AND LOCKED POSITION. TURNED AND REPOSITIONED. HEELS OFFLOADED. SCREAMS/ CRIES ON AND OFF THROUGHOUT THE SHIFT. HAD VERY SMALL AMOUNT OF BM THIS MORNING. DUFF CATHETER INTACT AND SECURED WITH THE VELCRO WRAPPED AROUND THE THIGH. RIGHT HIP DRESSING CHANGED.
--- NOTE | 2020-09-22 06:02 | NUR ---
PRE-OP CHECKLIST STARTED, WILL BE CONTINUED WITH THE NEXT SHIFT RN, WILL ENDORSE.
[2020-09-22] MEDS: BLOOD SUGAR DIAGNOSTIC 1 EACH STRIP VI SCH ×4 (06:40→22:22)
[2020-09-22 07:21] LABS: CALCIUM, SERUM 7.5 mg/dL (8.5-10.1); CREATININE 0.7 mg/dL (0.6-1.3); POTASSIUM 3.9 mmol/L (3.5-5.1)
[2020-09-22] MEDS: DIVALPROEX SODIUM 250 MG TABLET.DR PO SCH ×3 (08:16→16:46)
[2020-09-22] MEDS: PANTOPRAZOLE 40 MG TABLET.DR PO SCH (08:16)
[2020-09-22] MEDS: DAKINS QUARTER STRENGTH (0.125%) 480 ML BOTTLE TOP SCH (08:16)
[2020-09-22] MEDS: PROSOURCE / PROSTAT (PYXIS) 30 ML UDC PO SCH (08:16)
--- NOTE | 2020-09-22 10:10 | NUR ---
WOUND CARE CONSULT: PT FOLLOWED BY PLASTIC SURGERY TEAM. DISCUSSED SKIN PROTECTION WITH NURSING STAFF. FIRST STEP LOW AIRLOSS MATTRESS IS ON ORDER. DEFER TO SURGICAL TEAM FOR WOUND TREATMENT PLAN. MD IN AGREEMENT WITH PLAN OF CARE.
[2020-09-22] MEDS: LORAZEPAM 1 MG TABLET PO PRN (11:57)
[2020-09-22] MEDS: HYDROCODONE/APAP 5/325MG TABLET PO PRN ×2 (12:11→16:47)
--- NOTE | 2020-09-22 15:00 | NUR ---
MS RN NOTES PATIENT S/P DEBRIDEMENT TOLERATED WELL. WOUND CARE PERFORMED, WILL CONTINUE TO MONITOR.
[2020-09-22] MEDS: INSULIN REGULAR, HUMAN 100 UNIT/ML 3 ML VIAL SQ PRN ×2 (16:50→22:37)
[2020-09-22] MEDS: ASCORBIC ACID 500 MG TABLET PO SCH (17:00)
[2020-09-22] MEDS: ZINC SULFATE 220 MG CAPSULE PO SCH (17:00)
[2020-09-22] MEDS: MULTIVIT W/MINERALS 1 TAB TABLET PO SCH (17:00)
[2020-09-22] MEDS: DOCUSATE SODIUM 100 MG CAPSULE PO SCH (17:00)
--- NOTE | 2020-09-22 18:16 | NUR ---
SHRIMPER NOTES PATIENT IN BED RESTING NO SOB OR ACUTE DISTRESS NOTED. ALL DUE MEDICATIONS ADMINISTERED. ALL NEEDS MET. NO BLEEDING NOTED AT THE DEBRIDEMENT SITE. NO ACUTE CHANGES NOTED DURING AM SHIFT. PSYCHIATRIST MADE AWARE FOR THE CONSULT. WILL ENDORSE CARE TO PM SHIFT. PENDING COVID TEST RESULTS.
--- NOTE | 2020-09-22 21:50 | NUR ---
dr. urban called for psych consult. discussed pts status. facetime performed with patient with interview md states he will write new orders.
[2020-09-22] MEDS: LORAZEPAM 1 MG TABLET PO SCH (22:14)
[2020-09-22] MEDS: QUETIAPINE FUMARATE 25 MG TABLET PO SCH (22:14)
[2020-09-23] VITALS: BP 104/53
[2020-09-23] MEDS: PIPERACILLIN /TAZOBACTAM 3.375 G in IV D5W 50 ML IV SCH ×4 (00:25→17:24)
[2020-09-23] MEDS: VANCOMYCIN 1.25 GM in IV D5W 250 ML IV SCH (01:08)
--- NOTE | 2020-09-23 01:11 | NUR ---
ativan administered prn anxiety pt repeatedly calling out. pt requesting ativan to reduce anxiety. ativan administered as ordered.
[2020-09-23 04:00] VITALS: BP 87/44
[2020-09-23] MEDS: BLOOD SUGAR DIAGNOSTIC 1 EACH STRIP VI SCH ×4 (06:33→22:30)
[2020-09-23 06:40] VITALS: BP 100/57
--- NOTE | 2020-09-23 06:50 | NUR ---
YARD SUPERVISOR COTTON GIN PM CLOSING NOTES PATIENT IN BED RESTING NO SOB OR ACUTE DISTRESS NOTED. SEEN WITH EYES CLOSED. BS CHECKED THIS AM AND WAS 124. DEBRIDEMENT SITE TO RIGHT HIP WAS CHANGED ONCE DURING SHIFT D/T MODEARTE SEROUSANGUIONOS DRAINGAGE. PENDING COVID TEST RESULTS. BED DOWN LOCKED SRX2 CALL LIGHT WITHIN [facility] BED ALARM ACTIVE.
--- NOTE | 2020-09-23 07:30 | NUR ---
RN NOTE THE PATIENT IS RECEIVED IN BED. PATIENT IS ALERT AND ORIENTED X1. DENIES PAIN. IN ROOM AIR AND DENIES SOB. RESPIRATION REGULAR AND UNLABORED. THE PATIENT IN NO APPARENT DISTRESS. RIGHT WRIST G 22 PATEN AND SALINE LOCKED. BED LOW AND LOCKED. SIDE RAILS UP X3. CALL LIGHT WITHIN REACH. WILL CONTINUE TO MONITOR.
[2020-09-23 07:43] LABS: BASOPHILS # (AUTO) 0.1 /CMM (0.0-0.2); BASOPHILS % (AUTO) 1.1 % (0.0-2.0); EOSINOPHILS % (AUTO) 19.1 % (0.0-6.0); HEMATOCRIT 31 % (33-45); HEMOGLOBIN 10.4 g/dL (11.5-14.8); LYMPHOCYTES # (AUTO) 0.8 /CMM (0.8-4.8); MEAN CORPUSCULAR HGB CONC 33 g/dl (31.0-36.0); MEAN CORPUSCULAR VOLUME 100 fL (82-100); MONOCYTES # (AUTO) 0.5 /CMM (0.1-1.30); MONOCYTES % (AUTO) 9.3 % (2.0-12.0); NEUTROPHILS % (AUTO) 55.5 % (43.0-81.0); PLATELET COUNT (AUTO) 321 /CMM (150-450); RED BLOOD CELL COUNT(AUTO) 3.14 MIL/uL (4.0-5.2); WHITE BLOOD COUNT (AUTO) 5.5 K/uL (4.3-11.0)
[2020-09-23 07:50] LABS: CALCIUM, SERUM 7.9 mg/dL (8.5-10.1); CREATININE 0.7 mg/dL (0.6-1.3); POTASSIUM 3.7 mmol/L (3.5-5.1)
[2020-09-23] MEDS: QUETIAPINE FUMARATE 25 MG TABLET PO SCH ×2 (08:29→20:09)
[2020-09-23] MEDS: DIVALPROEX SODIUM 250 MG TABLET.DR PO SCH ×3 (08:29→16:11)
[2020-09-23] MEDS: PANTOPRAZOLE 40 MG TABLET.DR PO SCH (08:29)
[2020-09-23] MEDS: DAKINS QUARTER STRENGTH (0.125%) 480 ML BOTTLE TOP SCH (09:00)
[2020-09-23] MEDS: PROSOURCE / PROSTAT (PYXIS) 30 ML UDC PO SCH (09:00)
--- NOTE | 2020-09-23 10:05 | NUR ---
RN NOTE DAKIN`S DUE AT 0900 IS NOT SCANNED, INSTEAD ENTERED MANUALLY BECAUSE THE MEDICATION WAS IN THE PATIENT`S ROOM WHO IS ON COVID-19 ISOLATION.
[2020-09-23] MEDS: HYDROCODONE/APAP 5/325MG TABLET PO PRN (12:24)
[2020-09-23] MEDS: INSULIN REGULAR, HUMAN 100 UNIT/ML 3 ML VIAL SQ PRN (13:06)
[2020-09-23] MEDS: ASCORBIC ACID 500 MG TABLET PO SCH (17:14)
[2020-09-23] MEDS: DOCUSATE SODIUM 100 MG CAPSULE PO SCH (17:14)
[2020-09-23] MEDS: MULTIVIT W/MINERALS 1 TAB TABLET PO SCH (17:14)
[2020-09-23] MEDS: ZINC SULFATE 220 MG CAPSULE PO SCH (17:14)
[2020-09-23] MEDS: LORAZEPAM 1 MG TABLET PO PRN (18:06)
[2020-09-23 18:27] VITALS: BP 120/88
--- NOTE | 2020-09-23 18:36 | NUR ---
RN NOTE THE PATIENT IS ALERT AND ORIENTED X2. DENIES PAIN. PATIENT IS IN ROOM AIR AND OXYGEN SATURATION LEVEL IS AT 97%. DENIES SOB. RIGHT WRIST G 22 PATENT AND SALINE LOCKED. BED LOW AND LOCKED. SIDE RAILS UP X3. CALL LIGHT WITHIN REACH. ENDORSED THE PATIENT TO RN SAÚL.
--- NOTE | 2020-09-23 18:40 | NUR ---
PATTERN LEASE INSPECTORLICENSED PROSTHETIST NOTES RECEIVED PT VIA GURNEY FROM MARGARET, -JEREMY. RECEIVED REPORT FROM ДМИТРИЙ RN. PT AAO1-2, ASLEEP AND EASILY AROUSABLE. PER REPORT, PT YELLS AND SCREAM WITH NO COMBATIVE BEHAVIOR. RESPIRATION EVEN AND UNLABORED WITH NO PRESENCE OF ACUTE RESPIRATORY DISTRESS. ABD SOFT AND NON DISTENDED WITH ACTIVE BOWEL SOUNDS, BM TODAY LITTLE, FC DARK YELLOW 700CC OUTPUT. SKIN WARM TO TOUCH AND DRY, REPOSITION Q2 TOLERATED, PT SKIN FRAGILE WITH RIGHT HIP PRESSURE INJURY, DRESSING CLEAN AND DRY, NOT SOILED. PT NO S/SX OF PAIN AND DISCOMFORT. OFFLOAD EXTREMITIES. BED ALARM ON. IV SITE AT RIGHT WRIST #22 H/L, PATENT IN FLUSHING, NO S/SX OF INFILTRATION. TELE MONITOR SHOWS SINUS RHYTHM 81 WITH PAC. BED IN LOW LOCKED POSITION, NEAR NURSES STATION. ENDORSED CARE TO NEXT SHIFT.
--- NOTE | 2020-09-23 19:30 | NUR ---
Opening Notes: Report received from am nurse. Patient alert and oriented x1, with periods of confusion. Patient noted yelling at times, constantly reoriented. On telemetry monitoring SR with PVC and PAC noted. Patient with marks catheter, intact. Noted with IV site on right forearm 22 g, patent and intact. Fall precautions observed. Call light within reach.
[2020-09-23] MEDS: MEROPENEM 500 MG in IV NS 0.9% 50 ML IV SCH (20:07)
[2020-09-23 20:20] VITALS: BP 98/70
[2020-09-23] MEDS: LORAZEPAM 1 MG TABLET PO SCH (22:00)
[2020-09-24] VITALS: BP 106/62
[2020-09-24 00:17] VITALS: BP 103/62
[2020-09-24] MEDS: VANCOMYCIN 1.25 GM in IV D5W 250 ML IV SCH (00:19)
[2020-09-24 04:00] VITALS: BP_SYST 103; BP_SYST 106; BP_DIAS 62; BP_DIAS 63
[2020-09-24] MEDS: MEROPENEM 500 MG in IV NS 0.9% 50 ML IV SCH ×3 (05:16→20:38)
--- NOTE | 2020-09-24 06:08 | NUR ---
Closing Notes: Patient alert. Patient yelling intermittently, patient reoriented. On telemetry monitoring SR with PVC and PAC noted. Patient with marks catheter, intact. IV site on right forearm 22 g, patent and intact. No s/s of infiltration noted. Accuchecks done, no s/s of hypo/hyperglycemia noted. Bed locked and in lowest position. Call light within reach. VS WNL. Will endorse continuity of care to next shift.
[2020-09-24] MEDS: BLOOD SUGAR DIAGNOSTIC 1 EACH STRIP VI SCH ×4 (06:24→21:53)
[2020-09-24 07:27] LABS: CALCIUM, SERUM 7.8 mg/dL (8.5-10.1); CREATININE 0.7 mg/dL (0.6-1.3); POTASSIUM 3.8 mmol/L (3.5-5.1)
--- NOTE | 2020-09-24 07:38 | NUR ---
CORRECTIONS CASEWORKER OPENING NOTES BEDSIDE ENDORSEMENT DONE. PATIENT IS IN BED, AWAKE AND VERBALLY RESPONSIVE. A/O X1-2, HAS EPISODE OF FORGETFULNESS AND TENDENCY TO YELL, ABLE TO BE CALMED. BREATHING EVEN AND UNLABORED IN ROOM AIR, NO ACUTE DISTRESS. ON TELE MONITORING, READING OF SR W/ PAC, W/ HR IN THE 70'S, NO CARDIAC DISTRESS NOTED. IV LINE ON RIGHT WRIST #22 INTACT AND PATENT. SAFETY PRECAUTIONS IN PLACE: BED LOCKED AND ON LOWEST POSITION, SR UP X2, CALL LIGHT W/IN REACH. WILL CONTINUE TO MONITOR.
[2020-09-24] MEDS: PANTOPRAZOLE 40 MG TABLET.DR PO SCH (08:05)
[2020-09-24] MEDS: DIVALPROEX SODIUM 250 MG TABLET.DR PO SCH ×3 (08:05→16:26)
[2020-09-24] MEDS: QUETIAPINE FUMARATE 25 MG TABLET PO SCH ×2 (08:06→20:47)
[2020-09-24] MEDS: DAKINS QUARTER STRENGTH (0.125%) 480 ML BOTTLE TOP SCH (08:07)
[2020-09-24] MEDS: PROSOURCE / PROSTAT (PYXIS) 30 ML UDC PO SCH (08:12)
[2020-09-24] MEDS: INSULIN REGULAR, HUMAN 100 UNIT/ML 3 ML VIAL SQ PRN ×2 (11:40→17:26)
[2020-09-24] MEDS: HYDROCODONE/APAP 5/325MG TABLET PO PRN (15:01)
[2020-09-24] MEDS: ZINC SULFATE 220 MG CAPSULE PO SCH (17:40)
[2020-09-24] MEDS: ASCORBIC ACID 500 MG TABLET PO SCH (17:40)
[2020-09-24] MEDS: MULTIVIT W/MINERALS 1 TAB TABLET PO SCH (17:40)
[2020-09-24] MEDS: DOCUSATE SODIUM 100 MG CAPSULE PO SCH (17:40)
[2020-09-24] MEDS: LORAZEPAM 1 MG TABLET PO PRN (17:52)
--- NOTE | 2020-09-24 18:42 | NUR ---
SUBSTITUTE TEACHER CLOSING NOTES BEDSIDE ENDORSEMENT DONE. PATIENT IS IN BED, AWAKE AND VERBALLY RESPONSIVE. A/O X1-2, HAS EPISODES OF FORGETFULNESS AND TENDENCIES TO YELL, REDIRECTED APPLICABLE. BREATHING EVEN AND UNLABORED IN ROOM AIR, NO ACUTE DISTRESS. ON TELE MONITORING, READING OF SR W/ PAC, W/ HR IN MID 70'S, NO CARDIAC DISTRESS NOTED. IV LINE ON RIGHT WRIST #22 INTACT AND PATENT. SAFETY PRECAUTIONS MAINTAINED: BED LOCKED AND ON LOWEST POSITION, SR UP X2, CALL LIGHT W/IN REACH. WILL ENDORSE TO FORWARD AIR CONTROLLER/AIR OFFICER RN FOR TIEN.
--- NOTE | 2020-09-24 19:30 | NUR ---
RN NOTES RECEIVED PT. AWAKE, SCREAMER, SR WITH BBB AND PAC, HR-91, F/C DRAINING LIGHT [place] URINE, [id number], WILL CONTINUE TO MONITOR
[2020-09-24 20:00] VITALS: BP 104/62
[2020-09-24] MEDS: LORAZEPAM 1 MG TABLET PO SCH (22:00)
--- NOTE | 2020-09-24 22:00 | NUR ---
RN NOTES ATIVAN 1MG PO WAS NOT GIVEN- PT WAS SLEEPING
--- NOTE | 2020-09-24 22:30 | NUR ---
RN NOTES IV GOT INFILTRATED, NEW IV LINE INSERTED ON THE LEFT FOREARM # 24
[2020-09-25] VITALS: BP 129/78
[2020-09-25] MEDS: LORAZEPAM 1 MG TABLET PO PRN ×2 (00:59→09:27)
[2020-09-25 04:00] VITALS: BP 119/67
[2020-09-25] MEDS: MEROPENEM 500 MG in IV NS 0.9% 50 ML IV SCH ×3 (05:15→21:21)
--- NOTE | 2020-09-25 06:47 | NUR ---
RN NOTES SLEEPING BUT AROUSABLE, NOT IN DISTRESS, NO PAIN NOTED, BED IN LOCKED POSITION, CALL LIGHT WITHIN REACH, [id number], PT. NEEDS ATTENDED
[2020-09-25] MEDS: BLOOD SUGAR DIAGNOSTIC 1 EACH STRIP VI SCH ×4 (07:39→21:22)
[2020-09-25] MEDS: PANTOPRAZOLE 40 MG TABLET.DR PO SCH (07:39)
--- NOTE | 2020-09-25 07:55 | NUR ---
RN Opening note Received patient in bed, AO x 1-2, confuse, able to responds all stimuli. Does no appears pain or distress, skin is warm to touch keep clean/dry, intact IV site on left FA 24g and good patent with flash. Respiratory even and unlabored on room air O2sat 100%, no sob or respiratory distress observed. Kept locked bed with elevated HOB for ensure airway and aspiration precaution and lowest position for safety. Call light within reach, will continue to monitor.
[2020-09-25 08:00] VITALS: BP 105/66
[2020-09-25] MEDS: QUETIAPINE FUMARATE 25 MG TABLET PO SCH ×2 (08:11→21:22)
[2020-09-25] MEDS: DIVALPROEX SODIUM 250 MG TABLET.DR PO SCH ×3 (08:11→17:30)
[2020-09-25] MEDS: PROSOURCE / PROSTAT (PYXIS) 30 ML UDC PO SCH (08:14)
[2020-09-25] MEDS: HYDROCODONE/APAP 5/325MG TABLET PO PRN ×2 (08:14→18:05)
[2020-09-25] MEDS: DAKINS QUARTER STRENGTH (0.125%) 480 ML BOTTLE TOP SCH (08:15)
[2020-09-25 08:43] LABS: BASOPHILS # (AUTO) 0.1 /CMM (0.0-0.2); BASOPHILS % (AUTO) 1.1 % (0.0-2.0); EOSINOPHILS % (AUTO) 8.1 % (0.0-6.0); HEMATOCRIT 34 % (33-45); HEMOGLOBIN 11.1 g/dL (11.5-14.8); LYMPHOCYTES # (AUTO) 0.8 /CMM (0.8-4.8); LYMPHOCYTES % (AUTO) 12.3 % (20.0-44.0); MEAN CORPUSCULAR HGB CONC 33 g/dl (31.0-36.0); MEAN CORPUSCULAR VOLUME 100 fL (82-100); MONOCYTES # (AUTO) 0.4 /CMM (0.1-1.30); MONOCYTES % (AUTO) 6.2 % (2.0-12.0); NEUTROPHILS # (AUTO) 4.9 /CMM (1.8-8.9); NEUTROPHILS % (AUTO) 72.3 % (43.0-81.0); PLATELET COUNT (AUTO) 360 /CMM (150-450); RED BLOOD CELL COUNT(AUTO) 3.37 MIL/uL (4.0-5.2); WHITE BLOOD COUNT (AUTO) 6.8 K/uL (4.3-11.0)
[2020-09-25 08:56] LABS: CALCIUM, SERUM 8.2 mg/dL (8.5-10.1); CREATININE 0.7 mg/dL (0.6-1.3); POTASSIUM 3.7 mmol/L (3.5-5.1)
[2020-09-25] MEDS: INSULIN REGULAR, HUMAN 100 UNIT/ML 3 ML VIAL SQ PRN (13:40)
[2020-09-25 16:00] VITALS: BP 100/54
[2020-09-25] MEDS: ZINC SULFATE 220 MG CAPSULE PO SCH (17:30)
[2020-09-25] MEDS: MULTIVIT W/MINERALS 1 TAB TABLET PO SCH (17:30)
[2020-09-25] MEDS: ASCORBIC ACID 500 MG TABLET PO SCH (17:30)
[2020-09-25] MEDS: DOCUSATE SODIUM 100 MG CAPSULE PO SCH (17:30)
--- NOTE | 2020-09-25 18:11 | NUR ---
RN Closing Note Patient in bed resting talking with family on the phone, patient continues screaming during day shift. Skin is warm to touch, keep clean/dry, intact IV on left FA g 24 with LS Respiratory even and unlabored on room. Kept locked bed with elevated HOB for ensure airway and aspiration precaution also lowest portion for safety at all times. Call light within reach, will endorse soil field technician.
[2020-09-25 20:00] VITALS: BP 116/68
--- NOTE | 2020-09-25 20:00 | NUR ---
MS/RN OPENING NOTE Patient awake in bed, A/O x1-2, screaming and yelling. Breathing even, unlabored, on room air. No acute distress or SOB. Skin warm, pink, dry. Wound to right hip, dressing clean and intact. IV site LFA 24g saline locked, patent and intact. No infiltration or redness. Abdomen soft, non-tender. BS hypoactive in all quadrants. Patient is incontinent. Bowles catheter in place, draining clear, yellow, urine. Bed in low position, wheels locked, side rails up x2, call light within reach.
[2020-09-25 20:40] VITALS: BP 116/68
[2020-09-25] MEDS: LORAZEPAM 1 MG TABLET PO SCH (21:21)
[2020-09-26] MEDS: MEROPENEM 500 MG in IV NS 0.9% 50 ML IV SCH ×3 (04:00→21:18)
[2020-09-26] MEDS: HYDROCODONE/APAP 5/325MG TABLET PO PRN ×4 (06:03→20:23)
[2020-09-26] MEDS: BLOOD SUGAR DIAGNOSTIC 1 EACH STRIP VI SCH ×4 (06:48→22:31)
--- NOTE | 2020-09-26 06:49 | NUR ---
MS/RN CLOSING NOTE Patient awake in bed, A/O x1-2, screaming and yelling. Breathing even, unlabored, on room air. No acute distress or SOB. Skin warm, pink, dry. Wound to right hip, dressing changed, serosanguineous mild drainage. IV site LFA 24g saline locked, patent and intact. No infiltration or redness. Patient is incontinent. 1 bowel movement, small, brown, soft. Bowles catheter in place, draining clear, ramos urine 400 ml. Bed in low position, wheels locked, side rails up x2, call light within reach.
[2020-09-26] MEDS: PANTOPRAZOLE 40 MG TABLET.DR PO SCH (06:57)
[2020-09-26 07:03] LABS: CALCIUM, SERUM 8.1 mg/dL (8.5-10.1); CARBON DIOXIDE 28 mmol/L (21-32); CHLORIDE 109 mmol/L (98-107); CREATININE 0.5 mg/dL (0.6-1.3); GLUCOSE 152 mg/dL (74-106); POTASSIUM 3.9 mmol/L (3.5-5.1); SODIUM SERUM 142 mmol/L (136-145); UREA NITROGEN, BLOOD 11 mg/dL (7-18)
--- NOTE | 2020-09-26 07:36 | NUR ---
MS/RN OPENING NOTES RECEIVED PATIENT ON BED. AWAKE, ALERT AND ORIENTED X 1-2. PATIENT COMPLAINED OF PAIN RATE 7/10. PATIENT IN NO APPARENT RESPIRATORY DISTRESS NOTED. WILL CONTINUE TO MONITOR.
[2020-09-26 08:00] VITALS: BP 102/69
[2020-09-26] MEDS: DIVALPROEX SODIUM 250 MG TABLET.DR PO SCH ×3 (08:10→17:18)
[2020-09-26] MEDS: QUETIAPINE FUMARATE 25 MG TABLET PO SCH ×2 (08:11→21:18)
[2020-09-26] MEDS: PROSOURCE / PROSTAT (PYXIS) 30 ML UDC PO SCH (08:12)
[2020-09-26] MEDS: DAKINS QUARTER STRENGTH (0.125%) 480 ML BOTTLE TOP SCH (08:12)
--- NOTE | 2020-09-26 09:00 | NUR ---
MS/RN NOTES PATIENT WITH SIGN AND SYMPTOM OF PAIN NOTED. PATIENT HAD GRIMACE FACE RESTLESS. NORCO 5/325MG 1 TAB WAS GIVEN. WILL CONTINUE TO MONITOR.
[2020-09-26] MEDS: NYSTATIN TOP POWDER 15 GM BOTTLE TP SCH ×2 (09:14→17:20)
[2020-09-26] MEDS: LORAZEPAM 1 MG TABLET PO PRN (09:41)
--- NOTE | 2020-09-26 09:41 | NUR ---
MS/RN NOTES PATIENT IS ANXIOUS ATIVAN 1 MG WAS GIVEN. WILL CONTINUE TO MONITOR.
[2020-09-26] MEDS: INSULIN REGULAR, HUMAN 100 UNIT/ML 3 ML VIAL SQ PRN (11:34)
[2020-09-26 16:00] VITALS: BP 97/58
[2020-09-26] MEDS: ZINC SULFATE 220 MG CAPSULE PO SCH (17:18)
[2020-09-26] MEDS: ASCORBIC ACID 500 MG TABLET PO SCH (17:18)
[2020-09-26] MEDS: MULTIVIT W/MINERALS 1 TAB TABLET PO SCH (17:18)
[2020-09-26] MEDS: DOCUSATE SODIUM 100 MG CAPSULE PO SCH (17:18)
--- NOTE | 2020-09-26 18:56 | NUR ---
MS/RN CLOSING NOTES PATIENT IS ON BED. PATIENT IN NO APPARENT RESPIRATORY DISTRESS NOTED. NO SIGN AND SYMPTOM OF PAIN NOTED AT THIS TIME. IV ACCESS AT LEFT FOREARM # 24G PATENT AND INTACT. SEEN AND EXAMINED BY MD WITH ORDERS MADE AND CARRIED OUT. ALL DUE MEDICATIONS WAS GIVEN. DRESSING WAS CHANGE. SAFETY PRECAUTIONS WAS IN PLACED. BED IN LOWEST POSITION AND LOCKED. SIDE RAILS UP X2. CALL LIGHT WITHIN REACH. WILL ENDORSED TO REGIONAL PRODUCTION MANAGER FOR TIEN.
--- NOTE | 2020-09-26 19:30 | NUR ---
MS RN OPENING NOTE PATIENT AWAKE IN BED. A/OX1-2. STABLE ON RA; NO S/S OF ACUTE RESPIRATORY DISTRESS; BREATHING IS EVEN AND UNLABORED. IV PRESENT ON LEFT FA, SIZE 20, INTACT & PATENT, HEP LOCKED AND WRAPPED IN GAUZE. DUFF CATH PRESENT AND DRAINING WELL; 100 CC OF CLEAR YELLOW URINE PRESENT. SAFETY MEASURES IN PLACE AND PATIENT'S NEEDS MET. BED LOCKED, ALARM ON, HOB ELEVATED, SIDE RAILS X3, CALL LIGHT WITHIN REACH. WILL CONTINUE TO MONITOR.
[2020-09-26 20:00] VITALS: BP 115/63
[2020-09-26] MEDS: LORAZEPAM 1 MG TABLET PO SCH (22:04)
[2020-09-27] MEDS: HYDROCODONE/APAP 5/325MG TABLET PO PRN ×3 (04:00→15:21)
[2020-09-27] MEDS: MEROPENEM 500 MG in IV NS 0.9% 50 ML IV SCH ×2 (05:28→12:17)
[2020-09-27] MEDS: BLOOD SUGAR DIAGNOSTIC 1 EACH STRIP VI SCH ×3 (07:29→17:21)
--- NOTE | 2020-09-27 07:30 | NUR ---
DEPARTMENT OF SOCIOLOGY CHAIR OPENING NOTES Patient awake in bed, A/O x1-2, with epidodes of screaming and yelling. Breathing even, unlabored, on room air. Not in any acute distress. Skin warm, pink, dry. Wound to right hip, dressing clean and intact. IV site LFA 24g saline locked, patent and intact. No infiltration or redness. Bowles catheter in place, draining yellow colored urine. Bed in low position, wheels locked, side rails up x2, call light within reach. Will continue to monitor.
--- NOTE | 2020-09-27 07:40 | NUR ---
MS RN CLOSING NOTES PATIENT SLEEPING, EASY TO AWAKEN. A/OX2. STABLE ON RA; NO S/S OF SOB OR PAIN NOTED. IV PRESENT ON LEFT FA, SIZE 20, INTACT & PATENT, HEP LOCKED, NS RUNNING TKO. DUFF CATH REMAINS INTACT & PATENT. SAFETY MEASURES IN PLACE AND PATIENT'S NEEDS MET. BED LOCKED, ALARM ON, HOB ELEVATED, SIDE RAILS X3, CALL LIGHT WITHIN REACH
[2020-09-27 08:00] VITALS: BP 97/59
[2020-09-27] MEDS: DIVALPROEX SODIUM 250 MG TABLET.DR PO SCH ×3 (08:45→16:10)
[2020-09-27] MEDS: PANTOPRAZOLE 40 MG TABLET.DR PO SCH (08:45)
[2020-09-27] MEDS: QUETIAPINE FUMARATE 25 MG TABLET PO SCH (08:45)
[2020-09-27] MEDS: DAKINS QUARTER STRENGTH (0.125%) 480 ML BOTTLE TOP SCH (08:58)
[2020-09-27] MEDS: NYSTATIN TOP POWDER 15 GM BOTTLE TP SCH ×2 (08:59→16:10)
[2020-09-27] MEDS: PROSOURCE / PROSTAT (PYXIS) 30 ML UDC PO SCH (09:00)
[2020-09-27] MEDS: INSULIN REGULAR, HUMAN 100 UNIT/ML 3 ML VIAL SQ PRN ×2 (11:56→17:21)
[2020-09-27] MEDS: LORAZEPAM 1 MG TABLET PO PRN (12:16)
--- NOTE | 2020-09-27 14:43 | NUR ---
REPORT GIVEN TO VIVIAN FOR TIEN.
[2020-09-27 16:00] VITALS: BP 121/60
--- NOTE | 2020-09-27 16:42 | NUR ---
RN MS NOTES PT FOR DISCHARGE, PT INFORMED, COMPLAINED OF PAIN AT THE RIGHT HIP, PAIN MEDS GIVEN ORDERED, WOUND TREATMENT DONE, STILL COMPLAINING OF PAIN AND STARTED SCREAMING, DR. FARFAN INFORMED, ORDER RECEIVED FOR 1 DOSE OF MORPHINE, KEPT PT COMFORTABLE.
[2020-09-27] MEDS ORDERED: MORPHINE SULFATE INJ 2 MG/ML DISP.SYRIN IV ONE (17:00)
[2020-09-27] MEDS: MULTIVIT W/MINERALS 1 TAB TABLET PO SCH (17:12)
[2020-09-27] MEDS: ZINC SULFATE 220 MG CAPSULE PO SCH (17:12)
[2020-09-27] MEDS: ASCORBIC ACID 500 MG TABLET PO SCH (17:12)
[2020-09-27] MEDS: DOCUSATE SODIUM 100 MG CAPSULE PO SCH (17:12)
--- NOTE | 2020-09-27 18:12 | NUR ---
RN MS DISCHARGE NOTES PATIENT LEFT VIA GURNEY ACCOMPANIED BY 2 EMT PERSONNEL IN STABLE CONDITION. PT TRANSPORTED TO [facility] WITH DUFF IN PLACE. IV TO LT FA #20; SL IN PLACE, FLUSHING WELL WITH NO SIGNS OF REDNESS OR SWELLING. FULL REPORT GIVEN TO WINSTON AT [facility]. PT LEFT IN STABLE CONDITION.
== END 2020-09-27 18:10 | DRG 981 ==
LOC: ER 13:15 → MEDSG2 18:02 → TELE2 18:45 → TELE 09-23 18:19 → MED 09-25 20:09 → UNDODISIN 09-27 16:20
PROVIDERS: ADMIT Internal Medicine; ATTEND Internal Medicine
PROC: 0KBN0ZZ Excision of Right Hip Muscle, Open Approach (ICD-10-PCS; principal; 2020-09-22)
DX: I21.4 Non-ST elevation (NSTEMI) myocardial infarction (principal); L89.214 Pressure ulcer of right hip, stage 4; R53.2 Functional quadriplegia; E46 Unspecified protein-calorie malnutrition; G93.40 Encephalopathy, unspecified; G96.08 Other cranial cerebrospinal fluid leak; J98.11 Atelectasis; F03.91 Unspecified dementia, unspecified severity, with behavioral disturbance; E11.9 Type 2 diabetes mellitus without complications; F41.9 Anxiety disorder, unspecified; E86.0 Dehydration; Z93.1 Gastrostomy status; K42.9 Umbilical hernia without obstruction or gangrene; Z79.01 Long term (current) use of anticoagulants; E11.51 Type 2 diabetes mellitus with diabetic peripheral angiopathy without gangrene; Z86.711 Personal history of pulmonary embolism; Z86.718 Personal history of other venous thrombosis and embolism; Z79.4 Long term (current) use of insulin; Z88.2 Allergy status to sulfonamides; R13.10 Dysphagia, unspecified; I25.2 Old myocardial infarction; I25.10 Atherosclerotic heart disease of native coronary artery without angina pectoris; F29 Unspecified psychosis not due to a substance or known physiological condition; L30.4 Erythema intertrigo; Z74.01 Bed confinement status; E78.5 Hyperlipidemia, unspecified; E66.9 Obesity, unspecified; F39 Unspecified mood [affective] disorder; I50.9 Heart failure, unspecified; J84.10 Pulmonary fibrosis, unspecified
CPT/HCPCS: 36415; 71045-TC; 80048-TC; 80061-TC; 80076-TC; 80202-TC; 82962-TC; 83605-TC; 83735-TC; 84100-TC; 84484-TC; 85025-TC; 85652-TC; 85730-TC; 87040-TC; 87070-TC; 87081-TC; 87186-TC; A6253; A6403; G0378; J1815; J2060; J2185; J2270; J2543; J3370; J3490; J7030; J7050; J7060; Q9967; U0003

== ENCOUNTER 2021-11-26 20:15 | Inpatient (IN) | payer MEDICARE, BC, OTHER ==
[~2021-11-26] VITALS: Ht 162.6 cm; Wt 68.9 kg
[~2021-11-26 20:15] MED LIST changes: +ACET-868 GT; -ACET-868 PO; +AMIN30LI27 GT; -AMIN30LI27 PO; +APIX5TAB GT; -APIX5TAB PO; -CRAN425C6 PO; +DIVA250T4 GT; +DOCU-141 GT; -DOCU-141 PO; -DOXY100T2 PO; -FLUC200T PO; +INSU100V7 SQ; +LORA-259 PO; +MAG30ORA PO; +MAGN400O6 GT; -MAGN400O6 PO; -METH4TAB17 PO; +PANT40TA2 PO; +ZOLP5TAB2 PO
--- NOTE | 2021-11-26 20:30 | NUR ---
BIBPA VIA [facility]AMCE FROM [facility] FOR CONGESTION. NORMALLY ON O2 AT 2LPM. RN DEEP NGT SUCTIONED PATIENT; SPO2 WENT FROM 91% TO 97% ON O2 4LPM VIA N/C. PT A/OX1 BASELINE. GT TO LLQ. DISTENTSION TO UMBILICAL AREA. CONNECTED PT TO POX AND MONITOR. SAFETY MEASURES IN PLACE.
--- NOTE | 2021-11-26 20:54 | NUR ---
RAC #20G S/L; PATENT AND INTACT. BLOOD COLLECTED AND SENT TO LAB
--- NOTE | 2021-11-26 20:55 | NUR ---
ANTON CHILD AT PT'S BEDSIDE
--- NOTE | 2021-11-26 20:57 | NUR ---
URINE SAMPLE COLLECTED AND SENT TO LAB
--- NOTE | 2021-11-26 21:20 | NUR ---
TROUBLE SHOOTER AT PT'S BEDSIDE
[2021-11-26 21:25] LABS: BASOPHILS % (AUTO) 0.4 % (0.0-2.0); EOSINOPHILS % (AUTO) 0.3 % (0.0-6.0); HEMATOCRIT 43 % (33-45); HEMOGLOBIN 14.3 g/dL (11.5-14.8); LYMPHOCYTES # (AUTO) 1.3 K/uL (0.8-4.8); MEAN CORPUSCULAR HGB CONC 33 g/dl (31.0-36.0); MEAN CORPUSCULAR VOLUME 99 fL (82-100); MONOCYTES # (AUTO) 0.6 K/uL (0.1-1.30); MONOCYTES % (AUTO) 5.3 % (2.0-12.0); NEUTROPHILS # (AUTO) 10.1 K/uL (1.8-8.9); PLATELET COUNT (AUTO) 259 K/uL (150-450); RED BLOOD CELL COUNT(AUTO) 4.35 MIL/uL (4.0-5.2); WHITE BLOOD COUNT (AUTO) 12.2 K/uL (4.3-11.0)
[2021-11-26 21:34] LABS: CALCIUM, SERUM 9.2 mg/dL (8.5-10.1); CARBON DIOXIDE 28 mmol/L (21-32); CHLORIDE 98 mmol/L (98-107); CREATININE 0.8 mg/dL (0.6-1.3); GLUCOSE 211 mg/dL (74-106); POTASSIUM 4.3 mmol/L (3.5-5.1); SODIUM SERUM 138 mmol/L (136-145); UREA NITROGEN, BLOOD 25 mg/dL (7-18)
[2021-11-26 21:50] LABS: ALANINE AMINOTRANSFERASE 35 U/L (12-78); ALBUMIN 3.2 g/dL (3.4-5.0); ALKALINE PHOSPHATASE 104 U/L (46-116); ASPARTATE AMINOTRANSFERASE 23 U/L (15-37); BILIRUBIN,DIRECT 0.3 mg/dL (0.0-0.2); BILIRUBIN,TOTAL 1.4 mg/dL (0.2-1.0); TOTAL PROTEIN, SERUM 7.3 g/dL (6.4-8.2)
[2021-11-26] MEDS ORDERED: CEFEPIME 2 GM in IV D5W 100 ML IV SCH (22:00)
[2021-11-26] MEDS ORDERED: ASPIRIN 325 MG TABLET GT ONE (22:00)
[2021-11-26] MEDS ORDERED: CEFEPIME 1 GM VIAL ONE (22:15)
[2021-11-26] MEDS ORDERED: ACETAMINOPHEN 325 MG TABLET ONE (22:17)
[2021-11-26 22:31] LABS: BILIRUBIN,URINE NEGATIVE (NEGATIVE); COLOR,URINE YELLOW (YELLOW); LEUKOCYTE ESTERASE ,URINE NEGATIVE (NEGATIVE); NITRITE, URINE NEGATIVE (NEGATIVE); PH,URINE 7.5 (5.0-8.0); PROTEIN,URINE TRACE mg/dl (NEGATIVE); UGLUCOSE NEGATIVE (NEGATIVE); UROBILINOGEN,URINE 0.2 EU/dL (0.2)
--- NOTE | 2021-11-26 22:56 | NUR ---
COVID ANTIGEN AND PCR SWAB COLLECTED AND SENT TO LAB
--- NOTE | 2021-11-26 23:40 | NUR ---
SALESPERSON PARTS AT PT'S BEDSIDE
--- NOTE | 2021-11-27 | NUR ---
MRSA SWAB COLLECTED AND SENT TO LAB. PATIENT'S BELONGINGS LIST DONE.
[2021-11-27] MEDS ORDERED: ONDANSETRON HCL/PF 4 MG/2 ML VIAL IVP PRN (00:30)
[2021-11-27] MEDS ORDERED: ACETAMINOPHEN 325 MG TABLET PO PRN (00:30)
[2021-11-27] MEDS ORDERED: PANTOPRAZOLE 40 MG VIAL ONE (01:01)
[2021-11-27] MEDS ORDERED: DIVALPROEX SODIUM 250 MG TABLET.DR PO ONE ×2 (01:01→09:48)
[2021-11-27] MEDS ORDERED: APIXABAN 5 MG TABLET ONE ×2 (01:01→09:48)
[2021-11-27] MEDS: PANTOPRAZOLE 40 MG VIAL IV SCH ×2 (01:20→22:06)
[2021-11-27] MEDS: APIXABAN 5 MG TABLET PO SCH ×3 (01:21→22:06)
[2021-11-27] MEDS: DIVALPROEX SODIUM 250 MG TABLET.DR PO SCH ×4 (01:21→17:20)
[2021-11-27] MEDS: IV NS 0.9% 1,000 ML IV PRN ×2 (01:21→22:10)
--- NOTE | 2021-11-27 01:27 | NUR ---
PT SLEEPING IN BED. TOLERATING O2 4LPM VIA N/C AT 99%. RAC #20G S/L NS @ 75ML/HR; PATENT AND INTACT. GTUBE PATENT AND INTACT. ALL NEEDS MET AT THIS TIME. ENDORSED TIEN TO FARZAD CABRALES. VSS
[2021-11-27] MEDS ORDERED: CRAN3875 GT (08:00)
[2021-11-27] MEDS ORDERED: SENN-261 GT (08:00)
[2021-11-27] MEDS ORDERED: SACC250C GT (08:00)
[2021-11-27] MEDS ORDERED: ASPI-1169 GT (08:00)
[2021-11-27] MEDS ORDERED: CHOL100062 GT (08:00)
[2021-11-27] MEDS ORDERED: THIA100T74 GT (08:00)
[2021-11-27] MEDS ORDERED: ATOR40TA GT (08:00)
[2021-11-27] MEDS ORDERED: TRAM50TA2 GT (08:00)
[2021-11-27] MEDS ORDERED: NUT.237L31 GT (08:00)
[2021-11-27] MEDS ORDERED: CHLO473M5 MM (08:00)
--- NOTE | 2021-11-27 08:44 | NUR ---
WOUND CARE CONSULT: PT SEEN FOR SKIN ASSESSMENT IN TRANSITION ROOM. PT PRESENTS WITH SACRAL AND RT HIP SCARRING WELL PERINEAL REDNESS AND DISCOLORATION TO RT ANTERIOR LOWER LEG, PRESENT ON ADMISSION. RECOMMENDATIONS MADE FOR SKIN PROTECTION. DISCUSSED WITH NURSING STAFF. PT IS INCONTINENT. IN AGREEMENT WITH PLAN OF CARE. Addendum: 11/27/21 at 0845 by SHANICE MELCHOR WNDNU Amended: Links added.
[2021-11-27] MEDS: Z GUARD REMEDY 4 OZ OINT TP SCH (09:00)
[2021-11-27] MEDS ORDERED: Z GUARD REMEDY 4 OZ OINT TP PRN (09:00)
--- NOTE | 2021-11-27 09:32 | NUR ---
REPORT GIVEN TO TOYA CABRALES FOR TIEN
[2021-11-27] MEDS ORDERED: ZINC SULFATE 220 MG CAPSULE ONE (09:49)
[2021-11-27] MEDS ORDERED: MULTIVIT W/MINERALS 1 TAB TABLET ONE (09:49)
[2021-11-27] MEDS: MULTIVITAMINS,THERAGRAN 1 UDTAB TABLET PO SCH (09:50)
[2021-11-27] MEDS: ZINC SULFATE 220 MG CAPSULE PO SCH (09:50)
[2021-11-27] MEDS: CEFEPIME 2 GM in IV D5W 100 ML IV SCH ×2 (09:50→22:06)
[2021-11-27] MEDS ORDERED: NA PHOS,M-B/NA PHOS,DI-BA 1 EA ENEMA RC PRN (11:30)
[2021-11-27] MEDS ORDERED: GLUCERNA 1.5 1,000 ML BOTTLE GT PRN (11:30)
[2021-11-27] MEDS ORDERED: BISACODYL SUPP (10 MG) 10 MG/SUPP.RECT SUPP.RECT RC PRN (11:30)
[2021-11-27] MEDS ORDERED: MAGNESIUM HYDROXIDE 30 ML UDC GT PRN (11:30)
[2021-11-27] MEDS ORDERED: ACETAMINOPHEN 325 MG TABLET MC PRN (11:30)
[2021-11-27 12:00] VITALS: BP 124/61
[2021-11-27 16:00] VITALS: BP 114/63
[2021-11-27] MEDS: SENNOSIDES 8.6 MG TABLET GT SCH (17:20)
[2021-11-27] MEDS: ASCORBIC ACID 500 MG TABLET PO SCH (17:20)
[2021-11-27] MEDS: DOCUSATE SODIUM 100 MG CAPSULE PO SCH (17:20)
[2021-11-27] MEDS: ASPIRIN 81 MG TAB.CHEW GT SCH (17:20)
[2021-11-27] MEDS ORDERED: GLUCERNA 1.5 1,000 ML BOTTLE NG PRN (18:00)
--- NOTE | 2021-11-27 18:26 | NUR ---
RN CLOSING NOTES; PT IN BED RESTING IN SUPINE POS. PT A/OX1, PT RESPONDS TO PAIN BY SAYING OUCH. NO SOB OR DISTRESS NOTED. NO C/O PAIN AT THIS TIME EVIDENT BY FACIAL EXPRESSION. PT SKIN INTACT. PT ON GTUBE FEEDING GLUCERNA 1.5 GOAL IS 55ML/HR. RAC #20 RUNNING NS @75ML/HR, FLUSHED, PATENT WITH NO SIGNS ON INFILTRATION. ALL MEDICATIONS GIVEN, AND TOLERATED WELL. PT KEPT CLEAN, DRY AND COMFORTABLE. ALL SAFETY MEASURES RENDERED, BED IN LOWEST POS. LOCKED, SIDE RAILSX3 WITH CALL LIGHT WITHIN REACH. NO SIGNIFICANT CHANGES TO PT HEALTH STATUS ON SHIFT. WILL ENDORSE TO INFORMATION SYSTEMS ARCHITECT RN. PT IN STABLE CONDITION.
--- NOTE | 2021-11-27 19:20 | NUR ---
RN NOTE PT RECEIVED IN BED. PT IS ON 4L OF O2 VIA NC SHOWING NO S/S OF RESP DISTRESS. PT IS NOT ALERT OR ORIENTED AND DISPLAYS LABORED BREATHING AT TIMES. PT IS NON-VERBAL. ON SACK MAKER SHOWING NSR. SKIN INTACT. IV ACCESS NOTED ON RIGHT AC #20. LINE FLUSHED, PATENT, AND INTACT WITH NO SIGNS OF INFILTRATION. 0.9% NS RUNNING AT 75 ML/HR. PT TOLERATING WELL. ALL SAFETY MEASURES IMPLEMENTED. BED ALARM ON. BED LOCKED AND IN LOWEST POSITION. WILL CONTINUE TO MONITOR AND ASSESS FOR ANY CHANGES DURING SHIFT.
[2021-11-27 20:00] VITALS: BP 117/61
--- NOTE | 2021-11-27 20:01 | NUR ---
RN NOTE SPOKE WITH MARIEL POWER ABOUT LAB REPORTING CRITICAL RESULT OF GRAM POSITIVE COCCI IN CL[facility]ERS. AMRIEL POWER SAID NO NEW ORDERS. ORDER NOTED.
--- NOTE | 2021-11-27 20:40 | NUR ---
RN NOTE SPOKE WITH MARIEL POWER REGARDING PT GLUCERNA 1.5 ORDER AND HOW WE DO NOT HAVE GLUCERNA 1.5. PER JANNET, OKAY TO CHANGE TO GLUCERNA 1.2. ORDER NOTED.
[2021-11-27] MEDS ORDERED: GLUCERNA 1.2 1,000 ML BOTTLE GT PRN (22:00)
[2021-11-27] MEDS: ATORVASTATIN 40 MG TABLET GT SCH (22:06)
[2021-11-27] MEDS: CHLORHEXIDINE GLUCONATE 15 ML UDC MM SCH (22:06)
[2021-11-28] VITALS: BP 95/48
[2021-11-28 04:00] VITALS: BP 93/50
--- NOTE | 2021-11-28 06:38 | NUR ---
RN NOTE NO CHANGES IN PT CONDITION DURING SHIFT. PT IS ON 4L OF O2 VIA NC SHOWING NO S/S OF RESP DISTRESS. PT IS NOT ALERT OR ORIENTED AND IS NON-VERBAL. ON MENTAL HEALTH TECHNICIAN SHOWING NSR. IV ACCESS NOTED ON RIGHT AC #20. LINE FLUSHED, PATENT, AND INTACT WITH NO SIGNS OF INFILTRATION. 0.9% NS RUNNING AT 75 ML/HR. ALL DUE MEDS GIVEN ORDERED. PT KEPT CLEAN AND COMFORTABLE. ALL SAFETY MEASURES IMPLEMENTED. BED ALARM ON. BED LOCKED AND IN LOWEST POSITION. WILL ENDORSE TO MORNING SHIFT RN FOR TIEN.
--- NOTE | 2021-11-28 06:59 | NUR ---
RN OPENING NOTE RECEIVE REPORT FROM SANITARIAN INSPECTOR NURSE. PATIENT IN STABLE CONDITION WITH NO SIGN OF DISTRESS AT TIME OF REPORT. A/O X0-1 NON VERBAL. RUNNING GLUCERNA 1.2 FOR G-TUBE FEEDING AT 55ML/HR. WILL FOLLOW UP AM LABS AND DOCTORS ORDERS. PROPER ISOLATION PRECAUTION IN PLACE. ALL SAFETY MEASURE IN PLACE. BED ON LOWEST POSITION WITH HOB ELEVATED AND 3 SIDE RAIL UP. CALL LIGHT WITHIN REACH. WILL CONTINUE TO MONITOR.
[2021-11-28 07:47] LABS: BASOPHILS % (AUTO) 0.7 % (0.0-2.0); EOSINOPHILS % (AUTO) 4.6 % (0.0-6.0); HEMATOCRIT 36 % (33-45); HEMOGLOBIN 12.3 g/dL (11.5-14.8); LYMPHOCYTES # (AUTO) 0.5 K/uL (0.8-4.8); LYMPHOCYTES % (AUTO) 7.7 % (20.0-44.0); MEAN CORPUSCULAR HGB CONC 34 g/dl (31.0-36.0); MEAN CORPUSCULAR VOLUME 100 fL (82-100); MONOCYTES # (AUTO) 0.6 K/uL (0.1-1.30); MONOCYTES % (AUTO) 9.3 % (2.0-12.0); NEUTROPHILS # (AUTO) 4.8 K/uL (1.8-8.9); NEUTROPHILS % (AUTO) 77.7 % (43.0-81.0); PLATELET COUNT (AUTO) 213 K/uL (150-450); RED BLOOD CELL COUNT(AUTO) 3.63 MIL/uL (4.0-5.2); WHITE BLOOD COUNT (AUTO) 6.2 K/uL (4.3-11.0)
[2021-11-28 08:00] VITALS: BP 103/56
[2021-11-28 08:09] LABS: CALCIUM, SERUM 9.3 mg/dL (8.5-10.1); CREATININE 0.7 mg/dL (0.6-1.3); PHOSPHORUS 2.7 mg/dL (2.5-4.9); POTASSIUM 4.3 mmol/L (3.5-5.1)
[2021-11-28] MEDS: CHLORHEXIDINE GLUCONATE 15 ML UDC MM SCH ×2 (09:00→21:14)
[2021-11-28] MEDS: CHOLECALCIFEROL 1,000 UNIT TABLET (VIT D3) GT SCH (09:01)
[2021-11-28] MEDS: SENNOSIDES 8.6 MG TABLET GT SCH ×2 (09:01→17:00)
[2021-11-28] MEDS: ACIDOPHILUS/BULGARICUS 1 EACH TAB.CHEW GT SCH (09:01)
[2021-11-28] MEDS: DIVALPROEX SODIUM 250 MG TABLET.DR PO SCH ×3 (09:02→17:00)
[2021-11-28] MEDS: ZINC SULFATE 220 MG CAPSULE PO SCH (09:02)
[2021-11-28] MEDS: CEFEPIME 2 GM in IV D5W 100 ML IV SCH ×2 (09:02→21:14)
[2021-11-28] MEDS: MULTIVITAMINS,THERAGRAN 1 UDTAB TABLET PO SCH (09:02)
[2021-11-28] MEDS: THIAMINE HCL 100 MG TABLET GT SCH (09:04)
[2021-11-28] MEDS: APIXABAN 5 MG TABLET PO SCH ×2 (09:07→21:14)
[2021-11-28] MEDS: Z GUARD REMEDY 4 OZ OINT TP SCH (09:35)
--- NOTE | 2021-11-28 09:45 | NUR ---
RN NOTE PATIENT IS BEING TRANSFER. REPORT WAS GIVEN TO RECEIVING NURSE. PATIENT IN STABLE CONDITION AT TIME OF REPORT. ALL MORNING MEDICATION HAVE BEEN GIVEN.
[2021-11-28] MEDS ORDERED: GLUCERNA 1.2 1,000 ML BOTTLE GT SCH ×2 (10:30→10:59)
[2021-11-28] MEDS ORDERED: GLUCERNA 1.2 1,000 ML BOTTLE NG SCH (10:30)
[2021-11-28] MEDS: VANCOMYCIN 1 GM in IV D5W 250ml IV SCH ×2 (12:00→23:51)
[2021-11-28 16:00] VITALS: BP 109/50
[2021-11-28] MEDS: DOCUSATE SODIUM 100 MG CAPSULE PO SCH (18:14)
[2021-11-28] MEDS: ASPIRIN 81 MG TAB.CHEW GT SCH (18:14)
[2021-11-28] MEDS: ASCORBIC ACID 500 MG TABLET PO SCH (18:14)
[2021-11-28 20:00] VITALS: BP 103/63
[2021-11-28] MEDS: PANTOPRAZOLE 40 MG VIAL IV SCH (21:14)
[2021-11-28] MEDS: ATORVASTATIN 40 MG TABLET GT SCH (21:34)
[2021-11-29] VITALS: BP 95/61
[2021-11-29] MEDS: GLUCERNA 1.2 1,000 ML BOTTLE GT SCH ×2 (01:21→20:21)
[2021-11-29 04:00] VITALS: BP 105/64
[2021-11-29] MEDS: IV NS 0.9% 1,000 ML IV PRN (04:18)
[2021-11-29 06:37] LABS: BASOPHILS % (AUTO) 0.4 % (0.0-2.0); EOSINOPHILS % (AUTO) 5.5 % (0.0-6.0); HEMATOCRIT 32 % (33-45); LYMPHOCYTES # (AUTO) 0.6 K/uL (0.8-4.8); MEAN CORPUSCULAR HGB CONC 34 g/dl (31.0-36.0); MEAN CORPUSCULAR VOLUME 99 fL (82-100); MONOCYTES # (AUTO) 0.5 K/uL (0.1-1.30); MONOCYTES % (AUTO) 9.5 % (2.0-12.0); NEUTROPHILS # (AUTO) 4.1 K/uL (1.8-8.9); NEUTROPHILS % (AUTO) 73.6 % (43.0-81.0); PLATELET COUNT (AUTO) 202 K/uL (150-450); RED BLOOD CELL COUNT(AUTO) 3.26 MIL/uL (4.0-5.2); WHITE BLOOD COUNT (AUTO) 5.5 K/uL (4.3-11.0)
--- NOTE | 2021-11-29 06:44 | NUR ---
RIB CUTTER NOTES AWAKE & NON VERBAL. NOT IN ANY DISTRESS. NO SOB NOTED. NO S/SX OF ANY PAIN OR DISCOMFORT AT THIS TIME. ON TELE SR @ 91 WITH OCC PVCS WITH IVF & GTF INFUSING WELL. AM CARE DONE. MONITORED ACCORDINGLY. CALL LIGHT WITHIN REACH. BED IN LOWEST POSITION. SR UP X 3 WITH BED ALARM ON FOR SAFETY. WILL ENDORSE TO NEXT SHIFT.
[2021-11-29 06:47] LABS: CALCIUM, SERUM 8.4 mg/dL (8.5-10.1); CREATININE 0.6 mg/dL (0.6-1.3); POTASSIUM 3.8 mmol/L (3.5-5.1)
--- NOTE | 2021-11-29 07:19 | NUR ---
WEBSITE/BLOG EDITOR OPENING NOTES RECEIVED PATIENT AWAKE AND NON VERBAL. PATIENT IS ON OXYGEN AT 4LPM TOLERATED WELL WITH NO SINGS OF DISTESS. . PATIENT IS ON TELE MONITOR WITH READING OF SR AT 70'S. PATIENT WITH RIGHT AC G 20 WITH NS RUNNING AT 75 ML /HR. PATIENT WITH GTUBE HOKED TO GTUBE FEEDING OF GLUCERNA 1.2 AT 60ML/HR. SAFETY MEASURES IN PLACE WITH CALL LIGHT WITHIN REACH, BED IN LOWEST POSITION, SR UP X 3 WITH BED ALARM ON FOR SAFETY. WILL CONTINUE TO MONITOR PATIENT.
[2021-11-29 08:00] VITALS: BP 101/71
[2021-11-29] MEDS: APIXABAN 5 MG TABLET PO SCH ×2 (09:00→20:02)
[2021-11-29] MEDS: SENNOSIDES 8.6 MG TABLET GT SCH ×2 (09:22→17:00)
[2021-11-29] MEDS: ACIDOPHILUS/BULGARICUS 1 EACH TAB.CHEW GT SCH (09:22)
[2021-11-29] MEDS: THIAMINE HCL 100 MG TABLET GT SCH (09:22)
[2021-11-29] MEDS: DIVALPROEX SODIUM 250 MG TABLET.DR PO SCH ×3 (09:23→17:54)
[2021-11-29] MEDS: CEFEPIME 2 GM in IV D5W 100 ML IV SCH ×2 (09:23→20:03)
[2021-11-29] MEDS: CHLORHEXIDINE GLUCONATE 15 ML UDC MM SCH ×2 (09:23→20:03)
[2021-11-29] MEDS: ZINC SULFATE 220 MG CAPSULE PO SCH (09:23)
[2021-11-29] MEDS: CHOLECALCIFEROL 1,000 UNIT TABLET (VIT D3) GT SCH (09:23)
[2021-11-29] MEDS: MULTIVITAMINS,THERAGRAN 1 UDTAB TABLET PO SCH (09:23)
[2021-11-29] MEDS: Z GUARD REMEDY 4 OZ OINT TP SCH (09:23)
[2021-11-29] MEDS: PANTOPRAZOLE 40 MG/PACK PACK GT SCH (10:00)
--- NOTE | 2021-11-29 10:23 | NUR ---
[facility] Patient also received Moderna Booster on10/26/2021
[2021-11-29] MEDS: VANCOMYCIN 1 GM in IV D5W 250ml IV SCH (12:25)
[2021-11-29] MEDS: ASCORBIC ACID 500 MG TABLET PO SCH (17:54)
[2021-11-29] MEDS: ASPIRIN 81 MG TAB.CHEW GT SCH (17:54)
[2021-11-29] MEDS: DOCUSATE SODIUM 100 MG CAPSULE PO SCH (17:59)
--- NOTE | 2021-11-29 19:00 | NUR ---
EQUALIZER OPERATOR CLOSING NOTES PATIENT AWAKE AND NON VERBAL. PATIENT IS ON OXYGEN AT 4LPM TOLERATED WELL WITH NO SINGS OF DISTESS. . PATIENT IS ON TELE MONITOR WITH READING OF SR AT 70'S. PATIENT WITH RIGHT AC G 20 WITH NS RUNNING AT 75 ML /HR. PATIENT WITH GTUBE HOKED TO GTUBE FEEDING OF GLUCERNA 1.2 AT 60ML/HR. SAFETY MEASURES IN PLACE WITH CALL LIGHT WITHIN REACH, BED IN LOWEST POSITION, SR UP X 3 WITH BED ALARM ON FOR SAFETY. WILL ENDORSE FOR CONTINUITY OF CARE.
[2021-11-29 20:00] VITALS: BP 97/58
[2021-11-29] MEDS: ATORVASTATIN 40 MG TABLET GT SCH (21:32)
[2021-11-30] VITALS: BP 100/61
[2021-11-30] MEDS: VANCOMYCIN 1 GM in IV D5W 250ml IV SCH ×2 (01:04→13:20)
[2021-11-30 04:00] VITALS: BP 121/71
[2021-11-30 06:49] LABS: BASOPHILS % (AUTO) 0.4 % (0.0-2.0); EOSINOPHILS % (AUTO) 6.6 % (0.0-6.0); HEMATOCRIT 31 % (33-45); HEMOGLOBIN 10.6 g/dL (11.5-14.8); LYMPHOCYTES # (AUTO) 0.8 K/uL (0.8-4.8); LYMPHOCYTES % (AUTO) 14.7 % (20.0-44.0); MEAN CORPUSCULAR HGB CONC 34 g/dl (31.0-36.0); MEAN CORPUSCULAR VOLUME 98 fL (82-100); MONOCYTES # (AUTO) 0.4 K/uL (0.1-1.30); MONOCYTES % (AUTO) 7.5 % (2.0-12.0); NEUTROPHILS # (AUTO) 3.9 K/uL (1.8-8.9); NEUTROPHILS % (AUTO) 70.8 % (43.0-81.0); PLATELET COUNT (AUTO) 212 K/uL (150-450); RED BLOOD CELL COUNT(AUTO) 3.14 MIL/uL (4.0-5.2); WHITE BLOOD COUNT (AUTO) 5.4 K/uL (4.3-11.0)
--- NOTE | 2021-11-30 06:56 | NUR ---
Pt. stable overnight. No G-tube residual. VSS. tolerating IV ABX well. No signs of distress. Suctioned frequently.
[2021-11-30 07:13] LABS: CALCIUM, SERUM 7.6 mg/dL (8.5-10.1); CREATININE 0.6 mg/dL (0.6-1.3); POTASSIUM 3.9 mmol/L (3.5-5.1)
--- NOTE | 2021-11-30 08:00 | NUR ---
ms rn received on bed, awake,oriented x1,not in any form of distress, respirations even and unlabored,no sob noted. g tube intact w/ feeding 60ml/ hour,tolerated well. marks to gravity w/ yellowish urine output,denies pain all needs attended.
[2021-11-30] MEDS: DIVALPROEX SODIUM 250 MG TABLET.DR PO SCH ×3 (09:40→17:07)
[2021-11-30] MEDS: CHLORHEXIDINE GLUCONATE 15 ML UDC MM SCH ×2 (09:40→21:35)
[2021-11-30] MEDS: ZINC SULFATE 220 MG CAPSULE PO SCH (09:40)
[2021-11-30] MEDS: CHOLECALCIFEROL 1,000 UNIT TABLET (VIT D3) GT SCH (09:40)
[2021-11-30] MEDS: ACIDOPHILUS/BULGARICUS 1 EACH TAB.CHEW GT SCH (09:40)
[2021-11-30] MEDS: THIAMINE HCL 100 MG TABLET GT SCH (09:41)
[2021-11-30] MEDS: MULTIVITAMINS,THERAGRAN 1 UDTAB TABLET PO SCH (09:41)
[2021-11-30] MEDS: SENNOSIDES 8.6 MG TABLET GT SCH ×2 (09:41→17:07)
[2021-11-30] MEDS: PANTOPRAZOLE 40 MG/PACK PACK GT SCH (09:41)
[2021-11-30] MEDS: APIXABAN 5 MG TABLET PO SCH ×2 (09:49→21:35)
[2021-11-30] MEDS: CEFEPIME 2 GM in IV D5W 100 ML IV SCH ×2 (09:49→21:34)
--- NOTE | 2021-11-30 09:50 | NUR ---
ms rn due meds given,tolerated well.
[2021-11-30] MEDS: Z GUARD REMEDY 4 OZ OINT TP SCH (13:20)
--- NOTE | 2021-11-30 15:00 | NUR ---
ms rn patient is negative pcr, will be transferred to 3rd floor today.
[2021-11-30 16:00] VITALS: BP 100/43
--- NOTE | 2021-11-30 16:30 | NUR ---
ms rn report given to Carmencita, patient was tansferred to room 311 bed one w/o any distress, all needs attended.
[2021-11-30] MEDS: GLUCERNA 1.2 1,000 ML BOTTLE GT SCH (16:42)
--- NOTE | 2021-11-30 16:45 | NUR ---
Patient arrived via bed from MS-2, patient AO X1, responsive to painful stimuli, no apparent distress noted, breathing even and unlabored. Patient's vital signs within normal limits, no grimacing. Patient oriented with use of call lights, use of bed control, use of telephone and tv control, also introduces BENCH SHEAR OPERATOR and RN assigned for today, patient unable to understand. All belongings written in the inventory list. All needs attended, kept clean and dry, aspiration precaution in place, call light left within reach, safety precautions in place, brakes locked, side rails up X 2, will monitor closely for any changes.
[2021-11-30] MEDS: ASPIRIN 81 MG TAB.CHEW GT SCH (17:07)
[2021-11-30] MEDS: DOCUSATE SODIUM 100 MG CAPSULE PO SCH (17:07)
[2021-11-30] MEDS: ASCORBIC ACID 500 MG TABLET PO SCH (17:07)
--- NOTE | 2021-11-30 18:14 | NUR ---
RN CLOSING NOTES Patient lying in bed, breathing even and unlabored, no SOB, no apparent distress noted, no grimacing, remained afebrile during shift. Gtube remained intact and patent during shift, placement verified with auscultation and aspiration of gastric contents. All medications given via gtube per MD order, tolerating well. No nausea, no vomiting, abdominal bowel sound present in all quadrant, no grimacing when abdomen palpated. All needs anticipated, aspiration precautions observed at all times, kept head of bed elevated, kept clean and dry, safety precautions in place, brakes locked, side rails up X 2, call light left within reach, will endorse to next shift for continuity of care.
--- NOTE | 2021-11-30 19:40 | NUR ---
MS RN OPENING NOTES: RECEIVED PATIENT SLEEP IN BED COMFORTABLY, BED IN LOW POSITION, CALL LIGHTS WITHIN REACH, NO COMPLAIN OF PAIN AND DISCOMFORT AT THIS TIME ON O2 INHALATION T 3LPM SATURATING WELL, HOB AT 30-45 DEGREE ON GTUBE FEEDING GLUCERNA 1.2@60ML PER HOUR INFUSING WELL, WITH IV LINE AT RAC#20 WITH IVFOF 0.9NSS@75ML PER HOUR INFUSING WELL, PATIENT IS NONE VERBAL, PATIENT KEPT CLEAN AND DRY, ALL NEEDS MET, WILL CONTINUE TO MONITOR.
[2021-11-30 20:00] VITALS: BP 112/57
[2021-11-30] MEDS: ATORVASTATIN 40 MG TABLET GT SCH (21:34)
[2021-11-30 22:43] VITALS: BP 112/57
[2021-11-30] MEDS: IV NS 0.9% 1,000 ML IV PRN (22:48)
[2021-12-01] MEDS: VANCOMYCIN 1 GM in IV D5W 250ml IV SCH ×2 (01:07→11:25)
--- NOTE | 2021-12-01 06:52 | NUR ---
TLE RN CLOSING NOTES RECEIVED PATIENT SLEEP IN BED COMFORTABLY, BED IN LOW POSITION, CALL LIGHTS WITHIN REACH, NO COMPLAIN OF PAIN AND DISCOMFORT AT THIS TIME,ON G TUBE FEEDING OF GLUCERNA 1.2@60ML PER HOUR INFUSING WELL, WITH ONGOING IV LINE AT IVF 0.9 NSS @75ML PER HOUR INFUSING WELL, PATIENT KEPT CLEAN AND DRY, ALL NEEDS NEED MET ENDORSE TO INCOMING SHIFT.
[2021-12-01] MEDS: GUAIFENESIN/CODEINE 10 ML UDC PO PRN (07:20)
--- NOTE | 2021-12-01 07:39 | NUR ---
RN OPENING NOTES RECEIVED PATIENT IN BED, PATIENT IS OBTUNDED. ON ROOM AIR TOLERATING WELL. WITH NO SIGNS OF DISTRESS NOTED. PATIENT WITH RIGHT AC G 20 WITH NS RUNNING AT 75 ML /HR, NO S/SX OF INFILTRATION NOTED. WITH G TUBE IN PLACE, ONGOING G TUBE FEEDING OF GLUCERNA 1.2 AT 60ML/HR, TOLERATING WELL, NO RESIDUAL NOTED. SAFETY MEASURES IN PLACE WITH CALL LIGHT WITHIN REACH, BED IN LOWEST POSITION, SR UP X 3 WITH BED ALARM ON FOR SAFETY. WILL CONTINUE TO MONITOR PATIENT ACCORDINGLY.
[2021-12-01 08:00] VITALS: BP 126/55
[2021-12-01] MEDS: CEFEPIME 2 GM in IV D5W 100 ML IV SCH ×2 (08:09→21:30)
[2021-12-01] MEDS: ACIDOPHILUS/BULGARICUS 1 EACH TAB.CHEW GT SCH (08:10)
[2021-12-01] MEDS: THIAMINE HCL 100 MG TABLET GT SCH (08:10)
[2021-12-01] MEDS: DIVALPROEX SODIUM 250 MG TABLET.DR PO SCH ×3 (08:10→17:06)
[2021-12-01] MEDS: CHLORHEXIDINE GLUCONATE 15 ML UDC MM SCH ×2 (08:10→21:28)
[2021-12-01] MEDS: CHOLECALCIFEROL 1,000 UNIT TABLET (VIT D3) GT SCH (08:10)
[2021-12-01] MEDS: SENNOSIDES 8.6 MG TABLET GT SCH ×2 (08:10→17:06)
[2021-12-01] MEDS: MULTIVITAMINS,THERAGRAN 1 UDTAB TABLET PO SCH (08:10)
[2021-12-01] MEDS: PANTOPRAZOLE 40 MG/PACK PACK GT SCH (08:10)
[2021-12-01] MEDS: ZINC SULFATE 220 MG CAPSULE PO SCH (08:10)
[2021-12-01] MEDS: APIXABAN 5 MG TABLET PO SCH ×2 (08:11→21:29)
[2021-12-01 08:17] LABS: BASOPHILS % (AUTO) 0.2 % (0.0-2.0); EOSINOPHILS % (AUTO) 6.1 % (0.0-6.0); HEMATOCRIT 31 % (33-45); HEMOGLOBIN 10.7 g/dL (11.5-14.8); LYMPHOCYTES % (AUTO) 16.3 % (20.0-44.0); MEAN CORPUSCULAR HGB CONC 35 g/dl (31.0-36.0); MEAN CORPUSCULAR VOLUME 98 fL (82-100); MONOCYTES # (AUTO) 0.4 K/uL (0.1-1.30); MONOCYTES % (AUTO) 5.7 % (2.0-12.0); NEUTROPHILS # (AUTO) 4.4 K/uL (1.8-8.9); NEUTROPHILS % (AUTO) 71.7 % (43.0-81.0); PLATELET COUNT (AUTO) 207 K/uL (150-450); RED BLOOD CELL COUNT(AUTO) 3.14 MIL/uL (4.0-5.2); WHITE BLOOD COUNT (AUTO) 6.1 K/uL (4.3-11.0)
[2021-12-01] MEDS: Z GUARD REMEDY 4 OZ OINT TP SCH (08:17)
[2021-12-01 08:45] LABS: CALCIUM, SERUM 7.8 mg/dL (8.5-10.1); CREATININE 0.6 mg/dL (0.6-1.3); POTASSIUM 3.6 mmol/L (3.5-5.1)
[2021-12-01] MEDS: IV NS 0.9% 1,000 ML IV PRN (15:17)
[2021-12-01] MEDS: GLUCERNA 1.2 1,000 ML BOTTLE GT SCH (15:30)
[2021-12-01] MEDS: ASCORBIC ACID 500 MG TABLET PO SCH (17:06)
[2021-12-01] MEDS: ASPIRIN 81 MG TAB.CHEW GT SCH (17:06)
[2021-12-01] MEDS: DOCUSATE SODIUM 100 MG CAPSULE PO SCH (17:06)
--- NOTE | 2021-12-01 18:59 | NUR ---
RN CLOSING NOTES PATIENT IN BED, OBTUNDED. WITH O2 VIA NC AT 2LPM, TOLERATING WELL. WITH NO SIGNS OF DISTRESS NOTED. PATIENT WITH RIGHT AC G 20 WITH NS RUNNING AT 75 ML /HR, NO S/SX OF INFILTRATION NOTED. WITH G TUBE IN PLACE, ONGOING G TUBE FEEDING OF GLUCERNA 1.2 AT 60ML/HR, TOLERATING WELL, NO RESIDUAL NOTED. SAFETY MEASURES IN PLACE WITH CALL LIGHT WITHIN REACH, BED IN LOWEST POSITION, SR UP X 3 WITH BED ALARM ON FOR SAFETY. ALL NEEDS ATTENDED AND MET, DUE MEDS GIVEN ORDERED. WILL ENDORSE TO ONCOMING SHIFT FOR TIEN.
[2021-12-01 20:00] VITALS: BP 127/52
[2021-12-01] MEDS: ATORVASTATIN 40 MG TABLET GT SCH (21:28)
[2021-12-02] MEDS: VANCOMYCIN 1 GM in IV D5W 250ml IV SCH ×2 (00:31→11:46)
[2021-12-02] MEDS: GUAIFENESIN/CODEINE 10 ML UDC PO PRN (01:35)
[2021-12-02] MEDS ORDERED: QUETIAPINE FUMARATE 25 MG TABLET GT ONE (02:00)
--- NOTE | 2021-12-02 06:46 | NUR ---
MS RN NOTES AWAKE & RESPONSIVE. NOT IN ANY DISTRESS. NO SOB NOTED. DENIES ANY PAIN OR DISCOMFORT AT THIS TIME. WITH GTF & IVF INFUSING WELL. AM CARE DONE. MONITORED ACCORDINGLY. CALL LIGHT WITHIN REACH. BED IN LOWEST POSITION. SR UP X 3 WITH BED ALARM ON FOR SAFETY. WILL ENDORSE TO NEXT SHIFT.
[2021-12-02 07:16] LABS: BASOPHILS % (AUTO) 0.5 % (0.0-2.0); EOSINOPHILS % (AUTO) 5.5 % (0.0-6.0); HEMATOCRIT 34 % (33-45); HEMOGLOBIN 11.6 g/dL (11.5-14.8); LYMPHOCYTES # (AUTO) 1.3 K/uL (0.8-4.8); MEAN CORPUSCULAR HGB CONC 34 g/dl (31.0-36.0); MEAN CORPUSCULAR VOLUME 98 fL (82-100); MONOCYTES # (AUTO) 0.4 K/uL (0.1-1.30); MONOCYTES % (AUTO) 6.9 % (2.0-12.0); NEUTROPHILS % (AUTO) 65.1 % (43.0-81.0); PLATELET COUNT (AUTO) 211 K/uL (150-450); RED BLOOD CELL COUNT(AUTO) 3.46 MIL/uL (4.0-5.2); WHITE BLOOD COUNT (AUTO) 6.1 K/uL (4.3-11.0)
[2021-12-02] MEDS: IV NS 0.9% 1,000 ML IV PRN (07:50)
[2021-12-02 08:00] VITALS: BP 107/58
[2021-12-02 08:36] LABS: CALCIUM, SERUM 8.5 mg/dL (8.5-10.1); CARBON DIOXIDE 30 mmol/L (21-32); CHLORIDE 104 mmol/L (98-107); CREATININE 0.5 mg/dL (0.6-1.3); GLUCOSE 280 mg/dL (74-106); POTASSIUM 3.9 mmol/L (3.5-5.1); SODIUM SERUM 140 mmol/L (136-145); UREA NITROGEN, BLOOD 10 mg/dL (7-18)
[2021-12-02] MEDS: ACIDOPHILUS/BULGARICUS 1 EACH TAB.CHEW GT SCH (08:52)
[2021-12-02] MEDS: CHLORHEXIDINE GLUCONATE 15 ML UDC MM SCH (08:52)
[2021-12-02] MEDS: PANTOPRAZOLE 40 MG/PACK PACK GT SCH (08:52)
[2021-12-02] MEDS: THIAMINE HCL 100 MG TABLET GT SCH (08:52)
[2021-12-02] MEDS: CHOLECALCIFEROL 1,000 UNIT TABLET (VIT D3) GT SCH (08:52)
[2021-12-02] MEDS: MULTIVITAMINS,THERAGRAN 1 UDTAB TABLET PO SCH (08:53)
[2021-12-02] MEDS: SENNOSIDES 8.6 MG TABLET GT SCH ×2 (08:53→16:56)
[2021-12-02] MEDS: DIVALPROEX SODIUM 250 MG TABLET.DR PO SCH ×3 (08:53→16:56)
[2021-12-02] MEDS: ZINC SULFATE 220 MG CAPSULE PO SCH (08:53)
[2021-12-02] MEDS: CEFEPIME 2 GM in IV D5W 100 ML IV SCH (08:54)
[2021-12-02] MEDS: APIXABAN 5 MG TABLET PO SCH (08:54)
[2021-12-02] MEDS: Z GUARD REMEDY 4 OZ OINT TP SCH (08:55)
[2021-12-02] MEDS ORDERED: CALCIUM CARB 600MG /VIT D 1 EACH TABLET PO SCH (09:00)
[2021-12-02] MEDS: GLUCERNA 1.2 1,000 ML BOTTLE GT SCH (10:16)
[2021-12-02] MEDS ORDERED: VANC1VIA34 XX (14:09)
[2021-12-02] MEDS ORDERED: Calcium Carb 600MG /Vit D PO (14:09)
[2021-12-02] MEDS ORDERED: VANC1PLA9 IV (14:09)
[2021-12-02] MEDS ORDERED: CEFE1FRO IV (14:09)
--- NOTE | 2021-12-02 18:10 | NUR ---
SEISMOLOGY TECHNICAL OFFICER NOTES DISCHARGED PATIENT IN STABLE CONDITION, VITAL SIGNS WITHIN NORMAL LIMITS. IV ACCESS MAINTAINED, PATIENT WILL BE IN COMPLETION OF IV ANTIBIOTICS X 2 MORE DAYS. REPORT WAS GIVEN TO GREY CABRALES OF [facility]. BELONGINGS ACCOUNTED AND SIGNED FOR. ARMBAND REMOVED. WOUND CARE TREATMENT DONE ORDERED, PATIENT KEPT CLEAN AND DRY. PATIENT WAS PICKED UP BY 2 EMT FORM [facility]. LEFT UNIT IN STABLE CONDITION. NO INJURY NOTED. MD AND CHARGE NURSE AWARE OF DISCHARGE.
== END 2021-12-02 18:00 | DRG 871 ==
LOC: ER 20:22 → TRANSITION 23:48 → TELE1 11-27 07:58 → TELE2 11-28 10:41 → TELE 11-30 16:14 → MED 11-30 19:14
PROVIDERS: ADMIT Nurse Practitioner Acute Care; ATTEND Nurse Practitioner Acute Care
DX: A41.89 Other specified sepsis (principal); G93.41 Metabolic encephalopathy; R53.2 Functional quadriplegia; J96.21 Acute and chronic respiratory failure with hypoxia; J69.0 Pneumonitis due to inhalation of food and vomit; I21.A1 Myocardial infarction type 2; E44.0 Moderate protein-calorie malnutrition; D68.59 Other primary thrombophilia; I42.9 Cardiomyopathy, unspecified; J98.11 Atelectasis; Z20.822 Contact with and (suspected) exposure to COVID-19; F03.90 Unspecified dementia, unspecified severity, without behavioral disturbance, psychotic disturbance, mood disturbance, and anxiety; I25.2 Old myocardial infarction; Z93.1 Gastrostomy status; F32.9 Major depressive disorder, single episode, unspecified; Z86.73 Personal history of transient ischemic attack (TIA), and cerebral infarction without residual deficits; Z86.718 Personal history of other venous thrombosis and embolism; Z86.711 Personal history of pulmonary embolism; Z79.01 Long term (current) use of anticoagulants; Z79.4 Long term (current) use of insulin; Z88.2 Allergy status to sulfonamides; Z79.899 Other long term (current) drug therapy; I25.10 Atherosclerotic heart disease of native coronary artery without angina pectoris; E11.51 Type 2 diabetes mellitus with diabetic peripheral angiopathy without gangrene; F29 Unspecified psychosis not due to a substance or known physiological condition; R13.10 Dysphagia, unspecified; Z74.09 Other reduced mobility; I50.9 Heart failure, unspecified; T14.8XXA Other injury of unspecified body region, initial encounter; X58.XXXA Exposure to other specified factors, initial encounter; Y92.9 Unspecified place or not applicable
CPT/HCPCS: 36415; 71045-TC; 80048-TC; 80061-TC; 80076-TC; 80202-TC; 83605-TC; 83735-TC; 83880; 84100-TC; 84484-TC; 85025-TC; 85730-TC; 87040-TC; 87081-TC; C9113; G0378; J0692; J2405; J3370; J7030; J7060; U0003

== ENCOUNTER 2022-07-16 16:52 | Inpatient (IN) | payer MEDICARE, BC, OTHER ==
[~2022-07-16] VITALS: Ht 165.1 cm; Wt 71.7 kg
[~2022-07-16 16:52] MED LIST changes: +ASPI-1169 GT; +ATOR40TA GT; +CEFE1FRO IV; +CHLO473M5 MM; +CHOL100062 GT; +CRAN3875 GT; +Calcium Carb 600MG /Vit D PO; -HYDR-4384 PO; -LORA-259 PO; -LORA1TAB PO; -MAG30ORA PO; +MULT-447 GT; -MULT-447 PO; +NUT.237L31 GT; -PANT40TA2 PO; +SACC250C GT; +SENN-261 GT; +THIA100T74 GT; +TRAM50TA2 GT; +VANC1PLA9 IV; +VANC1VIA34 XX; -ZOLP5TAB2 PO
--- NOTE | 2022-07-16 17:02 | NUR ---
BIB RA FROM SNF C/O DESATING IN THE 80'S, PLACED ON 15 L O2 VIA NON REBREATHER, O2 SAT WENT UP TO 96%. AAOX0, BILATERAL UPPER AND LOWER EXTREMITY WEAKNESS. LABORED BREATHING NOTED, HR 104, WILL CONTINUE TO MONITOR.
--- NOTE | 2022-07-16 17:17 | NUR ---
BLOOD SAMPLES AND CULTURES OBTAINED AND SENT TO LAB
--- NOTE | 2022-07-16 17:30 | NUR ---
RT CALLED TO BEDSIDE
--- NOTE | 2022-07-16 17:42 | NUR ---
urine sample obtained and sent to lab
[2022-07-16] MEDS ORDERED: INSU100I26 SQ (18:10)
[2022-07-16] MEDS ORDERED: DIVA125C5 GT (18:10)
[2022-07-16] MEDS ORDERED: CALC1TAB30 GT (18:10)
[2022-07-16] MEDS ORDERED: PANT40TA49 GT (18:10)
[2022-07-16] MEDS ORDERED: GLYC2TAB21 PO (18:10)
[2022-07-16] MEDS ORDERED: PIPERACILLIN /TAZOBACTAM 3.375 G in IV D5W 50 ML IV ONE (19:00)
[2022-07-16] MEDS ORDERED: ACETAMINOPHEN 650 MG/SUPP.RECT RC ONE ×2 (19:00→19:36)
[2022-07-16] MEDS ORDERED: IV LR 1000 ML 1,000 ML IV ONE (19:00)
--- NOTE | 2022-07-16 19:02 | NUR ---
MOVE SHEET SUBMITTED.
--- NOTE | 2022-07-16 19:12 | NUR ---
COVID SAMPLE OBTAINED AND SENT TO LAB
--- NOTE | 2022-07-16 19:15 | NUR ---
RT NOTE ABG DONE PER PROTOCOL. RESULTS GIVEN TO MD HUSSEIN. TITRATED PT TO SIMPLE MASK 10L PER MD ORDER. NO RESP DISTRESS NOTED @ THIS TIME. RN AWARE.
--- NOTE | 2022-07-16 19:39 | NUR ---
COVID TEST COLLECTED AND SENT
--- NOTE | 2022-07-16 19:46 | NUR ---
trop 172
[2022-07-16 19:50] LABS: BASOPHILS # (AUTO) 0.1 K/uL (0.0-0.2); BASOPHILS % (AUTO) 0.4 % (0.0-2.0); EOSINOPHILS % (AUTO) 0.1 % (0.0-6.0); HEMATOCRIT 34 % (33-45); HEMOGLOBIN 11.4 g/dL (11.5-14.8); LYMPHOCYTES # (AUTO) 0.5 K/uL (0.8-4.8); LYMPHOCYTES % (AUTO) 3.5 % (20.0-44.0); MEAN CORPUSCULAR HGB CONC 34 g/dl (31.0-36.0); MEAN CORPUSCULAR VOLUME 95 fL (82-100); MONOCYTES # (AUTO) 0.8 K/uL (0.1-1.30); MONOCYTES % (AUTO) 5.6 % (2.0-12.0); NEUTROPHILS # (AUTO) 13.5 K/uL (1.8-8.9); NEUTROPHILS % (AUTO) 90.4 % (43.0-81.0); PLATELET COUNT (AUTO) 388 K/uL (150-450); RED BLOOD CELL COUNT(AUTO) 3.59 MIL/uL (4.0-5.2)
[2022-07-16 19:53] LABS: BILIRUBIN,URINE NEGATIVE (NEGATIVE); COLOR,URINE YELLOW (YELLOW); LEUKOCYTE ESTERASE ,URINE TRACE (NEGATIVE); NITRITE, URINE NEGATIVE (NEGATIVE); PROTEIN,URINE 100 mg/dl (NEGATIVE); UGLUCOSE NEGATIVE (NEGATIVE)
[2022-07-16 20:02] LABS: CARBON DIOXIDE 29 mmol/L (21-32); CHLORIDE 96 mmol/L (98-107); CREATININE 0.7 mg/dL (0.6-1.3); GLUCOSE 146 mg/dL (74-106); POTASSIUM 5.1 mmol/L (3.5-5.1); SODIUM SERUM 132 mmol/L (136-145); UREA NITROGEN, BLOOD 30 mg/dL (7-18)
[2022-07-16 20:08] LABS: ALANINE AMINOTRANSFERASE 18 U/L (12-78); ALBUMIN 1.9 g/dL (3.4-5.0); ALKALINE PHOSPHATASE 100 U/L (46-116); ASPARTATE AMINOTRANSFERASE 25 U/L (15-37); BILIRUBIN,DIRECT 0.3 mg/dL (0.0-0.2); BILIRUBIN,TOTAL 1.1 mg/dL (0.2-1.0); TOTAL PROTEIN, SERUM 7.1 g/dL (6.4-8.2)
--- NOTE | 2022-07-16 20:10 | NUR ---
RECEIVED PT IN BED 8. PT AAOX0, ON NON REBREATHER AT 10L OF O2. IV LINE ON LHAND 20G IN TACT. CONNECTED TO MONITOR. AUDIBLE CRACKLES AND GURGLING NOTED, PAGED RT. WILL CONTINUE TO MONITOR
--- NOTE | 2022-07-16 20:15 | NUR ---
RT AT BEDSIDE
--- NOTE | 2022-07-16 20:20 | NUR ---
RT NOTE PT NT SX'D AND O2 TITRATED TO 8L SIMPLE MASK. OMER WELL, SAT 97%. NO DISTRESS NOTED @ THIS TIME.
[2022-07-16 20:28] LABS: BACTERIA,URINE Moderate /HPF (None Seen); RBC,URINE 51-80 /HPF (0-2); SQUAMOUS EPITHELIAL CELL,UR Moderate /HPF (None Seen)
[2022-07-16] MEDS ORDERED: BISACODYL SUPP (10 MG) 10 MG/SUPP.RECT SUPP.RECT RC PRN (20:30)
[2022-07-16] MEDS ORDERED: MORPHINE SULFATE INJ 2 MG/ML DISP.SYRIN IV PRN (20:30)
[2022-07-16] MEDS ORDERED: ONDANSETRON HCL/PF 4 MG/2 ML VIAL IVP PRN (20:30)
[2022-07-16] MEDS ORDERED: Z GUARD REMEDY 4 OZ OINT TP PRN (20:30)
[2022-07-16] MEDS ORDERED: ACETAMINOPHEN 325 MG TABLET MC PRN (20:30)
[2022-07-16] MEDS ORDERED: MAG HYDROX/AL HYDROX/SIMETH 30 ML UDC PO PRN (20:30)
[2022-07-16] MEDS ORDERED: MAGNESIUM HYDROXIDE 30 ML UDC GT PRN (20:30)
[2022-07-16] MEDS ORDERED: GLUCERNA 1.5 1,000 ML BOTTLE GT SCH (20:30)
[2022-07-16] MEDS ORDERED: HYDROCODONE/APAP 5/325MG TABLET GT PRN (20:30)
[2022-07-16] MEDS ORDERED: CEFEPIME 1 GM in IV D5W 50 ML IV SCH (21:00)
[2022-07-16] MEDS ORDERED: DEXTROSE 50%-WATER 50 ML DISP.SYRIN IV PRN (21:00)
--- NOTE | 2022-07-16 21:07 | NUR ---
SECOND IV LINE ESTABLISHED, RFA20G
[2022-07-16 21:39] LABS: ABG BASE EXCESS 2.9 mmol/L; ABG PCO2 33.8 mmHg (35.0-45.0); ABG PO2 185.3 mmHg (75.0-100.0); COHb 0.3 % (0.5-1.5); MetHb 0.5 % (0.0-1.5); O2Hb 98.3 % (94.0-97.0); SITE, ABG Left Radial; VENT MODE, BG NON REBREATHER
[2022-07-16] MEDS ORDERED: INSULIN GLARGINE,BASAGLAR 100 UNIT/ML INSULN.PEN SQ SCH (22:00)
[2022-07-16] MEDS ORDERED: VANCOMYCIN 1.25 GM in IV D5W 250 ML IV ONE (22:00)
--- NOTE | 2022-07-16 22:00 | NUR ---
ADMITTED GLEN 71 Y/O FEMALE FROM ER PER ACLS PROTOCOL. DX.ACUTE HYPOXIC RESPIRATORY FAILURE,FACILITY ACQUIRED PNEUMONIA,POSSIBLE ASPIRATION.ROUTINE ICU ADMISSION CARE INITIATED. PT. EYES PARTIALLY OPEN, NON INTERACTIVE, BREATHING ON THE 30'S, IRREGULAR, BUT DOES NOT APPEAR TO BE IN DISTRESS, SATS.-98%, ON ASSESSMENT PT. NOTED TO HAVE COARSE RHONCHI, SUCTIONED ORALLY AND ABLE TO OBTAIN ,LARGE THICK YELLOW SECRETIONS.EKG ST W/ HR-104, BP-87/39. PT. NOTED TO HAVE OPEN WD, PARTIAL THICKNESS ON SACRAL AREA,PINK, NO DISCHARGE.WOUND CARE INITIATED, REFER TO WOUND PHOTO AND SKIN ASSESSMENT DOC. FOR DETAILS.AFEBRILE. NO S/S OF PAIN OR DISTRESS. PT. IS A FULL CODE. WILL CONTINUE TO MONITOR CLOSELY AND REFER NEEDED. Addendum: 07/17/22 at 0138 by GISELE JAUREGUI RN PT. IS ON 10L SIMPLE MASK ON ADMISSION.
--- NOTE | 2022-07-16 22:04 | NUR ---
REPORT GIVEN TO TEO CABRALES FOR TIEN
[2022-07-16] MEDS ORDERED: CEFEPIME 1 GM VIAL ONE (22:14)
[2022-07-16] MEDS ORDERED: INSULIN GLARGINE, 100 UNIT/ML CARTRIDGE SQ ONE (22:14)
[2022-07-16] MEDS ORDERED: VANCOMYCIN 1 GM VIAL ONE (22:19)
[2022-07-16] MEDS ORDERED: VANCOMYCIN 1 GM in IV D5W 250ml IV ONE (22:30)
[2022-07-16 22:31] VITALS: BP 87/39
[2022-07-16] MEDS: IV NS 0.9% 1,000 ML IV PRN (22:40)
[2022-07-16] MEDS: APIXABAN 5 MG TABLET GT SCH (22:43)
[2022-07-16] MEDS: CHLORHEXIDINE GLUCONATE 15 ML UDC MM SCH (22:44)
[2022-07-16] MEDS: ATORVASTATIN 40 MG TABLET GT SCH (22:44)
[2022-07-16 22:57] VITALS: BP 116/74
[2022-07-16 23:00] VITALS: BP 111/61
--- NOTE | 2022-07-16 23:00 | NUR ---
RN/ICU-PT. NOTED TO START DESATURATING TO THE 80'S, 70'S, WITH LABORED BREATHING ON THE 30'S,40'S, PT. O2 SUPPORT WAS CHANGED TO NRB 15 L, RT NOTIFIED STAT AND ASSESSED PT.
[2022-07-16] MEDS ORDERED: INSULIN REGULAR, HUMAN 100 UNIT/ML 3 ML VIAL ONE (23:04)
--- NOTE | 2022-07-16 23:15 | NUR ---
RN/ICU-STAT ABGS DONE BY RT PER DNP IZQUIERDO ORDER.
--- NOTE | 2022-07-16 23:25 | NUR ---
RN/ICU- ABG RESULTS IN AND RELAYED TO ANAID IZQUIERDO INCLUDING PT. CONDITION UPDATE W/ ORDER TO REQUEST ER MD TO INTUBATE PT.
[2022-07-16 23:31] VITALS: BP 143/68
--- NOTE | 2022-07-16 23:38 | NUR ---
RN/ICU- DR. KEENAN OCHOA MD HERE, INTUBATED PT, AND HOOKED UP PT. TO VENT VIA 7.5 ETT AT 23 CM AT THE LIP LINE, W/ INITIAL VENT SETTINGS AC-24, VT-450, FIO2-100%, PEEP +5. WILL DO ABGS IN 1 HR.
--- NOTE | 2022-07-16 23:40 | NUR ---
2310 rt called to pt bedside for low spo2 reading. rt observed pt with increased rr and decreased spo2 reading, aloc. pt placed on nrb 15L abg ordered. post abg results pt preped for intubation. pt ventilated with a ambu bag. pt intubated by er physician 7.5@23cm secured by anchorfast. pt placed on vent ac 24 450 100% +5.
[2022-07-16 23:45] LABS: ABG BASE EXCESS 1.4 mmol/L; ABG OXYGEN SATURATION 39.4 % (92.0-98.5); ABG PCO2 156.7 mmHg (35.0-45.0); ABG PH 6.991 (7.350-7.450); ABG PO2 34.2 mmHg (75.0-100.0); AaDO2 221.2 mmHg; COHb 0.2 % (0.5-1.5); MetHb 0.3 % (0.0-1.5); O2Hb 39.2 % (94.0-97.0); SITE, ABG Right Brachial; VENT MODE, BG SM 10L
[2022-07-17] VITALS (99 sets, daily range): BP systolic 53–142; BP diastolic 34–89
[2022-07-17] MEDS ORDERED: IV NS 0.9% 250 ML IV ONE
[2022-07-17] MEDS: BLOOD SUGAR DIAGNOSTIC 1 EACH STRIP IN SCH ×4 (00:08→17:48)
--- NOTE | 2022-07-17 00:10 | NUR ---
RN NOTE PT NOTED WITH BP 79/48 HR 87. COW TESTER JAM SEEN PT. WITH ORDER TO GIVE NS 250ML BOLUS.
[2022-07-17] MEDS: INSULIN REGULAR, HUMAN 100 UNIT/ML 3 ML VIAL SQ PRN ×4 (00:16→17:48)
[2022-07-17] MEDS ORDERED: NOREPINEPHRINE 8MG/250ML RTU 250 ML IV ONE (00:34)
[2022-07-17] MEDS: NOREPINEPHRINE 8 MG in IV NS 0.9% 242 ML IV PRN ×3 (00:38→19:05)
--- NOTE | 2022-07-17 00:38 | NUR ---
RN NOTE STILL NOTED WITH LOW BP 70/39 HR 96, AFTER BOLUS GIVEN. LEVOPHED DRIP STARTED 0.1MCG/KG/MIN ORDERED. WILL CONTINUE TO MONITOR.
[2022-07-17] MEDS: GLUCERNA 1.2 1,000 ML BOTTLE NG PRN ×2 (01:22→22:51)
[2022-07-17 01:55] LABS: ABG BASE EXCESS 1.4 mmol/L; ABG OXYGEN SATURATION 99.3 % (92.0-98.5); ABG PCO2 34.8 mmHg (35.0-45.0); ABG PO2 244.1 mmHg (75.0-100.0); AaDO2 434.1 mmHg; COHb 0.2 % (0.5-1.5); MetHb 0.3 % (0.0-1.5); O2Hb 98.8 % (94.0-97.0); PEEP,BG 5 cm H2O; SITE, ABG Left Brachial; VENT MODE, BG AC 24 450 100% +5; VT, ABG 450 mL
--- NOTE | 2022-07-17 02:00 | NUR ---
RN NOTE ABG RESULTS RELAYED TO MARIEL IZQUIERDO. RT TITRATED FIO2 TO 60%. O2 SAT AT 98%. WILL CONTINUE TO MONITOR.
[2022-07-17] MEDS: PROPOFOL 100 ML IV PRN ×4 (03:54→21:23)
--- NOTE | 2022-07-17 03:54 | NUR ---
RN/ICU-PT. NOTED TO BE TACHYPNEIC W/ RR ON THE 30'S, W/ UPPER EXTREMITIES MOVING, DIPRIVAN DRIP INITIATED AT 5 MCG/KG/MIN PER PROTOCOL, WILL TITRATE TO SAS OF 3.
[2022-07-17 04:24] LABS: BASOPHILS % (AUTO) 0.2 % (0.0-2.0); EOSINOPHILS % (AUTO) 0.1 % (0.0-6.0); HEMATOCRIT 32 % (33-45); HEMOGLOBIN 10.9 g/dL (11.5-14.8); LYMPHOCYTES # (AUTO) 0.7 K/uL (0.8-4.8); LYMPHOCYTES % (AUTO) 4.2 % (20.0-44.0); MEAN CORPUSCULAR HGB CONC 34 g/dl (31.0-36.0); MEAN CORPUSCULAR VOLUME 97 fL (82-100); MONOCYTES % (AUTO) 6.1 % (2.0-12.0); NEUTROPHILS # (AUTO) 15.2 K/uL (1.8-8.9); NEUTROPHILS % (AUTO) 89.4 % (43.0-81.0); PLATELET COUNT (AUTO) 360 K/uL (150-450)
[2022-07-17 05:00] LABS: CALCIUM, SERUM 8.3 mg/dL (8.5-10.1); CARBON DIOXIDE 25 mmol/L (21-32); CHLORIDE 97 mmol/L (98-107); CREATININE 0.8 mg/dL (0.6-1.3); GLUCOSE 230 mg/dL (74-106); PHOSPHORUS 2.5 mg/dL (2.5-4.9); SODIUM SERUM 128 mmol/L (136-145); UREA NITROGEN, BLOOD 29 mg/dL (7-18)
--- NOTE | 2022-07-17 07:15 | NUR ---
RN NOTE RT TITRATED VENT SETTINGS TO AC 16 AND FIO2 40%. PT TOLERATING, WITH O2 SAT OF 97%. CONTINUE ON LEVOPHED AT 0.2MCG/KG/MIN AND PROPOFOL AT 5MCG/KG/MIN, SAS 3. NS AT 75ML/HR. SR ON TELE MONITOR. GT FEEDING AT 60ML/HR TOLERATING. KEPT HOB ELEVATED. DUFF CATH INSERTED DRAINING CLEAR [place] URINE OUTPUT. REMAIN AFEBRILE. ENDORSED TO CHAR FOR TIEN.
--- NOTE | 2022-07-17 07:30 | NUR ---
RN NOTES PT FOUND SEMI FOWLERS DISPLAYING NO S/S OF DISTRESS, FLACC = 0 AND BILATERAL RISE AND FALL OF THE CHEST OBSERVED. SHORTLY AFTER INITIAL ASSESSMENT, PT STARTED TO VALENCIA THE VENT AND WAS AGITATED. RN INCREASED PROPOFOL FOR COMFORT. R FA 20G AND L FA 20G ARE PATIENT AND INTACT. DUFF CATH RESERVOIR BELOW PATIENT DRAINING BY GRAVITY. RN WILL CONTINUE CARE PLAN AND ANTICIPATE NEEDS. SAFETY MEASURES IN PLACE, BED LOCKED AND IN LOWEST POSITION, SIDE RAILS UPX3, CALL LIGHT WITHIN REACH, BED ALARM ARMED, HOB > 30 DEGREES.
--- NOTE | 2022-07-17 07:39 | NUR ---
WOUND CARE CONSULT: PT PRESENTS WITH SACRAL STAGE 3 PRESSURE ULCER WITH SCARRING, AND RT HIP AND RT KNEE SCARRING, ALL PRESENT ON ADMISSION. RT LEG NOTED TO BE TURNED OUT. DR YANES TO BE CALLED THIS AM FOR SURGICAL CONSULT REQUEST. RECOMMENDATIONS MADE FOR SKIN PROTECTION. DISCUSSED WITH NURSING STAFF. SHERIN MORILLO NOTED. FIRST STEP LOW AIRLOSS MATTRESS IS ON ORDER. IN AGREEMENT WITH PLAN OF CARE. Addendum: 07/17/22 at 0742 by SHANICE MELCHOR WNDNU Amended: Links added.
[2022-07-17 07:46] LABS: ABG BASE EXCESS -0.6 mmol/L; ABG OXYGEN SATURATION 96.9 % (92.0-98.5); ABG PCO2 24.3 mmHg (35.0-45.0); ABG PH 7.545 (7.350-7.450); ABG PO2 87.8 mmHg (75.0-100.0); AaDO2 169.5 mmHg; COHb 0.3 % (0.5-1.5); MetHb 0.2 % (0.0-1.5); O2Hb 96.4 % (94.0-97.0); SITE, ABG Right Radial
[2022-07-17] MEDS: HYDROCORTISONE SOD SUCCINATE 100 MG/2 ML VIAL IV SCH ×3 (08:33→21:16)
[2022-07-17] MEDS: GLYCOPYRROLATE 1 MG TABLET PO SCH ×2 (08:36→21:22)
[2022-07-17] MEDS: CALCIUM CARB 250MG /VITAMIN D 1 UDTAB GT SCH (08:36)
[2022-07-17] MEDS: DIVALPROEX SODIUM 125 MG CAP.SPRINK GT SCH ×2 (08:36→17:32)
[2022-07-17] MEDS: PANTOPRAZOLE 40 MG VIAL IV SCH (08:36)
[2022-07-17] MEDS: MULTIVITAMINS,THERAGRAN 1 UDTAB TABLET GT SCH (08:36)
[2022-07-17] MEDS: PROSOURCE / PROSTAT (PYXIS) 30 ML UDC GT SCH ×2 (08:36→17:31)
[2022-07-17] MEDS: SENNOSIDES 8.6 MG TABLET GT SCH ×2 (08:36→17:00)
[2022-07-17] MEDS: CHLORHEXIDINE GLUCONATE 15 ML UDC MM SCH ×2 (08:36→21:16)
[2022-07-17] MEDS: CHOLECALCIFEROL 1,000 UNIT TABLET (VIT D3) GT SCH (08:37)
[2022-07-17] MEDS: ACIDOPHILUS/BULGARICUS 1 EACH TAB.CHEW GT SCH (08:37)
[2022-07-17] MEDS: APIXABAN 5 MG TABLET GT SCH ×2 (08:38→21:17)
[2022-07-17] MEDS ORDERED: CEFEPIME 2 GM in IV D5W 100 ML IV SCH (09:00)
--- NOTE | 2022-07-17 09:00 | NUR ---
MD COMMUNICATION RN INFORMED DR WANG OF CRITICAL LAB VALUE, TROPONIN HS IS 187. RN INFORMED MD OF RX AND ECHOCARDIOGRAM. MD ACKNOWLEDGED AND GAVE NO ORDERS.
[2022-07-17 09:30] LABS: THYROID STIMULATING HORMONE 2.252 uIU/mL (0.358-3.74)
[2022-07-17] MEDS ORDERED: ETOMIDATE 2 MG/ML VIAL IV ONE (09:30)
[2022-07-17] MEDS ORDERED: SUCCINYLCHOLINE CHLORIDE 20 MG/ML VIAL IV ONE (09:30)
--- NOTE | 2022-07-17 12:00 | NUR ---
NURSES NOTES VIDYA HELD, PT HAS DIARRHEA.
[2022-07-17] MEDS: FLUDROCORTISONE 0.1 MG TABLET GT SCH ×2 (12:46→17:32)
[2022-07-17] MEDS: MEROPENEM 1 G in IV NS 0.9% 100 ML IV SCH ×2 (13:25→21:15)
[2022-07-17] MEDS: IV NS 0.9% 1,000 ML IV PRN (13:26)
[2022-07-17] MEDS: DOCUSATE SODIUM LIQ 100 MG/10 ML UDC GT SCH (17:28)
[2022-07-17] MEDS: ASPIRIN 81 MG TAB.CHEW GT SCH (17:32)
[2022-07-17] MEDS: THIAMINE HCL 100 MG TABLET GT SCH (17:32)
--- NOTE | 2022-07-17 19:20 | NUR ---
RN NOTES PT FOUND SEMI FOWLERS DISPLAYING NO S/S OF DISTRESS, FLACC = 0 AND BILATERAL RISE AND FALL OF THE CHEST OBSERVED. ROLAND'S = 3. L FA 20G ARE PATIENT AND INTACT. DUFF CATH RESERVOIR BELOW PATIENT DRAINING BY GRAVITY. SBAR AND REPORT GIVEN TO MEDICAL LAB TECHNOLOGIST RN, ALL QUESTIONS ANSWERED. SAFETY MEASURES IN PLACE, BED LOCKED AND IN LOWEST POSITION, SIDE RAILS UPX3, CALL LIGHT WITHIN REACH, BED ALARM ARMED, HOB > 30 DEGREES. PT ENDORSED IN STABLE CONDITION FOR TIEN.
[2022-07-17] MEDS: ATORVASTATIN 40 MG TABLET GT SCH (21:22)
--- NOTE | 2022-07-17 21:29 | NUR ---
RECEIVED PT INTUBATED 7.5 ETT SECURED AT 23CM. PT TOLERATING VENT SETTINGS. SX'D SMALL AMT OF DELEON SECRETIONS. VENT ALARMS SET AND AUDIBLE. CONTINUE TO MONITOR. Addendum: 07/17/22 at 2130 by NILSON TREVINO RT Amended: Links added.
[2022-07-17] MEDS: VANCOMYCIN 1.25 GM in IV D5W 250 ML IV SCH (21:56)
[2022-07-17] MEDS: INSULIN GLARGINE, 100 UNIT/ML CARTRIDGE SQ SCH (22:40)
[2022-07-18] VITALS (95 sets, daily range): BP systolic 78–132; BP diastolic 28–91
[2022-07-18] MEDS: FLUDROCORTISONE 0.1 MG TABLET GT SCH ×4 (00:05→17:06)
[2022-07-18] MEDS: INSULIN REGULAR, HUMAN 100 UNIT/ML 3 ML VIAL SQ PRN ×5 (00:37→23:02)
[2022-07-18] MEDS: BLOOD SUGAR DIAGNOSTIC 1 EACH STRIP IN SCH ×5 (00:38→23:02)
[2022-07-18] MEDS: IV NS 0.9% 1,000 ML IV PRN ×2 (04:27→20:31)
[2022-07-18] MEDS: PROPOFOL 100 ML IV PRN ×4 (04:36→21:20)
[2022-07-18 05:02] LABS: BASOPHILS % (AUTO) 0.1 % (0.0-2.0); HEMATOCRIT 29 % (33-45); HEMOGLOBIN 9.8 g/dL (11.5-14.8); LYMPHOCYTES # (AUTO) 0.4 K/uL (0.8-4.8); LYMPHOCYTES % (AUTO) 5.1 % (20.0-44.0); MEAN CORPUSCULAR HGB CONC 33 g/dl (31.0-36.0); MEAN CORPUSCULAR VOLUME 98 fL (82-100); MONOCYTES # (AUTO) 0.5 K/uL (0.1-1.30); MONOCYTES % (AUTO) 6.4 % (2.0-12.0); NEUTROPHILS # (AUTO) 6.6 K/uL (1.8-8.9); NEUTROPHILS % (AUTO) 88.4 % (43.0-81.0); PLATELET COUNT (AUTO) 443 K/uL (150-450); WHITE BLOOD COUNT (AUTO) 7.5 K/uL (4.3-11.0)
[2022-07-18 05:15] LABS: CARBON DIOXIDE 27 mmol/L (21-32); CHLORIDE 104 mmol/L (98-107); CREATININE 0.8 mg/dL (0.6-1.3); GLUCOSE 348 mg/dL (74-106); POTASSIUM 4.3 mmol/L (3.5-5.1); SODIUM SERUM 137 mmol/L (136-145); UREA NITROGEN, BLOOD 26 mg/dL (7-18)
[2022-07-18] MEDS: HYDROCORTISONE SOD SUCCINATE 100 MG/2 ML VIAL IV SCH ×3 (05:55→21:04)
[2022-07-18] MEDS: MEROPENEM 1 G in IV NS 0.9% 100 ML IV SCH ×3 (05:56→21:04)
--- NOTE | 2022-07-18 06:00 | NUR ---
RN NOTES CRITICAL LAB VALUE FOR LACTIC ACID OF 2.3 REPORTED, HOSPITALIST HEALTH SCIENCES MANAGER JAM IZQUIERDO NP MADE AWARE, NO NEW ORDERS AT THIS TIME.
--- NOTE | 2022-07-18 07:30 | NUR ---
RN NOTES PT FOUND SEMI FOWLERS DISPLAYING NO S/S OF DISTRESS, FLACC = 0, ROLNAD'S = 3 AND BILATERAL RISE AND FALL OF THE CHEST OBSERVED. L FA 20G IS PATIENT AND INTACT. DUFF CATH RESERVOIR BELOW PATIENT DRAINING BY GRAVITY. PEG DRESSING IS CLEAN AND DRY. RN WILL CONTINUE CARE PLAN AND ANTICIPATE NEEDS. SAFETY MEASURES IN PLACE, BED LOCKED AND IN LOWEST POSITION, SIDE RAILS UPX3, CALL LIGHT WITHIN REACH, BED ALARM ARMED, HOB > 30 DEGREES.
--- NOTE | 2022-07-18 07:34 | NUR ---
RN NOTES ENDORSED CARE OF PATIENT TO AM NURSE, PATIENT SEDATED, ON MECHANICAL VENTILATION, TOLERATING WELL. PATIENT'S TELE MONITOR READING WITH HR OF 72, NO ACUTE DISTRESS NOTED. PATIENT RUNNING WITH DIPRIVAN AT 30 MCG/KG/MIN, LEVO DRIP AT 0.06 MCG/KG/MIN. ALL PATIENT NEEDS ANTICIPATE AND MET, PLAN OF CARE CARRIED OUT, ENDORSED CARE OF PATIENT TO AM NURSE FOR TIEN.
[2022-07-18] MEDS: NOREPINEPHRINE 8 MG in IV NS 0.9% 242 ML IV PRN (07:42)
[2022-07-18] MEDS: MULTIVITAMINS,THERAGRAN 1 UDTAB TABLET GT SCH (08:08)
[2022-07-18] MEDS: PANTOPRAZOLE 40 MG VIAL IV SCH (08:08)
[2022-07-18] MEDS: CALCIUM CARB 250MG /VITAMIN D 1 UDTAB GT SCH (08:08)
[2022-07-18] MEDS: CHLORHEXIDINE GLUCONATE 15 ML UDC MM SCH ×2 (08:08→21:04)
[2022-07-18] MEDS: APIXABAN 5 MG TABLET GT SCH ×2 (08:08→21:07)
[2022-07-18] MEDS: ACIDOPHILUS/BULGARICUS 1 EACH TAB.CHEW GT SCH (08:08)
[2022-07-18] MEDS: PROSOURCE / PROSTAT (PYXIS) 30 ML UDC GT SCH ×2 (08:08→17:06)
[2022-07-18] MEDS: DIVALPROEX SODIUM 125 MG CAP.SPRINK GT SCH ×2 (08:09→17:06)
[2022-07-18] MEDS: CHOLECALCIFEROL 1,000 UNIT TABLET (VIT D3) GT SCH (08:09)
[2022-07-18] MEDS: GLYCOPYRROLATE 1 MG TABLET PO SCH ×2 (08:09→21:04)
[2022-07-18] MEDS: SENNOSIDES 8.6 MG TABLET GT SCH ×2 (08:09→17:00)
--- NOTE | 2022-07-18 08:15 | NUR ---
MD COMMUNICATION DR FARFAN VISITED PATIENT ROUNDING, RN INFORMED MD THAT PT'S BS IS STAYING IN THE 300'S. MD GAVE ORDER: INCREASE MILD SS TO MODERATE. RN ACKNOWLEDGED AND WILL AMEND ORDER.
[2022-07-18 08:29] LABS: BILIRUBIN,DIRECT 0.2 mg/dL (0.0-0.2); BILIRUBIN,TOTAL 0.6 mg/dL (0.2-1.0)
[2022-07-18] MEDS ORDERED: DEXTROSE 50%-WATER 50 ML DISP.SYRIN IV PRN (09:00)
--- NOTE | 2022-07-18 17:05 | NUR ---
NURSING NOTES SANDY AND GERMAINE HELD, DIARRHEA PERSISTS
[2022-07-18] MEDS: THIAMINE HCL 100 MG TABLET GT SCH (17:06)
[2022-07-18] MEDS: ASPIRIN 81 MG TAB.CHEW GT SCH (17:06)
[2022-07-18] MEDS: DOCUSATE SODIUM LIQ 100 MG/10 ML UDC GT SCH (17:07)
[2022-07-18] MEDS: GLUCERNA 1.2 1,000 ML BOTTLE NG PRN (18:55)
--- NOTE | 2022-07-18 19:15 | NUR ---
RN NOTES PT FOUND SEMI FOWLERS DISPLAYING NO S/S OF DISTRESS, FLACC = 0 AND BILATERAL RISE AND FALL OF THE CHEST OBSERVED. ROLAND'S = 3. R UA ML AND L FA 20G ARE PATIENT AND INTACT. DUFF CATH RESERVOIR BELOW PATIENT DRAINING BY GRAVITY. SBAR AND REPORT GIVEN TO MAINTENANCE MECHANIC SUPERVISOR RN, ALL QUESTIONS ANSWERED. SAFETY MEASURES IN PLACE, BED LOCKED AND IN LOWEST POSITION, SIDE RAILS UPX3, CALL LIGHT WITHIN REACH, BED ALARM ARMED, HOB > 30 DEGREES. PT ENDORSED IN STABLE CONDITION FOR TIEN.
--- NOTE | 2022-07-18 19:30 | NUR ---
RN OPENING NOTES RECEIVED CARE OF PATIENT FROM AM NURSE, PATIENT INTUBATED, SEDATED WITH PROPOFOL. PATIENT NEEDS ANTICIPATED, REPOSITIONED TO COMFORT. PATIENT UNDER MECHANICAL VENTILATION WITH ORDERED SETTINGS, TOLERATING WELL, NO RESPIRATORY DISTRESS NOTED, PATIENT O2 SAT IS 98%. PATIENT RUNNING WITH LEVO DRIP AT 0.1 MCG/KG/MIN, DIPRIVAN AT 40 MCG/KG/MIN, AND NS AT 75 ML/HR, RUNNING THROUGH UPPER ARM MIDLINE. DUFF CATH IN PLACE DRAINING YELLOW URINE TO GRAVITY. PLAN OF CARE REVIEWED, SAFETY MEASURES PUT IN PLACE, WILL CARRY OUT PLAN OF CARE.
--- NOTE | 2022-07-18 19:56 | NUR ---
PT RCVD ORALLY INTUBATED WITH 7.5 ETT SECURED @ 23 CM LIP LINE ON VENT WITH THE SETTINGS OF AC 16, VT 400, FIO2 40% . PT TOLERATING VENT SETTINGS. ETT PATENT AND SECURED. SUCTIONED WITH SMALL AMOUNT OF DELEON THICK SECRETIONS . VENT PLUGGED INTO RED OUTLET, ALARMS ON AND AUDIBLE. WILL CONTINUE TO MONITOR T/O SHIFT.
[2022-07-18] MEDS: ATORVASTATIN 40 MG TABLET GT SCH (21:03)
[2022-07-18] MEDS: VANCOMYCIN 1.25 GM in IV D5W 250 ML IV SCH (22:07)
[2022-07-18] MEDS: INSULIN GLARGINE, 100 UNIT/ML CARTRIDGE SQ SCH (22:57)
[2022-07-19] VITALS (96 sets, daily range): BP systolic 83–149; BP diastolic 46–90
[2022-07-19] MEDS: FLUDROCORTISONE 0.1 MG TABLET GT SCH ×5 (00:24→23:35)
[2022-07-19] MEDS: PROPOFOL 100 ML IV PRN ×4 (02:39→19:15)
[2022-07-19 04:42] LABS: BASOPHILS % (AUTO) 0.4 % (0.0-2.0); HEMATOCRIT 30 % (33-45); LYMPHOCYTES # (AUTO) 0.6 K/uL (0.8-4.8); LYMPHOCYTES % (AUTO) 6.2 % (20.0-44.0); MEAN CORPUSCULAR HGB CONC 34 g/dl (31.0-36.0); MEAN CORPUSCULAR VOLUME 97 fL (82-100); MONOCYTES # (AUTO) 0.4 K/uL (0.1-1.30); MONOCYTES % (AUTO) 4.4 % (2.0-12.0); NEUTROPHILS # (AUTO) 8.1 K/uL (1.8-8.9); PLATELET COUNT (AUTO) 396 K/uL (150-450); RED BLOOD CELL COUNT(AUTO) 3.04 MIL/uL (4.0-5.2); WHITE BLOOD COUNT (AUTO) 9.2 K/uL (4.3-11.0)
[2022-07-19 04:57] LABS: CARBON DIOXIDE 30 mmol/L (21-32); CHLORIDE 106 mmol/L (98-107); CREATININE 0.6 mg/dL (0.6-1.3); GLUCOSE 348 mg/dL (74-106); POTASSIUM 4.9 mmol/L (3.5-5.1); SODIUM SERUM 140 mmol/L (136-145); UREA NITROGEN, BLOOD 28 mg/dL (7-18)
[2022-07-19] MEDS: MEROPENEM 1 G in IV NS 0.9% 100 ML IV SCH ×3 (05:50→21:20)
[2022-07-19] MEDS: HYDROCORTISONE SOD SUCCINATE 100 MG/2 ML VIAL IV SCH ×3 (05:50→21:20)
[2022-07-19] MEDS: INSULIN REGULAR, HUMAN 100 UNIT/ML 3 ML VIAL SQ PRN ×4 (06:34→23:18)
[2022-07-19] MEDS: BLOOD SUGAR DIAGNOSTIC 1 EACH STRIP IN SCH ×4 (06:37→23:14)
--- NOTE | 2022-07-19 07:22 | NUR ---
RN NOTES ENDORSED CARE OF PATIENT TO AM NURSE, PATIENT SEDATED, ON MECHANICAL VENTILATION, TOLERATING WELL. NO ACUTE DISTRESS NOTED OR ANY SIGNIFICANT FINDINGS UPON ALL NURSING ASSESSMENTS. PATIENT RUNNING WITH DIPRIVAN AT 40 MCG/KG/MIN, LEVO DRIP AT 0.04 MCG/KG/MIN, AND NS AT 75 ML/HR. ALL PATIENT NEEDS ANTICIPATE AND MET, PLAN OF CARE CARRIED OUT, ENDORSED CARE OF PATIENT TO AM NURSE FOR TIEN.
--- NOTE | 2022-07-19 07:30 | NUR ---
OPENING NOTE: REPORT RECEIVED FROM ENOCH CABRALES. LABS AND ORDERS REVIEWED DURING REPORT. PT INTUBATED, SEDATED ON 40MCG OF PROPOFOL PER MD ORDERS. LEVOPHED INFUSING AT 0.04 MCG/KG/MIN PER MD ORDERS. TUBE FEEDING INFUSING WITHOUT DIFFICULTY PER REPORT. PT CHECKED ON HOURLY AND PRN BY NURSING STAFF.
--- NOTE | 2022-07-19 08:30 | NUR ---
PER DR RENAE PROPOFOL TURNED OFF AT THIS TIME FOR WEANING TRIAL. PROPOFOL NOT TITRATED OFF, TURNED OFF ALL AT ONCE PER DR GARCÍAEG. TUBE FEEDING TURNED OFF AT THIS TIME. RESTRAINTS APPLIED AT THIS TIME D/T SEDATION BEING TURNED OFF. WILL CONTINUE TO MONITOR.
[2022-07-19] MEDS: SENNOSIDES 8.6 MG TABLET GT SCH ×2 (09:00→17:00)
--- NOTE | 2022-07-19 09:00 | NUR ---
PT AWAKE, NOT FOLLOWING COMMANDS. PT PLACED ON SIMV 4, PS15, TV 400, PEEP 5 AT THIS TIME FOR WEANING TRIAL.
[2022-07-19] MEDS: DIVALPROEX SODIUM 125 MG CAP.SPRINK GT SCH ×2 (09:02→18:02)
[2022-07-19] MEDS: PANTOPRAZOLE 40 MG/PACK PACK GT SCH (09:02)
[2022-07-19] MEDS: CHLORHEXIDINE GLUCONATE 15 ML UDC MM SCH ×2 (09:02→21:19)
[2022-07-19] MEDS: CALCIUM CARB 250MG /VITAMIN D 1 UDTAB GT SCH (09:11)
[2022-07-19] MEDS: CHOLECALCIFEROL 1,000 UNIT TABLET (VIT D3) GT SCH (09:13)
[2022-07-19] MEDS: ACIDOPHILUS/BULGARICUS 1 EACH TAB.CHEW GT SCH (09:13)
[2022-07-19] MEDS: GLYCOPYRROLATE 1 MG TABLET PO SCH ×2 (09:13→21:20)
[2022-07-19] MEDS: MULTIVITAMINS,THERAGRAN 1 UDTAB TABLET GT SCH (09:14)
[2022-07-19] MEDS: PROSOURCE / PROSTAT (PYXIS) 30 ML UDC GT SCH ×2 (09:14→18:03)
[2022-07-19] MEDS: APIXABAN 5 MG TABLET GT SCH ×2 (09:15→21:20)
[2022-07-19] MEDS: NOREPINEPHRINE 8 MG in IV NS 0.9% 242 ML IV PRN ×2 (09:26→18:01)
--- NOTE | 2022-07-19 10:07 | NUR ---
PT PLACED BACK ON AC ON PREVIOUS SETTINGS. PT FAILED WEANING TRIAL. PT HAD COPIOUS SECRETIONS FROM ETT AND ORAL, RESP RATE IN HIGH 30'S. SEDATION RESUMED AT THIS TME.
[2022-07-19] MEDS: IV NS 0.9% 1,000 ML IV PRN (15:16)
[2022-07-19] MEDS: DOCUSATE SODIUM LIQ 100 MG/10 ML UDC GT SCH (17:11)
[2022-07-19] MEDS: GLUCERNA 1.2 1,000 ML BOTTLE NG PRN (18:00)
[2022-07-19] MEDS: THIAMINE HCL 100 MG TABLET GT SCH (18:02)
[2022-07-19] MEDS: ASPIRIN 81 MG TAB.CHEW GT SCH (18:02)
--- NOTE | 2022-07-19 18:54 | NUR ---
END OF SHIFT NOTE: NO SIGNIFICANT EVENTS AFTER VENT BACK ON AC AND SEDATION TURNED BACK ON. RESTRAINTS DC'D AFTER SEDATION IN FULL EFFECT. PT CHECKED ON HOURLY AND PRN BY NURSING STAFF.
[2022-07-19] MEDS: ATORVASTATIN 40 MG TABLET GT SCH (21:22)
[2022-07-19] MEDS: VANCOMYCIN 1.25 GM in IV D5W 250 ML IV SCH (21:50)
[2022-07-19] MEDS: INSULIN GLARGINE, 100 UNIT/ML CARTRIDGE SQ SCH (23:19)
[2022-07-20] VITALS (95 sets, daily range): BP systolic 80–127; BP diastolic 38–79
[2022-07-20] MEDS: PROPOFOL 100 ML IV PRN ×3 (02:10→18:11)
[2022-07-20] MEDS: IV NS 0.9% 1,000 ML IV PRN (03:05)
[2022-07-20 05:18] LABS: CALCIUM, SERUM 7.7 mg/dL (8.5-10.1); CARBON DIOXIDE 32 mmol/L (21-32); CHLORIDE 105 mmol/L (98-107); CREATININE 0.7 mg/dL (0.6-1.3); GLUCOSE 274 mg/dL (74-106); POTASSIUM 4.4 mmol/L (3.5-5.1); SODIUM SERUM 139 mmol/L (136-145); UREA NITROGEN, BLOOD 31 mg/dL (7-18)
[2022-07-20] MEDS: HYDROCORTISONE SOD SUCCINATE 100 MG/2 ML VIAL IV SCH ×3 (05:22→21:27)
[2022-07-20] MEDS: FLUDROCORTISONE 0.1 MG TABLET GT SCH ×4 (05:22→23:12)
[2022-07-20] MEDS: BLOOD SUGAR DIAGNOSTIC 1 EACH STRIP IN SCH ×4 (05:23→23:03)
[2022-07-20] MEDS: MEROPENEM 1 G in IV NS 0.9% 100 ML IV SCH ×3 (05:30→21:27)
[2022-07-20 05:36] LABS: BASOPHILS % (AUTO) 0.2 % (0.0-2.0); EOSINOPHILS % (AUTO) 0.1 % (0.0-6.0); HEMATOCRIT 29 % (33-45); HEMOGLOBIN 9.7 g/dL (11.5-14.8); LYMPHOCYTES # (AUTO) 0.6 K/uL (0.8-4.8); LYMPHOCYTES % (AUTO) 5.9 % (20.0-44.0); MEAN CORPUSCULAR HGB CONC 33 g/dl (31.0-36.0); MEAN CORPUSCULAR VOLUME 97 fL (82-100); MONOCYTES # (AUTO) 0.4 K/uL (0.1-1.30); MONOCYTES % (AUTO) 3.9 % (2.0-12.0); NEUTROPHILS # (AUTO) 8.6 K/uL (1.8-8.9); NEUTROPHILS % (AUTO) 89.9 % (43.0-81.0); PLATELET COUNT (AUTO) 330 K/uL (150-450); RED BLOOD CELL COUNT(AUTO) 3.02 MIL/uL (4.0-5.2); WHITE BLOOD COUNT (AUTO) 9.6 K/uL (4.3-11.0)
[2022-07-20] MEDS: INSULIN REGULAR, HUMAN 100 UNIT/ML 3 ML VIAL SQ PRN ×4 (05:40→23:03)
--- NOTE | 2022-07-20 07:30 | NUR ---
RN NOTES PT FOUND SEMI FOWLERS DISPLAYING NO S/S OF DISTRESS, FLACC = 0 AND BILATERAL RISE AND FALL OF THE CHEST OBSERVED. ROLAND'S = 3. R UA ML AND L FA 20G ARE PATIENT AND INTACT. DUFF CATH RESERVOIR BELOW PATIENT DRAINING BY GRAVITY. PEG DRESSING IS CLEAN AND DRY. RN WILL CONTINUE CARE PLAN AND ANTICIPATE NEEDS. SAFETY MEASURES IN PLACE, BED LOCKED AND IN LOWEST POSITION, SIDE RAILS UPX3, CALL LIGHT WITHIN REACH, BED ALARM ARMED, HOB > 30 DEGREES.
[2022-07-20] MEDS: MULTIVITAMINS,THERAGRAN 1 UDTAB TABLET GT SCH (08:07)
[2022-07-20] MEDS: CHOLECALCIFEROL 1,000 UNIT TABLET (VIT D3) GT SCH (08:07)
[2022-07-20] MEDS: PANTOPRAZOLE 40 MG/PACK PACK GT SCH (08:07)
[2022-07-20] MEDS: CALCIUM CARB 250MG /VITAMIN D 1 UDTAB GT SCH (08:07)
[2022-07-20] MEDS: SENNOSIDES 8.6 MG TABLET GT SCH ×2 (08:07→17:00)
[2022-07-20] MEDS: ACIDOPHILUS/BULGARICUS 1 EACH TAB.CHEW GT SCH (08:07)
[2022-07-20] MEDS: GLYCOPYRROLATE 1 MG TABLET PO SCH ×2 (08:07→21:38)
[2022-07-20] MEDS: DIVALPROEX SODIUM 125 MG CAP.SPRINK GT SCH ×2 (08:07→17:24)
[2022-07-20] MEDS: CHLORHEXIDINE GLUCONATE 15 ML UDC MM SCH ×2 (08:07→21:35)
[2022-07-20] MEDS: PROSOURCE / PROSTAT (PYXIS) 30 ML UDC GT SCH ×2 (08:07→17:21)
[2022-07-20] MEDS: APIXABAN 5 MG TABLET GT SCH ×2 (08:08→21:37)
--- NOTE | 2022-07-20 11:00 | NUR ---
MD VISIT DR PATEL VISITED PT, RN DISCUSSED RESPIRATORY STATUS, MD GAVE ORDERS: HOLD TF AT MIDNIGHT, START SEDATION VACATION AT 0700 AND TRAIL WEEN AT 0800. RN WILL INFORM STAFF AND ENTER ORDERS.
--- NOTE | 2022-07-20 11:20 | NUR ---
PT IS AWAKE @ 1120 PT. PLACED INTO CPAP 0 / PS 7 @ 40% FIO2 PER DR. PATEL. Addendum: 07/20/22 at 1129 by ROHINI GUERRERO RT Amended: Links added.
--- NOTE | 2022-07-20 11:33 | NUR ---
PLACED BACK INTO AC MODE WITH PREVIOUS SETTINGS DUE TO INCREASED WORK OF BREATHING ( RR 33 BPM, SPO2 94 - 95%). RN NOTIFIED ON VENT CHANGES MADE. Addendum: 07/20/22 at 1136 by ROHINI GUERRERO RT Amended: Links added.
[2022-07-20] MEDS: GLUCERNA 1.2 1,000 ML BOTTLE NG PRN (16:17)
[2022-07-20] MEDS: THIAMINE HCL 100 MG TABLET GT SCH (17:24)
[2022-07-20] MEDS: ASPIRIN 81 MG TAB.CHEW GT SCH (17:24)
[2022-07-20] MEDS: DOCUSATE SODIUM LIQ 100 MG/10 ML UDC GT SCH (17:43)
--- NOTE | 2022-07-20 19:08 | NUR ---
RN NOTES PT FOUND SEMI FOWLERS DISPLAYING NO S/S OF DISTRESS, FLACC = 0 AND BILATERAL RISE AND FALL OF THE CHEST OBSERVED. ROLAND'S = 3. R UA ML AND L FA 20G ARE PATIENT AND INTACT. DUFF CATH RESERVOIR BELOW PATIENT DRAINING BY GRAVITY. PEG DRESSING IS CLEAN AND DRY. SBAR AND REPORT GIVEN TO CONTRACTS ANALYST, ALL QUESTIONS ANSWERED. SAFETY MEASURES IN PLACE, BED LOCKED AND IN LOWEST POSITION, SIDE RAILS UPX3, CALL LIGHT WITHIN REACH, BED ALARM ARMED, HOB > 30 DEGREES. PT ENDORSED IN STABLE CONDITION FOR TIEN.
[2022-07-20] MEDS: ATORVASTATIN 40 MG TABLET GT SCH (21:36)
[2022-07-20] MEDS: INSULIN GLARGINE, 100 UNIT/ML CARTRIDGE SQ SCH (23:02)
[2022-07-21] VITALS (30 sets, daily range): BP systolic 86–131; BP diastolic 30–68
--- NOTE | 2022-07-21 00:10 | NUR ---
ICU/PROJECT MANAGEMENT PROFESSIONAL PT IS NPO FOR BREATHING TRIAL IN THE MORNING
[2022-07-21] MEDS: PROPOFOL 100 ML IV PRN (04:28)
[2022-07-21] MEDS: HYDROCORTISONE SOD SUCCINATE 100 MG/2 ML VIAL IV SCH ×3 (04:28→21:26)
[2022-07-21] MEDS: MEROPENEM 1 G in IV NS 0.9% 100 ML IV SCH (04:28)
[2022-07-21 05:10] LABS: BASOPHILS % (AUTO) 0.1 % (0.0-2.0); HEMATOCRIT 32 % (33-45); HEMOGLOBIN 10.6 g/dL (11.5-14.8); LYMPHOCYTES # (AUTO) 0.7 K/uL (0.8-4.8); LYMPHOCYTES % (AUTO) 6.4 % (20.0-44.0); MEAN CORPUSCULAR HGB CONC 33 g/dl (31.0-36.0); MEAN CORPUSCULAR VOLUME 98 fL (82-100); MONOCYTES # (AUTO) 0.4 K/uL (0.1-1.30); MONOCYTES % (AUTO) 4.2 % (2.0-12.0); NEUTROPHILS % (AUTO) 89.3 % (43.0-81.0); PLATELET COUNT (AUTO) 432 K/uL (150-450); RED BLOOD CELL COUNT(AUTO) 3.25 MIL/uL (4.0-5.2); WHITE BLOOD COUNT (AUTO) 10.1 K/uL (4.3-11.0)
[2022-07-21] MEDS: FLUDROCORTISONE 0.1 MG TABLET GT SCH ×3 (05:29→17:16)
[2022-07-21 05:31] LABS: CALCIUM, SERUM 7.8 mg/dL (8.5-10.1); CARBON DIOXIDE 31 mmol/L (21-32); CHLORIDE 106 mmol/L (98-107); CREATININE 0.6 mg/dL (0.6-1.3); GLUCOSE 253 mg/dL (74-106); POTASSIUM 4.5 mmol/L (3.5-5.1); SODIUM SERUM 141 mmol/L (136-145); UREA NITROGEN, BLOOD 41 mg/dL (7-18)
[2022-07-21] MEDS: BLOOD SUGAR DIAGNOSTIC 1 EACH STRIP IN SCH ×4 (06:10→23:19)
[2022-07-21] MEDS: INSULIN REGULAR, HUMAN 100 UNIT/ML 3 ML VIAL SQ PRN ×4 (06:11→23:20)
--- NOTE | 2022-07-21 07:10 | NUR ---
GAUGE INSPECTOR Bedside report taken from [facility] nurse moncada. pt lightly sedated on propofol and intubated but arousable. pt opens eyes, tracks, perrla 3 brisk, pos corneals, pos cough and gag, does not follow commands. pt trace movement in bue and ble. ble contracted. pt on spo2 40%, spo2 100%, large amount of white secretions orally and in ET tube, lung sounds coarse with expiratory wheezing. pt has peg, npo, positive placement verified. bowel sounds present. pt has marks intact and draining clear yellow urine. pt has multiple wounds noted. see flowsheet. all lines traced. all drips verified. safety measures in place. will continue to monitor.
[2022-07-21] MEDS: CEFEPIME 2 GM in IV D5W 100 ML IV SCH ×3 (08:36→21:30)
[2022-07-21] MEDS: CHLORHEXIDINE GLUCONATE 15 ML UDC MM SCH ×2 (08:37→21:26)
[2022-07-21] MEDS: PROSOURCE / PROSTAT (PYXIS) 30 ML UDC GT SCH ×2 (08:37→17:16)
[2022-07-21] MEDS: CHOLECALCIFEROL 1,000 UNIT TABLET (VIT D3) GT SCH (08:38)
[2022-07-21] MEDS: ACIDOPHILUS/BULGARICUS 1 EACH TAB.CHEW GT SCH (08:38)
[2022-07-21] MEDS: PANTOPRAZOLE 40 MG/PACK PACK GT SCH (08:38)
[2022-07-21] MEDS: DIVALPROEX SODIUM 125 MG CAP.SPRINK GT SCH ×2 (08:38→17:16)
[2022-07-21] MEDS: CALCIUM CARB 250MG /VITAMIN D 1 UDTAB GT SCH (08:39)
[2022-07-21] MEDS: MULTIVITAMINS,THERAGRAN 1 UDTAB TABLET GT SCH (08:39)
[2022-07-21] MEDS: GLYCOPYRROLATE 1 MG TABLET PO SCH ×2 (08:39→21:26)
[2022-07-21] MEDS: APIXABAN 5 MG TABLET GT SCH ×2 (08:39→21:27)
[2022-07-21] MEDS: SENNOSIDES 8.6 MG TABLET GT SCH ×2 (08:45→17:00)
--- NOTE | 2022-07-21 08:56 | NUR ---
CAT DRIVER Dr Allen at bedside assessing pt and updated on pt status. md aware propofol at 10 mcg/kg / min and that pt opens eyes, does not follow commands but gets restless and coughs against vent when propofol decreased and that pt has large amount of thick white secretions from mouth and ET tube. ok per md informed to let pulmonary MD know. no new orders at this time . will continue to monitor.
--- NOTE | 2022-07-21 10:18 | NUR ---
PT. IS AWAKE BUT UNABLE TO FOLLOW COMMANDS PLACED INTO CPAP 0 / PS 7 @ 40% FIO2 FOR WEANING TRIAL PER DR PATEL. SPO2 99% HR 82 BPM RR 18 - 20 BPM RN AWARE Addendum: 07/21/22 at 1020 by ROHINI GUERRERO RT Amended: Links added.
--- NOTE | 2022-07-21 10:21 | NUR ---
SURGICAL COORDINATOR Dr Good at bedside assessing pt and updated on pt status. md aware that pt has large amount of thick white secretions orally and via ET tube. ok per md. orders to turn off sedation and wean pt. Reginald LOWERY aware. propofol off at 0945 am and pt placed on weaning trial 1020am. pt tolerating well. vitals stable. will continue to monitor.
[2022-07-21] MEDS ORDERED: IPRATROPIUM/ALBUTEROL INHALER IH SCH (12:00)
--- NOTE | 2022-07-21 12:02 | NUR ---
COLLECTIONS TECHNICIAN spoke to pharmacy to reschedule cefepime. ok to give dose now so that dosage schedule will not be off.
[2022-07-21] MEDS: ALBUTEROL FS 2.5 MG/3 ML VIAL.NEB NEB SCH ×2 (13:40→20:02)
[2022-07-21] MEDS: IPRATROPIUM NEB FS 0.5 MG/2.5 ML AMPUL.NEB NEB SCH ×2 (13:40→20:02)
--- NOTE | 2022-07-21 16:21 | NUR ---
SKILLED LABOR Pt bathed and cleaned. linen change done. skin check done with charge nurse Carmen CABRALES, no new wounds noted. wound care done per protocol. pt tolerated well. all lines traced. vitals stable. safety measures in place. will continue to monitor.
[2022-07-21] MEDS: ASPIRIN 81 MG TAB.CHEW GT SCH (17:16)
[2022-07-21] MEDS: THIAMINE HCL 100 MG TABLET GT SCH (17:16)
[2022-07-21] MEDS: DOCUSATE SODIUM LIQ 100 MG/10 ML UDC GT SCH (17:39)
--- NOTE | 2022-07-21 19:03 | NUR ---
HAND BANDER Bedside report given to [facility] nurse Bang . pt intubated, no sedation arousable and tracks but does not follow commands. all lines traced. safety measures in place. pt clean and dry. no signs of acute distress at this time.
[2022-07-21] MEDS: ATORVASTATIN 40 MG TABLET GT SCH (21:26)
[2022-07-21] MEDS: INSULIN GLARGINE, 100 UNIT/ML CARTRIDGE SQ SCH (22:00)
[2022-07-22] VITALS (24 sets, daily range): BP systolic 86–133; BP diastolic 41–69
[2022-07-22] MEDS: FLUDROCORTISONE 0.1 MG TABLET GT SCH ×5 (00:06→23:45)
[2022-07-22] MEDS: ALBUTEROL FS 2.5 MG/3 ML VIAL.NEB NEB SCH ×5 (01:35→20:37)
[2022-07-22] MEDS: IPRATROPIUM NEB FS 0.5 MG/2.5 ML AMPUL.NEB NEB SCH ×5 (01:35→20:37)
[2022-07-22] MEDS: IV NS 0.9% 250 ML IV PRN (04:00)
[2022-07-22] MEDS: CEFEPIME 2 GM in IV D5W 100 ML IV SCH ×3 (04:00→20:34)
[2022-07-22 05:13] LABS: BASOPHILS % (AUTO) 0.1 % (0.0-2.0); HEMATOCRIT 31 % (33-45); HEMOGLOBIN 10.4 g/dL (11.5-14.8); LYMPHOCYTES # (AUTO) 0.9 K/uL (0.8-4.8); LYMPHOCYTES % (AUTO) 7.4 % (20.0-44.0); MEAN CORPUSCULAR HGB CONC 33 g/dl (31.0-36.0); MEAN CORPUSCULAR VOLUME 98 fL (82-100); MONOCYTES # (AUTO) 0.5 K/uL (0.1-1.30); MONOCYTES % (AUTO) 4.3 % (2.0-12.0); NEUTROPHILS # (AUTO) 10.6 K/uL (1.8-8.9); NEUTROPHILS % (AUTO) 88.2 % (43.0-81.0); PLATELET COUNT (AUTO) 429 K/uL (150-450)
[2022-07-22] MEDS: HYDROCORTISONE SOD SUCCINATE 100 MG/2 ML VIAL IV SCH ×3 (05:21→20:34)
[2022-07-22] MEDS: BLOOD SUGAR DIAGNOSTIC 1 EACH STRIP IN SCH ×4 (05:21→23:46)
[2022-07-22 05:40] LABS: CALCIUM, SERUM 7.6 mg/dL (8.5-10.1); CARBON DIOXIDE 31 mmol/L (21-32); CHLORIDE 106 mmol/L (98-107); CREATININE 0.5 mg/dL (0.6-1.3); GLUCOSE 152 mg/dL (74-106); POTASSIUM 3.9 mmol/L (3.5-5.1); SODIUM SERUM 141 mmol/L (136-145); UREA NITROGEN, BLOOD 38 mg/dL (7-18)
[2022-07-22] MEDS: INSULIN REGULAR, HUMAN 100 UNIT/ML 3 ML VIAL SQ PRN ×3 (05:49→23:42)
--- NOTE | 2022-07-22 07:49 | NUR ---
RN/ICU PT IN BED EYES CLOSED, PER REPORT DOES OPEN EYES AND IS ALERT, NON-VERBAL. ON VENT CPAP SAT 99 NO PRESSORS OR SEDATION . NS RUNNING MINLINE PATENT NO S/S OF INFLITRATION. GTUBE IN PLACE NO REDNESS OR LEAKAGE NOTED. DUFF CATHETER IN PLACE DRAINING YELLOW FLUID. PT SUCTIONED. NOW AWAKE. FEEDING IS OFF TO HELP WEENING PER MD ORDER NPO TILL EXTUBATION. PT OFF LOADED BED LOCKED HOB ELVATED TO 30 DEGREES.
[2022-07-22] MEDS: PROSOURCE / PROSTAT (PYXIS) 30 ML UDC GT SCH ×2 (09:00→17:26)
[2022-07-22] MEDS: PANTOPRAZOLE 40 MG/PACK PACK GT SCH (09:09)
[2022-07-22] MEDS: ACIDOPHILUS/BULGARICUS 1 EACH TAB.CHEW GT SCH (09:09)
[2022-07-22] MEDS: CHOLECALCIFEROL 1,000 UNIT TABLET (VIT D3) GT SCH (09:09)
[2022-07-22] MEDS: CALCIUM CARB 250MG /VITAMIN D 1 UDTAB GT SCH (09:10)
[2022-07-22] MEDS: DIVALPROEX SODIUM 125 MG CAP.SPRINK GT SCH ×2 (09:10→17:25)
[2022-07-22] MEDS: SENNOSIDES 8.6 MG TABLET GT SCH ×2 (09:10→17:25)
[2022-07-22] MEDS: MULTIVITAMINS,THERAGRAN 1 UDTAB TABLET GT SCH (09:10)
[2022-07-22] MEDS: CHLORHEXIDINE GLUCONATE 15 ML UDC MM SCH ×2 (09:11→20:34)
[2022-07-22] MEDS: APIXABAN 5 MG TABLET GT SCH ×2 (09:11→20:35)
[2022-07-22] MEDS: GLYCOPYRROLATE 1 MG TABLET PO SCH ×2 (09:11→20:34)
[2022-07-22] MEDS: GLUCERNA 1.2 1,000 ML BOTTLE NG PRN (11:36)
[2022-07-22] MEDS: DOCUSATE SODIUM LIQ 100 MG/10 ML UDC GT SCH (17:25)
[2022-07-22] MEDS: THIAMINE HCL 100 MG TABLET GT SCH (17:25)
[2022-07-22] MEDS: ASPIRIN 81 MG TAB.CHEW GT SCH (18:08)
--- NOTE | 2022-07-22 19:40 | NUR ---
RN NOTES, PT IN BED, WITH AWAKE UNABLE TO FOLLOW COMMANDS, INTUBATED, ON CIPAP MODE TOLERATED SETTINGS WELL,GIGI MIDLINE/LFA LINES IN PLACE PATENT AND INTACT, NO IVF AT THIS TIME, GT IN PLACED, NO REDISUAL NOTED, GLUCERNA INFUSING AT 60ML/HR PATIENT TOLERATED WELL, DUFF CATH IN PLACE, DRAINING BY GRAVITY YELLOW COLOR URINE, ALL SAFETY MEASURES IN PLACE, BED LOCKED AND IN LOWEST POSITION, SIDE RAILS UPX3, CALL LIGHT WITHIN REACH, BED ALARM ON, HOB, WILL CONTINUE TO MONITOR CLOSELY.
[2022-07-22] MEDS: ATORVASTATIN 40 MG TABLET GT SCH (21:04)
[2022-07-22] MEDS: INSULIN GLARGINE, 100 UNIT/ML CARTRIDGE SQ SCH (21:14)
--- NOTE | 2022-07-22 22:26 | NUR ---
RN NOTES, PT IN BED, WITH AWAKE UNABLE TO FOLLOW COMMANDS, INTUBATED, ON CIPAP MODE TOLERATED SETTINGS WELL,GIGI MIDLINE/LFA LINES IN PLACE PATENT AND INTACT, NO IVF AT THIS TIME, GT IN PLACED, NO REDISUAL NOTED, GLUCERNA INFUSING AT 60ML/HR PATIENT TOLERATED WELL, DUFF CATH IN PLACE, DRAINING BY GRAVITY YELLOW COLOR URINE, ALL SAFETY MEASURES IN PLACE, BED LOCKED AND IN LOWEST POSITION, SIDE RAILS UPX3, CALL LIGHT WITHIN REACH, BED ALARM ON, HOB, WILL CONTINUE TO MONITOR CLOSELY. Addendum: 07/22/22 at 2234 by MARY MORLEY RN WRONG TIME ENTRY
[2022-07-23] VITALS (28 sets, daily range): BP systolic 79–184; BP diastolic 44–97
[2022-07-23] MEDS: ALBUTEROL FS 2.5 MG/3 ML VIAL.NEB NEB SCH ×4 (02:20→19:57)
[2022-07-23] MEDS: IPRATROPIUM NEB FS 0.5 MG/2.5 ML AMPUL.NEB NEB SCH ×4 (02:20→19:57)
--- NOTE | 2022-07-23 03:49 | NUR ---
RN NOTES, NOTED PATIENT FLUSHED, AWAKE EYES WIDE OPEN, TACHYPNEIC RR 30S, TAHYCARDIC HR 109 AND BLOOD PRESSURE ELEVATED 180/160 SBP AT THIS TIME, IMFORMED JAM IZQUIERDO DNP FOOTBALL SCOUT FOR TONIGHT, AND HE REPLIED WITH NEW ORDER FOR ATIVAN 1MG IVP Q4HRS PRN, ORDER NOTED AND CARRIED OUT, WILL CONTINUE TO MONITOR CLOSELY.
[2022-07-23] MEDS ORDERED: LORAZEPAM INJ 2 MG/ML VIAL IV PRN (04:00)
[2022-07-23] MEDS: HYDROCORTISONE SOD SUCCINATE 100 MG/2 ML VIAL IV SCH ×3 (04:19→20:40)
[2022-07-23] MEDS: CEFEPIME 2 GM in IV D5W 100 ML IV SCH ×3 (04:19→20:40)
[2022-07-23 04:29] LABS: BASOPHILS # (AUTO) 0.1 K/uL (0.0-0.2); BASOPHILS % (AUTO) 0.5 % (0.0-2.0); HEMATOCRIT 35 % (33-45); HEMOGLOBIN 11.8 g/dL (11.5-14.8); MEAN CORPUSCULAR HGB CONC 33 g/dl (31.0-36.0); MEAN CORPUSCULAR VOLUME 96 fL (82-100); MONOCYTES # (AUTO) 0.5 K/uL (0.1-1.30); MONOCYTES % (AUTO) 3.5 % (2.0-12.0); NEUTROPHILS # (AUTO) 12.5 K/uL (1.8-8.9); PLATELET COUNT (AUTO) 549 K/uL (150-450); RED BLOOD CELL COUNT(AUTO) 3.68 MIL/uL (4.0-5.2)
[2022-07-23 04:47] LABS: CALCIUM, SERUM 8.2 mg/dL (8.5-10.1); CARBON DIOXIDE 28 mmol/L (21-32); CHLORIDE 102 mmol/L (98-107); CREATININE 0.7 mg/dL (0.6-1.3); GLUCOSE 224 mg/dL (74-106); POTASSIUM 4.2 mmol/L (3.5-5.1); SODIUM SERUM 137 mmol/L (136-145); UREA NITROGEN, BLOOD 39 mg/dL (7-18)
[2022-07-23] MEDS: FLUDROCORTISONE 0.1 MG TABLET GT SCH ×4 (05:05→23:22)
[2022-07-23] MEDS: INSULIN REGULAR, HUMAN 100 UNIT/ML 3 ML VIAL SQ PRN ×4 (05:14→23:22)
[2022-07-23] MEDS: BLOOD SUGAR DIAGNOSTIC 1 EACH STRIP IN SCH ×4 (05:15→23:20)
--- NOTE | 2022-07-23 06:41 | NUR ---
RN CLOSING NOTES, PATIENT IN BED FINALLY RELAXED AND SLEEPING, AFTER SHE HAD A EPISODE OF ANXIETY, AGITATION ACCOMPANIED WITH HIGH BLOOD PRESSURE, RR, HR, ATIVAN ORDERED PER JAM IZQUIERDO AND PATIENT WITH BASELINE VITAL SINGS AT THIS TIME, NO DISTRESS/NO SOB NOTED, CONTINUE CIPAP MODE TOLERATED SETTINGS WELL ,GIGI MIDLINE NEW LFA LINE IN PLACE PATENT AND INTACT, NO IVF AT THIS TIME, CONITUE ON ANTIBIOTICS, GT IN PLACED, NO REDISUAL NOTED DURING THE NGIHT AND PT TOLERATED WELL FEEDING, SUCCIONED FREQUENTLY TO REMOVE SECRETIONS, REPOSITION Q2H AND PRN, DUFF CATH IN PLACE, DRAINING BY GRAVITY YELLOW COLOR URINE, ONE BOWEL MOVEMENT LAST NIGHT, ALL SAFETY MEASURES IN PLACE, BED LOCKED AND IN LOWEST POSITION, SIDE RAILS UPX3, CALL LIGHT WITHIN REACH, BED ALARM ON, HOB, WILL ENDORSE CONTINUITY OF CARE TO ONCOMING NURSE.
--- NOTE | 2022-07-23 07:15 | NUR ---
BODY AND FENDER WORKER OPENING NOTE: RECEIVED PT. IN BED, LETHARGIC, OPENS EYES WITH TOUCH AND LIGHT PAIN. PT. ON CPAP WITH WITH FIO2 - 40%, PEEP - 5; PS - 10. NO S/S OF RESPIRATORY DISTRESS. SCREW MACHINE OPERATOR SINGLE SPINDLE READS NSR @ 60 BPM. PT. HAS DUFF CATH WITH CLEAR YELLOW URINE DRAINING IN THE BAG. PT. HAS SACRAL WOUND. WILL DO WOUND TREATMENT ORDERED. PT. HAS SOFT BILATERAL RESTRAINTS. CAP REFILL ON BOTH HANDS AND FEET < 3 SECS. PT. ON TUBE FEEDING VIA G-TUBE, GLUCERNA 1.2 RUNNING @ 60ML/HR. G-TUBE RESIDUAL IS 10 ML. BOWEL SOUND PRESENT IN ALL QUADRANTS. PT. HAS GIGI MIDLINE, FLUSHING WELL, SALINE LOCKED. SHE ALSO HAS LEFT FA #20G AND LEFT WRIST #20G FLUSHING WELL, SALINE LOCKED. IV SITE DRESSINGS C/D/I WITH NO S/S OF INFILTRATION. SAFETY MEASURES IN PLACE: BED IN LOWEST AND LOCKED POSITION, HOB ELEVATED AT 30 DEGREES, BED ALARM ON, WILL TURN AND REPOSITION Q2H. WILL CONTINUE TO MONITOR PT. FOR ANY CHANGES.
--- NOTE | 2022-07-23 08:50 | NUR ---
WEB PORTAL DEVELOPER NOTE: PT. WAS PUT ON COOL AEROSOL VIA ETT PER MD ORDER. O2 @ 13 LPM. PT. SATURATING AT 98%. NO S/S OF RESPIRATORY DISTRESS. WILL CONTINUE TO MONITOR PT.'S O2 SAT.
[2022-07-23] MEDS: CHLORHEXIDINE GLUCONATE 15 ML UDC MM SCH ×2 (10:05→20:40)
[2022-07-23] MEDS: PROSOURCE / PROSTAT (PYXIS) 30 ML UDC GT SCH ×2 (10:05→17:58)
[2022-07-23] MEDS: PANTOPRAZOLE 40 MG/PACK PACK GT SCH (10:06)
[2022-07-23] MEDS: CHOLECALCIFEROL 1,000 UNIT TABLET (VIT D3) GT SCH (10:06)
[2022-07-23] MEDS: DIVALPROEX SODIUM 125 MG CAP.SPRINK GT SCH ×2 (10:06→17:57)
[2022-07-23] MEDS: SENNOSIDES 8.6 MG TABLET GT SCH ×2 (10:06→17:57)
[2022-07-23] MEDS: MULTIVITAMINS,THERAGRAN 1 UDTAB TABLET GT SCH (10:06)
[2022-07-23] MEDS: CALCIUM CARB 250MG /VITAMIN D 1 UDTAB GT SCH (10:07)
[2022-07-23] MEDS: GLYCOPYRROLATE 1 MG TABLET PO SCH ×2 (10:07→20:40)
[2022-07-23] MEDS: ACIDOPHILUS/BULGARICUS 1 EACH TAB.CHEW GT SCH (10:07)
[2022-07-23] MEDS: APIXABAN 5 MG TABLET GT SCH ×2 (10:07→20:41)
[2022-07-23] MEDS: GLUCERNA 1.2 1,000 ML BOTTLE NG PRN (10:10)
--- NOTE | 2022-07-23 14:24 | NUR ---
SS Note: Per charge nurse request, SW to set up meeting with family for discussion regarding comfort care vs. trach placement. Per Dr. Salinas he is available at 9:30 am on 07/24/2022 to speak to family. ZAY made several separate attempts to call the , Silvestre Chi [phone]. However, call goes straight to voicemail and inbox is full. ZAY unable to leave voicemail and call back number. ZAY called [facility] [phone] to gather alternate contact information. ZAY was told that they contact the via email: [email or web address]. This SW emailed the pt.s asking if he is able to have a phone conversation with 07/24/2022 9:30 am and to call this ZAY. ZAY will continue attempts to confirm meeting details. Addendum: 07/24/22 at 1245 by ROHIT COLLAZO ZAY was notified by Dr. Salinas that he spoke to the pt.s' yesterday.
[2022-07-23] MEDS: DOCUSATE SODIUM LIQ 100 MG/10 ML UDC GT SCH (17:57)
[2022-07-23] MEDS: ASPIRIN 81 MG TAB.CHEW GT SCH (17:57)
[2022-07-23] MEDS: THIAMINE HCL 100 MG TABLET GT SCH (17:58)
--- NOTE | 2022-07-23 18:00 | NUR ---
LIQUEFIER NOTE: PT,'S KENNY SIGNED CONSENT FOR PT.'S TRACHEOSTOMY PLACEMENT PER DR. RENAE'S ORDER. PT. WAS ALSO PLACED ON PRESSURE SUPPORT PER DR. RENAE: PS - 15 AND PEEP - 5. PT. SATURATING AT 98%. WILL CONTINUE TO MONITOR PT.'S O2 SAT.
--- NOTE | 2022-07-23 19:15 | NUR ---
ELECTRON TUBE ASSEMBLER CLOSING NOTE: PT. REMAINS IN BED, STILL LETHARGIC, OPENS EYES WITH TOUCH AND LIGHT PAIN. PT. ON CPAP WITH WITH FIO2 - 40%, PEEP - 5; PS - 15. NO S/S OF RESPIRATORY DISTRESS. GAS STATION SUPERVISOR READS SINUS YANELY @ 58 BPM AT THIS TIME. PT. HAS DUFF CATH WITH CLEAR YELLOW URINE OUTPUT OF 492 ML THROUGHOUT THE SHIFT. PT. HAS SACRAL WOUND. WOUND TREATMENT DONE ORDERED. PT. STILL HAS SOFT BILATERAL WRIST RESTRAINTS. NEUROVASCULAR CHECK DONE AT LEAST Q2H. PT. REMAINS ON TUBE FEEDING VIA G-TUBE, GLUCERNA 1.2 RUNNING @ 60ML/HR. G-TUBE RESIDUAL IS 10 ML. PT. HAS GIGI MIDLINE, FLUSHING WELL, SALINE LOCKED. SHE ALSO HAS LEFT FA #20G AND LEFT WRIST #20G FLUSHING WELL, SALINE LOCKED. IV SITE DRESSINGS C/D/I WITH NO S/S OF INFILTRATION. PT. REMAINS AFEBRILE THROUGHOUT THE SHIFT. SAFETY MEASURES MAINTAINED: BED IN LOWEST AND LOCKED POSITION, HOB ELEVATED AT 30 DEGREES, BED ALARM ON, PT. TURNED AND REPOSITIONED Q2H. WILL ENDORSE CONTINUITY OF CARE TO VB NET PROGRAMMER RN.
--- NOTE | 2022-07-23 20:00 | NUR ---
RN NOTES, PATIENT IN BED ASLEEP, AROUSES TO TACTILE STIMULI, NO SOB/ACUTE DISTRESS, CONTINUE ON CPAP MODE TOLERATED SETTINGS WELL, PLACE ON COOL AEROSOL DURING THE DAY, BACK ON CPAP MODE, PLAN FOR TRACHESOTOMY, NO SCHEDULE YET, NSR/SB IN TELE MONITOR, GIGI MIDLINE AND LFA LINE IN PLACE PATENT AND INTACT, NO IVF AT THIS TIME, CONINUE ON ANTIBIOTICS, GT IN PLACED, NO REDISUAL NOTED AT THIS TIME, TOLERATED FEEDING WELL, ALL SAFETY MEASURES IN PLACE, BED LOCKED AND IN LOWEST POSITION, SIDE RAILS UPX3, CALL LIGHT WITHIN REACH, BED ALARM ON, HOB, WILL CONTINUE TO MONITOR CLOSELY.
--- NOTE | 2022-07-23 20:03 | NUR ---
RT Notes Pt received orally intubated w/ 7.5 ETT secured at 23cm at the lip line on the [facility] vent on CPAP mode, PEEP +5, PS 15, FIO2 40%. POURING CRANE OPERATOR done. PT suctioned. Alarms set and audible. Vent plugged into red outlet. Ambubag at bedside. Will cont to monitor. Addendum: 07/24/22 at 0451 by AKBAR TOLEDO RT Amended: Links added.
[2022-07-23] MEDS: ATORVASTATIN 40 MG TABLET GT SCH (21:19)
[2022-07-23] MEDS: THERAHONEY GEL 1.5 OZ TUBE TP SCH (21:21)
[2022-07-23] MEDS: INSULIN GLARGINE, 100 UNIT/ML CARTRIDGE SQ SCH (23:21)
[2022-07-24] VITALS (24 sets, daily range): BP systolic 91–132; BP diastolic 48–87
[2022-07-24] MEDS: IPRATROPIUM NEB FS 0.5 MG/2.5 ML AMPUL.NEB NEB SCH ×4 (01:40→19:42)
[2022-07-24] MEDS: ALBUTEROL FS 2.5 MG/3 ML VIAL.NEB NEB SCH ×4 (01:40→19:42)
[2022-07-24] MEDS: HYDROCORTISONE SOD SUCCINATE 100 MG/2 ML VIAL IV SCH ×3 (04:47→21:27)
[2022-07-24] MEDS: CEFEPIME 2 GM in IV D5W 100 ML IV SCH ×3 (04:47→21:27)
[2022-07-24] MEDS: FLUDROCORTISONE 0.1 MG TABLET GT SCH ×4 (04:51→23:28)
[2022-07-24] MEDS: BLOOD SUGAR DIAGNOSTIC 1 EACH STRIP IN SCH ×4 (05:04→23:28)
[2022-07-24] MEDS: INSULIN REGULAR, HUMAN 100 UNIT/ML 3 ML VIAL SQ PRN ×4 (05:06→23:30)
--- NOTE | 2022-07-24 06:41 | NUR ---
RN NOTES, PATIENT IN BED ASLEEP, AROUSES TO TACTILE STIMULI, NO SOB/ACUTE DISTRESS, CONTINUE INTUBATED ON CPAP MODE W/7.5 ETT SECURED AT 23CM AT THE LIP, PEEP +5, PS 15, FIO2 40%. TOLERATED SETTINGS WELL, PLAN FOR TRACHESOTOMY, NO SCHEDULE YET, SB IN TELE MONITOR MOST OF THE NIGHT, GIGI MIDLINE AND LFA LINE IN PLACE PATENT AND INTACT, NO IVF AT THIS TIME, CONINUE ON ANTIBIOTICS, GT IN PLACED, NO REDISUAL NOTED AT THIS TIME, TOLERATED FEEDING WELL, NO SIGNIFICANT CHANGE IN CONDITION DURING THE NIGHT, ON BILATERAL SOFT WRIST RESRAINS FREQUENT CIRCULATION CHECKS, NO ABNORMALITY OR CIRCULATION COMPROMISED AT SITE, ALL SAFETY MEASURES IN PLACE, FREQUENT SUCIONING PROVIDED, BED LOCKED AND IN LOWEST POSITION, SIDE RAILS UPX3, CALL LIGHT WITHIN REACH, BED ALARM ON, HOB, WILL ENDORSE CONTINUITY OFCARE TO ONCOMING NURSE.
--- NOTE | 2022-07-24 07:15 | NUR ---
PALLET STONE POSITIONER NOTE RECEIVED PATIENT IN BED RESTING ON ORALLY INTUBATED,ON MECHANICAL VENTILATOR, PRESCRIBED,IV ACCESS ARE,GIGI MIDLINE AND LFA LINE IN PLACE PATENT AND INTACT,ON G-TUBE FEEDING GLUCERNA 1.2 60CC/HR CHECKED PLACEMENT IN PLACE,CHECKED RESIDUAL NO RESIDUAL NOTED,DUFF CATH IN PLACE URINE DRIANING YELLOW AND CLEAR BY GRAVITY,SAFETY MEASURE IMPLEMENT BED IN LOW POSITION AND LOCKED,BILATERAL WRIST SOFT RESTRAIN IN PLACE WILL CHECK EVERY 15 MINS FOR SKIN BREAKDOWN AND CIRCUALTION,HEAD OF THE BED ELEVATED ALL THE TIME,CONTINUE TO MONITOR.
[2022-07-24] MEDS: SENNOSIDES 8.6 MG TABLET GT SCH ×2 (08:59→16:58)
[2022-07-24] MEDS: ACIDOPHILUS/BULGARICUS 1 EACH TAB.CHEW GT SCH (08:59)
[2022-07-24] MEDS: CALCIUM CARB 250MG /VITAMIN D 1 UDTAB GT SCH (08:59)
[2022-07-24] MEDS: CHLORHEXIDINE GLUCONATE 15 ML UDC MM SCH ×2 (08:59→21:27)
[2022-07-24] MEDS: DIVALPROEX SODIUM 125 MG CAP.SPRINK GT SCH ×2 (09:00→16:58)
[2022-07-24] MEDS: GLYCOPYRROLATE 1 MG TABLET PO SCH ×2 (09:00→21:27)
[2022-07-24] MEDS: APIXABAN 5 MG TABLET GT SCH ×2 (09:00→21:00)
[2022-07-24] MEDS: MULTIVITAMINS,THERAGRAN 1 UDTAB TABLET GT SCH (09:00)
[2022-07-24] MEDS: PANTOPRAZOLE 40 MG/PACK PACK GT SCH (09:00)
--- NOTE | 2022-07-24 09:00 | NUR ---
RN NOTE DR PIERCE CALLED PLAN FOR TRACHESOTOMY, TOMORROW AFTERNOON HE ORDERED DANIELLE MAXWELL NOTED AND CARRIED OUT.
[2022-07-24] MEDS: CHOLECALCIFEROL 1,000 UNIT TABLET (VIT D3) GT SCH (09:02)
[2022-07-24] MEDS: PROSOURCE / PROSTAT (PYXIS) 30 ML UDC GT SCH ×2 (09:03→17:00)
[2022-07-24] MEDS: THERAHONEY GEL 1.5 OZ TUBE TP SCH (09:03)
[2022-07-24] MEDS: GLUCERNA 1.2 1,000 ML BOTTLE NG PRN (10:27)
[2022-07-24] MEDS: DOCUSATE SODIUM LIQ 100 MG/10 ML UDC GT SCH (17:01)
[2022-07-24] MEDS: THIAMINE HCL 100 MG TABLET GT SCH (17:03)
[2022-07-24] MEDS: ASPIRIN 81 MG TAB.CHEW GT SCH (17:48)
--- NOTE | 2022-07-24 18:00 | NUR ---
RN NOTE HOLD ASPIRIN AT 1800 FOR TOMORROW SURGERY,CONTINUE TO MONITOR.
--- NOTE | 2022-07-24 18:28 | NUR ---
RN NOTE PATIENT REMAINS ON NONVERBAL ORALLY INTUBATED ON MECHANICAL VENT PRESCIBED,NO SOB NOT ACUTE DISTRESS NOTED,ON GT FEEDING GLUCERNA 1.2 60CC/HR ALL DUE MEDS GIVEN MD ORDERED KEPT CLEAN AND DRY ALL THE TIME,REPOSITIONED EVERY 2 HOURS,SOFT BILATERAL RESTRAIN IN PLACE,CHECKED EVERY 15 MINS FOR SKIN BREAKDOWN AND CIRCULATION,FAMILY AT BEDSIDE,HELD ASPIRIN AND ELIQUIS FOR TOMORROW SURGERY,ALL NEEDS MET,KEPT HEAD OF THE ELEVATED ALL THE TIME,WILL ENDORSE NEXT COMING SHIFT FOR CONTINUATION OF CARE.
--- NOTE | 2022-07-24 20:12 | NUR ---
RECEIVED PT INTUBATED 7.5 ETT SECURED AT 23 CM. NO RESP DISTRESS. PT TOLERATING VENT SETTINGS. SX'D SMALL AMT OF THICK WHITE SECRETIONS. VENT ALARMS SET AND AUDIBLE. AMBU BAG AT BEDSIDE. CONTINUE TO MONITOR. Addendum: 07/24/22 at 2014 by NILSON TREVINO RT Amended: Links added.
--- NOTE | 2022-07-24 21:21 | NUR ---
RN NOTE ATTEMPTED TO REACH KENNY TO OBTAIN VERBAL CONSENT VIA TELEPHONE FOR SERIAL SACRAL SDEBRIDMENT. NO ANSWER, MAIL BOX FULL.
[2022-07-24] MEDS: ATORVASTATIN 40 MG TABLET GT SCH (21:27)
[2022-07-24] MEDS: INSULIN GLARGINE, 100 UNIT/ML CARTRIDGE SQ SCH (22:00)
--- NOTE | 2022-07-24 23:00 | NUR ---
RN NOTE INFORMED ERIBERTO HVAC JOURNEYMAN THAT PATIENT IS TO GET TRACH PLACMENT TOMORROW AND LANTUS 2O UNITS ORDERED. RECEIVED ORDER TO HOLD LANTUS TONIGHT AND CONTINUE REGULAR SLIDING SCALE.
[2022-07-25] VITALS (24 sets, daily range): BP systolic 92–161; BP diastolic 48–82
[2022-07-25] MEDS: IPRATROPIUM NEB FS 0.5 MG/2.5 ML AMPUL.NEB NEB SCH ×4 (01:08→19:52)
[2022-07-25] MEDS: ALBUTEROL FS 2.5 MG/3 ML VIAL.NEB NEB SCH ×4 (01:08→19:52)
--- NOTE | 2022-07-25 02:00 | NUR ---
RN NOTE OBTAINED VERBAL CONSENT VIA TELEPHONE FROM KATHIE RIVER FOR SERIAL DEBRIDMENT OF SACRUM. SECOND BY GISELE LUZ RN. CONSENT PLACED IN CHART.
[2022-07-25] MEDS: IV NS 0.9% 250 ML IV PRN (02:25)
[2022-07-25 05:03] LABS: BASOPHILS % (AUTO) 0.1 % (0.0-2.0); HEMATOCRIT 32 % (33-45); HEMOGLOBIN 10.5 g/dL (11.5-14.8); LYMPHOCYTES # (AUTO) 0.4 K/uL (0.8-4.8); LYMPHOCYTES % (AUTO) 5.3 % (20.0-44.0); MEAN CORPUSCULAR HGB CONC 33 g/dl (31.0-36.0); MEAN CORPUSCULAR VOLUME 97 fL (82-100); MONOCYTES # (AUTO) 0.3 K/uL (0.1-1.30); NEUTROPHILS # (AUTO) 7.7 K/uL (1.8-8.9); NEUTROPHILS % (AUTO) 91.6 % (43.0-81.0); PLATELET COUNT (AUTO) 353 K/uL (150-450); RED BLOOD CELL COUNT(AUTO) 3.27 MIL/uL (4.0-5.2); WHITE BLOOD COUNT (AUTO) 8.4 K/uL (4.3-11.0)
[2022-07-25] MEDS: HYDROCORTISONE SOD SUCCINATE 100 MG/2 ML VIAL IV SCH ×3 (05:05→21:27)
[2022-07-25] MEDS: CEFEPIME 2 GM in IV D5W 100 ML IV SCH (05:05)
[2022-07-25] MEDS: FLUDROCORTISONE 0.1 MG TABLET GT SCH ×3 (05:05→17:19)
[2022-07-25 05:17] LABS: CALCIUM, SERUM 7.5 mg/dL (8.5-10.1); CARBON DIOXIDE 31 mmol/L (21-32); CHLORIDE 103 mmol/L (98-107); CREATININE 0.6 mg/dL (0.6-1.3); GLUCOSE 244 mg/dL (74-106); POTASSIUM 4.4 mmol/L (3.5-5.1); SODIUM SERUM 136 mmol/L (136-145); UREA NITROGEN, BLOOD 34 mg/dL (7-18)
[2022-07-25] MEDS: BLOOD SUGAR DIAGNOSTIC 1 EACH STRIP IN SCH ×3 (06:17→17:55)
[2022-07-25] MEDS: INSULIN REGULAR, HUMAN 100 UNIT/ML 3 ML VIAL SQ PRN ×2 (06:20→11:24)
--- NOTE | 2022-07-25 06:38 | NUR ---
RN CLOSING NOTE PATIENT IN BED. OPENS EYES. NONVERBAL. ON [facility] VENT. 7/23CM, AC 16 TV 400 FIO2 40%, PEEP 0. NO S/S PAIN NOTED. SINUS RHYTHM WITH OCCASIONAL PVC AND BBB ON THE MONITOR. OBTAINED CONSENT FOR SERIAL DEBRIDMENT OF SACRUM. URINE COLLECTED AND SENT TO LAB .DUFF CATHETER DRAININGTTO GRAVITY, BM X1. BILAERAL SOFT WRIST RESTRAINTS IN PLACE, NO REDDNESS, GOOD CAP REFILL.. PENDING POSSIBLE TRACH PLACEMENT TODAY. ELIQUIS AND LANTUS WAS HELD LAST NIGHT. FEEDING STOPPED AT [place].
[2022-07-25 06:59] LABS: BILIRUBIN,URINE NEGATIVE (NEGATIVE); COLOR,URINE YELLOW (YELLOW); LEUKOCYTE ESTERASE ,URINE TRACE (NEGATIVE); NITRITE, URINE NEGATIVE (NEGATIVE); PH,URINE 6.5 (5.0-8.0); PROTEIN,URINE 30 mg/dl (NEGATIVE); UGLUCOSE NEGATIVE (NEGATIVE); UROBILINOGEN,URINE 0.2 EU/dL (0.2)
--- NOTE | 2022-07-25 07:22 | NUR ---
RN OPENING NOTE PATIENT IN BED. OPENS EYES. NONVERBAL. [facility] NO S/S PAIN NOTED. SINUS RHYTHM WITH OCCASIONAL PVC AND BBB ON THE MONITOR. PT NPO FOR TRACH PLACEMENT. HOLDING ELIQUIS. DUFF CATHETER DRAINING TO GRAVITY. BILAERAL SOFT WRIST RESTRAINTS IN PLACE, NO REDDNESS, GOOD CAP REFILL. ALL SAFETY MEASURES IN PLACE, FALL PRECAUTIONS IN PLACE. WILL CONT TO MONITOR PT THROUGHOUT SHIFT.
[2022-07-25 07:35] LABS: BACTERIA,URINE Rare /HPF (None Seen); SQUAMOUS EPITHELIAL CELL,UR Few /HPF (None Seen); YEAST,URINE Few /HPF (None Seen)
--- NOTE | 2022-07-25 07:51 | NUR ---
CONFIRMED WITH DR RENAE, PT TO HAVE SCHEDULED TRACH PLACEMENT. PT CURRENTLY NPO.
[2022-07-25] MEDS: DIVALPROEX SODIUM 125 MG CAP.SPRINK GT SCH ×2 (08:15→16:00)
[2022-07-25] MEDS: CALCIUM CARB 250MG /VITAMIN D 1 UDTAB GT SCH (08:16)
[2022-07-25] MEDS: ACIDOPHILUS/BULGARICUS 1 EACH TAB.CHEW GT SCH (08:16)
[2022-07-25] MEDS: PROSOURCE / PROSTAT (PYXIS) 30 ML UDC GT SCH ×2 (08:16→16:00)
[2022-07-25] MEDS: APIXABAN 5 MG TABLET GT SCH ×2 (08:16→20:44)
[2022-07-25] MEDS: PANTOPRAZOLE 40 MG/PACK PACK GT SCH (08:18)
[2022-07-25] MEDS: MULTIVITAMINS,THERAGRAN 1 UDTAB TABLET GT SCH (08:18)
[2022-07-25] MEDS: SENNOSIDES 8.6 MG TABLET GT SCH ×2 (08:18→16:00)
[2022-07-25] MEDS: CHOLECALCIFEROL 1,000 UNIT TABLET (VIT D3) GT SCH (08:19)
[2022-07-25] MEDS: GLYCOPYRROLATE 1 MG TABLET PO SCH ×2 (08:19→21:00)
[2022-07-25] MEDS: THERAHONEY GEL 1.5 OZ TUBE TP SCH (08:20)
[2022-07-25] MEDS: CHLORHEXIDINE GLUCONATE 15 ML UDC MM SCH ×2 (08:20→21:52)
--- NOTE | 2022-07-25 11:23 | NUR ---
BLOOD SUGAR LEVEL 205, HOLDING INSULIN DUE TO NPO SURGERY STATUS.
[2022-07-25] MEDS: THIAMINE HCL 100 MG TABLET GT SCH (17:19)
[2022-07-25] MEDS: ASPIRIN 81 MG TAB.CHEW GT SCH (17:19)
[2022-07-25] MEDS: DOCUSATE SODIUM LIQ 100 MG/10 ML UDC GT SCH (17:19)
--- NOTE | 2022-07-25 18:40 | NUR ---
RN CLOSING NOTE PATIENT IN BED. OPENS EYES. NONVERBAL. ON ORDERED MECH VENT SETTINGS. NO S/S PAIN NOTED. SINUS RHYTHM WITH OCCASIONAL PVC AND BBB ON THE MONITOR. IV ACCESS NOTED ON GIGI MIDLINE AND LEFT WRIST. TKO RUNNING. PT STILL NPO FOR TRACH PLACEMENT. HOLDING ELIQUIS AND INSULIN. LATEST BLOOD SUGAR 205. DUFF CATHETER DRAINING TO GRAVITY. BILAERAL SOFT WRIST RESTRAINTS IN PLACE, NO REDDNESS, GOOD CAP REFILL. ALL SAFETY MEASURES IN PLACE, FALL PRECAUTIONS IN PLACE. WILL ENDORSE TO SOLAR HOT WATER INSTALLER RN FOR TIEN.
--- NOTE | 2022-07-25 20:45 | NUR ---
ICU/RN LONG TERM CARE PT IS NPO FOR TRACH PLACEMENT AT BEDSIDE, ELIQUIS IS HELD UNTIL PLACEMENT OF TRACH.
[2022-07-25] MEDS: ATORVASTATIN 40 MG TABLET GT SCH (21:52)
--- NOTE | 2022-07-25 21:54 | NUR ---
ICU/BARREL BANDER 2200 MEDICATION WAS HELD DUE TO PT BEING NPO. PT IS TO HAVE BEDSIDE TRACH PLACEMENT.
[2022-07-25] MEDS: INSULIN GLARGINE, 100 UNIT/ML CARTRIDGE SQ SCH (22:00)
[2022-07-26] VITALS (31 sets, daily range): BP systolic 85–168; BP diastolic 47–108
[2022-07-26] MEDS: BLOOD SUGAR DIAGNOSTIC 1 EACH STRIP IN SCH ×4 (00:29→18:07)
[2022-07-26] MEDS: ALBUTEROL FS 2.5 MG/3 ML VIAL.NEB NEB SCH ×4 (01:27→19:34)
[2022-07-26] MEDS: IPRATROPIUM NEB FS 0.5 MG/2.5 ML AMPUL.NEB NEB SCH ×4 (01:28→19:34)
[2022-07-26] MEDS: IV NS 0.9% 250 ML IV PRN (04:11)
[2022-07-26 04:16] LABS: BASOPHILS % (AUTO) 0.1 % (0.0-2.0); HEMATOCRIT 32 % (33-45); HEMOGLOBIN 10.8 g/dL (11.5-14.8); LYMPHOCYTES # (AUTO) 0.5 K/uL (0.8-4.8); LYMPHOCYTES % (AUTO) 8.9 % (20.0-44.0); MEAN CORPUSCULAR HGB CONC 34 g/dl (31.0-36.0); MEAN CORPUSCULAR VOLUME 97 fL (82-100); MONOCYTES # (AUTO) 0.2 K/uL (0.1-1.30); MONOCYTES % (AUTO) 4.3 % (2.0-12.0); NEUTROPHILS % (AUTO) 86.7 % (43.0-81.0); PLATELET COUNT (AUTO) 296 K/uL (150-450); RED BLOOD CELL COUNT(AUTO) 3.31 MIL/uL (4.0-5.2); WHITE BLOOD COUNT (AUTO) 5.8 K/uL (4.3-11.0)
[2022-07-26] MEDS: HYDROCORTISONE SOD SUCCINATE 100 MG/2 ML VIAL IV SCH ×3 (04:36→20:42)
[2022-07-26 04:59] LABS: CALCIUM, SERUM 7.7 mg/dL (8.5-10.1); CARBON DIOXIDE 30 mmol/L (21-32); CHLORIDE 104 mmol/L (98-107); CREATININE 0.6 mg/dL (0.6-1.3); GLUCOSE 211 mg/dL (74-106); MAGNESIUM 2.2 mg/dL (1.8-2.4); PHOSPHORUS 2.6 mg/dL (2.5-4.9); POTASSIUM 3.8 mmol/L (3.5-5.1); SODIUM SERUM 137 mmol/L (136-145); UREA NITROGEN, BLOOD 29 mg/dL (7-18)
--- NOTE | 2022-07-26 05:15 | NUR ---
ICU/RADIOLOGICAL HEALTH SPECIALIST PT REMAINS NPO FOR BEDSIDE PROCEDURE TRACH. NO MEDS HAVE BEEN GIVEN DUE TO THIS
[2022-07-26] MEDS: FLUDROCORTISONE 0.1 MG TABLET GT SCH ×4 (05:16→17:29)
--- NOTE | 2022-07-26 07:30 | NUR ---
RN NOTES PT FOUND SEMI FOWLERS DISPLAYING NO S/S OF DISTRESS, FLACC = 0 AND BILATERAL RISE AND FALL OF THE CHEST OBSERVED. TF ON HOLD. R UA ML IS PATIENT AND INTACT. DUFF CATH RESERVOIR BELOW PATIENT DRAINING BY GRAVITY. RN WILL CONTINUE CARE PLAN AND ANTICIPATE NEEDS. SAFETY MEASURES IN PLACE, BED LOCKED AND IN LOWEST POSITION, SIDE RAILS UPX2, CALL LIGHT WITHIN REACH, BED ALARM ARMED.
[2022-07-26] MEDS: ACIDOPHILUS/BULGARICUS 1 EACH TAB.CHEW GT SCH (09:00)
[2022-07-26] MEDS: MULTIVITAMINS,THERAGRAN 1 UDTAB TABLET GT SCH (09:00)
[2022-07-26] MEDS: CHOLECALCIFEROL 1,000 UNIT TABLET (VIT D3) GT SCH (09:00)
[2022-07-26] MEDS: APIXABAN 5 MG TABLET GT SCH ×2 (09:00→21:17)
[2022-07-26] MEDS: GLYCOPYRROLATE 1 MG TABLET PO SCH ×2 (09:00→21:16)
[2022-07-26] MEDS: PANTOPRAZOLE 40 MG/PACK PACK GT SCH (09:00)
[2022-07-26] MEDS: DIVALPROEX SODIUM 125 MG CAP.SPRINK GT SCH ×2 (09:00→17:29)
[2022-07-26] MEDS: PROSOURCE / PROSTAT (PYXIS) 30 ML UDC GT SCH ×2 (09:00→17:25)
[2022-07-26] MEDS: SENNOSIDES 8.6 MG TABLET GT SCH ×2 (09:00→17:29)
[2022-07-26] MEDS: CALCIUM CARB 250MG /VITAMIN D 1 UDTAB GT SCH (09:00)
[2022-07-26] MEDS: CHLORHEXIDINE GLUCONATE 15 ML UDC MM SCH ×2 (09:32→21:15)
[2022-07-26] MEDS: THERAHONEY GEL 1.5 OZ TUBE TP SCH (09:32)
[2022-07-26] MEDS ORDERED: MIDAZOLAM HCL 5 MG/5ML VIAL IV ONE ×2 (11:30)
[2022-07-26] MEDS ORDERED: ROCURONIUM BROMIDE 50 MG/5 ML IV ONE ×2 (11:30→14:29)
[2022-07-26] MEDS ORDERED: LIDOCAINE HCL/PF 2 % 5ML SDV 5 ML VIAL IV ONE (12:00)
--- NOTE | 2022-07-26 12:12 | NUR ---
RT NOTE Tracheostomy done by Sudeep Roman. ET tube switched to shiley 6 cuffed . Pt is currently stable showing no signs of s.o.b will continue to monitor for any changes.
[2022-07-26] MEDS: GLUCERNA 1.2 1,000 ML BOTTLE NG PRN (12:51)
[2022-07-26] MEDS: INSULIN REGULAR, HUMAN 100 UNIT/ML 3 ML VIAL SQ PRN ×2 (12:53→18:10)
[2022-07-26] MEDS ORDERED: PROPOFOL 200 MG/20 ML VIAL IV ONE (14:29)
[2022-07-26] MEDS: THIAMINE HCL 100 MG TABLET GT SCH (17:29)
[2022-07-26] MEDS: DOCUSATE SODIUM LIQ 100 MG/10 ML UDC GT SCH (17:29)
[2022-07-26] MEDS: ASPIRIN 81 MG TAB.CHEW GT SCH (17:29)
--- NOTE | 2022-07-26 19:10 | NUR ---
RN NOTES PT FOUND SEMI FOWLERS DISPLAYING NO S/S OF DISTRESS, FLACC = 0 AND BILATERAL RISE AND FALL OF THE CHEST OBSERVED. TF ON RESUMED. R UA ML IS PATIENT AND INTACT. DUFF CATH RESERVOIR BELOW PATIENT DRAINING BY GRAVITY. CARE TAKEN OF NEW TRACHEOSTOMY. SBAR AND REPORT GIVEN TO CHANGE MANAGEMENT MANAGER, ALL QUESTIONS ANSWERED. SAFETY MEASURES IN PLACE, BED LOCKED AND IN LOWEST POSITION, SIDE RAILS UPX2, CALL LIGHT WITHIN REACH, BED ALARM ARMED. PT ENDORSED IN STABLE CONDITION FOR TIEN.
[2022-07-26] MEDS: ATORVASTATIN 40 MG TABLET GT SCH (21:15)
[2022-07-26] MEDS: INSULIN GLARGINE, 100 UNIT/ML CARTRIDGE SQ SCH (21:27)
[2022-07-27] VITALS (24 sets, daily range): BP systolic 87–132; BP diastolic 41–82
[2022-07-27] MEDS: BLOOD SUGAR DIAGNOSTIC 1 EACH STRIP IN SCH ×5 (00:31→23:29)
[2022-07-27] MEDS: FLUDROCORTISONE 0.1 MG TABLET GT SCH ×5 (00:31→23:28)
[2022-07-27] MEDS: INSULIN REGULAR, HUMAN 100 UNIT/ML 3 ML VIAL SQ PRN ×5 (00:33→23:51)
[2022-07-27] MEDS: ALBUTEROL FS 2.5 MG/3 ML VIAL.NEB NEB SCH ×4 (01:21→19:36)
[2022-07-27] MEDS: IPRATROPIUM NEB FS 0.5 MG/2.5 ML AMPUL.NEB NEB SCH ×4 (01:21→19:36)
[2022-07-27 04:27] LABS: HEMATOCRIT 32 % (33-45); LYMPHOCYTES # (AUTO) 0.4 K/uL (0.8-4.8); LYMPHOCYTES % (AUTO) 4.1 % (20.0-44.0); MEAN CORPUSCULAR HGB CONC 34 g/dl (31.0-36.0); MEAN CORPUSCULAR VOLUME 97 fL (82-100); MONOCYTES # (AUTO) 0.4 K/uL (0.1-1.30); MONOCYTES % (AUTO) 3.8 % (2.0-12.0); NEUTROPHILS # (AUTO) 9.2 K/uL (1.8-8.9); NEUTROPHILS % (AUTO) 92.1 % (43.0-81.0); PLATELET COUNT (AUTO) 268 K/uL (150-450); RED BLOOD CELL COUNT(AUTO) 3.34 MIL/uL (4.0-5.2)
[2022-07-27 04:36] LABS: CARBON DIOXIDE 31 mmol/L (21-32); CHLORIDE 104 mmol/L (98-107); CREATININE 0.6 mg/dL (0.6-1.3); GLUCOSE 205 mg/dL (74-106); POTASSIUM 3.4 mmol/L (3.5-5.1); SODIUM SERUM 140 mmol/L (136-145); UREA NITROGEN, BLOOD 32 mg/dL (7-18)
[2022-07-27] MEDS: HYDROCORTISONE SOD SUCCINATE 100 MG/2 ML VIAL IV SCH (04:50)
--- NOTE | 2022-07-27 07:00 | NUR ---
RN NOTE RECEIVED PT ON BED, NONVERBAL. DOES NOT FOLLOW COMMAND , EYES ARE OPEN , VENT /TRACH DEPENDENT , TOLERATING VENT SETTING WELL, NO DISTESS NOTED, ON TELE SB WITH OCCASIONAL PVC AND BBB ON THE MONITOR. TF AT 60CC/HR RUNNING , NO RESIDUAL NOTED, DUFF CATHETER DRAINING TO GRAVITY. ALL SAFETY MEASURES IN PLACE, FALL PRECAUTIONS IN PLACE. WILL CONT TO MONITOR PT CLOSELY ,
[2022-07-27] MEDS: PANTOPRAZOLE 40 MG/PACK PACK GT SCH (08:19)
[2022-07-27] MEDS: CHOLECALCIFEROL 1,000 UNIT TABLET (VIT D3) GT SCH (08:19)
[2022-07-27] MEDS: ACIDOPHILUS/BULGARICUS 1 EACH TAB.CHEW GT SCH (08:20)
[2022-07-27] MEDS: MULTIVITAMINS,THERAGRAN 1 UDTAB TABLET GT SCH (08:20)
[2022-07-27] MEDS: SENNOSIDES 8.6 MG TABLET GT SCH ×2 (08:20→17:55)
[2022-07-27] MEDS: CALCIUM CARB 250MG /VITAMIN D 1 UDTAB GT SCH (08:20)
[2022-07-27] MEDS: GLYCOPYRROLATE 1 MG TABLET PO SCH ×2 (08:20→21:19)
[2022-07-27] MEDS: APIXABAN 5 MG TABLET GT SCH ×2 (08:20→21:17)
[2022-07-27] MEDS: DIVALPROEX SODIUM 125 MG CAP.SPRINK GT SCH ×2 (08:20→17:55)
[2022-07-27] MEDS: CHLORHEXIDINE GLUCONATE 15 ML UDC MM SCH ×2 (08:21→21:15)
[2022-07-27] MEDS: THERAHONEY GEL 1.5 OZ TUBE TP SCH (08:21)
[2022-07-27] MEDS: POTASSIUM CL. PREMIX PERIPHER. 50 ML IV SCH ×4 (08:22→11:53)
[2022-07-27] MEDS: PROSOURCE / PROSTAT (PYXIS) 30 ML UDC GT SCH ×2 (08:22→17:00)
--- NOTE | 2022-07-27 10:00 | NUR ---
RN NOTES PT ON CPAP , O2 SAT WNL, TOLERATING WELL, CONTINUE TO MONITOR .
[2022-07-27] MEDS ORDERED: GLUCERNA 1.2 1,000 ML BOTTLE NG PRN (12:08)
--- NOTE | 2022-07-27 14:30 | NUR ---
RN NOTES PT TRANSFERRED TO ROOM 107, TELE STATUS VIA ACLS PROTOCAL IN STABLE CONDITION, REPORT GIVEN TO ANAI CABRALES FOR CONTINUITY OF CARE .
[2022-07-27] MEDS ORDERED: HYDROCORTISONE SOD SUCCINATE 100 MG/2 ML VIAL IV SCH (17:00)
[2022-07-27] MEDS: ASPIRIN 81 MG TAB.CHEW GT SCH (17:55)
[2022-07-27] MEDS: DOCUSATE SODIUM LIQ 100 MG/10 ML UDC GT SCH (17:55)
[2022-07-27] MEDS: THIAMINE HCL 100 MG TABLET GT SCH (17:55)
--- NOTE | 2022-07-27 19:27 | NUR ---
RN NOTE PT RECEIVED FROM ICU FOR TIEN, IN STABLE CONDITION. TRACH IN PLACE, IN COOL AEROSOL 10L FIO2 40. NOT IN DISTRESS. GIGI MIDLINE IN PLACE AND PATENT. GT FEEDING TOLERATED WELL. DUE MEDS GIVEN. SAFETY MEASURES MAINTAINED.
[2022-07-27] MEDS: IV NS 0.9% 250 ML IV PRN (20:37)
[2022-07-27] MEDS: ATORVASTATIN 40 MG TABLET GT SCH (21:19)
[2022-07-27] MEDS: INSULIN GLARGINE, 100 UNIT/ML CARTRIDGE SQ SCH (21:22)
--- NOTE | 2022-07-27 21:52 | NUR ---
pt returned to vent per md phone order Addendum: 07/27/22 at 2152 by MARICARMEN LOWERY Amended: Links added.
[2022-07-28] VITALS: BP 112/62
--- NOTE | 2022-07-28 | NUR ---
RECEIVED PT ON BED, NONVERBAL, OPENS EYES. DOES NOT FOLLOW COMMAND, TRACH DEPENDENT , TOLERATING VENT SETTING WELL, NO DISTESS NOTED, ON TELE SR BBB WITH OCCASIONAL PVC AND BBB ON THE MONITOR. GIGI ML ON SL, PATENT AND FLUSHING WELL. TF AT 60ML/HR, NO RESIDUAL NOTED, DUFF CATHETER DRAINING TO GRAVITY. AFETY PRECAUTIONS IN PLACE: BED IN LOWEST, LOCKED POSITION, SIDERAILS UPx2, AND BRAKES ON. BED ALARM ON, TABLE AND CALL LIGHT WITHIN REACH, WILL CONTINUE PLAN OF CARE.
[2022-07-28] MEDS: ALBUTEROL FS 2.5 MG/3 ML VIAL.NEB NEB SCH ×3 (01:08→13:52)
[2022-07-28] MEDS: IPRATROPIUM NEB FS 0.5 MG/2.5 ML AMPUL.NEB NEB SCH ×3 (01:08→13:52)
[2022-07-28 04:00] VITALS: BP 100/58
[2022-07-28] MEDS: BLOOD SUGAR DIAGNOSTIC 1 EACH STRIP IN SCH ×2 (05:09→13:09)
[2022-07-28] MEDS: INSULIN REGULAR, HUMAN 100 UNIT/ML 3 ML VIAL SQ PRN (05:11)
[2022-07-28] MEDS: FLUDROCORTISONE 0.1 MG TABLET GT SCH (06:09)
[2022-07-28 06:21] LABS: CALCIUM, SERUM 7.8 mg/dL (8.5-10.1); CARBON DIOXIDE 29 mmol/L (21-32); CHLORIDE 106 mmol/L (98-107); CREATININE 0.5 mg/dL (0.6-1.3); GLUCOSE 167 mg/dL (74-106); POTASSIUM 3.5 mmol/L (3.5-5.1); SODIUM SERUM 139 mmol/L (136-145); UREA NITROGEN, BLOOD 29 mg/dL (7-18)
[2022-07-28 06:33] LABS: EOSINOPHILS % (AUTO) 0.1 % (0.0-6.0); HEMATOCRIT 31 % (33-45); HEMOGLOBIN 10.2 g/dL (11.5-14.8); LYMPHOCYTES # (AUTO) 0.8 K/uL (0.8-4.8); LYMPHOCYTES % (AUTO) 11.5 % (20.0-44.0); MEAN CORPUSCULAR HGB CONC 34 g/dl (31.0-36.0); MEAN CORPUSCULAR VOLUME 98 fL (82-100); MONOCYTES # (AUTO) 0.6 K/uL (0.1-1.30); MONOCYTES % (AUTO) 8.2 % (2.0-12.0); NEUTROPHILS # (AUTO) 5.8 K/uL (1.8-8.9); NEUTROPHILS % (AUTO) 80.2 % (43.0-81.0); PLATELET COUNT (AUTO) 243 K/uL (150-450); RED BLOOD CELL COUNT(AUTO) 3.13 MIL/uL (4.0-5.2); WHITE BLOOD COUNT (AUTO) 7.3 K/uL (4.3-11.0)
--- NOTE | 2022-07-28 06:38 | NUR ---
PT ON BED, NONVERBAL, OPENS EYES. DOES NOT FOLLOW COMMAND, TRACH DEPENDENT , TOLERATING VENT SETTING WELL, NO DISTESS NOTED, ON TELE SR BBB WITH OCCASIONAL PVC AND BBB ON THE MONITOR. GIGI ML ON SL, PATENT AND FLUSHING WELL. TF AT 60ML/HR, NO RESIDUAL NOTED, DUFF CATHETER DRAINING TO GRAVITY. SAFETY PRECAUTIONS IN PLACE: BED IN LOWEST, LOCKED POSITION, SIDERAILS UPx2, AND BRAKES ON. BED ALARM ON, TABLE AND CALL LIGHT WITHIN REACH, WILL ENDORSE TO NEXT NURSE ON DUTY FOR CONTINUITY OF CARE.
--- NOTE | 2022-07-28 07:42 | NUR ---
PT RECEIVED IN BED, NOT IN DISTRESS. TRACH IN PLACE, ON NOCTURNAL CPAP. NOT IN DISTRESS. GIGI MIDLINE IN PLACE AND PATENT. GT FEEDING TOLERATED WELL. SAFETY MEASURES MAINTAINED.
[2022-07-28 08:00] VITALS: BP 102/64
[2022-07-28] MEDS: SENNOSIDES 8.6 MG TABLET GT SCH (08:03)
[2022-07-28] MEDS: PANTOPRAZOLE 40 MG/PACK PACK GT SCH (08:03)
[2022-07-28] MEDS: CHOLECALCIFEROL 1,000 UNIT TABLET (VIT D3) GT SCH (08:03)
[2022-07-28] MEDS: GLYCOPYRROLATE 1 MG TABLET PO SCH (08:03)
[2022-07-28] MEDS: CHLORHEXIDINE GLUCONATE 15 ML UDC MM SCH (08:03)
[2022-07-28] MEDS: ACIDOPHILUS/BULGARICUS 1 EACH TAB.CHEW GT SCH (08:03)
[2022-07-28] MEDS: PROSOURCE / PROSTAT (PYXIS) 30 ML UDC GT SCH (08:04)
[2022-07-28] MEDS: CALCIUM CARB 250MG /VITAMIN D 1 UDTAB GT SCH (08:04)
[2022-07-28] MEDS: MULTIVITAMINS,THERAGRAN 1 UDTAB TABLET GT SCH (08:04)
[2022-07-28] MEDS: DIVALPROEX SODIUM 125 MG CAP.SPRINK GT SCH (08:04)
[2022-07-28] MEDS: APIXABAN 5 MG TABLET GT SCH (08:06)
[2022-07-28] MEDS ORDERED: FLUC150T PO (08:43)
[2022-07-28] MEDS ORDERED: METH4TAB3 PO (08:48)
--- NOTE | 2022-07-28 10:22 | NUR ---
RT PER PATEL PATIENT PLACED ON COOL AERO VIA T-PIECE OMER WELL. 5L 28%
[2022-07-28 12:00] VITALS: BP 102/64
[2022-07-28] MEDS: THERAHONEY GEL 1.5 OZ TUBE TP SCH (13:09)
--- NOTE | 2022-07-28 14:45 | NUR ---
RN NOTE POKE WITH SAMRA EDMONDS [facility] FOR REPORT AND TIEN.
--- NOTE | 2022-07-28 16:27 | NUR ---
RN NOTE PT P/U BY EMT PERSONNEL. D/C TO SNF. PT IN GOOD CONDITION, V/S STABLE, PT NOT IN DISTRESS. IV ACCESS D/C.
== END 2022-07-28 15:58 | DRG 4 ==
LOC: ER 16:55 → ICU 21:29 → TELE1 07-27 14:22
PROVIDERS: ADMIT Nurse Practitioner Acute Care; ATTEND Internal Medicine
PROC: 0BH18EZ Insertion of Endotracheal Airway into Trachea, Via Natural or Artificial Opening Endoscopic (ICD-10-PCS; principal; 2022-07-16)
PROC: 5A1955Z Respiratory Ventilation, Greater than 96 Consecutive Hours (ICD-10-PCS; 2022-07-16)
PROC: 05HB33Z Insertion of Infusion Device into Right Basilic Vein, Percutaneous Approach (ICD-10-PCS; 2022-07-18)
PROC: 0JB70ZZ Excision of Back Subcutaneous Tissue and Fascia, Open Approach (ICD-10-PCS; 2022-07-25)
PROC: 0B113F4 Bypass Trachea to Cutaneous with Tracheostomy Device, Percutaneous Approach (ICD-10-PCS; 2022-07-26)
PROC: 0BJ08ZZ Inspection of Tracheobronchial Tree, Via Natural or Artificial Opening Endoscopic (ICD-10-PCS; 2022-07-26)
DX: A41.9 Sepsis, unspecified organism (principal); L89.153 Pressure ulcer of sacral region, stage 3; J96.01 Acute respiratory failure with hypoxia; J96.02 Acute respiratory failure with hypercapnia; J69.0 Pneumonitis due to inhalation of food and vomit; I21.A1 Myocardial infarction type 2; R53.2 Functional quadriplegia; E43 Unspecified severe protein-calorie malnutrition; R57.1 Hypovolemic shock; G92.8 Other toxic encephalopathy; R65.21 Severe sepsis with septic shock; D68.59 Other primary thrombophilia; E44.0 Moderate protein-calorie malnutrition; E22.2 Syndrome of inappropriate secretion of antidiuretic hormone; I50.40 Unspecified combined systolic (congestive) and diastolic (congestive) heart failure; E27.40 Unspecified adrenocortical insufficiency; E87.2 Acidosis; J98.11 Atelectasis; J90 Pleural effusion, not elsewhere classified; B37.49 Other urogenital candidiasis; Z20.822 Contact with and (suspected) exposure to COVID-19; I11.0 Hypertensive heart disease with heart failure; F03.90 Unspecified dementia, unspecified severity, without behavioral disturbance, psychotic disturbance, mood disturbance, and anxiety; Z93.1 Gastrostomy status; Z86.718 Personal history of other venous thrombosis and embolism; Z86.73 Personal history of transient ischemic attack (TIA), and cerebral infarction without residual deficits; R13.10 Dysphagia, unspecified; Z87.01 Personal history of pneumonia (recurrent); Z88.2 Allergy status to sulfonamides; Z79.4 Long term (current) use of insulin; Z79.82 Long term (current) use of aspirin; Z79.01 Long term (current) use of anticoagulants; Z79.899 Other long term (current) drug therapy; Y95 Nosocomial condition; E86.1 Hypovolemia; E11.51 Type 2 diabetes mellitus with diabetic peripheral angiopathy without gangrene; E11.649 Type 2 diabetes mellitus with hypoglycemia without coma; E88.09 Other disorders of plasma-protein metabolism, not elsewhere classified; Z86.711 Personal history of pulmonary embolism; Z86.19 Personal history of other infectious and parasitic diseases; E86.9 Volume depletion, unspecified; M89.9 Disorder of bone, unspecified; D63.8 Anemia in other chronic diseases classified elsewhere; E87.6 Hypokalemia; Z74.09 Other reduced mobility
CPT/HCPCS: 31720; 36410; 36415; 36600; 71045-TC; 80048-TC; 80061-TC; 80076-TC; 80202-TC; 81001; 82247-TC; 82248-TC; 82533; 82728-TC; 82803-TC; 82962-TC; 83540-TC; 83605-TC; 83735-TC; 84100-TC; 84439-TC; 84443-TC; 84484-TC; 85025-TC; 85730-TC; 87040-TC; 87070-TC; 87081-TC; 87086-TC; 93307-TC; 94002-TC; 94003-TC; 94640-TC; 94664-TC; 94760-TC; 94762-TC; 94799-TC; C9113; C9803; G0378; J0330; J0692; J1720; J1815; J2060; J2185; J2250; J2270; J2543; J2704; J3370; J3480; J3490; J7030; J7050; J7060; J7070; J7120

== ENCOUNTER 2023-03-15 22:47 | Emergency (ER) | payer MEDICARE, BC, OTHER ==
[~2023-03-15] VITALS: Ht 162.6 cm; Wt 81.6 kg
[~2023-03-15 22:47] MED LIST changes: -ASCO-352 PO; +CALC1TAB30 GT; -CEFE1FRO IV; -Calcium Carb 600MG /Vit D PO; +DIVA125C5 GT; -DIVA250T4 GT; +FLUC150T PO; +GLYC2TAB21 PO; +INSU100I26 SQ; -INSU100V7 SQ; +METH4TAB3 PO; -NA P133E RC; +PANT40TA49 GT; -VANC1PLA9 IV; -VANC1VIA34 XX; -ZINC1CAP3 PO
--- NOTE | 2023-03-15 23:00 | NUR ---
PT CAME W TRACHE ON 2LPM O2. AAOX0, WITHDRAWS TO PAINFUL STIMULI.
--- NOTE | 2023-03-15 23:00 | NUR ---
[facility] R/T BIMALLEOLAR FX OF LT ANKLE PER MD. PLACED COMFORTABLY IN BED, VITALS CHECKED.
--- NOTE | 2023-03-15 23:15 | NUR ---
EMT AT BEDSIDE FOR SPLINT APPLICATION
--- NOTE | 2023-03-16 00:45 | NUR ---
Gregg campa in [facility] - 03/16/23 at 0058 by [facility] CALLED, ETA 30MIN
--- NOTE | 2023-03-16 00:49 | NUR ---
PT WILL BE TRANSFERRED VIA [facility] IN APPROXIMATELY 90 MINUTES PER NATASHA
--- NOTE | 2023-03-16 00:50 | NUR ---
CALLED ROBBIE/CISCO CERTIFIED NETWORK PROFESSIONAL AT [facility] FOR REPORT. PT TO BE DISCHARGED BACK TO THEIR FACILITY. TRANSPORT CALLED.
[2023-03-16 02:55] VITALS: BP 118/71
--- NOTE | 2023-03-16 03:05 | NUR ---
PT BEING PICKED UP BY [facility] AND BROUGHT BACK TO FACILITY
== END 2023-03-16 03:06 ==
LOC: ER 22:49
DX: S82.842A Displaced bimalleolar fracture of left lower leg, initial encounter for closed fracture (principal); F03.90 Unspecified dementia, unspecified severity, without behavioral disturbance, psychotic disturbance, mood disturbance, and anxiety; E11.9 Type 2 diabetes mellitus without complications; Z79.899 Other long term (current) drug therapy; Z79.82 Long term (current) use of aspirin; Z79.4 Long term (current) use of insulin; Z88.2 Allergy status to sulfonamides; X58.XXXA Exposure to other specified factors, initial encounter; Y93.89 Activity, other specified; Y92.89 Other specified places as the place of occurrence of the external cause; Y99.8 Other external cause status

== ENCOUNTER 2023-04-01 16:04 | Emergency (ER) | payer MEDICARE, BC, OTHER ==
[~2023-04-01] VITALS: Ht 152.4 cm; Wt 64.0 kg
--- NOTE | 2023-04-01 16:09 | NUR ---
BIB [facility] FOR ABNORMAL XRAY RESULT POSSIBLE OBSTRUCTION. PT ATTACHED TO MONITOR, VITALS ARE WITHIN NORMAL LIMITS. DR MCCRARY AT BEDSIDE, AWAITING MD ORDERS.
--- NOTE | 2023-04-01 16:20 | NUR ---
IV ESTABLISHED L FA 20G. LABS DRAWN AND COLLECTED AT BEDSIDE
[2023-04-01] MEDS ORDERED: IV NS 0.9% 1,000 ML BAG IV ONE (16:30)
[2023-04-01 16:45] LABS: BASOPHILS % (AUTO) 0.5 % (0.0-2.0); EOSINOPHILS % (AUTO) 1.5 % (0.0-6.0); HEMATOCRIT 39 % (33-45); HEMOGLOBIN 12.9 g/dL (11.5-14.8); LYMPHOCYTES % (AUTO) 13.7 % (20.0-44.0); MEAN CORPUSCULAR HGB CONC 33 g/dl (31.0-36.0); MEAN CORPUSCULAR VOLUME 97 fL (82-100); MONOCYTES # (AUTO) 0.4 K/uL (0.1-1.30); MONOCYTES % (AUTO) 5.2 % (2.0-12.0); NEUTROPHILS # (AUTO) 5.8 K/uL (1.8-8.9); NEUTROPHILS % (AUTO) 79.1 % (43.0-81.0); PLATELET COUNT (AUTO) 387 K/uL (150-450); RED BLOOD CELL COUNT(AUTO) 4.03 MIL/uL (4.0-5.2); WHITE BLOOD COUNT (AUTO) 7.4 K/uL (4.3-11.0)
[2023-04-01 17:15] VITALS: BP 135/92
[2023-04-01 17:15] LABS: ALANINE AMINOTRANSFERASE 26 U/L (12-78); ALBUMIN 2.7 g/dL (3.4-5.0); ALKALINE PHOSPHATASE 247 U/L (46-116); ASPARTATE AMINOTRANSFERASE 43 U/L (15-37); BILIRUBIN,DIRECT 0.3 mg/dL (0.0-0.2); BILIRUBIN,TOTAL 1.3 mg/dL (0.2-1.0); CALCIUM, SERUM 9.5 mg/dL (8.5-10.1); CARBON DIOXIDE 30 mmol/L (21-32); CHLORIDE 98 mmol/L (98-107); CREATININE 0.6 mg/dL (0.6-1.3); GLUCOSE 160 mg/dL (74-106); LIPASE 33 U/L (73-393); POTASSIUM 4.4 mmol/L (3.5-5.1); SODIUM SERUM 135 mmol/L (136-145); TOTAL PROTEIN, SERUM 6.7 g/dL (6.4-8.2); UREA NITROGEN, BLOOD 24 mg/dL (7-18)
--- NOTE | 2023-04-01 17:19 | NUR ---
COVID TEST COLLECTED AND SENT
[2023-04-01] MEDS ORDERED: IOHEXOL-300 100 ML VIAL IV ONE (19:11)
--- NOTE | 2023-04-01 19:40 | NUR ---
SENT TO CT
--- NOTE | 2023-04-01 20:22 | NUR ---
[facility] ETA: 15-20 MIN
--- NOTE | 2023-04-01 20:43 | NUR ---
REPORT GIVEN TO KARLIE
--- NOTE | 2023-04-01 20:43 | NUR ---
[facility] HERE, REPORT GIVEN. PT LEFT IN STABLE CONDITION
== END 2023-04-01 20:46 | disposition home or self-care (01) ==
LOC: ER 16:06
DX: K42.9 Umbilical hernia without obstruction or gangrene (principal); F03.90 Unspecified dementia, unspecified severity, without behavioral disturbance, psychotic disturbance, mood disturbance, and anxiety; E11.9 Type 2 diabetes mellitus without complications; Z88.2 Allergy status to sulfonamides; Z79.4 Long term (current) use of insulin; Z79.899 Other long term (current) drug therapy; Z20.822 Contact with and (suspected) exposure to COVID-19
CPT/HCPCS: 99285; 74177; 96360; 87426; 85025; 80048; 83605 ×2; 83690; 80076; 36415; 85730; J7030; Q9967; C9803